=== PATIENT | male | born 1950 ===

== ENCOUNTER 2017-01-14 16:57 | Inpatient (IN) | payer OTHER, BC ==
[2017-01-08 11:31] VITALS: BMI 35.2
[2017-01-14] MEDS ORDERED: Dextrose 50% SYRINGE Inj (50 ml) IVP PRN (18:22)
[2017-01-14] MEDS ORDERED: Glucagon Recombinant 1 mg Inj IM PRN (18:25)
[2017-01-14] MEDS: Insulin Lispro (humaLOG) 100 Units/ml Inj SC SCH (21:26)
[2017-01-14] MEDS: Insulin Detemir 100 Units/ml Inj SC SCH (21:27)
[2017-01-14] MEDS: MYCOPHENOLATE SODIUM PO SCH (21:28)
[2017-01-14] MEDS: Omega-3-Acid Ethyl Esters 1 GM Cap PO SCH (21:28)
[2017-01-14] MEDS: Oxycodone/Acetaminophen 5/325 mg Tab PO PRN (21:30)
[2017-01-15] MEDS: Ciprofloxacin 400mg/200ml D5W 200 ML IVPB SCH ×2 (05:28→16:10)
[2017-01-15] MEDS: Levothyroxine 75 MCG TAB PO SCH ×2 (05:31→10:46)
[2017-01-15] MEDS: Insulin Lispro (humaLOG) 100 Units/ml Inj SC SCH ×3 (06:33→16:43)
--- NOTE | 2017-01-15 07:25 | CP.PCM.HP ---
History of Present Illness - History of Present Illness History of Present Illness: Pt was initially admitted for lower extremity ulcer as inpatient, during inpatient stay he was started on IV antibiotics and podiatry team took him to OR for debridement and fixation. Pt remained stable throughout inpatient stay and is now discharge to rehab to regain strength and complete antibiotics. Pt seen this morning while at the gym in the rehab center. does not have any complaints. states everything is going well Present on Admission - Present on Admission Any Indicators Present on Admission: Yes History of Uncontrolled Diabetes: Yes Review of Systems - Review of Systems All systems: reviewed and no additional remarkable complaints except Review of Systems: Per HPI Past Patient History - Infectious Disease Hx of Infectious Diseases: None - Past Medical History & Family History Past Medical History?: Yes - Past Social History Smoking Status: Former Smoker - CARDIAC Hx Cardiac Disorders: No Hx Angina: No Hx Atrial Fibrillation: No (New Onset of Atrial fib) Hx Cardia Arrhythmia: Yes (ATRIAL FIB) Hx Circulatory Problems: No Hx Congestive Heart Failure: No Hx Heart Attack: Yes Hx Heart Murmur: No Hx Heart Transplant: No Hx Hypercholesterolemia: Yes Hx Hypertension: Yes Hx Hypotension: No Hx Internal Defibrillator: No Hx Mitral Valve Prolapse: No Hx Pacemaker: Yes Hx Peripheral Edema: No Hx Peripheral Vascular Disease: No - PULMONARY Hx Respiratory Disorders: No Hx Asthma: No Hx Bronchitis: No Hx Chronic Obstructive Pulmonary Disease (COPD): No Hx Emphysema: No Hx Lung Cancer: No Hx Pneumonia: Yes Hx Pulmonary Embolism: No Hx Respiratory Aspiration: No Hx Respiratory Tract Infection: No Hx Sleep Apnea: Yes Hx Tuberculosis: No - NEUROLOGICAL Hx Neurological Disorder: Yes Hx Alzheimer's Disease: No HX Cerebrovascular Accident: Yes (March) Hx Dementia: No Hx Dizziness: No (New onset of dizziness and syncope) Hx Meningitis: No Hx Migraine: No Hx Multiple Sclerosis: No Hx Paralysis: No Hx Parkinson's Disease: No Hx Seizures: No Hx Syncope: No Hx Transient Ischemic Attacks (TIA): No Hx Vertigo: No - HEENT Hx HEENT Problems: Yes Hx Blind: No Hx Cataracts: Yes (BILAT.) Hx Deafness: No Hx Difficulty Chewing: No Hx Epistaxis: No Hx Glaucoma: No Hx Macular Degeneration: No - RENAL Hx Chronic Kidney Disease: Yes Hx Dialysis: Yes (2013) Date of Last Dialysis Treatment: 02/08/14 Hx Kidney Stones: No Hx Neurogenic Bladder: No Hx Pyelonephritis: No Hx Renal (Kidney) Cancer: No Hx Renal Failure: Yes - ENDOCRINE/METABOLIC Hx Endocrine Disorders: No Hx Adrenal Cancer: No Hx Diabetes Insipidus: No Hx Diabetes Mellitus Type 1: No Hx Diabetes Mellitus Type 2: Yes Hx Hyperthyroidism: No Hx Hypothyroidism: Yes Hx Systemic Lupus Erythematosus: No - HEMATOLOGICAL/ONCOLOGICAL Hx Blood Disorders: No Hx AIDS: No Hx Anemia: No Hx Blood Transfusions: No Hx Blood Transfusion Reaction: No Hx Bruising: No Hx Cancer: No Hx Chemotherapy: No Hx Cirrhosis: No Hx Gum Bleeding: No Hx Hemophilia: No Hx Hepatitis A: No Hx Hepatitis B: No Hx Hepatitis C: No Hx Human Immunodeficiency Virus (HIV): No Hx Leukemia: No Hx Metastesis: No Hx Shingles: No Hx Sickle Cell Disease: No Hx Unexplained Bleeding: No Hx von Willebrand's Disease: No - INTEGUMENTARY Hx Dermatological Problems: No Hx Basil Cell: No Hx Blanchard: No Hx Cellulitis: No Hx Eczema: No Hx Melanoma: No Hx Psoriasis: No Hx Squamous Cell: No - MUSCULOSKELETAL/RHEUMATOLOGICAL Hx Musculoskeletal Disorders: No Hx Arthritis: Yes (HIP AREA ) Hx Back Pain: No Hx Degenerative Joint Disease: No Hx Falls: No Hx Fractures: Yes (finger hand 60 years ago left) Hx Gout: No Hx Herniated Disk: No Hx Myasthenia Gravis: No Hx Osteoarthritis: No Hx Osteomyelitis: No Hx Osteoporosis: No Hx Rhabdomyolysis: No Hx Rheumatoid Arthritis: No Hx Spinal Stenosis: No Hx Unsteady Gait: Yes - GASTROINTESTINAL Hx Gastrointestinal Disorders: Yes Hx Bowel Surgery: No Hx Clostridium Difficile: No Hx Colitis: No Hx Colostomy: No Hx Constipation: Yes Hx Crohn's Disease: No Hx Diarrhea: No Hx Diverticulitis: No Hx Esophageal Varices: No Hx Fatty Liver Disease: No Hx Gall Bladder Disease: No Hx Gastritis: No Hx Gastroesophageal Reflux: No Hx Hemorrhoids: No Hx Ileostomy: No Hx Irritable Bowel: No Hx Liver Failure: No Hx Nausea: No Hx Pancreatitis: No HX Swallowing Problems: No Hx Ulcer: No Hx Vomiting: No - GENITOURINARY/GYNECOLOGICAL Hx Genitourinary Disorders: Yes (bladder tumor removed, initial positive) Hx Bladder Cancer: Yes (followup negative) Hx Bladder Stone: No Hx Hematuria: Yes Hx Incontinence: No Hx Prostate Problems: No Hx Reproductive Disorders: No Hx Sexually Transmitted Disorders: No Hx Urinary Tract Infection: No Other/Comment: History of renal failure and right kidney transplant. - PSYCHIATRIC Hx Psychophysiologic Disorder: No Hx Anxiety: No Hx Bipolar Disorder: No Hx Depression: No Hx Emotional Abuse: No Hx Hallucinations: No Hx Panic Symptoms: No Hx Paranoia: No Hx Post Traumatic Stress Disorder: No Hx Psychosis: No Hx Physical Abuse: No Hx Schizophrenia: No Hx Sexual Abuse: No Hx Substance Use: No - SURGICAL HISTORY Hx Surgeries: Yes Hx Abdominal Aortic Aneurysm Repair: No Hx Amputation: No Hx Angiogram: No Hx Angioplasty: No Hx Appendectomy: No Hx Arteriovenous Shunt: No Hx Arthroscopy: No Hx Bile Duct Stent: No Hx Breast Biopsy: No Hx Cataract Extraction: Yes Hx Cardiac Catheterization: No Hx Carotid Endarterectomy: No Hx Section: No Hx Cholecystectomy: No Hx Coronary Artery Bypass Graft: No Hx Coronary Stent: No Hx Dilation and Curettage: No Hx Eye Surgery: Yes Hx Femoral-Popliteal Bypass Graft: No Hx Gastric Bypass Surgery: No Hx Herniorrhaphy: No Hx Hysterectomy: No Hx Joint Replacement: No Hx Kidney Transplant: Yes (R kidney transplant) Hx Liver Transplant: No Hx Mastectomy: No Hx Musculoskeletal Surgery: No Hx Open Heart Surgery: No Hx Open Reduction Internal Fixation: No Hx Orthopedic Surgery: No Hx Parathyroidectomy: No Hx Penile Implant: No Hx Pulmonary Surgery: No Hx Splenectomy: No Hx Thyroidectomy: No Hx Tonsillectomy: No Hx Tubal Ligation: No Hx Valve Replacement: No Hx Vascular Surgery: No Hx Vascular Access Device: No Other/Comment: 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 absent: Rhonchi, Wheezes - Cardiovascular Exam Cardiovascular Exam: REGULAR RHYTHM, +S1, +S2 - GI/Abdominal Exam GI & Abdominal Exam: Normal Bowel Sounds, Soft. absent: Tenderness - Extremities Exam Extremities exam: Negative for: calf tenderness Additional comments: Right lower extremity in surgical shoe, neatly wrapped. no discharge. - Neurological Exam Neurological exam: Alert, CN II-XII Intact, Oriented x3 - Skin Skin Exam: Normal Color Results - Vital Signs Recent Vital Signs: Last Vital Signs Temp 98.8 F 01/14/17 20:15 Pulse 78 01/14/17 21:25 Resp 20 01/14/17 20:15 BP 138/72 01/14/17 21:25 Pulse Ox 96 01/14/17 20:15 - Labs Labs: Laboratory Results - last 24 hr 01/14/17 01/15/17 20:40 05:08 POC Glucose (mg/dL) 300 H 177 H Assessment & Plan - Assessment and Plan (Free Text) Assessment: 66 y/o male with pmhx of Arthritis (HIP AREA ), Cardia Arrhythmia (ATRIAL FIB), Diabetes (insulin), HTN, Hypercholesterolemia, Hypothyroidism, Chronic Kidney Disease admitted for right diabetic foot ulceration s/p surgical debridement . now in TCU for IV antibiotics and physical therapy Plan: Right foot Ulcer complete IV antibiotics per ID Continue with rehab 2. Insulin Dependent Diabetes SSI Accucheck 3. Home medication restarted 4. Diet- Diabetic heart healthy 5. DVT prophylaxis Already on Xarelto SCDs
[2017-01-15] MEDS: Oxycodone/Acetaminophen 5/325 mg Tab PO PRN ×2 (08:21→16:17)
[2017-01-15] MEDS: Omega-3-Acid Ethyl Esters 1 GM Cap PO SCH ×2 (08:23→16:12)
[2017-01-15] MEDS: MYCOPHENOLATE SODIUM PO SCH ×2 (08:25→16:10)
[2017-01-15] MEDS: Insulin Detemir 100 Units/ml Inj SC SCH (21:26)
[2017-01-16] MEDS: Insulin Lispro (humaLOG) 100 Units/ml Inj SC SCH ×5 (01:20→22:11)
[2017-01-16] MEDS: Ciprofloxacin 400mg/200ml D5W 200 ML IVPB SCH ×2 (05:46→16:06)
[2017-01-16] MEDS: Levothyroxine 75 MCG TAB PO SCH (06:00)
[2017-01-16] MEDS: Oxycodone/Acetaminophen 5/325 mg Tab PO PRN ×2 (06:01→15:20)
[2017-01-16] MEDS: Omega-3-Acid Ethyl Esters 1 GM Cap PO SCH ×2 (08:32→17:31)
[2017-01-16] MEDS: MYCOPHENOLATE SODIUM PO SCH ×2 (08:32→17:31)
[2017-01-16 10:39] LABS: BASO % 0.5 % (0.0-2.0); EOS # 0.4 K/uL (0.0-0.7); EOS % 5.6 % (0.0-4.0); HEMATOCRIT 35.2 % (35.0-51.0); LYMPH # 0.7 K/uL (1.0-4.3); LYMPH % 9.3 % (20.0-40.0); MEAN CELL VOLUME 84.4 fl (80.0-94.0); MEAN CORPUSCULAR HEMOGLOBIN 26.7 pg (27.0-31.0); MEAN CORPUSCULAR HGB CONC 31.6 g/dL (33.0-37.0); MEAN PLATELET VOLUME 8.2 fl (7.2-11.7); MONO # 0.8 K/uL (0.0-0.8); NEUT # 5.6 K/uL (1.8-7.0); NEUT % 74.6 % (50.0-75.0); RED CELL DISTRIBUTION WIDTH 16.5 % (11.5-14.5); WHITE BLOOD COUNT 7.6 K/uL (4.8-10.8)
[2017-01-16 10:43] LABS: ALB/GLOB RATIO 1.4 (1.0-2.1); BILIRUBIN,TOTAL 1.4 mg/dl (0.2-1.3); CALCIUM 9.3 mg/dL (8.4-10.2); POTASSIUM 3.7 MMOL/L (3.6-5.0); TOTAL PROTEIN 6.8 G/DL (6.3-8.2)
[2017-01-16 11:12] LABS: THYROID STIMULATING HORMONE 3.06 mIU/ML (0.46-4.68)
--- NOTE | 2017-01-16 11:17 | CP.PCM.PN ---
Subjective - Date & Time of Evaluation Date of Evaluation: 01/16/17 Time of Evaluation: 09:30 - Subjective Subjective: Pt seen and examined while at the gym in rehab, states he feels fluid overloaded because he is not getting his normal water pill dose. other that rehab is going well and pain in controlled Objective - Vital Signs/Intake and Output Vital Signs (last 24 hours): Temp Pulse Resp BP Pulse Ox 97.0 F L 89 20 120/58 L 98 01/16/17 08:21 01/16/17 10:12 01/16/17 08:21 01/16/17 10:12 01/16/17 10:12 - Medications Medications: Current Medications Acetaminophen (Tylenol 325mg Tab) 650 mg PO Q4 PRN PRN Reason: Pain, Mild (1-3) Acetaminophen (Tylenol 325mg Tab) 650 mg PO Q6 PRN PRN Reason: Fever >100.4 F Allopurinol (Zyloprim) 100 mg PO DAILY [facility] Last Admin: 01/16/17 08:33 Dose: 100 mg Amlodipine Besylate (Norvasc) 5 mg PO DAILY [facility] Last Admin: 01/16/17 08:30 Dose: 5 mg Dextrose (Dextrose 50% Inj) 0 ml IVP STAT PRN; Protocol PRN Reason: Hypoglycemia Dextrose (Glutose 15) 15 gm PO ONCE PRN; Protocol PRN Reason: Hypoglycemia Docusate Sodium (Colace) 100 mg PO BID [facility] Famotidine (Pepcid) 20 mg PO DAILY [facility] Last Admin: 01/16/17 08:30 Dose: 20 mg Furosemide (Lasix) 20 mg PO QPM SHRUTI Furosemide (Lasix) 40 mg PO QAM [facility] Glucagon (Glucagen Diagnostic Kit) 0 mg IM STAT PRN; Protocol PRN Reason: Hypoglycemia Home Med (Mycophenolate Sodium [Myfortic]) 4 tab PO BID [facility] Last Admin: 01/16/17 08:32 Dose: 4 tab Hydralazine HCl (Apresoline) 50 mg PO Q8 [facility] Last Admin: 01/16/17 08:28 Dose: 50 mg Ciprofloxacin (Cipro 400mg/200ml Dsw) 200 mls @ 200 mls/hr IVPB Q12@0500,1700 [facility] Last Admin: 01/16/17 05:46 Dose: 200 mls/hr Daptomycin 580 mg/ Sodium (Chloride) 100 mls @ 100 mls/hr IVPB DAILY@1700 [facility] Stop: 01/19/17 21:01 Last Admin: 01/15/17 20:10 Dose: 100 mls/hr Insulin Detemir (Levemir) 50 units SC [facility] Last Admin: 01/15/17 21:26 Dose: 50 units Insulin Human Lispro (Humalog) 0 units SC [facility] PRN Reason: Protocol Last Admin: 01/16/17 07:14 Dose: Not Given Levothyroxine Sodium (Synthroid) 75 mcg PO DAILY@0630 [facility] Last Admin: 01/16/17 06:00 Dose: 75 mcg Losartan Potassium (Cozaar) 25 mg PO DAILY [facility] Last Admin: 01/16/17 08:31 Dose: 25 mg Sioth-3-Llcj Ethyl Esters (Lovaza) 1 gm PO BID [facility] Last Admin: 01/16/17 08:32 Dose: 1 gm Oxycodone/Acetaminophen (Percocet 5/325 Mg Tab) 1 tab PO Q4 PRN PRN Reason: Pain, moderate (4-7) Stop: 01/17/17 18:46 Last Admin: 01/15/17 16:17 Dose: 1 tab Oxycodone/Acetaminophen (Percocet 5/325 Mg Tab) 2 tab PO Q4 PRN PRN Reason: Pain, severe (8-10) Stop: 01/17/17 18:47 Last Admin: 01/16/17 06:01 Dose: 2 tab Rivaroxaban (Xarelto) 20 mg PO QPM [facility] PRN Reason: Protocol Last Admin: 01/15/17 18:54 Dose: 20 mg Senna/Docusate Sodium (Senokot S 50 Mg-8.6 Mg) 2 tab PO [facility] Tamsulosin HCl (Flomax) 0.4 mg PO QPM [facility] Last Admin: 01/15/17 18:54 Dose: 0.4 mg - Labs Labs: 01/16/17 10:20 01/16/17 10:20 - Constitutional Appears: Non-toxic, No Acute Distress - Head Exam Head Exam: NORMOCEPHALIC - Eye Exam Eye Exam: EOMI, Normal appearance, PERRL Pupil Exam: NORMAL ACCOMODATION - ENT Exam ENT Exam: Mucous Membranes Moist - Respiratory Exam Respiratory Exam: Clear to Ausculation Bilateral, NORMAL BREATHING PATTERN. absent: Decreased Breath Sounds, Rhonchi, Wheezes - Cardiovascular Exam Cardiovascular Exam: REGULAR RHYTHM, +S1, +S2. absent: Gallop, Rubs - GI/Abdominal Exam GI & Abdominal Exam: Soft, Normal Bowel Sounds. absent: Tenderness - Extremities Exam Extremities Exam: absent: Calf Tenderness Additional comments: mild pedal edema surgical site neatly dressed, no signs of infection - Neurological Exam Neurological Exam: Alert, Awake, CN II-XII Intact, Oriented x3 Assessment and Plan - Assessment and Plan (Free Text) Assessment: 66 y/o male with pmhx of Arthritis (HIP AREA ), Cardia Arrhythmia (ATRIAL FIB), Diabetes (insulin), HTN, Hypercholesterolemia, Hypothyroidism, Chronic Kidney Disease admitted for right diabetic foot ulceration s/p surgical debridement . now in TCU for IV antibiotics and physical therapy Plan: Right foot Ulcer complete IV antibiotics per ID Continue with rehab 2. Pt report being fluid overloaded lasix: 40mg in the AM Laxis 20mg in PM Fluid restriction to 1000 cc daily Will monitor kidney function 3. Insulin Dependent Diabetes SSI Accucheck 4. Home medication restarted 5. Diet- Diabetic heart healthy 6. DVT prophylaxis Already on Xarelto SCDs
--- NOTE | 2017-01-16 13:36 | CP.PCM.CON ---
History of Present Illness - History of Present Illness History of Present Illness: Pt was initially admitted for lower extremity ulcer as inpatient, during inpatient stay he was started on IV antibiotics and podiatry team took him to OR for debridement second digit amp right foot . Hx DM HTN PVD CAD CABG CKD Review of Systems - Constitutional Constitutional: As Per HPI - EENT Eyes: absent: As Per HPI, Blind Spots, Blurred Vision, Change in Vision, Decreased Night Vision, Diplopia, Discharge, Dry Eye, Exophthalmos, Floaters, Irritation, Itchy Eyes, Loss of Peripheral Vision, Pain, Photophobia, Requires Corrective Lenses, Sees Flashes, Spots in Vision, Tunnel Vision, Other Visual Disturbances, Loss of Vision, Other Ears: absent: As Per HPI, Decreased Hearing, Ear Discharge, Ear Pain, Tinnitus, Abnormal Hearing, Disequilibrium, Dizziness, Other Nose/Mouth/Throat: absent: As Per HPI, Epistaxis, Nasal Congestion, Nasal Discharge, Nasal Obstruction, Nasal Trauma, Nose Pain, Post Nasal Drip, Sinus Pain, Sinus Pressure, Bleeding Gums, Change in Voice, Dental Pain, Dry Mouth, Dysphagia, Halitosis, Hoarsness, Lip Swelling, Mouth Lesions, Mouth Pain, Odynophagia, Sore Throat, Throat Swelling, Tongue Swelling, Facial Pain, Neck Pain, Neck Mass, Other - Cardiovascular Cardiovascular: absent: As Per HPI, Acrocyanosis, Chest Pain, Chest Pain at Rest , Chest Pain with Activity, Claudication, Diaphoresis, Dyspnea, Dyspnea on Exertion, Edema, Irregular Heart Rhythm, Pain Radiating to Arm/Neck/Jaw, Leg Edema, Leg Ulcers, Lightheadedness, Orthopnea, Palpitations, Paroxysmal Nocturnal Dyspnea, Pedal Edema, Radiating Pain, Rapid Heart Rate, Slow Heart Rate, Syncope, Other - Respiratory Respiratory: absent: As Per HPI, Cough, Dyspnea, Hemoptysis, Dyspnea on Exertion , Wheezing, Snoring, Stridor, Pain on Inspiration, Chest Congestion, Excessive Mucous Production, Change in Mucous Color, Pain with Coughing, Other - Gastrointestinal Gastrointestinal: absent: As Per HPI, Abdominal Pain, Belching, Bloating, Change in Bowel Habits, Change in Stool Character, Coffee Ground Emesis, Constipation, Cramping, Diarrhea, Dyspepsia, Dysphagia, Early Satiety, Excessive Flatus, Fecal Incontinence, Heartburn, Hematemesis, Hematochezia, Loose Stools, Melena, Nausea, Odynophagia, Temesmus, Vomiting, Other - Genitourinary Genitourinary: absent: As Per HPI, Change in Urinary Stream, Difficulty Urinating, Dysuria, Flank Pain, Hematuria, Pyuria, Nocturia, Urinary Incontinence, Urinary Frequency, Urinary Hesitance, Urinary Urgency, Voiding Freq/Small Amts, Freq UTI, Hx Renal/Bladder Calculi, Hx /Renal Surgery, Bladder Distension, Other - Musculoskeletal Musculoskeletal: As Per HPI - Integumentary Integumentary: As Per HPI - Neurological Neurological: absent: As Per HPI, Abnormal Gait, Abnormal Hearing, Abnormal Movements, Abnormal Speech, Behavioral Changes, Burning Sensations, Confusion, Convulsions, Disequilibrium, Dizziness, Numbness, Focal Weakness, Frequent Falls , Headaches, Lack of Coordination, Loss of Vision, Memory Loss, Paresthesias, Radicular Pain, Restless Legs, Sensory Deficit, Syncope, Tingling, Tremor, Vertigo, Weakness, Other Visual Disturbances, Other - Psychiatric Psychiatric: absent: As Per HPI, Abnormal Sleep Pattern, Anhedonia, Anxiety, Auditory Hallucinations, Behavioral Changes, Change in Appetite, Change in Libido, Confusion, Depression, Difficulty Concentrating, Hallucinations, Homicidal Ideation, Hopelessness, Irritability, Memory Loss, Mood Swings, Panic Attacks, Paranoia, Suicidal Ideation, Visual Hallucinations, Tactile Hallucinations, Other - Endocrine Endocrine: absent: As Per HPI, Change in Body Appearance, Change in Libido, Cold Intolorance, Deepening of Voice, Excessive Sweating, Fatigue, Flushing, Heat Intolorance, Increase in Ring/Shoe/Hat Size, Palpitations, Polydipsia, Polyphagia, Polyuria, Other - Hematologic/Lymphatic Hematologic: absent: As Per HPI, Easy Bleeding, Easy Bruising, Lymphadenopathy, Other Past Patient History - Infectious Disease Hx of Infectious Diseases: None - Past Medical History & Family History Past Medical History?: Yes - Past Social History Smoking Status: Former Smoker - CARDIAC Hx Cardiac Disorders: No Hx Angina: No Hx Atrial Fibrillation: No (New Onset of Atrial fib) Hx Cardia Arrhythmia: Yes (ATRIAL FIB) Hx Circulatory Problems: No Hx Congestive Heart Failure: No Hx Heart Attack: Yes Hx Heart Murmur: No Hx Heart Transplant: No Hx Hypercholesterolemia: Yes Hx Hypertension: Yes Hx Hypotension: No Hx Internal Defibrillator: No Hx Mitral Valve Prolapse: No Hx Pacemaker: Yes Hx Peripheral Edema: No Hx Peripheral Vascular Disease: No - PULMONARY Hx Respiratory Disorders: No Hx Asthma: No Hx Bronchitis: No Hx Chronic Obstructive Pulmonary Disease (COPD): No Hx Emphysema: No Hx Lung Cancer: No Hx Pneumonia: Yes Hx Pulmonary Embolism: No Hx Respiratory Aspiration: No Hx Respiratory Tract Infection: No Hx Sleep Apnea: Yes Hx Tuberculosis: No - NEUROLOGICAL Hx Neurological Disorder: Yes Hx Alzheimer's Disease: No HX Cerebrovascular Accident: Yes (March) Hx Dementia: No Hx Dizziness: No (New onset of dizziness and syncope) Hx Meningitis: No Hx Migraine: No Hx Multiple Sclerosis: No Hx Paralysis: No Hx Parkinson's Disease: No Hx Seizures: No Hx Syncope: No Hx Transient Ischemic Attacks (TIA): No Hx Vertigo: No - HEENT Hx HEENT Problems: Yes Hx Blind: No Hx Cataracts: Yes (BILAT.) Hx Deafness: No Hx Difficulty Chewing: No Hx Epistaxis: No Hx Glaucoma: No Hx Macular Degeneration: No - RENAL Hx Chronic Kidney Disease: Yes Hx Dialysis: Yes (2013) Date of Last Dialysis Treatment: 02/08/14 Hx Kidney Stones: No Hx Neurogenic Bladder: No Hx Pyelonephritis: No Hx Renal (Kidney) Cancer: No Hx Renal Failure: Yes - ENDOCRINE/METABOLIC Hx Endocrine Disorders: No Hx Adrenal Cancer: No Hx Diabetes Insipidus: No Hx Diabetes Mellitus Type 1: No Hx Diabetes Mellitus Type 2: Yes Hx Hyperthyroidism: No Hx Hypothyroidism: Yes Hx Systemic Lupus Erythematosus: No - HEMATOLOGICAL/ONCOLOGICAL Hx Blood Disorders: No Hx AIDS: No Hx Anemia: No Hx Blood Transfusions: No Hx Blood Transfusion Reaction: No Hx Bruising: No Hx Cancer: No Hx Chemotherapy: No Hx Cirrhosis: No Hx Gum Bleeding: No Hx Hemophilia: No Hx Hepatitis A: No Hx Hepatitis B: No Hx Hepatitis C: No Hx Human Immunodeficiency Virus (HIV): No Hx Leukemia: No Hx Metastesis: No Hx Shingles: No Hx Sickle Cell Disease: No Hx Unexplained Bleeding: No Hx von Willebrand's Disease: No - INTEGUMENTARY Hx Dermatological Problems: No Hx Basil Cell: No Hx Blanchard: No Hx Cellulitis: No Hx Eczema: No Hx Melanoma: No Hx Psoriasis: No Hx Squamous Cell: No - MUSCULOSKELETAL/RHEUMATOLOGICAL Hx Musculoskeletal Disorders: No Hx Arthritis: Yes (HIP AREA ) Hx Back Pain: No Hx Degenerative Joint Disease: No Hx Falls: No Hx Fractures: Yes (finger hand 60 years ago left) Hx Gout: No Hx Herniated Disk: No Hx Myasthenia Gravis: No Hx Osteoarthritis: No Hx Osteomyelitis: No Hx Osteoporosis: No Hx Rhabdomyolysis: No Hx Rheumatoid Arthritis: No Hx Spinal Stenosis: No Hx Unsteady Gait: Yes - GASTROINTESTINAL Hx Gastrointestinal Disorders: Yes Hx Bowel Surgery: No Hx Clostridium Difficile: No Hx Colitis: No Hx Colostomy: No Hx Constipation: Yes Hx Crohn's Disease: No Hx Diarrhea: No Hx Diverticulitis: No Hx Esophageal Varices: No Hx Fatty Liver Disease: No Hx Gall Bladder Disease: No Hx Gastritis: No Hx Gastroesophageal Reflux: No Hx Hemorrhoids: No Hx Ileostomy: No Hx Irritable Bowel: No Hx Liver Failure: No Hx Nausea: No Hx Pancreatitis: No HX Swallowing Problems: No Hx Ulcer: No Hx Vomiting: No - GENITOURINARY/GYNECOLOGICAL Hx Genitourinary Disorders: Yes (bladder tumor removed, initial positive) Hx Bladder Cancer: Yes (followup negative) Hx Bladder Stone: No Hx Hematuria: Yes Hx Incontinence: No Hx Prostate Problems: No Hx Reproductive Disorders: No Hx Sexually Transmitted Disorders: No Hx Urinary Tract Infection: No Other/Comment: History of renal failure and right kidney transplant. - PSYCHIATRIC Hx Psychophysiologic Disorder: No Hx Anxiety: No Hx Bipolar Disorder: No Hx Depression: No Hx Emotional Abuse: No Hx Hallucinations: No Hx Panic Symptoms: No Hx Paranoia: No Hx Post Traumatic Stress Disorder: No Hx Psychosis: No Hx Physical Abuse: No Hx Schizophrenia: No Hx Sexual Abuse: No Hx Substance Use: No - SURGICAL HISTORY Hx Surgeries: Yes Hx Abdominal Aortic Aneurysm Repair: No Hx Amputation: No Hx Angiogram: No Hx Angioplasty: No Hx Appendectomy: No Hx Arteriovenous Shunt: No Hx Arthroscopy: No Hx Bile Duct Stent: No Hx Breast Biopsy: No Hx Cataract Extraction: Yes Hx Cardiac Catheterization: No Hx Carotid Endarterectomy: No Hx Section: No Hx Cholecystectomy: No Hx Coronary Artery Bypass Graft: No Hx Coronary Stent: No Hx Dilation and Curettage: No Hx Eye Surgery: Yes Hx Femoral-Popliteal Bypass Graft: No Hx Gastric Bypass Surgery: No Hx Herniorrhaphy: No Hx Hysterectomy: No Hx Joint Replacement: No Hx Kidney Transplant: Yes (R kidney transplant) Hx Liver Transplant: No Hx Mastectomy: No Hx Musculoskeletal Surgery: No Hx Open Heart Surgery: No Hx Open Reduction Internal Fixation: No Hx Orthopedic Surgery: No Hx Parathyroidectomy: No Hx Penile Implant: No Hx Pulmonary Surgery: No Hx Splenectomy: No Hx Thyroidectomy: No Hx Tonsillectomy: No Hx Tubal Ligation: No Hx Valve Replacement: No Hx Vascular Surgery: No Hx Vascular Access Device: No Other/Comment: left foot surgery amputation 5th digit - ANESTHESIA Hx Anesthesia: Yes Hx Anesthesia Reactions: No Hx Malignant Hyperthermia: No Meds Allergies/Adverse Reactions: Allergies Allergy/AdvReac Type Severity Reaction Status Date / Time Penicillins Allergy Intermediate RASH Verified 01/14/17 17:41 - Medications Medications: Current Medications Acetaminophen (Tylenol 325mg Tab) 650 mg PO Q4 PRN PRN Reason: Pain, Mild (1-3) Acetaminophen (Tylenol 325mg Tab) 650 mg PO Q6 PRN PRN Reason: Fever >100.4 F Allopurinol (Zyloprim) 100 mg PO DAILY [facility] Last Admin: 01/16/17 08:33 Dose: 100 mg Amlodipine Besylate (Norvasc) 5 mg PO DAILY [facility] Last Admin: 01/16/17 08:30 Dose: 5 mg Dextrose (Dextrose 50% Inj) 0 ml IVP STAT PRN; Protocol PRN Reason: Hypoglycemia Dextrose (Glutose 15) 15 gm PO ONCE PRN; Protocol PRN Reason: Hypoglycemia Docusate Sodium (Colace) 100 mg PO BID [facility] Famotidine (Pepcid) 20 mg PO DAILY [facility] Last Admin: 01/16/17 08:30 Dose: 20 mg Furosemide (Lasix) 20 mg PO QPM [facility] Furosemide (Lasix) 40 mg PO QAM [facility] Glucagon (Glucagen Diagnostic Kit) 0 mg IM STAT PRN; Protocol PRN Reason: Hypoglycemia Home Med (Mycophenolate Sodium [Myfortic]) 4 tab PO BID [facility] Last Admin: 01/16/17 08:32 Dose: 4 tab Hydralazine HCl (Apresoline) 50 mg PO Q8 [facility] Last Admin: 01/16/17 08:28 Dose: 50 mg Ciprofloxacin (Cipro 400mg/200ml Dsw) 200 mls @ 200 mls/hr IVPB Q12@0500,1700 [facility] Last Admin: 01/16/17 05:46 Dose: 200 mls/hr Daptomycin 580 mg/ Sodium (Chloride) 100 mls @ 100 mls/hr IVPB DAILY@1700 [facility] Stop: 01/19/17 21:01 Last Admin: 01/15/17 20:10 Dose: 100 mls/hr Insulin Detemir (Levemir) 50 units SC [facility] Last Admin: 01/15/17 21:26 Dose: 50 units Insulin Human Lispro (Humalog) 0 units SC [facility] PRN Reason: Protocol Last Admin: 01/16/17 07:14 Dose: Not Given Levothyroxine Sodium (Synthroid) 75 mcg PO DAILY@0630 [facility] Last Admin: 01/16/17 06:00 Dose: 75 mcg Losartan Potassium (Cozaar) 25 mg PO DAILY [facility] Last Admin: 01/16/17 08:31 Dose: 25 mg [id number] Ethyl Esters (Lovaza) 1 gm PO BID [facility] Last Admin: 01/16/17 08:32 Dose: 1 gm Oxycodone/Acetaminophen (Percocet 5/325 Mg Tab) 1 tab PO Q4 PRN PRN Reason: Pain, moderate (4-7) Stop: 01/17/17 18:46 Last Admin: 01/15/17 16:17 Dose: 1 tab Oxycodone/Acetaminophen (Percocet 5/325 Mg Tab) 2 tab PO Q4 PRN PRN Reason: Pain, severe (8-10) Stop: 01/17/17 18:47 Last Admin: 01/16/17 06:01 Dose: 2 tab Rivaroxaban (Xarelto) 20 mg PO QPM [facility] PRN Reason: Protocol Last Admin: 01/15/17 18:54 Dose: 20 mg Senna/Docusate Sodium (Senokot S 50 Mg-8.6 Mg) 2 tab PO [facility] Tamsulosin HCl (Flomax) 0.4 mg PO QPM [facility] Last Admin: 01/15/17 18:54 Dose: 0.4 mg Physical Exam - Constitutional Appears: Non-toxic, Chronically Ill - Head Exam Head Exam: NORMOCEPHALIC - Eye Exam Eye Exam: absent: PERRL, Scleral icterus - ENT Exam ENT Exam: Mucous Membranes Dry - Neck Exam Neck exam: Negative for: Lymphadenopathy - Respiratory Exam Respiratory Exam: Decreased Breath Sounds - Cardiovascular Exam Cardiovascular Exam: REGULAR RHYTHM, +S1, +S2 - GI/Abdominal Exam GI & Abdominal Exam: Diminished Bowel Sounds, Soft. absent: Tenderness - Rectal Exam Rectal Exam: Deferred - Exam Exam: NORMAL INSPECTION - Extremities Exam Extremities exam: Positive for: pedal edema, pedal pulses present. Negative for : calf tenderness - Back Exam Back exam: absent: CVA tenderness (L), CVA tenderness (R), paraspinal tenderness - Neurological Exam Neurological exam: Alert, CN II-XII Intact, Oriented x3, Reflexes Normal Results - Vital Signs Recent Vital Signs: Last Vital Signs Temp 97.0 F L 01/16/17 08:21 Pulse 89 01/16/17 10:12 Resp 20 01/16/17 08:21 BP 120/58 L 01/16/17 10:12 Pulse Ox 98 01/16/17 10:12 - Labs Result Diagrams: 01/16/17 10:20 01/16/17 10:20 Labs: Laboratory Results - last 24 hr 01/15/17 01/15/17 01/16/17 16:34 21:19 04:55 WBC RBC Hgb Hct MCV MCH MCHC RDW Plt Count MPV Neut % (Auto) Lymph % (Auto) [place] % (Auto) Eos % (Auto) Baso % (Auto) Neut # Lymph # [place] # Eos # Baso # Sodium Potassium Chloride Carbon Dioxide Anion Gap BUN Creatinine Est GFR ( Amer) Est GFR (Non-Af Amer) POC Glucose (mg/dL) 160 H 234 H 130 H Random Glucose Calcium Total Bilirubin AST ALT Alkaline Phosphatase Total Protein Albumin Globulin Albumin/Globulin Ratio Triglycerides Cholesterol LDL Cholesterol Direct HDL Cholesterol TSH 3rd Generation 01/16/17 01/16/17 10:20 10:54 WBC 7.6 RBC 4.17 L Hgb 11.1 L Hct 35.2 MCV 84.4 MCH 26.7 L MCHC 31.6 L RDW 16.5 H Plt Count 176 MPV 8.2 Neut % (Auto) 74.6 Lymph % (Auto) 9.3 L [place] % (Auto) 10.0 Eos % (Auto) 5.6 H Baso % (Auto) 0.5 Neut # 5.6 Lymph # 0.7 L [place] # 0.8 Eos # 0.4 Baso # 0.0 Sodium 141 Potassium 3.7 Chloride 100 Carbon Dioxide 26 Anion Gap 19 BUN 35 H Creatinine 2.0 H Est GFR ( Amer) 40 Est GFR (Non-Af Amer) 33 POC Glucose (mg/dL) 98 Random Glucose 95 Calcium 9.3 Total Bilirubin 1.4 H AST 40 ALT 45 Alkaline Phosphatase 139 H D Total Protein 6.8 Albumin 3.9 Globulin 2.8 Albumin/Globulin Ratio 1.4 Triglycerides 115 Cholesterol 112 LDL Cholesterol Direct 52 HDL Cholesterol 24 L TSH 3rd Generation 3.06 Assessment & Plan (1) Atrial fibrillation Status: Acute (2) Bifascicular block Status: Acute (3) CKD (chronic kidney disease) stage 3, GFR 30-59 ml/min Status: Acute (4) Diabetes Status: Acute (5) 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
--- NOTE | 2017-01-16 18:02 | CP.PCM.CON ---
History of Present Illness - History of Present Illness History of Present Illness: Dr Roberts PMR consultation on Nirmal Simpson, born 1950, who has been admitted to [facility] for ABX treatment following a right foot debridement for non-healing ulcer NWB right LE able to ambulate 50' with RW + constipation Review of Systems - Constitutional Constitutional: absent: Anorexia, Chills - EENT Eyes: absent: Blurred Vision Ears: absent: Ear Discharge - Cardiovascular Cardiovascular: absent: Chest Pain - Respiratory Respiratory: absent: Dyspnea - Gastrointestinal Gastrointestinal: Bloating, Constipation - Musculoskeletal Musculoskeletal: absent: Back Pain Past Patient History - Infectious Disease Hx of Infectious Diseases: None - Past Medical History & Family History Past Medical History?: Yes - Past Social History Smoking Status: Former Smoker Alcohol: None Drugs: Denies Home Situation {Lives}: With Family - CARDIAC Hx Cardiac Disorders: No Hx Angina: No Hx Atrial Fibrillation: No (New Onset of Atrial fib) Hx Cardia Arrhythmia: Yes (ATRIAL FIB) Hx Circulatory Problems: No Hx Congestive Heart Failure: No Hx Heart Attack: Yes Hx Heart Murmur: No Hx Heart Transplant: No Hx Hypercholesterolemia: Yes Hx Hypertension: Yes Hx Hypotension: No Hx Internal Defibrillator: No Hx Mitral Valve Prolapse: No Hx Pacemaker: Yes Hx Peripheral Edema: No Hx Peripheral Vascular Disease: No - PULMONARY Hx Respiratory Disorders: No Hx Asthma: No Hx Bronchitis: No Hx Chronic Obstructive Pulmonary Disease (COPD): No Hx Emphysema: No Hx Lung Cancer: No Hx Pneumonia: Yes Hx Pulmonary Embolism: No Hx Respiratory Aspiration: No Hx Respiratory Tract Infection: No Hx Sleep Apnea: Yes Hx Tuberculosis: No - NEUROLOGICAL Hx Neurological Disorder: Yes Hx Alzheimer's Disease: No HX Cerebrovascular Accident: Yes (March) Hx Dementia: No Hx Dizziness: No (New onset of dizziness and syncope) Hx Meningitis: No Hx Migraine: No Hx Multiple Sclerosis: No Hx Paralysis: No Hx Parkinson's Disease: No Hx Seizures: No Hx Syncope: No Hx Transient Ischemic Attacks (TIA): No Hx Vertigo: No - HEENT Hx HEENT Problems: Yes Hx Blind: No Hx Cataracts: Yes (BILAT.) Hx Deafness: No Hx Difficulty Chewing: No Hx Epistaxis: No Hx Glaucoma: No Hx Macular Degeneration: No - RENAL Hx Chronic Kidney Disease: Yes Hx Dialysis: Yes (2013) Date of Last Dialysis Treatment: 02/08/14 Hx Kidney Stones: No Hx Neurogenic Bladder: No Hx Pyelonephritis: No Hx Renal (Kidney) Cancer: No Hx Renal Failure: Yes - ENDOCRINE/METABOLIC Hx Endocrine Disorders: No Hx Adrenal Cancer: No Hx Diabetes Insipidus: No Hx Diabetes Mellitus Type 1: No Hx Diabetes Mellitus Type 2: Yes Hx Hyperthyroidism: No Hx Hypothyroidism: Yes Hx Systemic Lupus Erythematosus: No - HEMATOLOGICAL/ONCOLOGICAL Hx Blood Disorders: No Hx AIDS: No Hx Anemia: No Hx Blood Transfusions: No Hx Blood Transfusion Reaction: No Hx Bruising: No Hx Cancer: No Hx Chemotherapy: No Hx Cirrhosis: No Hx Gum Bleeding: No Hx Hemophilia: No Hx Hepatitis A: No Hx Hepatitis B: No Hx Hepatitis C: No Hx Human Immunodeficiency Virus (HIV): No Hx Leukemia: No Hx Metastesis: No Hx Shingles: No Hx Sickle Cell Disease: No Hx Unexplained Bleeding: No Hx von Willebrand's Disease: No - INTEGUMENTARY Hx Dermatological Problems: No Hx Basil Cell: No Hx Blanchard: No Hx Cellulitis: No Hx Eczema: No Hx Melanoma: No Hx Psoriasis: No Hx Squamous Cell: No - MUSCULOSKELETAL/RHEUMATOLOGICAL Hx Musculoskeletal Disorders: No Hx Arthritis: Yes (HIP AREA ) Hx Back Pain: No Hx Degenerative Joint Disease: No Hx Falls: No Hx Fractures: Yes (finger hand 60 years ago left) Hx Gout: No Hx Herniated Disk: No Hx Myasthenia Gravis: No Hx Osteoarthritis: No Hx Osteomyelitis: No Hx Osteoporosis: No Hx Rhabdomyolysis: No Hx Rheumatoid Arthritis: No Hx Spinal Stenosis: No Hx Unsteady Gait: Yes - GASTROINTESTINAL Hx Gastrointestinal Disorders: Yes Hx Bowel Surgery: No Hx Clostridium Difficile: No Hx Colitis: No Hx Colostomy: No Hx Constipation: Yes Hx Crohn's Disease: No Hx Diarrhea: No Hx Diverticulitis: No Hx Esophageal Varices: No Hx Fatty Liver Disease: No Hx Gall Bladder Disease: No Hx Gastritis: No Hx Gastroesophageal Reflux: No Hx Hemorrhoids: No Hx Ileostomy: No Hx Irritable Bowel: No Hx Liver Failure: No Hx Nausea: No Hx Pancreatitis: No HX Swallowing Problems: No Hx Ulcer: No Hx Vomiting: No - GENITOURINARY/GYNECOLOGICAL Hx Genitourinary Disorders: Yes (bladder tumor removed, initial positive) Hx Bladder Cancer: Yes (followup negative) Hx Bladder Stone: No Hx Hematuria: Yes Hx Incontinence: No Hx Prostate Problems: No Hx Reproductive Disorders: No Hx Sexually Transmitted Disorders: No Hx Urinary Tract Infection: No Other/Comment: History of renal failure and right kidney transplant. - PSYCHIATRIC Hx Psychophysiologic Disorder: No Hx Anxiety: No Hx Bipolar Disorder: No Hx Depression: No Hx Emotional Abuse: No Hx Hallucinations: No Hx Panic Symptoms: No Hx Paranoia: No Hx Post Traumatic Stress Disorder: No Hx Psychosis: No Hx Physical Abuse: No Hx Schizophrenia: No Hx Sexual Abuse: No Hx Substance Use: No - SURGICAL HISTORY Hx Surgeries: Yes Hx Abdominal Aortic Aneurysm Repair: No Hx Amputation: No Hx Angiogram: No Hx Angioplasty: No Hx Appendectomy: No Hx Arteriovenous Shunt: No Hx Arthroscopy: No Hx Bile Duct Stent: No Hx Breast Biopsy: No Hx Cataract Extraction: Yes Hx Cardiac Catheterization: No Hx Carotid Endarterectomy: No Hx Section: No Hx Cholecystectomy: No Hx Coronary Artery Bypass Graft: No Hx Coronary Stent: No Hx Dilation and Curettage: No Hx Eye Surgery: Yes Hx Femoral-Popliteal Bypass Graft: No Hx Gastric Bypass Surgery: No Hx Herniorrhaphy: No Hx Hysterectomy: No Hx Joint Replacement: No Hx Kidney Transplant: Yes (R kidney transplant) Hx Liver Transplant: No Hx Mastectomy: No Hx Musculoskeletal Surgery: No Hx Open Heart Surgery: No Hx Open Reduction Internal Fixation: No Hx Orthopedic Surgery: No Hx Parathyroidectomy: No Hx Penile Implant: No Hx Pulmonary Surgery: No Hx Splenectomy: No Hx Thyroidectomy: No Hx Tonsillectomy: No Hx Tubal Ligation: No Hx Valve Replacement: No Hx Vascular Surgery: No Hx Vascular Access Device: No Other/Comment: left foot surgery amputation 5th digit - ANESTHESIA Hx Anesthesia: Yes Hx Anesthesia Reactions: No Hx Malignant Hyperthermia: No Meds Allergies/Adverse Reactions: Allergies Allergy/AdvReac Type Severity Reaction Status Date / Time Penicillins Allergy Intermediate RASH Verified 01/14/17 17:41 - Medications Medications: Current Medications Acetaminophen (Tylenol 325mg Tab) 650 mg PO Q4 PRN PRN Reason: Pain, Mild (1-3) Acetaminophen (Tylenol 325mg Tab) 650 mg PO Q6 PRN PRN Reason: Fever >100.4 F Allopurinol (Zyloprim) 100 mg PO DAILY [facility] Last Admin: 01/16/17 08:33 Dose: 100 mg Amlodipine Besylate (Norvasc) 5 mg PO DAILY [facility] Last Admin: 01/16/17 08:30 Dose: 5 mg Dextrose (Dextrose 50% Inj) 0 ml IVP STAT PRN; Protocol PRN Reason: Hypoglycemia Dextrose (Glutose 15) 15 gm PO ONCE PRN; Protocol PRN Reason: Hypoglycemia Docusate Sodium (Colace) 100 mg PO BID [facility] Last Admin: 01/16/17 17:40 Dose: 100 mg Famotidine (Pepcid) 20 mg PO DAILY [facility] Last Admin: 01/16/17 08:30 Dose: 20 mg Furosemide (Lasix) 20 mg PO QPM [facility] Last Admin: 01/16/17 17:31 Dose: 20 mg Furosemide (Lasix) 40 mg PO QAM [facility] Glucagon (Glucagen Diagnostic Kit) 0 mg IM STAT PRN; Protocol PRN Reason: Hypoglycemia Home Med (Mycophenolate Sodium [Myfortic]) 4 tab PO BID [facility] Last Admin: 01/16/17 17:31 Dose: 4 tab Hydralazine HCl (Apresoline) 50 mg PO Q8 [facility] Last Admin: 01/16/17 17:28 Dose: 50 mg Ciprofloxacin (Cipro 400mg/200ml Dsw) 200 mls @ 200 mls/hr IVPB Q12@0500,1700 [facility] Last Admin: 01/16/17 16:06 Dose: 200 mls/hr Daptomycin 580 mg/ Sodium (Chloride) 100 mls @ 100 mls/hr IVPB DAILY@1700 [facility] Stop: 01/19/17 21:01 Last Admin: 01/16/17 17:41 Dose: 100 mls/hr Insulin Detemir (Levemir) 50 units SC HS [facility] Last Admin: 01/15/17 21:26 Dose: 50 units Insulin Human Lispro (Humalog) 0 units SC ACHS [facility] PRN Reason: Protocol Last Admin: 01/16/17 17:00 Dose: 2 units Levothyroxine Sodium (Synthroid) 75 mcg PO DAILY@0630 [facility] Last Admin: 01/16/17 06:00 Dose: 75 mcg Losartan Potassium (Cozaar) 25 mg PO DAILY [facility] Last Admin: 01/16/17 08:31 Dose: 25 mg Kidhh-5-Skze Ethyl Esters (Lovaza) 1 gm PO BID [facility] Last Admin: 01/16/17 17:31 Dose: 1 gm Oxycodone/Acetaminophen (Percocet 5/325 Mg Tab) 1 tab PO Q4 PRN PRN Reason: Pain, moderate (4-7) Stop: 01/17/17 18:46 Last Admin: 01/15/17 16:17 Dose: 1 tab Oxycodone/Acetaminophen (Percocet 5/325 Mg Tab) 2 tab PO Q4 PRN PRN Reason: Pain, severe (8-10) Stop: 01/17/17 18:47 Last Admin: 01/16/17 15:20 Dose: 2 tab Rivaroxaban (Xarelto) 20 mg PO QPM [facility] PRN Reason: Protocol Last Admin: 01/16/17 17:41 Dose: 20 mg Senna/Docusate Sodium (Senokot S 50 Mg-8.6 Mg) 2 tab PO HS [facility] Tamsulosin HCl (Flomax) 0.4 mg PO QPM [facility] Last Admin: 01/16/17 17:36 Dose: 0.4 mg Physical Exam - Constitutional Appears: Non-toxic, No Acute Distress - Head Exam Head Exam: ATRAUMATIC, NORMAL INSPECTION, NORMOCEPHALIC - Eye Exam Eye Exam: EOMI - ENT Exam ENT Exam: Mucous Membranes Moist - Respiratory Exam Respiratory Exam: NORMAL BREATHING PATTERN. absent: Chest Wall Tenderness - Cardiovascular Exam Cardiovascular Exam: REGULAR RHYTHM - GI/Abdominal Exam GI & Abdominal Exam: Distended. absent: Firm, Guarding - Extremities Exam Extremities exam: Negative for: calf tenderness, normal inspection (has right foot in short leg removable cast/dressing) Results - Vital Signs Recent Vital Signs: Last Vital Signs Temp 98 F 01/16/17 16:24 Pulse 97 H 01/16/17 17:28 Resp 20 01/16/17 16:24 BP 159/83 H 01/16/17 17:31 Pulse Ox 96 01/16/17 16:24 - Labs Result Diagrams: 01/16/17 10:20 01/16/17 10:20 Labs: Laboratory Results - last 24 hr 01/15/17 01/16/17 01/16/17 21:19 04:55 10:20 WBC 7.6 RBC 4.17 L Hgb 11.1 L Hct 35.2 MCV 84.4 MCH 26.7 L MCHC 31.6 L RDW 16.5 H Plt Count 176 MPV 8.2 Neut % (Auto) 74.6 Lymph % (Auto) 9.3 L Garrett % (Auto) 10.0 Eos % (Auto) 5.6 H Baso % (Auto) 0.5 Neut # 5.6 Lymph # 0.7 L Garrett # 0.8 Eos # 0.4 Baso # 0.0 Sodium 141 Potassium 3.7 Chloride 100 Carbon Dioxide 26 Anion Gap 19 BUN 35 H Creatinine 2.0 H Est GFR ( Amer) 40 Est GFR (Non-Af Amer) 33 POC Glucose (mg/dL) 234 H 130 H Random Glucose 95 Hemoglobin A1c 8.5 H Calcium 9.3 Total Bilirubin 1.4 H AST 40 ALT 45 Alkaline Phosphatase 139 H D Total Protein 6.8 Albumin 3.9 Globulin 2.8 Albumin/Globulin Ratio 1.4 Triglycerides 115 Cholesterol 112 LDL Cholesterol Direct 52 HDL Cholesterol 24 L TSH 3rd Generation 3.06 01/16/17 01/16/17 10:54 17:06 WBC RBC Hgb Hct MCV MCH MCHC RDW Plt Count MPV Neut % (Auto) Lymph % (Auto) Garrett % (Auto) Eos % (Auto) Baso % (Auto) Neut # Lymph # Garrett # Eos # Baso # Sodium Potassium Chloride Carbon Dioxide Anion Gap BUN Creatinine Est GFR ( Amer) Est GFR (Non-Af Amer) POC Glucose (mg/dL) 98 171 H Random Glucose Hemoglobin A1c Calcium Total Bilirubin AST ALT Alkaline Phosphatase Total Protein Albumin Globulin Albumin/Globulin Ratio Triglycerides Cholesterol LDL Cholesterol Direct HDL Cholesterol TSH 3rd Generation Assessment & Plan - Assessment and Plan (Free Text) Plan: right foot non-healing ulcer s/p debridement pain is controlled he can ambulate 50' on multiple IV ABX continue current care
[2017-01-16] MEDS: Insulin Detemir 100 Units/ml Inj SC SCH (22:12)
[2017-01-16] MEDS: Docusate-Senna 50 mg-8.6 mg Tab PO SCH (22:15)
[2017-01-17] MEDS: Oxycodone/Acetaminophen 5/325 mg Tab PO PRN ×3 (05:07→17:18)
[2017-01-17] MEDS: Ciprofloxacin 400mg/200ml D5W 200 ML IVPB SCH (05:08)
[2017-01-17] MEDS: Levothyroxine 75 MCG TAB PO SCH (06:36)
[2017-01-17] MEDS: Insulin Lispro (humaLOG) 100 Units/ml Inj SC SCH ×4 (06:53→22:06)
--- NOTE | 2017-01-17 07:31 | CP.PCM.CON ---
History of Present Illness - History of Present Illness History of Present Illness: Patient seen bedside to check prognosis 6 day s/p right foot 1st MTPJ arthroplasty, sesamoidectomy, ulcer debridement and extensor tendon lengthening (DOS: 01/11/17.) He is seen resting comfortably in bed in [facility] upon arrival. . States mild pain to surgical site and only requires medication prior to physical therapy. Patient grades the pain at a peak of 4/10 depending on therapy demand for the day. Denies any complications overnight. Denies F/C/N/V/ SOB. Review of Systems - Review of Systems All systems: reviewed and no additional remarkable complaints except Past Patient History - Infectious Disease Hx of Infectious Diseases: None - Past Medical History & Family History Past Medical History?: Yes - Past Social History Smoking Status: Former Smoker Alcohol: None Drugs: Denies Home Situation {Lives}: With Family - CARDIAC Hx Cardiac Disorders: No Hx Angina: No Hx Atrial Fibrillation: No (New Onset of Atrial fib) Hx Cardia Arrhythmia: Yes (ATRIAL FIB) Hx Circulatory Problems: No Hx Congestive Heart Failure: No Hx Heart Attack: Yes Hx Heart Murmur: No Hx Heart Transplant: No Hx Hypercholesterolemia: Yes Hx Hypertension: Yes Hx Hypotension: No Hx Internal Defibrillator: No Hx Mitral Valve Prolapse: No Hx Pacemaker: Yes Hx Peripheral Edema: No Hx Peripheral Vascular Disease: No - PULMONARY Hx Respiratory Disorders: No Hx Asthma: No Hx Bronchitis: No Hx Chronic Obstructive Pulmonary Disease (COPD): No Hx Emphysema: No Hx Lung Cancer: No Hx Pneumonia: Yes Hx Pulmonary Embolism: No Hx Respiratory Aspiration: No Hx Respiratory Tract Infection: No Hx Sleep Apnea: Yes Hx Tuberculosis: No - NEUROLOGICAL Hx Neurological Disorder: Yes Hx Alzheimer's Disease: No HX Cerebrovascular Accident: Yes (March) Hx Dementia: No Hx Dizziness: No (New onset of dizziness and syncope) Hx Meningitis: No Hx Migraine: No Hx Multiple Sclerosis: No Hx Paralysis: No Hx Parkinson's Disease: No Hx Seizures: No Hx Syncope: No Hx Transient Ischemic Attacks (TIA): No Hx Vertigo: No - HEENT Hx HEENT Problems: Yes Hx Blind: No Hx Cataracts: Yes (BILAT.) Hx Deafness: No Hx Difficulty Chewing: No Hx Epistaxis: No Hx Glaucoma: No Hx Macular Degeneration: No - RENAL Hx Chronic Kidney Disease: Yes Hx Dialysis: Yes (2013) Date of Last Dialysis Treatment: 02/08/14 Hx Kidney Stones: No Hx Neurogenic Bladder: No Hx Pyelonephritis: No Hx Renal (Kidney) Cancer: No Hx Renal Failure: Yes - ENDOCRINE/METABOLIC Hx Endocrine Disorders: No Hx Adrenal Cancer: No Hx Diabetes Insipidus: No Hx Diabetes Mellitus Type 1: No Hx Diabetes Mellitus Type 2: Yes Hx Hyperthyroidism: No Hx Hypothyroidism: Yes Hx Systemic Lupus Erythematosus: No - HEMATOLOGICAL/ONCOLOGICAL Hx Blood Disorders: No Hx AIDS: No Hx Anemia: No Hx Blood Transfusions: No Hx Blood Transfusion Reaction: No Hx Bruising: No Hx Cancer: No Hx Chemotherapy: No Hx Cirrhosis: No Hx Gum Bleeding: No Hx Hemophilia: No Hx Hepatitis A: No Hx Hepatitis B: No Hx Hepatitis C: No Hx Human Immunodeficiency Virus (HIV): No Hx Leukemia: No Hx Metastesis: No Hx Shingles: No Hx Sickle Cell Disease: No Hx Unexplained Bleeding: No Hx von Willebrand's Disease: No - INTEGUMENTARY Hx Dermatological Problems: No Hx Basil Cell: No Hx Blanchard: No Hx Cellulitis: No Hx Eczema: No Hx Melanoma: No Hx Psoriasis: No Hx Squamous Cell: No - MUSCULOSKELETAL/RHEUMATOLOGICAL Hx Musculoskeletal Disorders: No Hx Arthritis: Yes (HIP AREA ) Hx Back Pain: No Hx Degenerative Joint Disease: No Hx Falls: No Hx Fractures: Yes (finger hand 60 years ago left) Hx Gout: No Hx Herniated Disk: No Hx Myasthenia Gravis: No Hx Osteoarthritis: No Hx Osteomyelitis: No Hx Osteoporosis: No Hx Rhabdomyolysis: No Hx Rheumatoid Arthritis: No Hx Spinal Stenosis: No Hx Unsteady Gait: Yes - GASTROINTESTINAL Hx Gastrointestinal Disorders: Yes Hx Bowel Surgery: No Hx Clostridium Difficile: No Hx Colitis: No Hx Colostomy: No Hx Constipation: Yes Hx Crohn's Disease: No Hx Diarrhea: No Hx Diverticulitis: No Hx Esophageal Varices: No Hx Fatty Liver Disease: No Hx Gall Bladder Disease: No Hx Gastritis: No Hx Gastroesophageal Reflux: No Hx Hemorrhoids: No Hx Ileostomy: No Hx Irritable Bowel: No Hx Liver Failure: No Hx Nausea: No Hx Pancreatitis: No HX Swallowing Problems: No Hx Ulcer: No Hx Vomiting: No - GENITOURINARY/GYNECOLOGICAL Hx Genitourinary Disorders: Yes (bladder tumor removed, initial positive) Hx Bladder Cancer: Yes (followup negative) Hx Bladder Stone: No Hx Hematuria: Yes Hx Incontinence: No Hx Prostate Problems: No Hx Reproductive Disorders: No Hx Sexually Transmitted Disorders: No Hx Urinary Tract Infection: No Other/Comment: History of renal failure and right kidney transplant. - PSYCHIATRIC Hx Psychophysiologic Disorder: No Hx Anxiety: No Hx Bipolar Disorder: No Hx Depression: No Hx Emotional Abuse: No Hx Hallucinations: No Hx Panic Symptoms: No Hx Paranoia: No Hx Post Traumatic Stress Disorder: No Hx Psychosis: No Hx Physical Abuse: No Hx Schizophrenia: No Hx Sexual Abuse: No Hx Substance Use: No - SURGICAL HISTORY Hx Surgeries: Yes Hx Abdominal Aortic Aneurysm Repair: No Hx Amputation: No Hx Angiogram: No Hx Angioplasty: No Hx Appendectomy: No Hx Arteriovenous Shunt: No Hx Arthroscopy: No Hx Bile Duct Stent: No Hx Breast Biopsy: No Hx Cataract Extraction: Yes Hx Cardiac Catheterization: No Hx Carotid Endarterectomy: No Hx Section: No Hx Cholecystectomy: No Hx Coronary Artery Bypass Graft: No Hx Coronary Stent: No Hx Dilation and Curettage: No Hx Eye Surgery: Yes Hx Femoral-Popliteal Bypass Graft: No Hx Gastric Bypass Surgery: No Hx Herniorrhaphy: No Hx Hysterectomy: No Hx Joint Replacement: No Hx Kidney Transplant: Yes (R kidney transplant) Hx Liver Transplant: No Hx Mastectomy: No Hx Musculoskeletal Surgery: No Hx Open Heart Surgery: No Hx Open Reduction Internal Fixation: No Hx Orthopedic Surgery: No Hx Parathyroidectomy: No Hx Penile Implant: No Hx Pulmonary Surgery: No Hx Splenectomy: No Hx Thyroidectomy: No Hx Tonsillectomy: No Hx Tubal Ligation: No Hx Valve Replacement: No Hx Vascular Surgery: No Hx Vascular Access Device: No Other/Comment: left foot surgery amputation 5th digit - ANESTHESIA Hx Anesthesia: Yes Hx Anesthesia Reactions: No Hx Malignant Hyperthermia: No Meds Allergies/Adverse Reactions: Allergies Allergy/AdvReac Type Severity Reaction Status Date / Time Penicillins Allergy Intermediate RASH Verified 01/14/17 17:41 - Medications Medications: Current Medications Acetaminophen (Tylenol 325mg Tab) 650 mg PO Q4 PRN PRN Reason: Pain, Mild (1-3) Acetaminophen (Tylenol 325mg Tab) 650 mg PO Q6 PRN PRN Reason: Fever >100.4 F Allopurinol (Zyloprim) 100 mg PO DAILY [facility] Last Admin: 01/16/17 08:33 Dose: 100 mg Amlodipine Besylate (Norvasc) 5 mg PO DAILY [facility] Last Admin: 01/16/17 08:30 Dose: 5 mg Dextrose (Dextrose 50% Inj) 0 ml IVP STAT PRN; Protocol PRN Reason: Hypoglycemia Dextrose (Glutose 15) 15 gm PO ONCE PRN; Protocol PRN Reason: Hypoglycemia Docusate Sodium (Colace) 100 mg PO BID [facility] Last Admin: 01/16/17 17:40 Dose: 100 mg Famotidine (Pepcid) 20 mg PO DAILY [facility] Last Admin: 01/16/17 08:30 Dose: 20 mg Furosemide (Lasix) 20 mg PO QPM [facility] Last Admin: 01/16/17 17:31 Dose: 20 mg Furosemide (Lasix) 40 mg PO QAM [facility] Glucagon (Glucagen Diagnostic Kit) 0 mg IM STAT PRN; Protocol PRN Reason: Hypoglycemia Home Med (Mycophenolate Sodium [Myfortic]) 4 tab PO BID [facility] Last Admin: 01/16/17 17:31 Dose: 4 tab Hydralazine HCl (Apresoline) 50 mg PO Q8 [facility] Last Admin: 01/17/17 00:52 Dose: 50 mg Ciprofloxacin (Cipro 400mg/200ml Dsw) 200 mls @ 200 mls/hr IVPB Q12@0500,1700 [facility] Last Admin: 01/17/17 05:08 Dose: 200 mls/hr Daptomycin 580 mg/ Sodium (Chloride) 100 mls @ 100 mls/hr IVPB DAILY@1700 [facility] Stop: 01/19/17 21:01 Last Admin: 01/16/17 17:41 Dose: 100 mls/hr Insulin Detemir (Levemir) 50 units SC HS [facility] Last Admin: 01/16/17 22:12 Dose: 50 units Insulin Human Lispro (Humalog) 0 units SC ACHS [facility] PRN Reason: Protocol Last Admin: 01/17/17 06:53 Dose: Not Given Levothyroxine Sodium (Synthroid) 75 mcg PO DAILY@0630 [facility] Last Admin: 01/17/17 06:36 Dose: 75 mcg Losartan Potassium (Cozaar) 25 mg PO DAILY [facility] Last Admin: 01/16/17 08:31 Dose: 25 mg [id number] Ethyl Esters (Lovaza) 1 gm PO BID [facility] Last Admin: 01/16/17 17:31 Dose: 1 gm Oxycodone/Acetaminophen (Percocet 5/325 Mg Tab) 1 tab PO Q4 PRN PRN Reason: Pain, moderate (4-7) Stop: 01/17/17 18:46 Last Admin: 01/15/17 16:17 Dose: 1 tab Oxycodone/Acetaminophen (Percocet 5/325 Mg Tab) 2 tab PO Q4 PRN PRN Reason: Pain, severe (8-10) Stop: 01/17/17 18:47 Last Admin: 01/17/17 05:07 Dose: 2 tab Rivaroxaban (Xarelto) 20 mg PO QPM [facility] PRN Reason: Protocol Last Admin: 01/16/17 17:41 Dose: 20 mg Senna/Docusate Sodium (Senokot S 50 Mg-8.6 Mg) 2 tab PO HS [facility] Last Admin: 01/16/17 22:15 Dose: 2 tab Tamsulosin HCl (Flomax) 0.4 mg PO QPM [facility] Last Admin: 01/16/17 17:36 Dose: 0.4 mg Physical Exam - Constitutional Appears: Well, Non-toxic, No Acute Distress - Extremities Exam Additional comments: RLE exam: Vasc: DP 2/4, PT non palpable b/l, TG wnl, CFT < 3 sec to all digits Neuro: grossly diminished Derm: right foot plantar 1st metatarsal head open well circumscribed ulceration measuring 1.5 x 1.5 x 0.4 cm with granular base, probes deep to surgical site, hyperkeratotic border, no purulence, minimal sanguinous drainage, no malodor, no edema. Dorsal surgical site with skin edges well approximated, sutures intact. Surrounding skin with adjacent blanchable erythema tracking laterally, with minor warmth. MSK: Mild pain on palpation of surgical site. ROM at 1st MTPJ limited. - Neurological Exam Neurological exam: Alert, Oriented x3 - Psychiatric Exam Psychiatric exam: Normal Affect, Normal Mood Results - Vital Signs Recent Vital Signs: Last Vital Signs Temp 97.9 F 01/16/17 21:28 Pulse 88 01/16/17 21:28 Resp 20 01/16/17 21:28 BP 111/60 01/17/17 00:52 Pulse Ox 97 01/16/17 21:28 - Labs Result Diagrams: 01/16/17 10:20 01/16/17 10:20 Labs: Laboratory Results - last 24 hr 01/16/17 01/16/17 01/16/17 10:20 10:54 17:06 WBC 7.6 RBC 4.17 L Hgb 11.1 L Hct 35.2 MCV 84.4 MCH 26.7 L MCHC 31.6 L RDW 16.5 H Plt Count 176 MPV 8.2 Neut % (Auto) 74.6 Lymph % (Auto) 9.3 L [place] % (Auto) 10.0 Eos % (Auto) 5.6 H Baso % (Auto) 0.5 Neut # 5.6 Lymph # 0.7 L [place] # 0.8 Eos # 0.4 Baso # 0.0 Sodium 141 Potassium 3.7 Chloride 100 Carbon Dioxide 26 Anion Gap 19 BUN 35 H Creatinine 2.0 H Est GFR ( Amer) 40 Est GFR (Non-Af Amer) 33 POC Glucose (mg/dL) 98 171 H Random Glucose 95 Hemoglobin A1c 8.5 H Calcium 9.3 Total Bilirubin 1.4 H AST 40 ALT 45 Alkaline Phosphatase 139 H D Total Protein 6.8 Albumin 3.9 Globulin 2.8 Albumin/Globulin Ratio 1.4 Triglycerides 115 Cholesterol 112 LDL Cholesterol Direct 52 HDL Cholesterol 24 L TSH 3rd Generation 3.06 01/16/17 21:22 WBC RBC Hgb Hct MCV MCH MCHC RDW Plt Count MPV Neut % (Auto) Lymph % (Auto) [place] % (Auto) Eos % (Auto) Baso % (Auto) Neut # Lymph # [place] # Eos # Baso # Sodium Potassium Chloride Carbon Dioxide Anion Gap BUN Creatinine Est GFR ( Amer) Est GFR (Non-Af Amer) POC Glucose (mg/dL) 160 H Random Glucose Hemoglobin A1c Calcium Total Bilirubin AST ALT Alkaline Phosphatase Total Protein Albumin Globulin Albumin/Globulin Ratio Triglycerides Cholesterol LDL Cholesterol Direct HDL Cholesterol TSH 3rd Generation Assessment & Plan - Assessment and Plan (Free Text) Assessment: 66 y/o male 6 day s/p right foot 1st MTPJ arthroplasty, sesamoidectomy, ulcer debridement and extensor lengthening secondary to DM & OM. Plan: -Pt evaluated & treated at bedside. Chart, labs, and vitals reviewed. Discussed with attending, Dr. Jewell, in detail. All pt's questions addressed and answered. -Wound dressed with betadine soaked DSD, kerlix, INDIO. -advised patient to stay off of foot as much as possible and to keep elevated at chest level. -patient to be WB to heel in surgical shoe. -continue IV abx via PICC per ID. Pt to continue outpatient abx infusion regimen upon discharge. -Stable for discharge from podiatry standpoint once finished with recommended inhouse course of IV abx. \ -Continue physical therapy. Patient is stable form podiatric standpoint for discharge. Podiatry will continue to follow while in hospital. - Date & Time Date: 01/17/17 Time: 08:10
[2017-01-17] MEDS: MYCOPHENOLATE SODIUM PO SCH ×2 (08:20→16:26)
[2017-01-17] MEDS: Omega-3-Acid Ethyl Esters 1 GM Cap PO SCH ×2 (08:21→16:26)
--- NOTE | 2017-01-17 08:43 | CP.PCM.CON ---
History of Present Illness - History of Present Illness History of Present Illness: full consult dictated Past Patient History - Infectious Disease Hx of Infectious Diseases: None - Past Medical History & Family History Past Medical History?: Yes - Past Social History Smoking Status: Former Smoker Alcohol: None Drugs: Denies Home Situation {Lives}: With Family - CARDIAC Hx Cardiac Disorders: No Hx Angina: No Hx Atrial Fibrillation: No (New Onset of Atrial fib) Hx Cardia Arrhythmia: Yes (ATRIAL FIB) Hx Circulatory Problems: No Hx Congestive Heart Failure: No Hx Heart Attack: Yes Hx Heart Murmur: No Hx Heart Transplant: No Hx Hypercholesterolemia: Yes Hx Hypertension: Yes Hx Hypotension: No Hx Internal Defibrillator: No Hx Mitral Valve Prolapse: No Hx Pacemaker: Yes Hx Peripheral Edema: No Hx Peripheral Vascular Disease: No - PULMONARY Hx Respiratory Disorders: No Hx Asthma: No Hx Bronchitis: No Hx Chronic Obstructive Pulmonary Disease (COPD): No Hx Emphysema: No Hx Lung Cancer: No Hx Pneumonia: Yes Hx Pulmonary Embolism: No Hx Respiratory Aspiration: No Hx Respiratory Tract Infection: No Hx Sleep Apnea: Yes Hx Tuberculosis: No - NEUROLOGICAL Hx Neurological Disorder: Yes Hx Alzheimer's Disease: No HX Cerebrovascular Accident: Yes (March) Hx Dementia: No Hx Dizziness: No (New onset of dizziness and syncope) Hx Meningitis: No Hx Migraine: No Hx Multiple Sclerosis: No Hx Paralysis: No Hx Parkinson's Disease: No Hx Seizures: No Hx Syncope: No Hx Transient Ischemic Attacks (TIA): No Hx Vertigo: No - HEENT Hx HEENT Problems: Yes Hx Blind: No Hx Cataracts: Yes (BILAT.) Hx Deafness: No Hx Difficulty Chewing: No Hx Epistaxis: No Hx Glaucoma: No Hx Macular Degeneration: No - RENAL Hx Chronic Kidney Disease: Yes Hx Dialysis: Yes (2013) Date of Last Dialysis Treatment: 02/08/14 Hx Kidney Stones: No Hx Neurogenic Bladder: No Hx Pyelonephritis: No Hx Renal (Kidney) Cancer: No Hx Renal Failure: Yes - ENDOCRINE/METABOLIC Hx Endocrine Disorders: No Hx Adrenal Cancer: No Hx Diabetes Insipidus: No Hx Diabetes Mellitus Type 1: No Hx Diabetes Mellitus Type 2: Yes Hx Hyperthyroidism: No Hx Hypothyroidism: Yes Hx Systemic Lupus Erythematosus: No - HEMATOLOGICAL/ONCOLOGICAL Hx Blood Disorders: No Hx AIDS: No Hx Anemia: No Hx Blood Transfusions: No Hx Blood Transfusion Reaction: No Hx Bruising: No Hx Cancer: No Hx Chemotherapy: No Hx Cirrhosis: No Hx Gum Bleeding: No Hx Hemophilia: No Hx Hepatitis A: No Hx Hepatitis B: No Hx Hepatitis C: No Hx Human Immunodeficiency Virus (HIV): No Hx Leukemia: No Hx Metastesis: No Hx Shingles: No Hx Sickle Cell Disease: No Hx Unexplained Bleeding: No Hx von Willebrand's Disease: No - INTEGUMENTARY Hx Dermatological Problems: No Hx Basil Cell: No Hx Blanchard: No Hx Cellulitis: No Hx Eczema: No Hx Melanoma: No Hx Psoriasis: No Hx Squamous Cell: No - MUSCULOSKELETAL/RHEUMATOLOGICAL Hx Musculoskeletal Disorders: No Hx Arthritis: Yes (HIP AREA ) Hx Back Pain: No Hx Degenerative Joint Disease: No Hx Falls: No Hx Fractures: Yes (finger hand 60 years ago left) Hx Gout: No Hx Herniated Disk: No Hx Myasthenia Gravis: No Hx Osteoarthritis: No Hx Osteomyelitis: No Hx Osteoporosis: No Hx Rhabdomyolysis: No Hx Rheumatoid Arthritis: No Hx Spinal Stenosis: No Hx Unsteady Gait: Yes - GASTROINTESTINAL Hx Gastrointestinal Disorders: Yes Hx Bowel Surgery: No Hx Clostridium Difficile: No Hx Colitis: No Hx Colostomy: No Hx Constipation: Yes Hx Crohn's Disease: No Hx Diarrhea: No Hx Diverticulitis: No Hx Esophageal Varices: No Hx Fatty Liver Disease: No Hx Gall Bladder Disease: No Hx Gastritis: No Hx Gastroesophageal Reflux: No Hx Hemorrhoids: No Hx Ileostomy: No Hx Irritable Bowel: No Hx Liver Failure: No Hx Nausea: No Hx Pancreatitis: No HX Swallowing Problems: No Hx Ulcer: No Hx Vomiting: No - GENITOURINARY/GYNECOLOGICAL Hx Genitourinary Disorders: Yes (bladder tumor removed, initial positive) Hx Bladder Cancer: Yes (followup negative) Hx Bladder Stone: No Hx Hematuria: Yes Hx Incontinence: No Hx Prostate Problems: No Hx Reproductive Disorders: No Hx Sexually Transmitted Disorders: No Hx Urinary Tract Infection: No Other/Comment: History of renal failure and right kidney transplant. - PSYCHIATRIC Hx Psychophysiologic Disorder: No Hx Anxiety: No Hx Bipolar Disorder: No Hx Depression: No Hx Emotional Abuse: No Hx Hallucinations: No Hx Panic Symptoms: No Hx Paranoia: No Hx Post Traumatic Stress Disorder: No Hx Psychosis: No Hx Physical Abuse: No Hx Schizophrenia: No Hx Sexual Abuse: No Hx Substance Use: No - SURGICAL HISTORY Hx Surgeries: Yes Hx Abdominal Aortic Aneurysm Repair: No Hx Amputation: No Hx Angiogram: No Hx Angioplasty: No Hx Appendectomy: No Hx Arteriovenous Shunt: No Hx Arthroscopy: No Hx Bile Duct Stent: No Hx Breast Biopsy: No Hx Cataract Extraction: Yes Hx Cardiac Catheterization: No Hx Carotid Endarterectomy: No Hx Section: No Hx Cholecystectomy: No Hx Coronary Artery Bypass Graft: No Hx Coronary Stent: No Hx Dilation and Curettage: No Hx Eye Surgery: Yes Hx Femoral-Popliteal Bypass Graft: No Hx Gastric Bypass Surgery: No Hx Herniorrhaphy: No Hx Hysterectomy: No Hx Joint Replacement: No Hx Kidney Transplant: Yes (R kidney transplant) Hx Liver Transplant: No Hx Mastectomy: No Hx Musculoskeletal Surgery: No Hx Open Heart Surgery: No Hx Open Reduction Internal Fixation: No Hx Orthopedic Surgery: No Hx Parathyroidectomy: No Hx Penile Implant: No Hx Pulmonary Surgery: No Hx Splenectomy: No Hx Thyroidectomy: No Hx Tonsillectomy: No Hx Tubal Ligation: No Hx Valve Replacement: No Hx Vascular Surgery: No Hx Vascular Access Device: No Other/Comment: left foot surgery amputation 5th digit - ANESTHESIA Hx Anesthesia: Yes Hx Anesthesia Reactions: No Hx Malignant Hyperthermia: No Meds Allergies/Adverse Reactions: Allergies Allergy/AdvReac Type Severity Reaction Status Date / Time Penicillins Allergy Intermediate RASH Verified 01/14/17 17:41 - Medications Medications: Current Medications Acetaminophen (Tylenol 325mg Tab) 650 mg PO Q4 PRN PRN Reason: Pain, Mild (1-3) Acetaminophen (Tylenol 325mg Tab) 650 mg PO Q6 PRN PRN Reason: Fever >100.4 F Allopurinol (Zyloprim) 100 mg PO DAILY [facility] Last Admin: 01/17/17 08:22 Dose: 100 mg Amlodipine Besylate (Norvasc) 5 mg PO DAILY [facility] Last Admin: 01/17/17 08:23 Dose: 5 mg Dextrose (Dextrose 50% Inj) 0 ml IVP STAT PRN; Protocol PRN Reason: Hypoglycemia Dextrose (Glutose 15) 15 gm PO ONCE PRN; Protocol PRN Reason: Hypoglycemia Docusate Sodium (Colace) 100 mg PO BID [facility] Last Admin: 01/17/17 08:21 Dose: 100 mg Famotidine (Pepcid) 20 mg PO DAILY [facility] Last Admin: 01/17/17 08:22 Dose: 20 mg Furosemide (Lasix) 20 mg PO QPM [facility] Last Admin: 01/16/17 17:31 Dose: 20 mg Furosemide (Lasix) 40 mg PO QAM [facility] Last Admin: 01/17/17 08:21 Dose: 40 mg Glucagon (Glucagen Diagnostic Kit) 0 mg IM STAT PRN; Protocol PRN Reason: Hypoglycemia Home Med (Mycophenolate Sodium [Myfortic]) 4 tab PO BID [facility] Last Admin: 01/17/17 08:20 Dose: 4 tab Hydralazine HCl (Apresoline) 50 mg PO Q8 [facility] Last Admin: 01/17/17 08:21 Dose: 50 mg Ciprofloxacin (Cipro 400mg/200ml Dsw) 200 mls @ 200 mls/hr IVPB Q12@0500,1700 [facility] Last Admin: 01/17/17 05:08 Dose: 200 mls/hr Daptomycin 580 mg/ Sodium (Chloride) 100 mls @ 100 mls/hr IVPB DAILY@1700 [facility] Stop: 01/19/17 21:01 Last Admin: 01/16/17 17:41 Dose: 100 mls/hr Insulin Detemir (Levemir) 50 units SC [facility] Last Admin: 01/16/17 22:12 Dose: 50 units Insulin Human Lispro (Humalog) 0 units SC [facility] PRN Reason: Protocol Last Admin: 01/17/17 06:53 Dose: Not Given Levothyroxine Sodium (Synthroid) 75 mcg PO DAILY@0630 [facility] Last Admin: 01/17/17 06:36 Dose: 75 mcg Losartan Potassium (Cozaar) 25 mg PO DAILY [facility] Last Admin: 01/17/17 08:21 Dose: 25 mg [id number] Ethyl Esters (Lovaza) 1 gm PO BID [facility] Last Admin: 01/17/17 08:21 Dose: 1 gm Oxycodone/Acetaminophen (Percocet 5/325 Mg Tab) 1 tab PO Q4 PRN PRN Reason: Pain, moderate (4-7) Stop: 01/17/17 18:46 Last Admin: 01/15/17 16:17 Dose: 1 tab Oxycodone/Acetaminophen (Percocet 5/325 Mg Tab) 2 tab PO Q4 PRN PRN Reason: Pain, severe (8-10) Stop: 01/17/17 18:47 Last Admin: 01/17/17 08:20 Dose: 2 tab Rivaroxaban (Xarelto) 20 mg PO QPM [facility] PRN Reason: Protocol Last Admin: 01/16/17 17:41 Dose: 20 mg Senna/Docusate Sodium (Senokot S 50 Mg-8.6 Mg) 2 tab PO HS [facility] Last Admin: 01/16/17 22:15 Dose: 2 tab Tamsulosin HCl (Flomax) 0.4 mg PO QPM [facility] Last Admin: 01/16/17 17:36 Dose: 0.4 mg Results - Vital Signs Recent Vital Signs: Last Vital Signs Temp 97.9 F 01/17/17 08:27 Pulse 87 01/17/17 08:27 Resp 20 01/17/17 08:27 BP 127/63 01/17/17 08:27 Pulse Ox 96 01/17/17 08:27 - Labs Result Diagrams: 01/16/17 10:20 01/16/17 10:20 Labs: Laboratory Results - last 24 hr 01/16/17 01/16/17 01/16/17 10:20 10:54 17:06 WBC 7.6 RBC 4.17 L Hgb 11.1 L Hct 35.2 MCV 84.4 MCH 26.7 L MCHC 31.6 L RDW 16.5 H Plt Count 176 MPV 8.2 Neut % (Auto) 74.6 Lymph % (Auto) 9.3 L [place] % (Auto) 10.0 Eos % (Auto) 5.6 H Baso % (Auto) 0.5 Neut # 5.6 Lymph # 0.7 L [place] # 0.8 Eos # 0.4 Baso # 0.0 Sodium 141 Potassium 3.7 Chloride 100 Carbon Dioxide 26 Anion Gap 19 BUN 35 H Creatinine 2.0 H Est GFR ( Amer) 40 Est GFR (Non-Af Amer) 33 POC Glucose (mg/dL) 98 171 H Random Glucose 95 Hemoglobin A1c 8.5 H Calcium 9.3 Total Bilirubin 1.4 H AST 40 ALT 45 Alkaline Phosphatase 139 H D Total Protein 6.8 Albumin 3.9 Globulin 2.8 Albumin/Globulin Ratio 1.4 Triglycerides 115 Cholesterol 112 LDL Cholesterol Direct 52 HDL Cholesterol 24 L TSH 3rd Generation 3.06 01/16/17 21:22 WBC RBC Hgb Hct MCV MCH MCHC RDW Plt Count MPV Neut % (Auto) Lymph % (Auto) [place] % (Auto) Eos % (Auto) Baso % (Auto) Neut # Lymph # [place] # Eos # Baso # Sodium Potassium Chloride Carbon Dioxide Anion Gap BUN Creatinine Est GFR ( Amer) Est GFR (Non-Af Amer) POC Glucose (mg/dL) 160 H Random Glucose Hemoglobin A1c Calcium Total Bilirubin AST ALT Alkaline Phosphatase Total Protein Albumin Globulin Albumin/Globulin Ratio Triglycerides Cholesterol LDL Cholesterol Direct HDL Cholesterol TSH 3rd Generation
--- NOTE | 2017-01-17 09:17 | CON ---
DATE: 01/17/2017 This patient, who is 66 years of age, known to me with long history that he was on dialysis before. Then, he got kidney transplant approximately a couple years ago or less and the patient has been in [facility] this time because of right foot ulcer and infection and he underwent for surgery as noted here in the medical record. The patient seen in the rehabilitation, for which he is receiving antib iotics and physical therapy as well. The patient has multitude of medical problems related to hyperl ipidemia, atrial fibrillation. I am not sure if he has a pacemaker too and coronary artery disease, chronic atrial fibrillation. REVIEW OF SYSTEMS: The patient complaining of leg swelling, which has been increasing slowly accordi ng to the patient. PHYSICAL EXAMINATION: GENERAL: The patient is conscious, not in acute distress. VITAL SIGNS: Pulse 87, temperature 97.9, blood pressure 127/63. NECK: Supple. CHEST: No significant rales noted. HEART: No rubs. ABDOMEN: He has transplanted kidney, not tender, although somewhat distended abdomen. I am not sure if he has mild ascites. LOWER EXTREMITIES: He has 1+ edema bilaterally and the right foot covered in dressing post surgery. LABORATORY DATA: Sodium and the rest of the electrolytes unremarkable. BUN 35, creatinine 2.0, tota l bilirubin 1.4, GFR 40. The CBC: WBC 7.6, hemoglobin 11.1. IMPRESSION: The patient is status post kidney transplant, but appeared to have chronic kidney diseas e stage III with glomerular filtration rate around 40, which has been rather stable, although serum c reatinine was as low as 1.8 as I notice here on this admission. RECOMMENDATIONS: The patient is receiving daptomycin, also receiving Cipro 400 mg q. 12 hours. My s uggestion to discontinue Cipro completely if possible and to be switched to another antibiotic. I as ked the nurse to call Dr. Rocha for replacement if possible or else we will give a modified dose of Cipro if Cipro must be given. In the meantime, we will increase Lasix 40 mg b.i.d. and I will look f or his transplant medication. I noted he is on mycophenolate. I am not sure if there is some other medication that is not listed at this point. Oj Fuchs MD cc: [id number] TT: 01/17/2017 09:16:21 Confirmation # [id number] Dictation # [id number]
--- NOTE | 2017-01-17 10:26 | CP.PCM.PN ---
Subjective - Date & Time of Evaluation Date of Evaluation: 01/17/17 Time of Evaluation: 09:00 - Subjective Subjective: Pt seen and examined at bedside, per physical therapist and nurse, pt had one episode of nose bleed yesrterday while showering. And his picc line has a lot of blood on the outside. Pt however feels a lot better, breathing has improved with the increase in Lasix Objective - Vital Signs/Intake and Output Vital Signs (last 24 hours): Temp Pulse Resp BP Pulse Ox 97.9 F 87 20 127/63 96 01/17/17 08:27 01/17/17 08:27 01/17/17 08:27 01/17/17 08:27 01/17/17 08:27 - Medications Medications: Current Medications Acetaminophen (Tylenol 325mg Tab) 650 mg PO Q4 PRN PRN Reason: Pain, Mild (1-3) Acetaminophen (Tylenol 325mg Tab) 650 mg PO Q6 PRN PRN Reason: Fever >100.4 F Allopurinol (Zyloprim) 100 mg PO DAILY [facility] Last Admin: 01/17/17 08:22 Dose: 100 mg Amlodipine Besylate (Norvasc) 5 mg PO DAILY [facility] Last Admin: 01/17/17 08:23 Dose: 5 mg Dextrose (Dextrose 50% Inj) 0 ml IVP STAT PRN; Protocol PRN Reason: Hypoglycemia Dextrose (Glutose 15) 15 gm PO ONCE PRN; Protocol PRN Reason: Hypoglycemia Docusate Sodium (Colace) 100 mg PO BID [facility] Last Admin: 01/17/17 08:21 Dose: 100 mg Famotidine (Pepcid) 20 mg PO DAILY [facility] Last Admin: 01/17/17 08:22 Dose: 20 mg Furosemide (Lasix) 20 mg PO QPM [facility] Last Admin: 01/16/17 17:31 Dose: 20 mg Furosemide (Lasix) 40 mg PO QAM [facility] Last Admin: 01/17/17 08:21 Dose: 40 mg Glucagon (Glucagen Diagnostic Kit) 0 mg IM STAT PRN; Protocol PRN Reason: Hypoglycemia Home Med (Mycophenolate Sodium [Myfortic]) 4 tab PO BID [facility] Last Admin: 01/17/17 08:20 Dose: 4 tab Hydralazine HCl (Apresoline) 50 mg PO Q8 [facility] Last Admin: 01/17/17 08:21 Dose: 50 mg Daptomycin 580 mg/ Sodium (Chloride) 100 mls @ 100 mls/hr IVPB DAILY@1700 [facility] Stop: 01/19/17 21:01 Last Admin: 01/16/17 17:41 Dose: 100 mls/hr Ciprofloxacin (Cipro 400mg/200ml Dsw) 200 mls @ 200 mls/hr IVPB DAILY [facility] Stop: 01/19/17 23:59 Insulin Detemir (Levemir) 50 units SC [facility] Last Admin: 01/16/17 22:12 Dose: 50 units Insulin Human Lispro (Humalog) 0 units SC [facility] PRN Reason: Protocol Last Admin: 01/17/17 06:53 Dose: Not Given Levothyroxine Sodium (Synthroid) 75 mcg PO DAILY@0630 [facility] Last Admin: 01/17/17 06:36 Dose: 75 mcg Losartan Potassium (Cozaar) 25 mg PO DAILY [facility] Last Admin: 01/17/17 08:21 Dose: 25 mg Nlhro-6-Kbuj Ethyl Esters (Lovaza) 1 gm PO BID [facility] Last Admin: 01/17/17 08:21 Dose: 1 gm Oxycodone/Acetaminophen (Percocet 5/325 Mg Tab) 1 tab PO Q4 PRN PRN Reason: Pain, moderate (4-7) Stop: 01/17/17 18:46 Last Admin: 01/15/17 16:17 Dose: 1 tab Oxycodone/Acetaminophen (Percocet 5/325 Mg Tab) 2 tab PO Q4 PRN PRN Reason: Pain, severe (8-10) Stop: 01/17/17 18:47 Last Admin: 01/17/17 08:20 Dose: 2 tab Rivaroxaban (Xarelto) 20 mg PO QPM [facility] PRN Reason: Protocol Last Admin: 01/16/17 17:41 Dose: 20 mg Senna/Docusate Sodium (Senokot S 50 Mg-8.6 Mg) 2 tab PO [facility] Last Admin: 01/16/17 22:15 Dose: 2 tab Tamsulosin HCl (Flomax) 0.4 mg PO QPM [facility] Last Admin: 01/16/17 17:36 Dose: 0.4 mg - Labs Labs: 01/16/17 10:20 01/16/17 10:20 - Constitutional Appears: Non-toxic, No Acute Distress - Head Exam Head Exam: NORMOCEPHALIC - Eye Exam Eye Exam: Normal appearance, PERRL - ENT Exam ENT Exam: Mucous Membranes Moist - Respiratory Exam Respiratory Exam: Clear to Ausculation Bilateral, NORMAL BREATHING PATTERN. absent: Rhonchi, Wheezes - Cardiovascular Exam Cardiovascular Exam: REGULAR RHYTHM, +S1, +S2 - GI/Abdominal Exam GI & Abdominal Exam: Soft, Normal Bowel Sounds. absent: Tenderness - Extremities Exam Extremities Exam: Full ROM. absent: Calf Tenderness, Joint Swelling Additional comments: PICC line inserted into upper right arm: blood noted in dressing - Neurological Exam Neurological Exam: Alert, Awake, CN II-XII Intact, Oriented x3 Assessment and Plan - Assessment and Plan (Free Text) Assessment: 66 y/o male with pmhx of Arthritis (HIP AREA ), Cardia Arrhythmia (ATRIAL FIB), Diabetes (insulin), HTN, Hypercholesterolemia, Hypothyroidism, Chronic Kidney Disease admitted for right diabetic foot ulceration s/p surgical debridement . now in TCU for IV antibiotics and physical therapy Plan: Right foot Ulcer complete IV antibiotics per ID last day of antibiotics 01/19/17 Cipro now on renal dosing Continue with rehab 2. Pt report being fluid overloaded lasix: 40mg BID per Dr. horton 3. Bleeding Most likely due to Xarelto Cardiology consulted Spoke with PICC line nurse regarding bleeding at PICC line site, recommends using pressure dressing and also if no longer needed can make arrangment to have it removed 4. Insulin Dependent Diabetes SSI Accucheck 4. Home medication restarted 5. Diet- Diabetic heart healthy 6. DVT prophylaxis Already on Xarelto SCDs
[2017-01-17] MEDS: Insulin Detemir 100 Units/ml Inj SC SCH (22:04)
[2017-01-17] MEDS: Docusate-Senna 50 mg-8.6 mg Tab PO SCH (22:07)
[2017-01-18] MEDS: Insulin Lispro (humaLOG) 100 Units/ml Inj SC SCH ×4 (06:33→21:18)
[2017-01-18] MEDS: Levothyroxine 75 MCG TAB PO SCH (06:33)
[2017-01-18] MEDS: Omega-3-Acid Ethyl Esters 1 GM Cap PO SCH ×2 (08:32→17:58)
[2017-01-18] MEDS: MYCOPHENOLATE SODIUM PO SCH ×2 (08:32→17:59)
[2017-01-18] MEDS ORDERED: Ciprofloxacin 400mg/200ml D5W 200 ML IVPB SCH (09:00)
[2017-01-18] MEDS: Oxycodone/Acetaminophen 5/325 mg Tab PO PRN (10:35)
--- NOTE | 2017-01-18 11:33 | CP.PCM.PN ---
Subjective - Date & Time of Evaluation Date of Evaluation: 01/18/17 Time of Evaluation: 11:31 - Subjective Subjective: OOB in chair no sob feels better no new event reported has nose bleed yesterday Objective - Vital Signs/Intake and Output Vital Signs (last 24 hours): Temp Pulse Resp BP Pulse Ox 98.8 F 89 20 140/56 L 93 L 01/18/17 08:40 01/18/17 08:40 01/18/17 08:40 01/18/17 08:40 01/18/17 08:40 - Medications Medications: Current Medications Acetaminophen (Tylenol 325mg Tab) 650 mg PO Q4 PRN PRN Reason: Pain, Mild (1-3) Acetaminophen (Tylenol 325mg Tab) 650 mg PO Q6 PRN PRN Reason: Fever >100.4 F Allopurinol (Zyloprim) 100 mg PO DAILY [facility] Last Admin: 01/18/17 08:34 Dose: 100 mg Amlodipine Besylate (Norvasc) 5 mg PO DAILY [facility] Last Admin: 01/18/17 08:33 Dose: 5 mg Dextrose (Dextrose 50% Inj) 0 ml IVP STAT PRN; Protocol PRN Reason: Hypoglycemia Dextrose (Glutose 15) 15 gm PO ONCE PRN; Protocol PRN Reason: Hypoglycemia Docusate Sodium (Colace) 100 mg PO BID [facility] Last Admin: 01/18/17 08:31 Dose: 100 mg Famotidine (Pepcid) 20 mg PO DAILY [facility] Last Admin: 01/18/17 08:34 Dose: 20 mg Furosemide (Lasix) 40 mg IVP BID [facility] Last Admin: 01/18/17 08:32 Dose: 40 mg Glucagon (Glucagen Diagnostic Kit) 0 mg IM STAT PRN; Protocol PRN Reason: Hypoglycemia Home Med (Mycophenolate Sodium [Myfortic]) 4 tab PO BID [facility] Last Admin: 01/18/17 08:32 Dose: 4 tab Hydralazine HCl (Apresoline) 50 mg PO Q8 [facility] Last Admin: 01/18/17 08:30 Dose: 50 mg Daptomycin 580 mg/ Sodium (Chloride) 100 mls @ 100 mls/hr IVPB DAILY@1700 [facility] Stop: 01/19/17 21:01 Last Admin: 01/17/17 17:12 Dose: 100 mls/hr Ciprofloxacin (Cipro 400mg/200ml Dsw) 200 mls @ 200 mls/hr IVPB DAILY [facility] Stop: 01/19/17 23:59 Insulin Detemir (Levemir) 50 units SC [facility] Last Admin: 01/17/17 22:04 Dose: 50 units Insulin Human Lispro (Humalog) 0 units SC [facility] PRN Reason: Protocol Last Admin: 01/18/17 06:33 Dose: 43 units Levothyroxine Sodium (Synthroid) 75 mcg PO DAILY@0630 [facility] Last Admin: 01/18/17 06:33 Dose: 75 mcg Losartan Potassium (Cozaar) 25 mg PO DAILY [facility] Last Admin: 01/18/17 08:31 Dose: 25 mg Hxree-5-Itng Ethyl Esters (Lovaza) 1 gm PO BID [facility] Last Admin: 01/18/17 08:32 Dose: 1 gm Oxycodone/Acetaminophen (Percocet 5/325 Mg Tab) 1 tab PO Q4 PRN PRN Reason: Pain Moderate Stop: 01/21/17 10:17 Oxycodone/Acetaminophen (Percocet 5/325 Mg Tab) 2 tab PO Q4 PRN PRN Reason: Pain, severe (8-10) Stop: 01/21/17 10:18 Last Admin: 01/18/17 10:35 Dose: 2 tab Rivaroxaban (Xarelto) 20 mg PO QPM [facility] PRN Reason: Protocol Last Admin: 01/17/17 17:16 Dose: 20 mg Senna/Docusate Sodium (Senokot S 50 Mg-8.6 Mg) 2 tab PO [facility] Last Admin: 01/17/17 22:07 Dose: 2 tab Tamsulosin HCl (Flomax) 0.4 mg PO QPM [facility] Last Admin: 01/17/17 17:16 Dose: 0.4 mg - Labs Labs: 01/16/17 10:20 01/16/17 10:20 - Constitutional Appears: No Acute Distress - ENT Exam ENT Exam: Mucous Membranes Moist - Respiratory Exam Respiratory Exam: Chest Wall Tenderness, NORMAL BREATHING PATTERN - Cardiovascular Exam Cardiovascular Exam: absent: Rubs - Extremities Exam Extremities Exam: absent: Calf Tenderness - Back Exam Back Exam: absent: CVA tenderness (L) - Neurological Exam Neurological Exam: Alert Assessment and Plan (1) Renal transplant recipient Assessment & Plan: adjust dose of cipro as per ID adjust dose of Xeralto to 15mg also I ask pt. to bring all his meds with him ,perhaps some thing missing?? Status: Acute
--- NOTE | 2017-01-18 12:44 | CP.PCM.PN ---
Subjective - Date & Time of Evaluation Date of Evaluation: 01/18/17 Time of Evaluation: 12:30 - Subjective Subjective: Discussed pt with the resident Pt is on Xarelto due to A Fib and a CHAD2S score >2 This puts him at high risk of a stroke Needs oral anticoagulation to prevent a stroke It should not be discontinued unless pt has a life threatening bleed. Objective - Vital Signs/Intake and Output Vital Signs (last 24 hours): Temp Pulse Resp BP Pulse Ox 98.8 F 89 20 140/56 L 93 L 01/18/17 08:40 01/18/17 08:40 01/18/17 08:40 01/18/17 08:40 01/18/17 08:40 - Medications Medications: Current Medications Acetaminophen (Tylenol 325mg Tab) 650 mg PO Q4 PRN PRN Reason: Pain, Mild (1-3) Acetaminophen (Tylenol 325mg Tab) 650 mg PO Q6 PRN PRN Reason: Fever >100.4 F Allopurinol (Zyloprim) 100 mg PO DAILY [facility] Last Admin: 01/18/17 08:34 Dose: 100 mg Amlodipine Besylate (Norvasc) 5 mg PO DAILY [facility] Last Admin: 01/18/17 08:33 Dose: 5 mg Dextrose (Dextrose 50% Inj) 0 ml IVP STAT PRN; Protocol PRN Reason: Hypoglycemia Dextrose (Glutose 15) 15 gm PO ONCE PRN; Protocol PRN Reason: Hypoglycemia Docusate Sodium (Colace) 100 mg PO BID [facility] Last Admin: 01/18/17 08:31 Dose: 100 mg Famotidine (Pepcid) 20 mg PO DAILY [facility] Last Admin: 01/18/17 08:34 Dose: 20 mg Furosemide (Lasix) 40 mg IVP BID [facility] Last Admin: 01/18/17 08:32 Dose: 40 mg Glucagon (Glucagen Diagnostic Kit) 0 mg IM STAT PRN; Protocol PRN Reason: Hypoglycemia Home Med (Mycophenolate Sodium [Myfortic]) 4 tab PO BID [facility] Last Admin: 01/18/17 08:32 Dose: 4 tab Hydralazine HCl (Apresoline) 50 mg PO Q8 [facility] Last Admin: 01/18/17 08:30 Dose: 50 mg Daptomycin 580 mg/ Sodium (Chloride) 100 mls @ 100 mls/hr IVPB DAILY@1700 [facility] Stop: 01/19/17 21:01 Last Admin: 01/17/17 17:12 Dose: 100 mls/hr Ciprofloxacin (Cipro 400mg/200ml Dsw) 200 mls @ 200 mls/hr IVPB DAILY [facility] Stop: 01/19/17 23:59 Insulin Detemir (Levemir) 50 units SC [facility] Last Admin: 01/17/17 22:04 Dose: 50 units Insulin Human Lispro (Humalog) 0 units SC [facility] PRN Reason: Protocol Last Admin: 01/18/17 06:33 Dose: 43 units Levothyroxine Sodium (Synthroid) 75 mcg PO DAILY@0630 [facility] Last Admin: 01/18/17 06:33 Dose: 75 mcg Losartan Potassium (Cozaar) 25 mg PO DAILY [facility] Last Admin: 01/18/17 08:31 Dose: 25 mg Hpeoq-2-Ytcu Ethyl Esters (Lovaza) 1 gm PO BID [facility] Last Admin: 01/18/17 08:32 Dose: 1 gm Oxycodone/Acetaminophen (Percocet 5/325 Mg Tab) 1 tab PO Q4 PRN PRN Reason: Pain Moderate Stop: 01/21/17 10:17 Oxycodone/Acetaminophen (Percocet 5/325 Mg Tab) 2 tab PO Q4 PRN PRN Reason: Pain, severe (8-10) Stop: 01/21/17 10:18 Last Admin: 01/18/17 10:35 Dose: 2 tab Rivaroxaban (Xarelto) 15 mg PO QPM [facility] PRN Reason: Protocol Senna/Docusate Sodium (Senokot S 50 Mg-8.6 Mg) 2 tab PO [facility] Last Admin: 01/17/17 22:07 Dose: 2 tab Tamsulosin HCl (Flomax) 0.4 mg PO QPM [facility] Last Admin: 01/17/17 17:16 Dose: 0.4 mg - Labs Labs: 01/16/17 10:20 01/16/17 10:20
--- NOTE | 2017-01-18 13:18 | CP.PCM.PN ---
Subjective - Date & Time of Evaluation Date of Evaluation: 01/18/17 Time of Evaluation: 09:50 - Subjective Subjective: Pt seen and examined at rehab gym this morning, doing well, still feel a little swollen in the legs but breathing has improved greatly. Objective - Vital Signs/Intake and Output Vital Signs (last 24 hours): Temp Pulse Resp BP Pulse Ox 98.8 F 89 20 140/56 L 93 L 01/18/17 08:40 01/18/17 08:40 01/18/17 08:40 01/18/17 08:40 01/18/17 08:40 - Medications Medications: Current Medications Acetaminophen (Tylenol 325mg Tab) 650 mg PO Q4 PRN PRN Reason: Pain, Mild (1-3) Acetaminophen (Tylenol 325mg Tab) 650 mg PO Q6 PRN PRN Reason: Fever >100.4 F Allopurinol (Zyloprim) 100 mg PO DAILY [facility] Last Admin: 01/18/17 08:34 Dose: 100 mg Amlodipine Besylate (Norvasc) 5 mg PO DAILY [facility] Last Admin: 01/18/17 08:33 Dose: 5 mg Dextrose (Dextrose 50% Inj) 0 ml IVP STAT PRN; Protocol PRN Reason: Hypoglycemia Dextrose (Glutose 15) 15 gm PO ONCE PRN; Protocol PRN Reason: Hypoglycemia Docusate Sodium (Colace) 100 mg PO BID [facility] Last Admin: 01/18/17 08:31 Dose: 100 mg Famotidine (Pepcid) 20 mg PO DAILY [facility] Last Admin: 01/18/17 08:34 Dose: 20 mg Furosemide (Lasix) 40 mg IVP BID [facility] Last Admin: 01/18/17 08:32 Dose: 40 mg Glucagon (Glucagen Diagnostic Kit) 0 mg IM STAT PRN; Protocol PRN Reason: Hypoglycemia Home Med (Mycophenolate Sodium [Myfortic]) 4 tab PO BID [facility] Last Admin: 01/18/17 08:32 Dose: 4 tab Hydralazine HCl (Apresoline) 50 mg PO Q8 [facility] Last Admin: 01/18/17 08:30 Dose: 50 mg Daptomycin 580 mg/ Sodium (Chloride) 100 mls @ 100 mls/hr IVPB DAILY@1700 [facility] Stop: 01/19/17 21:01 Last Admin: 01/17/17 17:12 Dose: 100 mls/hr Ciprofloxacin (Cipro 400mg/200ml Dsw) 200 mls @ 200 mls/hr IVPB DAILY [facility] Stop: 01/19/17 23:59 Insulin Detemir (Levemir) 50 units SC [facility] Last Admin: 01/17/17 22:04 Dose: 50 units Insulin Human Lispro (Humalog) 0 units SC [facility] PRN Reason: Protocol Last Admin: 01/18/17 06:33 Dose: 43 units Levothyroxine Sodium (Synthroid) 75 mcg PO DAILY@0630 [facility] Last Admin: 01/18/17 06:33 Dose: 75 mcg Losartan Potassium (Cozaar) 25 mg PO DAILY [facility] Last Admin: 01/18/17 08:31 Dose: 25 mg Fynnq-3-Stll Ethyl Esters (Lovaza) 1 gm PO BID [facility] Last Admin: 01/18/17 08:32 Dose: 1 gm Oxycodone/Acetaminophen (Percocet 5/325 Mg Tab) 1 tab PO Q4 PRN PRN Reason: Pain Moderate Stop: 01/21/17 10:17 Oxycodone/Acetaminophen (Percocet 5/325 Mg Tab) 2 tab PO Q4 PRN PRN Reason: Pain, severe (8-10) Stop: 01/21/17 10:18 Last Admin: 01/18/17 10:35 Dose: 2 tab Rivaroxaban (Xarelto) 15 mg PO QPM [facility] PRN Reason: Protocol Senna/Docusate Sodium (Senokot S 50 Mg-8.6 Mg) 2 tab PO [facility] Last Admin: 01/17/17 22:07 Dose: 2 tab Tamsulosin HCl (Flomax) 0.4 mg PO QPM [facility] Last Admin: 01/17/17 17:16 Dose: 0.4 mg - Labs Labs: 01/16/17 10:20 01/16/17 10:20 - Constitutional Appears: Non-toxic, No Acute Distress - Head Exam Head Exam: NORMOCEPHALIC - Eye Exam Eye Exam: Normal appearance, PERRL Pupil Exam: NORMAL ACCOMODATION - ENT Exam ENT Exam: Mucous Membranes Moist - Respiratory Exam Respiratory Exam: Clear to Ausculation Bilateral, NORMAL BREATHING PATTERN. absent: Rales, Rhonchi, Wheezes - Cardiovascular Exam Cardiovascular Exam: REGULAR RHYTHM - GI/Abdominal Exam GI & Abdominal Exam: Soft, Normal Bowel Sounds. absent: Tenderness - Extremities Exam Additional comments: wound neatly wrapped, no discharge, no signs of infection - Neurological Exam Neurological Exam: Alert, Awake, CN II-XII Intact, Normal Gait, Oriented x3 Assessment and Plan - Assessment and Plan (Free Text) Assessment: 66 y/o male with pmhx of Arthritis (HIP AREA ), Cardia Arrhythmia (ATRIAL FIB), Diabetes (insulin), HTN, Hypercholesterolemia, Hypothyroidism, Chronic Kidney Disease admitted for right diabetic foot ulceration s/p surgical debridement . now in TCU for IV antibiotics and physical therapy Plan: Right foot Ulcer complete IV antibiotics per ID last day of antibiotics 01/19/17 Cipro d/c'ed; now on Daptomycin Continue with rehab 2. Pt report being fluid overloaded lasix: 40mg BID per Dr. horton 3. Bleeding Most likely due to Xarelto Cardiology input appreciated. Spoke with PICC line nurse regarding bleeding at PICC line site, recommends using pressure dressing and also if no longer needed can make arrangment to have it removed 4. Insulin Dependent Diabetes SSI Accucheck 4. Home medication restarted 5. Diet- Diabetic heart healthy 6. DVT prophylaxis Already on Xarelto SCDs
--- NOTE | 2017-01-18 14:08 | CP.PCM.PN ---
Subjective - Date & Time of Evaluation Date of Evaluation: 01/18/17 Time of Evaluation: 08:00 - Subjective Subjective: creat worse renal on board has transplant in situ on mycophenalate c/o leg edema may need tertiary care would send urine for BK virus and check levels of mycophenalate prognosis guarded Objective - Vital Signs/Intake and Output Vital Signs (last 24 hours): Temp Pulse Resp BP Pulse Ox 98.8 F 89 20 140/56 L 93 L 01/18/17 08:40 01/18/17 08:40 01/18/17 08:40 01/18/17 08:40 01/18/17 08:40 - Medications Medications: Current Medications Acetaminophen (Tylenol 325mg Tab) 650 mg PO Q4 PRN PRN Reason: Pain, Mild (1-3) Acetaminophen (Tylenol 325mg Tab) 650 mg PO Q6 PRN PRN Reason: Fever >100.4 F Allopurinol (Zyloprim) 100 mg PO DAILY [facility] Last Admin: 01/18/17 08:34 Dose: 100 mg Amlodipine Besylate (Norvasc) 5 mg PO DAILY [facility] Last Admin: 01/18/17 08:33 Dose: 5 mg Dextrose (Dextrose 50% Inj) 0 ml IVP STAT PRN; Protocol PRN Reason: Hypoglycemia Dextrose (Glutose 15) 15 gm PO ONCE PRN; Protocol PRN Reason: Hypoglycemia Docusate Sodium (Colace) 100 mg PO BID [facility] Last Admin: 01/18/17 08:31 Dose: 100 mg Famotidine (Pepcid) 20 mg PO DAILY [facility] Last Admin: 01/18/17 08:34 Dose: 20 mg Furosemide (Lasix) 40 mg IVP BID [facility] Last Admin: 01/18/17 08:32 Dose: 40 mg Glucagon (Glucagen Diagnostic Kit) 0 mg IM STAT PRN; Protocol PRN Reason: Hypoglycemia Home Med (Mycophenolate Sodium [Myfortic]) 4 tab PO BID [facility] Last Admin: 01/18/17 08:32 Dose: 4 tab Hydralazine HCl (Apresoline) 50 mg PO Q8 [facility] Last Admin: 01/18/17 08:30 Dose: 50 mg Daptomycin 580 mg/ Sodium (Chloride) 100 mls @ 100 mls/hr IVPB DAILY@1700 [facility] Stop: 01/19/17 21:01 Last Admin: 01/17/17 17:12 Dose: 100 mls/hr Ciprofloxacin (Cipro 400mg/200ml Dsw) 200 mls @ 200 mls/hr IVPB DAILY [facility] Stop: 01/19/17 23:59 Insulin Detemir (Levemir) 50 units SC [facility] Last Admin: 01/17/17 22:04 Dose: 50 units Insulin Human Lispro (Humalog) 0 units SC [facility] PRN Reason: Protocol Last Admin: 01/18/17 06:33 Dose: 43 units Levothyroxine Sodium (Synthroid) 75 mcg PO DAILY@0630 [facility] Last Admin: 01/18/17 06:33 Dose: 75 mcg Losartan Potassium (Cozaar) 25 mg PO DAILY [facility] Last Admin: 01/18/17 08:31 Dose: 25 mg Xsnuq-2-Hqnv Ethyl Esters (Lovaza) 1 gm PO BID [facility] Last Admin: 01/18/17 08:32 Dose: 1 gm Oxycodone/Acetaminophen (Percocet 5/325 Mg Tab) 1 tab PO Q4 PRN PRN Reason: Pain Moderate Stop: 01/21/17 10:17 Oxycodone/Acetaminophen (Percocet 5/325 Mg Tab) 2 tab PO Q4 PRN PRN Reason: Pain, severe (8-10) Stop: 01/21/17 10:18 Last Admin: 01/18/17 10:35 Dose: 2 tab Rivaroxaban (Xarelto) 15 mg PO QPM [facility] PRN Reason: Protocol Senna/Docusate Sodium (Senokot S 50 Mg-8.6 Mg) 2 tab PO [facility] Last Admin: 01/17/17 22:07 Dose: 2 tab Tamsulosin HCl (Flomax) 0.4 mg PO QPM [facility] Last Admin: 01/17/17 17:16 Dose: 0.4 mg - Labs Labs: 01/16/17 10:20 01/16/17 10:20 - Constitutional Appears: Non-toxic, Chronically Ill - Head Exam Head Exam: NORMOCEPHALIC - Eye Exam Eye Exam: absent: Scleral icterus - ENT Exam ENT Exam: Mucous Membranes Dry - Neck Exam Neck Exam: absent: Lymphadenopathy - Respiratory Exam Respiratory Exam: Decreased Breath Sounds, Clear to Ausculation Bilateral - Cardiovascular Exam Cardiovascular Exam: REGULAR RHYTHM, +S1, +S2 - GI/Abdominal Exam GI & Abdominal Exam: Distended, Soft. absent: Tenderness - Rectal Exam Rectal Exam: Deferred - Exam Exam: NORMAL INSPECTION - Extremities Exam Extremities Exam: Pedal Edema. 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
[2017-01-18] MEDS: Docusate-Senna 50 mg-8.6 mg Tab PO SCH (21:10)
[2017-01-18] MEDS: Insulin Detemir 100 Units/ml Inj SC SCH (21:13)
[2017-01-19] MEDS: Levothyroxine 75 MCG TAB PO SCH (05:59)
[2017-01-19] MEDS: Insulin Lispro (humaLOG) 100 Units/ml Inj SC SCH ×4 (06:33→21:19)
[2017-01-19] MEDS: MYCOPHENOLATE SODIUM PO SCH ×2 (08:25→16:25)
[2017-01-19] MEDS: Omega-3-Acid Ethyl Esters 1 GM Cap PO SCH ×2 (08:26→16:24)
--- NOTE | 2017-01-19 10:40 | CP.PCM.PN ---
Subjective - Date & Time of Evaluation Date of Evaluation: 01/19/17 Time of Evaluation: 08:30 - Subjective Subjective: Patient was seen and evaluated at bedside in TCU this morning. He is now 8 day s /p right foot 1st MTPJ arthroplasty, sesamoidectomy, ulcer debridement and extensor tendon lengthening (DOS: 01/11/17.) Patient was resting comfortably, in NAD. He states that he only experiences minimal pain intermittently at the surgical site. No other pedal complaints reported at this time. Denies F/C/N/V/ SOB. Objective - Vital Signs/Intake and Output Vital Signs (last 24 hours): Temp Pulse Resp BP Pulse Ox 98.6 F 90 20 110/65 93 L 01/19/17 08:41 01/19/17 08:41 01/19/17 08:41 01/19/17 08:41 01/19/17 08:41 - Medications Medications: Current Medications Acetaminophen (Tylenol 325mg Tab) 650 mg PO Q4 PRN PRN Reason: Pain, Mild (1-3) Acetaminophen (Tylenol 325mg Tab) 650 mg PO Q6 PRN PRN Reason: Fever >100.4 F Allopurinol (Zyloprim) 100 mg PO DAILY [facility] Last Admin: 01/19/17 08:28 Dose: 100 mg Amlodipine Besylate (Norvasc) 5 mg PO DAILY [facility] Last Admin: 01/19/17 08:26 Dose: 5 mg Dextrose (Dextrose 50% Inj) 0 ml IVP STAT PRN; Protocol PRN Reason: Hypoglycemia Dextrose (Glutose 15) 15 gm PO ONCE PRN; Protocol PRN Reason: Hypoglycemia Docusate Sodium (Colace) 100 mg PO BID [facility] Last Admin: 01/19/17 08:28 Dose: 100 mg Famotidine (Pepcid) 20 mg PO DAILY [facility] Last Admin: 01/19/17 08:27 Dose: 20 mg Furosemide (Lasix) 40 mg IVP BID [facility] Last Admin: 01/19/17 08:27 Dose: 40 mg Glucagon (Glucagen Diagnostic Kit) 0 mg IM STAT PRN; Protocol PRN Reason: Hypoglycemia Home Med (Mycophenolate Sodium [Myfortic]) 4 tab PO BID [facility] Last Admin: 01/19/17 08:25 Dose: 4 tab Hydralazine HCl (Apresoline) 50 mg PO Q8 [facility] Last Admin: 01/18/17 23:59 Dose: 50 mg Daptomycin 580 mg/ Sodium (Chloride) 100 mls @ 100 mls/hr IVPB DAILY@1700 [facility] Stop: 01/19/17 21:01 Last Admin: 01/18/17 17:56 Dose: 100 mls/hr Insulin Detemir (Levemir) 50 units SC [facility] Last Admin: 01/18/17 21:13 Dose: 50 units Insulin Human Lispro (Humalog) 0 units SC [facility] PRN Reason: Protocol Last Admin: 01/19/17 06:33 Dose: Not Given Levothyroxine Sodium (Synthroid) 75 mcg PO DAILY@0630 [facility] Last Admin: 01/19/17 05:59 Dose: 75 mcg Losartan Potassium (Cozaar) 25 mg PO DAILY [facility] Last Admin: 01/19/17 08:27 Dose: 25 mg Jwmdt-8-Tsel Ethyl Esters (Lovaza) 1 gm PO BID [facility] Last Admin: 01/19/17 08:26 Dose: 1 gm Oxycodone/Acetaminophen (Percocet 5/325 Mg Tab) 1 tab PO Q4 PRN PRN Reason: Pain Moderate Stop: 01/21/17 10:17 Oxycodone/Acetaminophen (Percocet 5/325 Mg Tab) 2 tab PO Q4 PRN PRN Reason: Pain, severe (8-10) Stop: 01/21/17 10:18 Last Admin: 01/18/17 10:35 Dose: 2 tab Prednisone (Prednisone Tab) 5 mg PO DAILY [facility] Last Admin: 01/19/17 08:29 Dose: 5 mg Rivaroxaban (Xarelto) 15 mg PO QPM [facility] PRN Reason: Protocol Last Admin: 01/18/17 18:03 Dose: 15 mg Senna/Docusate Sodium (Senokot S 50 Mg-8.6 Mg) 2 tab PO [facility] Last Admin: 01/18/17 21:10 Dose: 2 tab Tamsulosin HCl (Flomax) 0.4 mg PO QPM [facility] Last Admin: 01/18/17 18:00 Dose: 0.4 mg - Labs Labs: 01/16/17 10:20 01/16/17 10:20 - Constitutional Appears: Non-toxic, No Acute Distress - Neurological Exam Neurological Exam: Alert, Awake, Oriented x3 - Psychiatric Exam Psychiatric exam: Normal Affect, Normal Mood - Additional Findings Additional findings: RLE exam: Vasc: DP 2/4, PT non palpable b/l, TG wnl, CFT < 3 sec to all digits Neuro: grossly diminished Derm: right foot plantar 1st metatarsal head open well circumscribed ulceration measuring 1.5 x 1.5 x 0.4 cm with granular base; mildly hyperkeratotic border, no purulence, minimal sanguinous drainage, no malodor, no edema. Dorsal surgical site with skin edges well approximated, sutures intact. Surrounding skin with adjacent blanchable erythema tracking laterally, with minor warmth. MSK: Mild pain on palpation of surgical site. ROM at 1st MTPJ limited. Assessment and Plan - Assessment and Plan (Free Text) Assessment: 66 y/o male 8 days s/p right foot 1st MTPJ arthroplasty, sesamoidectomy, ulcer debridement and extensor lengthening secondary to DM & OM Plan: Patient seen and evaluated at bedside in TCU Labs and vitals reviewed Right foot was re-dressed with betadine DSD and an INDIO bandage Continue PWB to the heel with a surgical shoe Continue IV abx via PICC line, as per ID recommendations Patient is stable for discharge from podiatric perspective He is to follow-up with Dr. Jewell at his office on an outpatient basis Podiatry to follow while patient remains in house
--- NOTE | 2017-01-19 13:34 | CP.PCM.PN ---
Subjective - Date & Time of Evaluation Date of Evaluation: 01/19/17 Time of Evaluation: 13:32 - Subjective Subjective: seen and examined feels ok no n/v Objective - Vital Signs/Intake and Output Vital Signs (last 24 hours): Temp Pulse Resp BP Pulse Ox 98.6 F 90 20 110/65 93 L 01/19/17 08:41 01/19/17 09:00 01/19/17 08:41 01/19/17 09:00 01/19/17 08:41 - Medications Medications: Current Medications Acetaminophen (Tylenol 325mg Tab) 650 mg PO Q4 PRN PRN Reason: Pain, Mild (1-3) Acetaminophen (Tylenol 325mg Tab) 650 mg PO Q6 PRN PRN Reason: Fever >100.4 F Allopurinol (Zyloprim) 100 mg PO DAILY [facility] Last Admin: 01/19/17 08:28 Dose: 100 mg Amlodipine Besylate (Norvasc) 5 mg PO DAILY [facility] Last Admin: 01/19/17 08:26 Dose: 5 mg Dextrose (Dextrose 50% Inj) 0 ml IVP STAT PRN; Protocol PRN Reason: Hypoglycemia Dextrose (Glutose 15) 15 gm PO ONCE PRN; Protocol PRN Reason: Hypoglycemia Docusate Sodium (Colace) 100 mg PO BID [facility] Last Admin: 01/19/17 08:28 Dose: 100 mg Famotidine (Pepcid) 20 mg PO DAILY [facility] Last Admin: 01/19/17 08:27 Dose: 20 mg Furosemide (Lasix) 40 mg IVP BID [facility] Last Admin: 01/19/17 08:27 Dose: 40 mg Glucagon (Glucagen Diagnostic Kit) 0 mg IM STAT PRN; Protocol PRN Reason: Hypoglycemia Home Med (Mycophenolate Sodium [Myfortic]) 4 tab PO BID [facility] Last Admin: 01/19/17 08:25 Dose: 4 tab Hydralazine HCl (Apresoline) 50 mg PO Q8 [facility] Last Admin: 01/19/17 09:00 Dose: 50 mg Daptomycin 580 mg/ Sodium (Chloride) 100 mls @ 100 mls/hr IVPB DAILY@1700 [facility] Stop: 01/19/17 21:01 Last Admin: 01/18/17 17:56 Dose: 100 mls/hr Insulin Detemir (Levemir) 50 units SC [facility] Last Admin: 01/18/17 21:13 Dose: 50 units Insulin Human Lispro (Humalog) 0 units SC [facility] PRN Reason: Protocol Last Admin: 01/19/17 11:45 Dose: 2 units Levothyroxine Sodium (Synthroid) 75 mcg PO DAILY@0630 [facility] Last Admin: 01/19/17 05:59 Dose: 75 mcg Losartan Potassium (Cozaar) 25 mg PO DAILY [facility] Last Admin: 01/19/17 08:27 Dose: 25 mg Tmsfv-6-Gusv Ethyl Esters (Lovaza) 1 gm PO BID [facility] Last Admin: 01/19/17 08:26 Dose: 1 gm Oxycodone/Acetaminophen (Percocet 5/325 Mg Tab) 1 tab PO Q4 PRN PRN Reason: Pain Moderate Stop: 01/21/17 10:17 Oxycodone/Acetaminophen (Percocet 5/325 Mg Tab) 2 tab PO Q4 PRN PRN Reason: Pain, severe (8-10) Stop: 01/21/17 10:18 Last Admin: 01/18/17 10:35 Dose: 2 tab Prednisone (Prednisone Tab) 5 mg PO DAILY [facility] Last Admin: 01/19/17 08:29 Dose: 5 mg Rivaroxaban (Xarelto) 15 mg PO QPM [facility] PRN Reason: Protocol Last Admin: 01/18/17 18:03 Dose: 15 mg Senna/Docusate Sodium (Senokot S 50 Mg-8.6 Mg) 2 tab PO HS [facility] Last Admin: 01/18/17 21:10 Dose: 2 tab Tamsulosin HCl (Flomax) 0.4 mg PO QPM [facility] Last Admin: 01/18/17 18:00 Dose: 0.4 mg - Labs Labs: 01/16/17 10:20 01/16/17 10:20 - Constitutional Appears: Non-toxic - Head Exam Head Exam: ATRAUMATIC - Eye Exam Eye Exam: Normal appearance - ENT Exam ENT Exam: Mucous Membranes Moist - Neck Exam Neck Exam: Normal Inspection - Respiratory Exam Respiratory Exam: NORMAL BREATHING PATTERN - Cardiovascular Exam Cardiovascular Exam: +S1, +S2 - GI/Abdominal Exam GI & Abdominal Exam: Normal Bowel Sounds - Extremities Exam Additional comments: dressing RLE - Neurological Exam Neurological Exam: Alert, Oriented x3 - Psychiatric Exam Psychiatric exam: Normal Affect - Skin Additional comments: dressing on RLE Assessment and Plan - Assessment and Plan (Free Text) Assessment: ckd III / HTN / Anemia / Diabetic foot infection / h/o kidney transplant ckd - stable on triple immunosuppression - pred , myfortic, and monthly belatacept (next dose for later this month) bp acceptable abx per id - dose for his gfr f/u ID
[2017-01-19 15:28] LABS: RBC URINE 2 /hpf (0-3); URINE BACTERIA RARE (<OCC); URINE BILIRUBIN NEGATIVE (NEGATIVE); URINE BLOOD NEGATIVE (NEGATIVE); URINE COLOR YELLOW (YELLOW); URINE GLUCOSE (UA) NEG (Normal); URINE KETONE NEGATIVE (NEGATIVE); URINE LEUKOCYTE ESTERASE NEG Leu/uL (Negative); URINE PROTEIN NEGATIVE (NEGATIVE); URINE UROBILINOGEN 0.2-1.0 mg/dL (0.2-1.0); WBC URINE 1 /hpf (0-5)
[2017-01-19] MEDS: Oxycodone/Acetaminophen 5/325 mg Tab PO PRN (16:20)
[2017-01-19] MEDS: Insulin Detemir 100 Units/ml Inj SC SCH (21:19)
[2017-01-19] MEDS: Docusate-Senna 50 mg-8.6 mg Tab PO SCH (21:20)
[2017-01-20] MEDS: Oxycodone/Acetaminophen 5/325 mg Tab PO PRN ×2 (01:38→21:19)
[2017-01-20] MEDS: Levothyroxine 75 MCG TAB PO SCH (06:36)
[2017-01-20] MEDS: MYCOPHENOLATE SODIUM PO SCH ×2 (08:26→16:27)
[2017-01-20] MEDS: Insulin Lispro (humaLOG) 100 Units/ml Inj SC SCH ×4 (08:26→21:25)
[2017-01-20] MEDS: Omega-3-Acid Ethyl Esters 1 GM Cap PO SCH ×2 (08:27→16:27)
--- NOTE | 2017-01-20 13:44 | CP.PCM.PN ---
Subjective - Date & Time of Evaluation Date of Evaluation: 01/20/17 Time of Evaluation: 08:00 - Subjective Subjective: ESR AND CRP ELEVATED WOUND CARE IN PROGRESS U/A APPEARS NORMAL CHRONIC GRAFT VS HOST REACTION UNLIKELY CONT WOUND CARE AND IV ANTIBIOTICS Objective - Vital Signs/Intake and Output Vital Signs (last 24 hours): Temp Pulse Resp BP Pulse Ox 97.3 F L 78 20 115/62 95 01/20/17 08:00 01/20/17 08:28 01/20/17 08:00 01/20/17 10:45 01/20/17 08:00 - Medications Medications: Current Medications Acetaminophen (Tylenol 325mg Tab) 650 mg PO Q4 PRN PRN Reason: Pain, Mild (1-3) Acetaminophen (Tylenol 325mg Tab) 650 mg PO Q6 PRN PRN Reason: Fever >100.4 F Allopurinol (Zyloprim) 100 mg PO DAILY [facility] Last Admin: 01/20/17 08:27 Dose: 100 mg Amlodipine Besylate (Norvasc) 5 mg PO DAILY [facility] Last Admin: 01/20/17 08:28 Dose: 5 mg Dextrose (Dextrose 50% Inj) 0 ml IVP STAT PRN; Protocol PRN Reason: Hypoglycemia Dextrose (Glutose 15) 15 gm PO ONCE PRN; Protocol PRN Reason: Hypoglycemia Docusate Sodium (Colace) 100 mg PO BID [facility] Last Admin: 01/20/17 08:27 Dose: 100 mg Famotidine (Pepcid) 20 mg PO DAILY [facility] Last Admin: 01/20/17 08:27 Dose: 20 mg Furosemide (Lasix) 40 mg PO BID [facility] Furosemide (Lasix) 40 mg PO ONCE ONE Stop: 01/20/17 17:01 Glucagon (Glucagen Diagnostic Kit) 0 mg IM STAT PRN; Protocol PRN Reason: Hypoglycemia Home Med (Mycophenolate Sodium [Myfortic]) 4 tab PO BID [facility] Last Admin: 01/20/17 08:26 Dose: 4 tab Hydralazine HCl (Apresoline) 50 mg PO Q8 [facility] Last Admin: 01/20/17 08:25 Dose: 50 mg Insulin Detemir (Levemir) 50 units SC HS [facility] Last Admin: 01/19/17 21:19 Dose: 50 units Insulin Human Lispro (Humalog) 0 units SC [facility] PRN Reason: Protocol Last Admin: 01/20/17 12:16 Dose: 4 units Levothyroxine Sodium (Synthroid) 75 mcg PO DAILY@0630 [facility] Last Admin: 01/20/17 06:36 Dose: 75 mcg Losartan Potassium (Cozaar) 25 mg PO DAILY [facility] Last Admin: 01/20/17 08:27 Dose: 25 mg Xvbgu-0-Liid Ethyl Esters (Lovaza) 1 gm PO BID [facility] Last Admin: 01/20/17 08:27 Dose: 1 gm Oxycodone/Acetaminophen (Percocet 5/325 Mg Tab) 1 tab PO Q4 PRN PRN Reason: Pain Moderate Stop: 01/21/17 10:17 Last Admin: 01/19/17 16:20 Dose: 1 tab Oxycodone/Acetaminophen (Percocet 5/325 Mg Tab) 2 tab PO Q4 PRN PRN Reason: Pain, severe (8-10) Stop: 01/21/17 10:18 Last Admin: 01/20/17 01:38 Dose: 2 tab Prednisone (Prednisone Tab) 5 mg PO DAILY [facility] Last Admin: 01/20/17 08:28 Dose: 5 mg Rivaroxaban (Xarelto) 15 mg PO QPM [facility] PRN Reason: Protocol Last Admin: 01/19/17 17:02 Dose: 15 mg Senna/Docusate Sodium (Senokot S 50 Mg-8.6 Mg) 2 tab PO HS [facility] Last Admin: 01/19/17 21:20 Dose: Not Given Tamsulosin HCl (Flomax) 0.4 mg PO QPM [facility] Last Admin: 01/19/17 17:02 Dose: 0.4 mg - Labs Labs: 01/16/17 10:20 01/16/17 10:20 - Constitutional Appears: Non-toxic, Chronically Ill - Head Exam Head Exam: NORMOCEPHALIC - Eye Exam Eye Exam: absent: Scleral icterus - Neck Exam Neck Exam: absent: Lymphadenopathy - Respiratory Exam Respiratory Exam: Decreased Breath Sounds - Cardiovascular Exam Cardiovascular Exam: REGULAR RHYTHM, +S1, +S2 - GI/Abdominal Exam GI & Abdominal Exam: Distended, Soft - Rectal Exam Rectal Exam: Deferred - Exam Exam: NORMAL INSPECTION - Extremities Exam Extremities Exam: absent: Pedal Edema - Back Exam Back Exam: absent: CVA tenderness (L), CVA tenderness (R) - Neurological Exam Neurological Exam: Alert, Awake, Oriented x3 Assessment and Plan (1) Atrial fibrillation Status: Acute (2) Bifascicular block Status: Acute (3) CKD (chronic kidney disease) stage 3, GFR 30-59 ml/min Status: Acute (4) Diabetes Status: Acute (5) 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
--- NOTE | 2017-01-20 16:33 | CP.PCM.PN ---
Subjective - Date & Time of Evaluation Date of Evaluation: 01/19/17 Time of Evaluation: 10:05 - Subjective Subjective: patient claims that he has less congestion and abd distention.Has no leg edema. Objective - Vital Signs/Intake and Output Vital Signs (last 24 hours): Temp Pulse Resp BP Pulse Ox 97.3 F L 78 20 115/62 95 01/20/17 08:00 01/20/17 08:28 01/20/17 08:00 01/20/17 10:45 01/20/17 08:00 - Medications Medications: Current Medications Acetaminophen (Tylenol 325mg Tab) 650 mg PO Q4 PRN PRN Reason: Pain, Mild (1-3) Acetaminophen (Tylenol 325mg Tab) 650 mg PO Q6 PRN PRN Reason: Fever >100.4 F Allopurinol (Zyloprim) 100 mg PO DAILY [facility] Last Admin: 01/20/17 08:27 Dose: 100 mg Amlodipine Besylate (Norvasc) 5 mg PO DAILY [facility] Last Admin: 01/20/17 08:28 Dose: 5 mg Dextrose (Dextrose 50% Inj) 0 ml IVP STAT PRN; Protocol PRN Reason: Hypoglycemia Dextrose (Glutose 15) 15 gm PO ONCE PRN; Protocol PRN Reason: Hypoglycemia Docusate Sodium (Colace) 100 mg PO BID [facility] Last Admin: 01/20/17 08:27 Dose: 100 mg Famotidine (Pepcid) 20 mg PO DAILY [facility] Last Admin: 01/20/17 08:27 Dose: 20 mg Furosemide (Lasix) 40 mg PO BID [facility] Furosemide (Lasix) 40 mg PO ONCE ONE Stop: 01/20/17 17:01 Glucagon (Glucagen Diagnostic Kit) 0 mg IM STAT PRN; Protocol PRN Reason: Hypoglycemia Home Med (Mycophenolate Sodium [Myfortic]) 4 tab PO BID [facility] Last Admin: 01/20/17 08:26 Dose: 4 tab Hydralazine HCl (Apresoline) 50 mg PO Q8 [facility] Last Admin: 01/20/17 08:25 Dose: 50 mg Daptomycin 580 mg/ Sodium (Chloride) 100 mls @ 100 mls/hr IVPB DAILY@1700 [facility] Stop: 01/25/17 17:01 Insulin Detemir (Levemir) 50 units SC [facility] Last Admin: 01/19/17 21:19 Dose: 50 units Insulin Human Lispro (Humalog) 0 units SC [facility] PRN Reason: Protocol Last Admin: 01/20/17 12:16 Dose: 4 units Levothyroxine Sodium (Synthroid) 75 mcg PO DAILY@0630 [facility] Last Admin: 01/20/17 06:36 Dose: 75 mcg Losartan Potassium (Cozaar) 25 mg PO DAILY [facility] Last Admin: 01/20/17 08:27 Dose: 25 mg Bzeoy-3-Nwvz Ethyl Esters (Lovaza) 1 gm PO BID [facility] Last Admin: 01/20/17 08:27 Dose: 1 gm Oxycodone/Acetaminophen (Percocet 5/325 Mg Tab) 1 tab PO Q4 PRN PRN Reason: Pain Moderate Stop: 01/21/17 10:17 Last Admin: 01/19/17 16:20 Dose: 1 tab Oxycodone/Acetaminophen (Percocet 5/325 Mg Tab) 2 tab PO Q4 PRN PRN Reason: Pain, severe (8-10) Stop: 01/21/17 10:18 Last Admin: 01/20/17 01:38 Dose: 2 tab Prednisone (Prednisone Tab) 5 mg PO DAILY [facility] Last Admin: 01/20/17 08:28 Dose: 5 mg Rivaroxaban (Xarelto) 15 mg PO QPM [facility] PRN Reason: Protocol Last Admin: 01/19/17 17:02 Dose: 15 mg Senna/Docusate Sodium (Senokot S 50 Mg-8.6 Mg) 2 tab PO HS [facility] Last Admin: 01/19/17 21:20 Dose: Not Given Tamsulosin HCl (Flomax) 0.4 mg PO QPM [facility] Last Admin: 01/19/17 17:02 Dose: 0.4 mg - Labs Labs: 01/16/17 10:20 01/16/17 10:20
[2017-01-20] MEDS: Docusate-Senna 50 mg-8.6 mg Tab PO SCH (21:11)
[2017-01-20] MEDS: Insulin Detemir 100 Units/ml Inj SC SCH (21:13)
[2017-01-21 06:41] LABS: HEMATOCRIT 35.6 % (35.0-51.0); MEAN CELL VOLUME 82.6 fl (80.0-94.0); MEAN CORPUSCULAR HEMOGLOBIN 26.8 pg (27.0-31.0); MEAN CORPUSCULAR HGB CONC 32.4 g/dL (33.0-37.0); RED CELL DISTRIBUTION WIDTH 16.1 % (11.5-14.5); WHITE BLOOD COUNT 6.9 K/uL (4.8-10.8)
[2017-01-21] MEDS: Levothyroxine 75 MCG TAB PO SCH (06:53)
[2017-01-21] MEDS: Insulin Lispro (humaLOG) 100 Units/ml Inj SC SCH ×4 (06:55→21:38)
[2017-01-21 07:09] LABS: CALCIUM 9.3 mg/dL (8.4-10.2); POTASSIUM 3.5 MMOL/L (3.6-5.0)
[2017-01-21] MEDS: Omega-3-Acid Ethyl Esters 1 GM Cap PO SCH ×2 (08:17→17:53)
[2017-01-21] MEDS: MYCOPHENOLATE SODIUM PO SCH ×2 (08:18→17:53)
[2017-01-21] MEDS: Oxycodone/Acetaminophen 5/325 mg Tab PO PRN ×2 (08:22→15:19)
--- NOTE | 2017-01-21 10:40 | CP.PCM.PN ---
Subjective - Date & Time of Evaluation Date of Evaluation: 01/20/17 Time of Evaluation: 10:39 - Subjective Subjective: Patient remains well Noted decrease in anasarca and leg edema Breaths better. Objective - Vital Signs/Intake and Output Vital Signs (last 24 hours): Temp Pulse Resp BP Pulse Ox 98.2 F 90 18 120/62 98 01/20/17 20:45 01/21/17 08:18 01/20/17 20:45 01/21/17 08:18 01/20/17 20:45 - Medications Medications: Current Medications Acetaminophen (Tylenol 325mg Tab) 650 mg PO Q4 PRN PRN Reason: Pain, Mild (1-3) Acetaminophen (Tylenol 325mg Tab) 650 mg PO Q6 PRN PRN Reason: Fever >100.4 F Allopurinol (Zyloprim) 100 mg PO DAILY [facility] Last Admin: 01/21/17 08:18 Dose: 100 mg Amlodipine Besylate (Norvasc) 5 mg PO DAILY [facility] Last Admin: 01/21/17 08:17 Dose: 5 mg Dextrose (Dextrose 50% Inj) 0 ml IVP STAT PRN; Protocol PRN Reason: Hypoglycemia Dextrose (Glutose 15) 15 gm PO ONCE PRN; Protocol PRN Reason: Hypoglycemia Docusate Sodium (Colace) 100 mg PO BID [facility] Last Admin: 01/21/17 08:17 Dose: 100 mg Famotidine (Pepcid) 20 mg PO DAILY [facility] Last Admin: 01/21/17 08:18 Dose: 20 mg Furosemide (Lasix) 40 mg PO BID [facility] Last Admin: 01/21/17 08:18 Dose: 40 mg Glucagon (Glucagen Diagnostic Kit) 0 mg IM STAT PRN; Protocol PRN Reason: Hypoglycemia Home Med (Mycophenolate Sodium [Myfortic]) 4 tab PO BID [facility] Last Admin: 01/21/17 08:18 Dose: 4 tab Hydralazine HCl (Apresoline) 50 mg PO Q8 [facility] Last Admin: 01/21/17 08:18 Dose: 50 mg Daptomycin 580 mg/ Sodium (Chloride) 100 mls @ 100 mls/hr IVPB DAILY@1700 [facility] Stop: 01/25/17 17:01 Last Admin: 01/20/17 16:26 Dose: 100 mls/hr Insulin Detemir (Levemir) 50 units SC HS [facility] Last Admin: 01/20/17 21:13 Dose: 50 units Insulin Human Lispro (Humalog) 0 units SC [facility] PRN Reason: Protocol Last Admin: 01/21/17 06:55 Dose: 4 units Levothyroxine Sodium (Synthroid) 75 mcg PO DAILY@0630 [facility] Last Admin: 01/21/17 06:53 Dose: 75 mcg Losartan Potassium (Cozaar) 25 mg PO DAILY [facility] Last Admin: 01/21/17 08:18 Dose: 25 mg Jgawn-0-Zncg Ethyl Esters (Lovaza) 1 gm PO BID [facility] Last Admin: 01/21/17 08:17 Dose: 1 gm Prednisone (Prednisone Tab) 5 mg PO DAILY [facility] Last Admin: 01/21/17 08:18 Dose: 5 mg Rivaroxaban (Xarelto) 15 mg PO QPM [facility] PRN Reason: Protocol Last Admin: 01/20/17 17:05 Dose: 15 mg Senna/Docusate Sodium (Senokot S 50 Mg-8.6 Mg) 2 tab PO HS [facility] Last Admin: 01/20/17 21:11 Dose: 2 tab Tamsulosin HCl (Flomax) 0.4 mg PO QPM [facility] Last Admin: 01/20/17 17:05 Dose: 0.4 mg - Labs Labs: 01/21/17 06:33 01/21/17 06:33
--- NOTE | 2017-01-21 10:42 | CP.PCM.PN ---
Subjective - Date & Time of Evaluation Date of Evaluation: 01/21/17 Time of Evaluation: 10:40 - Subjective Subjective: Patient remains well. Has no orthopnea. Noted improvement of BUN and creatinine . BUN 31 cr 1.8 GFR 38 Doing well with PT. Objective - Vital Signs/Intake and Output Vital Signs (last 24 hours): Temp Pulse Resp BP Pulse Ox 98.2 F 90 18 120/62 98 01/20/17 20:45 01/21/17 08:18 01/20/17 20:45 01/21/17 08:18 01/20/17 20:45 - Medications Medications: Current Medications Acetaminophen (Tylenol 325mg Tab) 650 mg PO Q4 PRN PRN Reason: Pain, Mild (1-3) Acetaminophen (Tylenol 325mg Tab) 650 mg PO Q6 PRN PRN Reason: Fever >100.4 F Allopurinol (Zyloprim) 100 mg PO DAILY [facility] Last Admin: 01/21/17 08:18 Dose: 100 mg Amlodipine Besylate (Norvasc) 5 mg PO DAILY [facility] Last Admin: 01/21/17 08:17 Dose: 5 mg Dextrose (Dextrose 50% Inj) 0 ml IVP STAT PRN; Protocol PRN Reason: Hypoglycemia Dextrose (Glutose 15) 15 gm PO ONCE PRN; Protocol PRN Reason: Hypoglycemia Docusate Sodium (Colace) 100 mg PO BID [facility] Last Admin: 01/21/17 08:17 Dose: 100 mg Famotidine (Pepcid) 20 mg PO DAILY [facility] Last Admin: 01/21/17 08:18 Dose: 20 mg Furosemide (Lasix) 40 mg PO BID [facility] Last Admin: 01/21/17 08:18 Dose: 40 mg Glucagon (Glucagen Diagnostic Kit) 0 mg IM STAT PRN; Protocol PRN Reason: Hypoglycemia Home Med (Mycophenolate Sodium [Myfortic]) 4 tab PO BID [facility] Last Admin: 01/21/17 08:18 Dose: 4 tab Hydralazine HCl (Apresoline) 50 mg PO Q8 [facility] Last Admin: 01/21/17 08:18 Dose: 50 mg Daptomycin 580 mg/ Sodium (Chloride) 100 mls @ 100 mls/hr IVPB DAILY@1700 [facility] Stop: 01/25/17 17:01 Last Admin: 01/20/17 16:26 Dose: 100 mls/hr Insulin Detemir (Levemir) 50 units SC [facility] Last Admin: 01/20/17 21:13 Dose: 50 units Insulin Human Lispro (Humalog) 0 units SC [facility] PRN Reason: Protocol Last Admin: 01/21/17 06:55 Dose: 4 units Levothyroxine Sodium (Synthroid) 75 mcg PO DAILY@0630 [facility] Last Admin: 01/21/17 06:53 Dose: 75 mcg Losartan Potassium (Cozaar) 25 mg PO DAILY [facility] Last Admin: 01/21/17 08:18 Dose: 25 mg Fdbxp-2-Mzok Ethyl Esters (Lovaza) 1 gm PO BID [facility] Last Admin: 01/21/17 08:17 Dose: 1 gm Prednisone (Prednisone Tab) 5 mg PO DAILY [facility] Last Admin: 01/21/17 08:18 Dose: 5 mg Rivaroxaban (Xarelto) 15 mg PO QPM [facility] PRN Reason: Protocol Last Admin: 01/20/17 17:05 Dose: 15 mg Senna/Docusate Sodium (Senokot S 50 Mg-8.6 Mg) 2 tab PO [facility] Last Admin: 01/20/17 21:11 Dose: 2 tab Tamsulosin HCl (Flomax) 0.4 mg PO QPM [facility] Last Admin: 01/20/17 17:05 Dose: 0.4 mg - Labs Labs: 01/21/17 06:33 01/21/17 06:33 - Head Exam Head Exam: NORMAL INSPECTION - Eye Exam Eye Exam: Normal appearance - ENT Exam ENT Exam: Mucous Membranes Moist - Respiratory Exam Respiratory Exam: Clear to Ausculation Bilateral - Cardiovascular Exam Cardiovascular Exam: Irregular Rhythm - GI/Abdominal Exam GI & Abdominal Exam: Normal Bowel Sounds - Neurological Exam Neurological Exam: Awake, CN II-XII Intact
--- NOTE | 2017-01-21 11:13 | CP.PCM.PN ---
Subjective - Date & Time of Evaluation Date of Evaluation: 01/21/17 Time of Evaluation: 11:11 - Subjective Subjective: No new events reported overnight. Clinically patient is stable Less shortness of breath Physical examination Lung clear Heart no rubs Abdomen soft Extremity trace edema Impression and plan Serum creatinine down 1.8 And improving . Patient taking his immunosuppressive treatment for the kidney transplant. On antibiotics as per ID. Continue monitoring. Objective - Vital Signs/Intake and Output Vital Signs (last 24 hours): Temp Pulse Resp BP Pulse Ox 98.2 F 90 18 120/62 98 01/20/17 20:45 01/21/17 08:18 01/20/17 20:45 01/21/17 08:18 01/20/17 20:45 - Medications Medications: Current Medications Acetaminophen (Tylenol 325mg Tab) 650 mg PO Q4 PRN PRN Reason: Pain, Mild (1-3) Acetaminophen (Tylenol 325mg Tab) 650 mg PO Q6 PRN PRN Reason: Fever >100.4 F Allopurinol (Zyloprim) 100 mg PO DAILY [facility] Last Admin: 01/21/17 08:18 Dose: 100 mg Amlodipine Besylate (Norvasc) 5 mg PO DAILY [facility] Last Admin: 01/21/17 08:17 Dose: 5 mg Dextrose (Dextrose 50% Inj) 0 ml IVP STAT PRN; Protocol PRN Reason: Hypoglycemia Dextrose (Glutose 15) 15 gm PO ONCE PRN; Protocol PRN Reason: Hypoglycemia Docusate Sodium (Colace) 100 mg PO BID [facility] Last Admin: 01/21/17 08:17 Dose: 100 mg Famotidine (Pepcid) 20 mg PO DAILY [facility] Last Admin: 01/21/17 08:18 Dose: 20 mg Furosemide (Lasix) 40 mg PO BID [facility] Last Admin: 01/21/17 08:18 Dose: 40 mg Glucagon (Glucagen Diagnostic Kit) 0 mg IM STAT PRN; Protocol PRN Reason: Hypoglycemia Home Med (Mycophenolate Sodium [Myfortic]) 4 tab PO BID [facility] Last Admin: 01/21/17 08:18 Dose: 4 tab Hydralazine HCl (Apresoline) 50 mg PO Q8 [facility] Last Admin: 01/21/17 08:18 Dose: 50 mg Daptomycin 580 mg/ Sodium (Chloride) 100 mls @ 100 mls/hr IVPB DAILY@1700 [facility] Stop: 01/25/17 17:01 Last Admin: 01/20/17 16:26 Dose: 100 mls/hr Insulin Detemir (Levemir) 50 units SC HS [facility] Last Admin: 01/20/17 21:13 Dose: 50 units Insulin Human Lispro (Humalog) [address] [facility] PRN Reason: Protocol Last Admin: 01/21/17 06:55 Dose: 4 units Levothyroxine Sodium (Synthroid) 75 mcg PO DAILY@0630 [facility] Last Admin: 01/21/17 06:53 Dose: 75 mcg Losartan Potassium (Cozaar) 25 mg PO DAILY [facility] Last Admin: 01/21/17 08:18 Dose: 25 mg Fijye-4-Thvy Ethyl Esters (Lovaza) 1 gm PO BID [facility] Last Admin: 01/21/17 08:17 Dose: 1 gm Prednisone (Prednisone Tab) 5 mg PO DAILY [facility] Last Admin: 01/21/17 08:18 Dose: 5 mg Rivaroxaban (Xarelto) 15 mg PO QPM [facility] PRN Reason: Protocol Last Admin: 01/20/17 17:05 Dose: 15 mg Senna/Docusate Sodium (Senokot S 50 Mg-8.6 Mg) 2 tab PO [facility] Last Admin: 01/20/17 21:11 Dose: 2 tab Tamsulosin HCl (Flomax) 0.4 mg PO QPM [facility] Last Admin: 01/20/17 17:05 Dose: 0.4 mg - Labs Labs: 01/21/17 06:33 01/21/17 06:33 Assessment and Plan (1) Renal transplant recipient Status: Acute
[2017-01-21] MEDS ORDERED: Oxycodone/Acetaminophen 5/325 mg Tab PO PRN (15:13)
[2017-01-21] MEDS: Insulin Detemir 100 Units/ml Inj SC SCH (21:36)
[2017-01-21] MEDS: Docusate-Senna 50 mg-8.6 mg Tab PO SCH (21:39)
[2017-01-22] MEDS: Oxycodone/Acetaminophen 5/325 mg Tab PO PRN ×2 (00:33→19:35)
[2017-01-22] MEDS: Levothyroxine 75 MCG TAB PO SCH (06:50)
[2017-01-22] MEDS: Insulin Lispro (humaLOG) 100 Units/ml Inj SC SCH ×4 (06:50→21:42)
--- NOTE | 2017-01-22 07:44 | CP.PCM.PN ---
Subjective - Date & Time of Evaluation Date of Evaluation: 01/22/17 Time of Evaluation: 07:40 - Subjective Subjective: Patient was seen and evaluated at bedside in TCU this morning. He is now 11 day s/p right foot 1st MTPJ arthroplasty, sesamoidectomy, ulcer debridement and extensor tendon lengthening (DOS: 01/11/17.) Patient was resting comfortably, in NAD. He states that he only experiences minimal pain intermittently at the only during physical therapy. No other pedal complaints reported at this time. Denies F/C/N/V/SOB. Objective - Vital Signs/Intake and Output Vital Signs (last 24 hours): Temp Pulse Resp BP Pulse Ox 97.7 F 88 20 118/50 L 96 01/21/17 20:53 01/22/17 00:33 01/21/17 20:53 01/22/17 00:33 01/21/17 20:53 - Medications Medications: Current Medications Acetaminophen (Tylenol 325mg Tab) 650 mg PO Q4 PRN PRN Reason: Pain, Mild (1-3) Acetaminophen (Tylenol 325mg Tab) 650 mg PO Q6 PRN PRN Reason: Fever >100.4 F Allopurinol (Zyloprim) 100 mg PO DAILY [facility] Last Admin: 01/21/17 08:18 Dose: 100 mg Amlodipine Besylate (Norvasc) 5 mg PO DAILY [facility] Last Admin: 01/21/17 08:17 Dose: 5 mg Dextrose (Dextrose 50% Inj) 0 ml IVP STAT PRN; Protocol PRN Reason: Hypoglycemia Dextrose (Glutose 15) 15 gm PO ONCE PRN; Protocol PRN Reason: Hypoglycemia Docusate Sodium (Colace) 100 mg PO BID [facility] Last Admin: 01/21/17 17:52 Dose: 100 mg Famotidine (Pepcid) 20 mg PO DAILY [facility] Last Admin: 01/21/17 08:18 Dose: 20 mg Furosemide (Lasix) 40 mg PO BID [facility] Last Admin: 01/21/17 17:53 Dose: 40 mg Glucagon (Glucagen Diagnostic Kit) 0 mg IM STAT PRN; Protocol PRN Reason: Hypoglycemia Home Med (Mycophenolate Sodium [Myfortic]) 4 tab PO BID [facility] Last Admin: 01/21/17 17:53 Dose: 4 tab Hydralazine HCl (Apresoline) 50 mg PO Q8 [facility] Last Admin: 01/22/17 00:33 Dose: 50 mg Daptomycin 580 mg/ Sodium (Chloride) 100 mls @ 100 mls/hr IVPB DAILY@1700 [facility] Stop: 01/25/17 17:01 Last Admin: 01/21/17 17:10 Dose: 100 mls/hr Insulin Detemir (Levemir) 50 units SC [facility] Last Admin: 01/21/17 21:36 Dose: 50 units Insulin Human Lispro (Humalog) 0 units SC [facility] PRN Reason: Protocol Last Admin: 01/22/17 06:50 Dose: 2 units Levothyroxine Sodium (Synthroid) 75 mcg PO DAILY@0630 [facility] Last Admin: 01/22/17 06:50 Dose: 75 mcg Losartan Potassium (Cozaar) 25 mg PO DAILY [facility] Last Admin: 01/21/17 08:18 Dose: 25 mg Gyxwe-4-Llcr Ethyl Esters (Lovaza) 1 gm PO BID [facility] Last Admin: 01/21/17 17:53 Dose: 1 gm Oxycodone/Acetaminophen (Percocet 5/325 Mg Tab) 1 tab PO Q4 PRN PRN Reason: Pain, moderate (4-7) Stop: 01/24/17 15:14 Oxycodone/Acetaminophen (Percocet 5/325 Mg Tab) 2 tab PO Q4 PRN PRN Reason: Pain, severe (8-10) Stop: 01/24/17 15:16 Last Admin: 01/22/17 00:33 Dose: 2 tab Prednisone (Prednisone Tab) 5 mg PO DAILY [facility] Last Admin: 01/21/17 08:18 Dose: 5 mg Rivaroxaban (Xarelto) 15 mg PO QPM [facility] PRN Reason: Protocol Last Admin: 01/21/17 17:54 Dose: 15 mg Senna/Docusate Sodium (Senokot S 50 Mg-8.6 Mg) 2 tab PO [facility] Last Admin: 01/21/17 21:39 Dose: 2 tab Tamsulosin HCl (Flomax) 0.4 mg PO QPM [facility] Last Admin: 01/21/17 17:52 Dose: 0.4 mg - Labs Labs: 01/21/17 06:33 01/21/17 06:33 - Constitutional Appears: Well, Non-toxic, No Acute Distress - Extremities Exam Additional comments: RLE exam: Vasc: DP 2/4, PT non palpable b/l, TG wnl, CFT < 3 sec to all digits Neuro: grossly diminished Derm: right foot plantar 1st metatarsal head open well circumscribed ulceration measuring 1.2 x 1.2 x 0.2 cm with granular base; mildly hyperkeratotic border, no purulence, minimal sanguinous drainage, no malodor, no edema. Dorsal surgical site with skin edges well approximated, minor pinhead size dehiscence along proximal 1/3, and all sutures intact. Surrounding skin with adjacent blanchable erythema tracking laterally terminating at 3rd ray. Minor warmth. 2.5cm long, turgid, bulla noted along dorsal hallux distal to inter-phalangeal joint. MSK: Mild pain on palpation of surgical site. ROM at 1st MTPJ limited. - Neurological Exam Neurological Exam: Alert, Awake, Oriented x3 - Psychiatric Exam Psychiatric exam: Normal Affect, Normal Mood Assessment and Plan - Assessment and Plan (Free Text) Assessment: 66 y/o male 11 days s/p right foot 1st MTPJ arthroplasty, sesamoidectomy, ulcer debridement and extensor lengthening secondary to DM & OM Plan: Patient seen and evaluated at bedside in TCU. Labs and vitals reviewed. Discussed in detail with Dr. Jewell. Performed aseptic decompression of bula using a #15 blade, expunged total fully serous content, leaving flaccid roof. Right foot was re-dressed with betadine DSD and an INDIO bandage Continue PWB to the heel with a surgical shoe Continue IV abx via PICC line, as per ID recommendations Patient is stable for discharge from podiatric perspective He is to follow-up with Dr. Jewell at his office on an outpatient basis Podiatry to follow while patient remains in house
[2017-01-22] MEDS: Omega-3-Acid Ethyl Esters 1 GM Cap PO SCH ×2 (09:16→17:37)
[2017-01-22] MEDS: MYCOPHENOLATE SODIUM PO SCH ×2 (09:18→17:35)
[2017-01-22 18:05] VITALS: RESP 20
[2017-01-22] MEDS: Docusate-Senna 50 mg-8.6 mg Tab PO SCH (21:34)
[2017-01-22] MEDS: Insulin Detemir 100 Units/ml Inj SC SCH (21:35)
[2017-01-23] MEDS: Oxycodone/Acetaminophen 5/325 mg Tab PO PRN (00:06)
[2017-01-23] MEDS: Levothyroxine 75 MCG TAB PO SCH (06:56)
[2017-01-23] MEDS: Insulin Lispro (humaLOG) 100 Units/ml Inj SC SCH ×4 (06:58→21:21)
[2017-01-23] MEDS: MYCOPHENOLATE SODIUM PO SCH ×2 (08:17→17:14)
[2017-01-23] MEDS: Omega-3-Acid Ethyl Esters 1 GM Cap PO SCH ×2 (08:18→17:13)
--- NOTE | 2017-01-23 11:06 | CP.PCM.PN ---
Subjective - Date & Time of Evaluation Date of Evaluation: 01/23/17 Time of Evaluation: 11:04 - Subjective Subjective: No new event reported patient appeared to be comfortable Receiving his medication and receiving physiotherapy Vital sign noted to be stable Chest clear Heart no rubs Extremity decrease edema Serum potassium coming down 3.5 we will give stat potassium chloride now And continue monitoring perhaps he may need another dose of potassium. Objective - Vital Signs/Intake and Output Vital Signs (last 24 hours): Temp Pulse Resp BP Pulse Ox 97.7 F 80 20 148/72 95 01/23/17 07:50 01/23/17 08:21 01/23/17 07:50 01/23/17 08:21 01/23/17 07:50 - Medications Medications: Current Medications Acetaminophen (Tylenol 325mg Tab) 650 mg PO Q4 PRN PRN Reason: Pain, Mild (1-3) Acetaminophen (Tylenol 325mg Tab) 650 mg PO Q6 PRN PRN Reason: Fever >100.4 F Allopurinol (Zyloprim) 100 mg PO DAILY [facility] Last Admin: 01/23/17 08:22 Dose: 100 mg Amlodipine Besylate (Norvasc) 5 mg PO DAILY [facility] Last Admin: 01/23/17 08:20 Dose: 5 mg Dextrose (Dextrose 50% Inj) 0 ml IVP STAT PRN; Protocol PRN Reason: Hypoglycemia Dextrose (Glutose 15) 15 gm PO ONCE PRN; Protocol PRN Reason: Hypoglycemia Docusate Sodium (Colace) 100 mg PO BID [facility] Last Admin: 01/23/17 08:19 Dose: 100 mg Famotidine (Pepcid) 20 mg PO DAILY [facility] Last Admin: 01/23/17 08:22 Dose: 20 mg Furosemide (Lasix) 40 mg PO BID [facility] Last Admin: 01/23/17 08:18 Dose: 40 mg Glucagon (Glucagen Diagnostic Kit) 0 mg IM STAT PRN; Protocol PRN Reason: Hypoglycemia Home Med (Mycophenolate Sodium [Myfortic]) 4 tab PO BID [facility] Last Admin: 01/23/17 08:17 Dose: 4 tab Hydralazine HCl (Apresoline) 50 mg PO Q8 [facility] Last Admin: 01/23/17 08:18 Dose: 50 mg Daptomycin 580 mg/ Sodium (Chloride) 100 mls @ 100 mls/hr IVPB DAILY@1700 [facility] Stop: 01/25/17 17:01 Last Admin: 01/22/17 19:37 Dose: 100 mls/hr Insulin Detemir (Levemir) 50 units SC [facility] Last Admin: 01/22/17 21:35 Dose: 50 units Insulin Human Lispro (Humalog) 0 units SC [facility] PRN Reason: Protocol Last Admin: 01/23/17 06:58 Dose: 2 units Levothyroxine Sodium (Synthroid) 75 mcg PO DAILY@0630 [facility] Last Admin: 01/23/17 06:56 Dose: 75 mcg Losartan Potassium (Cozaar) 25 mg PO DAILY [facility] Last Admin: 01/23/17 08:21 Dose: 25 mg Anjhl-0-Ekpd Ethyl Esters (Lovaza) 1 gm PO BID [facility] Last Admin: 01/23/17 08:18 Dose: 1 gm Oxycodone/Acetaminophen (Percocet 5/325 Mg Tab) 1 tab PO Q4 PRN PRN Reason: Pain, moderate (4-7) Stop: 01/24/17 15:14 Oxycodone/Acetaminophen (Percocet 5/325 Mg Tab) 2 tab PO Q4 PRN PRN Reason: Pain, severe (8-10) Stop: 01/24/17 15:16 Last Admin: 01/23/17 00:06 Dose: 2 tab Prednisone (Prednisone Tab) 5 mg PO DAILY [facility] Last Admin: 01/23/17 08:19 Dose: 5 mg Rivaroxaban (Xarelto) 15 mg PO QPM [facility] PRN Reason: Protocol Last Admin: 01/22/17 17:35 Dose: 15 mg Senna/Docusate Sodium (Senokot S 50 Mg-8.6 Mg) 2 tab PO [facility] Last Admin: 01/22/17 21:34 Dose: 2 tab Tamsulosin HCl (Flomax) 0.4 mg PO QPM [facility] Last Admin: 01/22/17 17:35 Dose: 0.4 mg - Labs Labs: 01/21/17 06:33 01/21/17 06:33 Assessment and Plan (1) Renal transplant recipient Status: Acute
[2017-01-23] MEDS: Potassium Chloride 10 mEq ER Tab PO SCH (14:08)
--- NOTE | 2017-01-23 16:35 | CP.PCM.PN ---
Subjective - Date & Time of Evaluation Date of Evaluation: 01/23/17 Time of Evaluation: 11:15 - Subjective Subjective: Pt seen and examined at bedside, doing well. does not have any complaints Objective - Vital Signs/Intake and Output Vital Signs (last 24 hours): Temp Pulse Resp BP Pulse Ox 98.1 F 90 20 147/67 98 01/23/17 16:23 01/23/17 16:23 01/23/17 16:23 01/23/17 16:23 01/23/17 16:23 - Medications Medications: Current Medications Acetaminophen (Tylenol 325mg Tab) 650 mg PO Q4 PRN PRN Reason: Pain, Mild (1-3) Acetaminophen (Tylenol 325mg Tab) 650 mg PO Q6 PRN PRN Reason: Fever >100.4 F Allopurinol (Zyloprim) 100 mg PO DAILY [facility] Last Admin: 01/23/17 08:22 Dose: 100 mg Amlodipine Besylate (Norvasc) 5 mg PO DAILY [facility] Last Admin: 01/23/17 08:20 Dose: 5 mg Dextrose (Dextrose 50% Inj) 0 ml IVP STAT PRN; Protocol PRN Reason: Hypoglycemia Dextrose (Glutose 15) 15 gm PO ONCE PRN; Protocol PRN Reason: Hypoglycemia Docusate Sodium (Colace) 100 mg PO BID [facility] Last Admin: 01/23/17 08:19 Dose: 100 mg Famotidine (Pepcid) 20 mg PO DAILY [facility] Last Admin: 01/23/17 08:22 Dose: 20 mg Furosemide (Lasix) 40 mg PO BID [facility] Last Admin: 01/23/17 08:18 Dose: 40 mg Glucagon (Glucagen Diagnostic Kit) 0 mg IM STAT PRN; Protocol PRN Reason: Hypoglycemia Home Med (Mycophenolate Sodium [Myfortic]) 4 tab PO BID [facility] Last Admin: 01/23/17 08:17 Dose: 4 tab Hydralazine HCl (Apresoline) 50 mg PO Q8 [facility] Last Admin: 01/23/17 08:18 Dose: 50 mg Daptomycin 580 mg/ Sodium (Chloride) 100 mls @ 100 mls/hr IVPB DAILY@1700 [facility] Stop: 01/25/17 17:01 Last Admin: 01/22/17 19:37 Dose: 100 mls/hr Insulin Detemir (Levemir) 50 units SC HS [facility] Last Admin: 01/22/17 21:35 Dose: 50 units Insulin Human Lispro (Humalog) 0 units SC [facility] PRN Reason: Protocol Last Admin: 01/23/17 11:59 Dose: 2 units Levothyroxine Sodium (Synthroid) 75 mcg PO DAILY@0630 [facility] Last Admin: 01/23/17 06:56 Dose: 75 mcg Losartan Potassium (Cozaar) 25 mg PO DAILY [facility] Last Admin: 01/23/17 08:21 Dose: 25 mg Hzbfe-5-Imya Ethyl Esters (Lovaza) 1 gm PO BID [facility] Last Admin: 01/23/17 08:18 Dose: 1 gm Oxycodone/Acetaminophen (Percocet 5/325 Mg Tab) 1 tab PO Q4 PRN PRN Reason: Pain, moderate (4-7) Stop: 01/24/17 15:14 Oxycodone/Acetaminophen (Percocet 5/325 Mg Tab) 2 tab PO Q4 PRN PRN Reason: Pain, severe (8-10) Stop: 01/24/17 15:16 Last Admin: 01/23/17 00:06 Dose: 2 tab Potassium Chloride (Klor-Con 10) 10 meq PO DAILY [facility] Prednisone (Prednisone Tab) 5 mg PO DAILY [facility] Last Admin: 01/23/17 08:19 Dose: 5 mg Rivaroxaban (Xarelto) 15 mg PO QPM [facility] PRN Reason: Protocol Last Admin: 01/22/17 17:35 Dose: 15 mg Senna/Docusate Sodium (Senokot S 50 Mg-8.6 Mg) 2 tab PO [facility] Last Admin: 01/22/17 21:34 Dose: 2 tab Tamsulosin HCl (Flomax) 0.4 mg PO QPM [facility] Last Admin: 01/22/17 17:35 Dose: 0.4 mg - Labs Labs: 01/21/17 06:33 01/21/17 06:33 - Constitutional Appears: Non-toxic, No Acute Distress - Head Exam Head Exam: NORMOCEPHALIC - Eye Exam Eye Exam: Normal appearance, PERRL Pupil Exam: NORMAL ACCOMODATION - ENT Exam ENT Exam: Mucous Membranes Moist - Respiratory Exam Respiratory Exam: Clear to Ausculation Bilateral, NORMAL BREATHING PATTERN. absent: Rhonchi, Wheezes - Cardiovascular Exam Cardiovascular Exam: REGULAR RHYTHM, +S1, +S2 - GI/Abdominal Exam GI & Abdominal Exam: Soft, Normal Bowel Sounds. absent: Tenderness - Extremities Exam Extremities Exam: absent: Calf Tenderness - Neurological Exam Neurological Exam: Alert, Awake, CN II-XII Intact, Oriented x3 Assessment and Plan - Assessment and Plan (Free Text) Assessment: 66 y/o male with pmhx of Arthritis (HIP AREA ), Cardia Arrhythmia (ATRIAL FIB), Diabetes (insulin), HTN, Hypercholesterolemia, Hypothyroidism, Chronic Kidney Disease admitted for right diabetic foot ulceration s/p surgical debridement . now in TCU for IV antibiotics and physical therapy Plan: Right foot Ulcer complete IV antibiotics per ID last day of antibiotics 01/25/17 Cipro d/c'ed; now on Daptomycin Continue with rehab 2. Pt report being fluid overloaded lasix: 40mg BID per Dr. horton 3. Bleeding Most likely due to Xarelto Cardiology input appreciated. Spoke with PICC line nurse regarding bleeding at PICC line site, recommends using pressure dressing and also if no longer needed can make arrangement to have it removed 4. Insulin Dependent Diabetes SSI Accucheck 4. Home medication restarted 5. Diet- Diabetic heart healthy 6. DVT prophylaxis Already on Xarelto SCDs
[2017-01-23] MEDS: Docusate-Senna 50 mg-8.6 mg Tab PO SCH (21:17)
[2017-01-23] MEDS: Insulin Detemir 100 Units/ml Inj SC SCH (21:18)
[2017-01-24] MEDS: Levothyroxine 75 MCG TAB PO SCH (07:05)
[2017-01-24] MEDS: Insulin Lispro (humaLOG) 100 Units/ml Inj SC SCH ×4 (07:06→22:02)
[2017-01-24] MEDS: Omega-3-Acid Ethyl Esters 1 GM Cap PO SCH ×2 (08:07→16:47)
[2017-01-24] MEDS: MYCOPHENOLATE SODIUM PO SCH ×2 (08:09→16:42)
[2017-01-24] MEDS: Potassium Chloride 10 mEq ER Tab PO SCH (08:09)
--- NOTE | 2017-01-24 08:27 | CP.PCM.PN ---
Subjective - Date & Time of Evaluation Date of Evaluation: 01/24/17 Time of Evaluation: 08:00 - Subjective Subjective: 66 year old male patient 13 day s/p right foot 1st MTPJ arthroplasty, sesamoidectomy, ulcer debridement and extensor tendon lengthening (DOS: 01/11/17. ) was seen at bedside this morning. Patient was resting comfortably, in bed and denies of any acute overnight distress. Dressings to right foot were found clean dry and intact. He was walking out of bathroom at the time of visit and was ambulating without difficulty. Patient only complains of minimal pain today. No other pedal complaints reported at this time. Denies F/C/N/V/SOB. Objective - Vital Signs/Intake and Output Vital Signs (last 24 hours): Temp Pulse Resp BP Pulse Ox 98.4 F 81 20 127/65 93 L 01/23/17 20:20 01/24/17 08:09 01/23/17 20:20 01/24/17 08:09 01/23/17 20:20 - Medications Medications: Current Medications Acetaminophen (Tylenol 325mg Tab) 650 mg PO Q4 PRN PRN Reason: Pain, Mild (1-3) Last Admin: 01/23/17 18:12 Dose: 650 mg Acetaminophen (Tylenol 325mg Tab) 650 mg PO Q6 PRN PRN Reason: Fever >100.4 F Allopurinol (Zyloprim) 100 mg PO DAILY [facility] Last Admin: 01/24/17 08:09 Dose: 100 mg Amlodipine Besylate (Norvasc) 5 mg PO DAILY [facility] Last Admin: 01/24/17 08:09 Dose: 5 mg Dextrose (Dextrose 50% Inj) 0 ml IVP STAT PRN; Protocol PRN Reason: Hypoglycemia Dextrose (Glutose 15) 15 gm PO ONCE PRN; Protocol PRN Reason: Hypoglycemia Docusate Sodium (Colace) 100 mg PO BID [facility] Last Admin: 01/24/17 08:07 Dose: 100 mg Famotidine (Pepcid) 20 mg PO DAILY [facility] Last Admin: 01/24/17 08:09 Dose: 20 mg Furosemide (Lasix) 40 mg PO BID [facility] Last Admin: 01/24/17 08:08 Dose: 40 mg Glucagon (Glucagen Diagnostic Kit) 0 mg IM STAT PRN; Protocol PRN Reason: Hypoglycemia Home Med (Mycophenolate Sodium [Myfortic]) 4 tab PO BID [facility] Last Admin: 01/24/17 08:09 Dose: 4 tab Hydralazine HCl (Apresoline) 50 mg PO Q8 [facility] Last Admin: 01/24/17 08:08 Dose: 50 mg Daptomycin 580 mg/ Sodium (Chloride) 100 mls @ 100 mls/hr IVPB DAILY@1700 [facility] Stop: 01/25/17 17:01 Last Admin: 01/23/17 17:14 Dose: 100 mls/hr Insulin Detemir (Levemir) 50 units SC [facility] Last Admin: 01/23/17 21:18 Dose: 50 units Insulin Human Lispro (Humalog) 0 units SC [facility] PRN Reason: Protocol Last Admin: 01/24/17 07:06 Dose: 1 units Levothyroxine Sodium (Synthroid) 75 mcg PO DAILY@0630 [facility] Last Admin: 01/24/17 07:05 Dose: 75 mcg Losartan Potassium (Cozaar) 25 mg PO DAILY [facility] Last Admin: 01/24/17 08:07 Dose: 25 mg Cbqrg-9-Moza Ethyl Esters (Lovaza) 1 gm PO BID [facility] Last Admin: 01/24/17 08:07 Dose: 1 gm Oxycodone/Acetaminophen (Percocet 5/325 Mg Tab) 1 tab PO Q4 PRN PRN Reason: Pain, moderate (4-7) Stop: 01/24/17 15:14 Oxycodone/Acetaminophen (Percocet 5/325 Mg Tab) 2 tab PO Q4 PRN PRN Reason: Pain, severe (8-10) Stop: 01/24/17 15:16 Last Admin: 01/23/17 00:06 Dose: 2 tab Potassium Chloride (Klor-Con 10) 10 meq PO DAILY [facility] Last Admin: 01/24/17 08:09 Dose: 10 meq Prednisone (Prednisone Tab) 5 mg PO DAILY [facility] Last Admin: 01/24/17 08:09 Dose: 5 mg Rivaroxaban (Xarelto) 15 mg PO QPM [facility] PRN Reason: Protocol Last Admin: 01/23/17 17:14 Dose: 15 mg Senna/Docusate Sodium (Senokot S 50 Mg-8.6 Mg) 2 tab PO HS [facility] Last Admin: 01/23/17 21:17 Dose: 2 tab Tamsulosin HCl (Flomax) 0.4 mg PO QPM [facility] Last Admin: 01/23/17 17:12 Dose: 0.4 mg - Labs Labs: 01/21/17 06:33 01/21/17 06:33 - Constitutional Appears: Well, Non-toxic, No Acute Distress - Extremities Exam Additional comments: RLE exam: Vasc: DP 2/4, PT non palpable b/l, TG wnl, CFT < 3 sec to all digits Neuro: grossly diminished Derm: right foot plantar 1st metatarsal head open well circumscribed ulceration measuring 1.2 x 1.2 x 0.2 cm with granular base; mildly hyperkeratotic border, no purulence, minimal sanguinous drainage, no malodor, no edema. Dorsal surgical site with skin edges well approximated, minor pinhead size dehiscence along proximal 1/3, and all sutures intact. Surrounding skin with adjacent blanchable erythema tracking laterally terminating at 3rd ray. Minor warmth. 2.5cm long, turgid, bulla noted along dorsal hallux distal to inter-phalangeal joint. MSK: Mild pain on palpation of surgical site. ROM at 1st MTPJ limited. - Neurological Exam Neurological Exam: Alert, Awake, Oriented x3 - Psychiatric Exam Psychiatric exam: Normal Affect, Normal Mood - Skin Skin Exam: Normal Color, Warm Assessment and Plan - Assessment and Plan (Free Text) Assessment: 66 y/o male 13 days s/p right foot 1st MTPJ arthroplasty, sesamoidectomy, ulcer debridement and extensor lengthening secondary to DM & OM Plan: Patient seen and evaluated at bedside in TCU. Labs and vitals reviewed. Discussed in detail with Dr. Jewell. Right foot was re-dressed with betadine DSD and an INDIO bandage Continue PWB to the heel with a surgical shoe Continue IV abx via PICC line, as per ID recommendations Patient is stable for discharge from podiatric perspective He is to follow-up with Dr. Jewell at his office on an outpatient basis Podiatry to follow while patient remains in house
--- NOTE | 2017-01-24 11:09 | CP.PCM.PN ---
Subjective - Date & Time of Evaluation Date of Evaluation: 01/24/17 Time of Evaluation: 11:08 - Subjective Subjective: No new event reported Clinically appears to be stable Receiving physiotherapy We need to update blood work BMP stat ordered Follow-up on electrolytes and kidney function Objective - Vital Signs/Intake and Output Vital Signs (last 24 hours): Temp Pulse Resp BP Pulse Ox 97.9 F 81 20 127/65 97 01/24/17 08:41 01/24/17 08:41 01/24/17 08:41 01/24/17 08:41 01/24/17 08:41 - Medications Medications: Current Medications Acetaminophen (Tylenol 325mg Tab) 650 mg PO Q4 PRN PRN Reason: Pain, Mild (1-3) Last Admin: 01/23/17 18:12 Dose: 650 mg Acetaminophen (Tylenol 325mg Tab) 650 mg PO Q6 PRN PRN Reason: Fever >100.4 F Allopurinol (Zyloprim) 100 mg PO DAILY [facility] Last Admin: 01/24/17 08:09 Dose: 100 mg Amlodipine Besylate (Norvasc) 5 mg PO DAILY [facility] Last Admin: 01/24/17 08:09 Dose: 5 mg Dextrose (Dextrose 50% Inj) 0 ml IVP STAT PRN; Protocol PRN Reason: Hypoglycemia Dextrose (Glutose 15) 15 gm PO ONCE PRN; Protocol PRN Reason: Hypoglycemia Docusate Sodium (Colace) 100 mg PO BID [facility] Last Admin: 01/24/17 08:07 Dose: 100 mg Famotidine (Pepcid) 20 mg PO DAILY [facility] Last Admin: 01/24/17 08:09 Dose: 20 mg Furosemide (Lasix) 40 mg PO BID [facility] Last Admin: 01/24/17 08:08 Dose: 40 mg Glucagon (Glucagen Diagnostic Kit) 0 mg IM STAT PRN; Protocol PRN Reason: Hypoglycemia Home Med (Mycophenolate Sodium [Myfortic]) 4 tab PO BID [facility] Last Admin: 01/24/17 08:09 Dose: 4 tab Hydralazine HCl (Apresoline) 50 mg PO Q8 [facility] Last Admin: 01/24/17 08:08 Dose: 50 mg Daptomycin 580 mg/ Sodium (Chloride) 100 mls @ 100 mls/hr IVPB DAILY@1700 [facility] Stop: 01/25/17 17:01 Last Admin: 01/23/17 17:14 Dose: 100 mls/hr Insulin Detemir (Levemir) 50 units SC HS [facility] Last Admin: 01/23/17 21:18 Dose: 50 units Insulin Human Lispro (Humalog) 0 units SC [facility] PRN Reason: Protocol Last Admin: 01/24/17 07:06 Dose: 1 units Levothyroxine Sodium (Synthroid) 75 mcg PO DAILY@0630 [facility] Last Admin: 01/24/17 07:05 Dose: 75 mcg Losartan Potassium (Cozaar) 25 mg PO DAILY [facility] Last Admin: 01/24/17 08:07 Dose: 25 mg [id number] Ethyl Esters (Lovaza) 1 gm PO BID [facility] Last Admin: 01/24/17 08:07 Dose: 1 gm Oxycodone/Acetaminophen (Percocet 5/325 Mg Tab) 1 tab PO Q4 PRN PRN Reason: Pain, moderate (4-7) Stop: 01/24/17 15:14 Oxycodone/Acetaminophen (Percocet 5/325 Mg Tab) 2 tab PO Q4 PRN PRN Reason: Pain, severe (8-10) Stop: 01/24/17 15:16 Last Admin: 01/23/17 00:06 Dose: 2 tab Potassium Chloride (Klor-Con 10) 10 meq PO DAILY [facility] Last Admin: 01/24/17 08:09 Dose: 10 meq Prednisone (Prednisone Tab) 5 mg PO DAILY [facility] Last Admin: 01/24/17 08:09 Dose: 5 mg Rivaroxaban (Xarelto) 15 mg PO QPM [facility] PRN Reason: Protocol Last Admin: 01/23/17 17:14 Dose: 15 mg Senna/Docusate Sodium (Senokot S 50 Mg-8.6 Mg) 2 tab PO HS [facility] Last Admin: 01/23/17 21:17 Dose: 2 tab Tamsulosin HCl (Flomax) 0.4 mg PO QPM [facility] Last Admin: 01/23/17 17:12 Dose: 0.4 mg - Labs Labs: 01/21/17 06:33 01/21/17 06:33 Assessment and Plan (1) Renal transplant recipient Status: Acute
[2017-01-24 12:21] LABS: POTASSIUM 4.2 MMOL/L (3.6-5.0)
[2017-01-24 12:24] LABS: CALCIUM 9.7 mg/dL (8.4-10.2)
[2017-01-24] MEDS ORDERED: Oxycodone/Acetaminophen 5/325 mg Tab PO PRN (18:31)
[2017-01-24] MEDS ORDERED: Alum-Mag Hydrox-Simethicone Susp (30 mL) PO ONE (21:45)
[2017-01-24] MEDS: Insulin Detemir 100 Units/ml Inj SC SCH (22:02)
[2017-01-24] MEDS: Docusate-Senna 50 mg-8.6 mg Tab PO SCH (22:02)
[2017-01-25] MEDS: Insulin Lispro (humaLOG) 100 Units/ml Inj SC SCH ×2 (07:07→12:07)
[2017-01-25] MEDS: Levothyroxine 75 MCG TAB PO SCH (07:07)
[2017-01-25] MEDS: MYCOPHENOLATE SODIUM PO SCH (09:14)
[2017-01-25] MEDS: Potassium Chloride 10 mEq ER Tab PO SCH (09:15)
[2017-01-25] MEDS: Omega-3-Acid Ethyl Esters 1 GM Cap PO SCH (09:15)
[2017-01-25 09:47] LABS: MEAN CELL VOLUME 82.1 fl (80.0-94.0); MEAN CORPUSCULAR HEMOGLOBIN 26.6 pg (27.0-31.0); MEAN CORPUSCULAR HGB CONC 32.4 g/dL (33.0-37.0); RED CELL DISTRIBUTION WIDTH 16.3 % (11.5-14.5); WHITE BLOOD COUNT 6.6 K/uL (4.8-10.8)
[2017-01-25 09:49] LABS: ALB/GLOB RATIO 1.3 (1.0-2.1); BILIRUBIN,TOTAL 0.9 mg/dl (0.2-1.3); CALCIUM 9.6 mg/dL (8.4-10.2); POTASSIUM 3.8 MMOL/L (3.6-5.0)
--- NOTE | 2017-01-25 10:44 | CP.PCM.DIS ---
Provider - Provider Date of Admission: 01/14/17 17:44 Attending physician: Osmel Frey MD Primary care physician: Osmel Frey MD Consults: podiatry, infectious dx and nephrology Time Spent in preparation of Discharge (in minutes): 30 Diagnosis - Discharge Diagnosis (1) Foot ulcer Status: Acute Hospital Course - Lab Results Lab Results: Micro Results 01/19/17 14:00 Urine,Clean Catch Urine Culture - Final Gram Negative Fred Most Recent Lab Values WBC 6.6 K/uL (4.8-10.8) 01/25/17 09:30 RBC 4.50 Mil/uL (4.40-5.90) 01/25/17 09:30 Hgb 12.0 g/dL (12.0-18.0) 01/25/17 09:30 Hct 37.0 % (35.0-51.0) 01/25/17 09:30 MCV 82.1 fl (80.0-94.0) 01/25/17 09:30 MCH 26.6 pg (27.0-31.0) L 01/25/17 09:30 MCHC 32.4 g/dL (33.0-37.0) L 01/25/17 09:30 RDW 16.3 % (11.5-14.5) H 01/25/17 09:30 Plt Count 272 K/uL (130-400) 01/25/17 09:30 MPV 8.2 fl (7.2-11.7) 01/16/17 10:20 Neut % (Auto) 74.6 % (50.0-75.0) 01/16/17 10:20 Lymph % (Auto) 9.3 % (20.0-40.0) L 01/16/17 10:20 [place] % (Auto) 10.0 % (0.0-10.0) 01/16/17 10:20 Eos % (Auto) 5.6 % (0.0-4.0) H 01/16/17 10:20 Baso % (Auto) 0.5 % (0.0-2.0) 01/16/17 10:20 Neut # 5.6 K/uL (1.8-7.0) 01/16/17 10:20 Lymph # 0.7 K/uL (1.0-4.3) L 01/16/17 10:20 [place] # 0.8 K/uL (0.0-0.8) 01/16/17 10:20 Eos # 0.4 K/uL (0.0-0.7) 01/16/17 10:20 Baso # 0.0 K/uL (0.0-0.2) 01/16/17 10:20 ESR 87 mm/hr (0-20) H 01/18/17 16:00 Sodium 137 mmol/l (132-148) 01/25/17 09:30 Potassium 3.8 MMOL/L (3.6-5.0) 01/25/17 09:30 Chloride 98 mmol/L (98-107) 01/25/17 09:30 Carbon Dioxide 29 mmol/L (22-30) 01/25/17 09:30 Anion Gap 14 (10-20) 01/25/17 09:30 BUN 30 mg/dl (9-20) H 01/25/17 09:30 Creatinine 1.5 mg/dL (0.8-1.5) 01/25/17 09:30 Est GFR ( Amer) 56 01/25/17 09:30 Est GFR (Non-Af Amer) 47 01/25/17 09:30 POC Glucose (mg/dL) 195 mg/dL (65-110) H 01/25/17 05:33 Random Glucose 181 mg/dL (75-110) H 01/25/17 09:30 Hemoglobin A1c 8.5 % (4.2-6.5) H 01/16/17 10:20 Calcium 9.6 mg/dL (8.4-10.2) 01/25/17 09:30 Total Bilirubin 0.9 mg/dl (0.2-1.3) 01/25/17 09:30 AST 30 U/L (17-59) 01/25/17 09:30 ALT 41 U/L (21-72) 01/25/17 09:30 Alkaline Phosphatase 113 U/L (38-126) 01/25/17 09:30 C-React Prot High Sens > 15.00 mg/L (1.00-3.00) H 01/18/17 16:00 Total Protein 7.0 G/DL (6.3-8.2) 01/25/17 09:30 Albumin 3.9 g/dL (3.5-5.0) 01/25/17 09:30 Globulin 3.1 gm/dL (2.2-3.9) 01/25/17 09:30 Albumin/Globulin Ratio 1.3 (1.0-2.1) 01/25/17 09:30 Triglycerides 115 mg/DL (0-149) 01/16/17 10:20 Cholesterol 112 mg/dL (0-199) 01/16/17 10:20 LDL Cholesterol Direct 52 mg/dL (0-129) 01/16/17 10:20 HDL Cholesterol 24 MG/DL (30-70) L 01/16/17 10:20 TSH 3rd Generation 3.06 mIU/ML (0.46-4.68) 01/16/17 10:20 Urine Color Yellow (YELLOW) 01/19/17 14:00 Urine Clarity Clear (Clear) 01/19/17 14:00 Urine pH 6.0 (5.0-8.0) 01/19/17 14:00 Ur Specific [place] 1.014 (1.003-1.030) 01/19/17 14:00 Urine Protein Negative mg/dL (NEGATIVE) 01/19/17 14:00 Urine Glucose (UA) Neg mg/dL (Normal) 01/19/17 14:00 Urine Ketones Negative mg/dL (NEGATIVE) 01/19/17 14:00 Urine Blood Negative (NEGATIVE) 01/19/17 14:00 Urine Nitrate Negative (NEGATIVE) 01/19/17 14:00 Urine Bilirubin Negative (NEGATIVE) 01/19/17 14:00 Urine Urobilinogen 0.2-1.0 mg/dL (0.2-1.0) 01/19/17 14:00 Ur Leukocyte Esterase Neg Benji/uL (Negative) 01/19/17 14:00 Urine RBC (Auto) 2 /hpf (0-3) 01/19/17 14:00 Urine Microscopic WBC 1 /hpf (0-5) 01/19/17 14:00 Ur Squamous Epith Cells < 1 /hpf (0-5) 01/19/17 14:00 Urine Bacteria Rare (<OCC) 01/19/17 14:00 - Hospital Course Hospital Course: Pt was admitted to TCU to completed a course of antibiotics and also rehab s/p foot surgery. he remained stable throughout TCU stay and is now being discharged with routine follow up with is PCP Discharge Exam - Head Exam Head Exam: NORMOCEPHALIC - Eye Exam Eye Exam: Normal appearance, PERRL - ENT Exam ENT Exam: Mucous Membranes Moist - Respiratory Exam Respiratory Exam: NORMAL BREATHING PATTERN - Cardiovascular Exam Cardiovascular Exam: REGULAR RHYTHM, +S1, +S2 - GI/Abdominal Exam GI & Abdominal Exam: Normal Bowel Sounds, Soft - Extremities Exam Additional comments: right foot neatly dressed, no foul smelling discharge - Neurological Exam Neurological exam: Alert, CN II-XII Intact, Oriented x3 Discharge Plan - Follow Up Plan Condition: GOOD Disposition: HOME/ ROUTINE Instructions: Diabetic Foot Ulcers (GEN) Additional Instructions: Please follow up with your PCP Dr. Frey on Saturday01/30/17 See podiatry as originally discussed with podiatry Referrals: Osmel Frey MD [Primary Care Provider] -
[2017-01-25 16:09] VITALS: BP 118/41; PULSE 80; TEMP 98.8; O2SAT 96
== END 2017-01-25 13:30 | disposition home health service (06) | DRG 638 ==
LOC: H.TCU 17:44
PROVIDERS: ADMIT Family Medicine; ATTEND Family Medicine
PROC: F07Z9FZ Gait Training/Functional Ambulation Treatment using Assistive, Adaptive, Supportive or Protective Equipment (ICD-10-PCS; principal; 2017-01-14)
PROC: F08Z4FZ Home Management Treatment using Assistive, Adaptive, Supportive or Protective Equipment (ICD-10-PCS; 2017-01-14)
PROC: F07L6FZ Therapeutic Exercise Treatment of Musculoskeletal System - Lower Back / Lower Extremity using Assistive, Adaptive, Supportive or Protective Equipment (ICD-10-PCS; 2017-01-15)
DX: E11.621 Type 2 diabetes mellitus with foot ulcer (principal); I45.2 Bifascicular block; M86.8X7 Other osteomyelitis, ankle and foot; E11.22 Type 2 diabetes mellitus with diabetic chronic kidney disease; E11.51 Type 2 diabetes mellitus with diabetic peripheral angiopathy without gangrene; Z94.0 Kidney transplant status; L97.519 Non-pressure chronic ulcer of other part of right foot with unspecified severity; I12.9 Hypertensive chronic kidney disease with stage 1 through stage 4 chronic kidney disease, or unspecified chronic kidney disease; N18.3 Chronic kidney disease, stage 3 (moderate); E03.9 Hypothyroidism, unspecified; E78.5 Hyperlipidemia, unspecified; I25.10 Atherosclerotic heart disease of native coronary artery without angina pectoris; D64.9 Anemia, unspecified; I48.91 Unspecified atrial fibrillation; E11.69 Type 2 diabetes mellitus with other specified complication; R04.0 Epistaxis; Z79.01 Long term (current) use of anticoagulants; Z85.51 Personal history of malignant neoplasm of bladder; Z79.4 Long term (current) use of insulin; Z86.73 Personal history of transient ischemic attack (TIA), and cerebral infarction without residual deficits; Z87.891 Personal history of nicotine dependence; Z95.0 Presence of cardiac pacemaker; Z95.1 Presence of aortocoronary bypass graft; Z88.0 Allergy status to penicillin

== ENCOUNTER 2017-02-06 21:18 | Inpatient (IN) | payer MEDICARE, BC ==
[2017-02-06 21:19] VITALS: BMI 35.2
--- NOTE | 2017-02-06 21:55 | ED PDOC ---
Lower Extremity Pain/Injury Time Seen by Provider: 02/06/17 21:37 Chief Complaint (Nursing): Lower Extremity Problem/Injury Chief Complaint (Provider): right foot pain History Per: Patient, Family History/Exam Limitations: no limitations Onset/Duration Of Symptoms: Days (2) Current Symptoms Are (Timing): Still Present Severity: Moderate Additional History Per: Patient, Family Additional Complaint(s): 66 y/o male history of diabetes, chronic kidney disease presents with right foot pain x 2 days. Patient had surgery 01/11 for osteomyelitis/chronic foot ulcer. He notes since yesterday pain to the foot with redness, and low grade temp of 99 today. Patient was advised by Dr. Jewell to come to ED. He notes pain to travel up to right knee. Denies fever, nausea/vomiting, numbness/ weakness right lower extremity. Past Medical History Reviewed: Historical Data, Nursing Documentation, Vital Signs Vital Signs: Last Vital Signs Temp 98.8 F 02/06/17 21:21 Pulse 104 H 02/06/17 21:21 Resp 18 02/06/17 21:21 BP 110/67 02/06/17 21:21 Pulse Ox 99 02/06/17 21:21 - Medical History PMH: Arthritis (HIP AREA ), Cardia Arrhythmia (ATRIAL FIB), Diabetes (insulin), Fractures (finger hand 60 years ago left), HTN, Hypercholesterolemia, Hypothyroidism, Pneumonia, Chronic Kidney Disease, Sleep Apnea Denies: Alzheimer's Disease, Anemia, Anxiety, Asthma, Atrial Fibrillation ( New Onset of Atrial fib), Bipolar Disorder, Bronchitis, CAD, CHF, COPD, Crohn's Disease, Dementia, Depression, Diverticulitis, Emphysema, Gastritis, Gall Bladder Disease, HIV, Hyperthyroidism, Kidney Stones, Migraine, Mitral Valve Prolapse, Multiple Sclerosis, Osteoporosis, Pancreatitis, Paranoia, Parkinson's Disease, Peripheral Edema, Post Traumatic Stress Disorder, Pulmonary Embolism, Rheumatoid Arthritis, Schizophrenia, Seizures, Sickle Cell Disease, Sexually Transmitted Disease, TIA - Surgical History Surgical History: Pacemaker Denies: Appendectomy, CABG, Carotid Endarterectomy, Cholecystectomy, Coronary Stent, Tonsillectomy - Family History Family History: States: Unknown Family Hx - Immunization History Hx Tetanus Toxoid Vaccination: No Hx Influenza Vaccination: No Hx Pneumococcal Vaccination: No - Home Medications Home Medications: Ambulatory Orders Medication Instructions Recorded Aspirin [Ecotrin] 81 mg PO DAILY 03/25/16 Belatacept [Nulojix] 1 dose IV Q30D 03/25/16 Cholecalciferol (Vitamin D3) 1,000 unit PO DAILY 03/25/16 [Vitamin D3] Furosemide [Lasix] 20 mg PO BID 03/25/16 Levothyroxine [Synthroid] 75 mcg PO DAILY 03/25/16 Multivitamin [Multivitamins] 1 tab PO DAILY 03/25/16 Mycophenolate Sodium [Myfortic] 4 tab PO BID 03/25/16 [place]-3 Acid Ethyl Esters [Lovaza] 1 gm PO BID 03/25/16 Omeprazole [Prilosec] 20 mg PO DAILY 03/25/16 hydrALAZINE [Apresoline] 25 mg PO TID 03/25/16 predniSONE [predniSONE Tab] 5 mg PO DAILY 03/25/16 Insulin Glargine, Recombina 50 unit SC HS 11/29/16 [Lantus] Insulin Lispro [Humalog Kwikpen 20 unit SC TID 11/29/16 U-100] Losartan [Cozaar] 25 mg PO DAILY 11/29/16 Rivaroxaban [Xarelto] 20 mg PO QPM 11/29/16 Tamsulosin [Flomax] 0.4 mg PO QPM 11/29/16 Allopurinol [Zyloprim] 100 mg PO DAILY 12/23/16 - Allergies Allergies/Adverse Reactions: Allergies Allergy/AdvReac Type Severity Reaction Status Date / Time Penicillins Allergy Intermediate RASH Verified 01/14/17 17:41 Review of Systems ROS Statement: Except As Marked, All Systems Reviewed And Found Negative Musculoskeletal: Positive for: Foot Pain Physical Exam - Reviewed Nursing Documentation Reviewed: Yes Vital Signs Reviewed: Yes - Physical Exam Appears: Positive for: Well, Non-toxic, No Acute Distress Head Exam: Positive for: ATRAUMATIC, NORMAL INSPECTION, NORMOCEPHALIC Cardiovascular/Chest: Positive for: Regular Rate, Rhythm Respiratory: Positive for: Normal Breath Sounds Extremity: Positive for: Normal ROM, Tenderness (dorsal right foot), Pedal Edema (mild, right), Calf Tenderness (right), Other (ulcer wound noted dorsal right foot distal 1st mtp extending to distal digit. No discharge, no odor. + granuloma tissue. Mild surrounding erythema. ulceration noted lateral aspect right 5th digit; no drainage, surrounding erythema). Negative for: Deformity Neurologic/Psych: Positive for: Alert, Oriented. Negative for: Motor/Sensory Deficits - Laboratory Results Result Diagrams: 02/06/17 23:49 02/06/17 23:49 - ECG ECG: Positive for: Viewed By Me (reviewed by ED attending) ECG Rhythm: Positive for: Atrial Fibrillation O2 Sat by Pulse Oximetry: 99 - Radiology X-Ray: Viewed By Me X-Ray Interpretation: No Acute Disease - Progress ED Course And Treament: labs, foot xray, duplex RLE EXAM: US Duplex Right Lower Extremity Veins. CLINICAL HISTORY: 66 years old, male; Pain; Leg, lower; Right; Additional info: Pain/swelling right le TECHNIQUE: Real-time ultrasound scan of the veins of the right lower extremity with color Doppler flow, spectral waveform analysis and compression. COMPARISON: No relevant prior studies available. FINDINGS: Deep veins: Normal color and spectral Doppler flow. Normal compressibility. No deep vein thrombosis from common femoral to popliteal vein. Superficial veins: No thrombosis. Soft tissues: No popliteal cyst. IMPRESSION: 1. No evidence of DVT within RIGHT lower extremity. 2. Incidental/non-acute findings are described above. Patient evaluated by podiatry resident on-call; recommends admission for IV abx. IV clindamycin ordered Case discussed with Dr. Frey for admission. Disposition - Clinical Impression Clinical Impression: Diabetic foot ulcer - Disposition Disposition Time: 01:20 Condition: FAIR
[2017-02-06 23:53] LABS: BASO # 0.1 K/uL (0.0-0.2); BASO % 0.9 % (0.0-2.0); EOS # 0.2 K/uL (0.0-0.7); EOS % 2.1 % (0.0-4.0); HEMATOCRIT 39.4 % (35.0-51.0); LYMPH % 10.6 % (20.0-40.0); MEAN CELL VOLUME 82.9 fl (80.0-94.0); MEAN CORPUSCULAR HEMOGLOBIN 26.2 pg (27.0-31.0); MEAN CORPUSCULAR HGB CONC 31.6 g/dL (33.0-37.0); MEAN PLATELET VOLUME 8.8 fl (7.2-11.7); MONO % 10.2 % (0.0-10.0); NEUT # 7.3 K/uL (1.8-7.0); NEUT % 76.2 % (50.0-75.0); RED CELL DISTRIBUTION WIDTH 16.9 % (11.5-14.5); WHITE BLOOD COUNT 9.5 K/uL (4.8-10.8)
--- NOTE | 2017-02-06 23:53 | CP.PCM.CON ---
History of Present Illness - History of Present Illness History of Present Illness: 66 y/o male seen at bedside in the ED after request for podiatry consultation. patient has a pmhx of Arthritis (HIP AREA ), Cardia Arrhythmia (ATRIAL FIB), Diabetes (insulin), Fractures (finger hand 60 years ago left), HTN, Hypercholesterolemia, Hypothyroidism, Pneumonia, Chronic Kidney Disease, Sleep Apnea. Patient seen for chief complaint of pain and swelling of right foot after having surgery on 01/11/[address] Jewell. Patient states that over the past 48 hours he was having fevers, chills, and a lot of pain in his foot so Dr. Jewell told him to come to the ED. Patient states that he last saw Dr. Jewell on saturday and has been applying dressings to his right foot. Patient denies any current n/f/v/c/d/sob/cp. Review of Systems - Constitutional Constitutional: As Per HPI Past Patient History - Infectious Disease Hx of Infectious Diseases: None - Past Medical History & Family History Past Medical History?: Yes - Past Social History Smoking Status: Former Smoker - CARDIAC Hx Atrial Fibrillation: No (New Onset of Atrial fib) Hx Cardia Arrhythmia: Yes (ATRIAL FIB) Hx Congestive Heart Failure: No Hx Hypercholesterolemia: Yes Hx Hypertension: Yes Hx Mitral Valve Prolapse: No Hx Pacemaker: Yes Hx Peripheral Edema: No - PULMONARY Hx Asthma: No Hx Bronchitis: No Hx Chronic Obstructive Pulmonary Disease (COPD): No Hx Emphysema: No Hx Pneumonia: Yes Hx Pulmonary Embolism: No Hx Sleep Apnea: Yes - NEUROLOGICAL Hx Alzheimer's Disease: No Hx Dementia: No Hx Migraine: No Hx Multiple Sclerosis: No Hx Parkinson's Disease: No Hx Seizures: No Hx Transient Ischemic Attacks (TIA): No - HEENT Hx HEENT Problems: Yes Hx Blind: No Hx Cataracts: Yes (BILAT.) Hx Deafness: No Hx Difficulty Chewing: No Hx Epistaxis: No Hx Glaucoma: No Hx Macular Degeneration: No - RENAL Hx Chronic Kidney Disease: Yes Hx Kidney Stones: No - ENDOCRINE/METABOLIC Hx Hyperthyroidism: No Hx Hypothyroidism: Yes - HEMATOLOGICAL/ONCOLOGICAL Hx Anemia: No Hx Human Immunodeficiency Virus (HIV): No Hx Sickle Cell Disease: No - INTEGUMENTARY Hx Dermatological Problems: No Hx Basil Cell: No Hx Blanchard: No Hx Cellulitis: No Hx Eczema: No Hx Melanoma: No Hx Psoriasis: No Hx Squamous Cell: No - MUSCULOSKELETAL/RHEUMATOLOGICAL Hx Arthritis: Yes (HIP AREA ) Hx Fractures: Yes (finger hand 60 years ago left) Hx Osteoporosis: No Hx Rheumatoid Arthritis: No - GASTROINTESTINAL Hx Crohn's Disease: No Hx Diverticulitis: No Hx Gall Bladder Disease: No Hx Gastritis: No Hx Pancreatitis: No - GENITOURINARY/GYNECOLOGICAL Hx Sexually Transmitted Disorders: No - PSYCHIATRIC Hx Anxiety: No Hx Bipolar Disorder: No Hx Depression: No Hx Paranoia: No Hx Post Traumatic Stress Disorder: No Hx Schizophrenia: No - SURGICAL HISTORY Hx Appendectomy: No Hx Carotid Endarterectomy: No Hx Cholecystectomy: No Hx Coronary Artery Bypass Graft: No Hx Coronary Stent: No Hx Tonsillectomy: No - ANESTHESIA Hx Anesthesia: Yes Hx Anesthesia Reactions: No Hx Malignant Hyperthermia: No Meds Allergies/Adverse Reactions: Allergies Allergy/AdvReac Type Severity Reaction Status Date / Time Penicillins Allergy Intermediate RASH Verified 01/14/17 17:41 - Medications Medications: Current Medications Clindamycin Phosphate 600 mg/ (Sodium Chloride) 54 mls @ 600 mls/hr IVPB STAT STA Stop: 02/06/17 23:46 Morphine Sulfate (Morphine) 2 mg IV ONCE ONE Stop: 02/06/17 23:43 Physical Exam - Constitutional Appears: Well, Non-toxic, No Acute Distress - Extremities Exam Additional comments: right foot focused: vasc: palpable DP pulse, nonpalpable PT pulse, CFT < 3 sec to all digits, TG wnl neuro: grossly diminished derm: localized edema and erythema to wound on dorsal aspect of first ray, wound extends from proximal 1st metatarsal to hallux- dry, necrotic and fibrotic base proximally with granular base distally, no fluctuance, no active drainage, no purulence, no probe to bone, no ascending cellulitis lateral aspect of 5th toe wound with necrotic base and hypergranular tissue periwound, no drainage, no fluctuance, no malodor, no purulence ortho: pain on palpation to lateral aspect of right foot Results - Vital Signs Recent Vital Signs: Last Vital Signs Temp 98.8 F 02/06/17 21:21 Pulse 104 H 02/06/17 21:21 Resp 18 02/06/17 21:21 BP 110/67 02/06/17 21:21 Pulse Ox 99 02/06/17 21:57 Assessment & Plan - Assessment and Plan (Free Text) Assessment: 66 y/o male with pmhx of arthritis (HIP AREA ), Cardia Arrhythmia (ATRIAL FIB), Diabetes (insulin), Fractures (finger hand 60 years ago left), HTN, Hypercholesterolemia, Hypothyroidism, Pneumonia, Chronic Kidney Disease, Sleep Apnea, seen at bedside for delayed healing wound s/p surgery of right foot Plan: patient evaluated and seen at bedside in ED discussed in detail with attending Dr. Jewell labs and vitals reviewed; afebrile wound cx obtained start on clindamycin IV f/u ID consult f/u Vascular consult duplex US shows no evidence of DVT x ray shows severe calcifications of vessels of right foot, no evidence of OM applied DSD to right foot patient to be admitted under Dr. Frey (PMD) podiatry will continue to monitor while patient remains in house
[2017-02-07 00:01] LABS: ALB/GLOB RATIO 1.4 (1.0-2.1); BILIRUBIN,TOTAL 0.7 mg/dl (0.2-1.3); CALCIUM 9.5 mg/dL (8.4-10.2); POTASSIUM 3.8 MMOL/L (3.6-5.0)
--- NOTE | 2017-02-07 07:07 | CARD ---
APPROVED REPORT EKG Measurement Heart [id number] <Conclusion> Atrial fibrillation Left axis deviation Right bundle branch block Inferior infarct, age undetermined Anterior infarct, age undetermined Abnormal ECG
[2017-02-07] MEDS ORDERED: Dextrose 50% SYRINGE Inj (50 ml) IV PRN (09:52)
[2017-02-07] MEDS ORDERED: Glucagon Recombinant 1 mg Inj IM PRN (09:52)
--- NOTE | 2017-02-07 10:03 | CP.PCM.PN ---
Subjective - Date & Time of Evaluation Date of Evaluation: 02/07/17 Time of Evaluation: 08:00 - Subjective Subjective: 66 y/o male patient with PMHx of A fib, DM II, HTN, Hypercholesterolemia, Hypothyroidism, Pneumonia, CKD was seen at bedside this morning concerning necrotic wound to Right foot. 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 (DOS 01/11/17) Patient states that he does not feel any pain to medial aspect of right foot but has pain to lateral aspect of right foot where no surgery was done. Patient admits experiencing fever and chills for a few days before the admission. Patient admits he has been weight bearing to right foot. Patient denies any current n/f/ v/c/d/sob/cp. Objective - Vital Signs/Intake and Output Vital Signs (last 24 hours): Temp Pulse Resp BP Pulse Ox 98.2 F 84 20 106/65 98 02/07/17 07:57 02/07/17 07:57 02/07/17 07:57 02/07/17 07:57 02/07/17 07:57 - Medications Medications: Current Medications Allopurinol (Zyloprim) 100 mg PO DAILY [facility]I Aspirin (Ecotrin) 81 mg PO DAILY [facility] Dextrose (Glutose 15) 0 gm PO ONCE PRN; Protocol PRN Reason: Hypoglycemia Protocol Dextrose (Dextrose 50% Inj) 0 ml IV STAT PRN; Protocol PRN Reason: Hyglycemia Protocol Furosemide (Lasix) 20 mg PO Q12 [facility] Glucagon (Glucagen Diagnostic Kit) 0 mg IM STAT PRN; Protocol PRN Reason: Hypoglycemia Protocol Home Med (Cholecalciferol (Vitamin D3) [Vitamin D3]) 1,000 unit PO DAILY [facility] Home Med (Insulin Glargine, Recombina [Lantus]) 50 unit SC HS [facility] Home Med (Insulin Lispro [Humalog Kwikpen U-100]) 20 unit SC TID [facility] Hydralazine HCl (Apresoline) 25 mg PO TID [facility]I Insulin Human Regular (Humulin R) 0 units SC ACHS [facility]I PRN Reason: Protocol Lactobacillus Acidophilus (Bacid Acidophilus) 1 cap PO BID [facility]I Levothyroxine Sodium (Synthroid) 75 mcg PO DAILY [facility]I Losartan Potassium (Cozaar) 25 mg PO DAILY [facility] Prednisone (Prednisone Tab) 5 mg PO DAILY [facility] Rivaroxaban (Xarelto) 20 mg PO HS [facility]I PRN Reason: Protocol Tamsulosin HCl (Flomax) 0.4 mg PO DAILY [facility]I - Constitutional Appears: Well, Non-toxic, No Acute Distress - Extremities Exam Additional comments: Right lower extremity exam: DERM: -Open wound noted to the previous surgical site measuring 4cm in length x 1.5cm x 0.3cm with granular base. No purulent discharge noted. No probe to bone. Necrotic change with dark discoloration noted to skin around the wound dehiscence measuring 6cm x 4cm extending from at the level of MTPJ to level of Hallux PIPJ. -Another patch area of necrotic change noted to lateral aspect of Right 5th metatarsal head measuring 2.5cm x 1.5cm. No open wound noted from this area. No drainage, no probe to bone. Erythema is noted around the necrosis with 0.5cm margin. -Open ulceration (chronic) is noted to plantar aspect of right 1st metatarsal measuring 1cm x 1cm x 0.3cm with granular base. Circumferential Hyperkeratic tissue noted around the ulcer with 0.4cm margin. No purulent drainage. No erythema around the ulcer. No Mal-odor noted. VASC: Palpable DP pulse at 2/4, nonpalpable PT pulse, CFT < 3 sec to all digits , TG wnl NEURO: grossly diminished ORTHO: pain on palpation to lateral aspect of right foot - Neurological Exam Neurological Exam: Alert, Awake, Oriented x3 - Psychiatric Exam Psychiatric exam: Normal Affect, Normal Mood - Skin Skin Exam: Normal Color, Warm Assessment and Plan - Assessment and Plan (Free Text) Assessment: 66 y/o male patient presents with necrotic change and wound dehiscence to Right foot Plan: patient evaluated and seen at bedside in ED discussed in detail with attending Dr. Jewell labs and vitals reviewed; afebrile Xray reveals calcifications of vessels of right foot, no evidence of OM Wound cx obtained Arterial Duplex ordered ID consulted: Started on Vanco 1g q24, Aztreonam 1g q[address] Rocha Vascular consulted: Dr. Dumas updated Dressing applied per podiatry patient to be admitted under Dr. Frey (PMD) podiatry will continue to monitor while patient remains in house
--- NOTE | 2017-02-07 10:18 | US ---
PROCEDURE: Right lower extremity venous duplex Doppler. HISTORY: pain/swelling right LE COMPARISON: None available. TECHNIQUE: Common femoral, superficial femoral, popliteal and posterior tibial veins were evaluated. Flow was assessed with color Doppler, compressibility, assessment of phasic flow and augmentation response. FINDINGS: COMMON FEMORAL VEIN: Normal color flow, direction of flow, spectral waveform and compressibility. SUPERFICIAL FEMORAL VEIN: Normal color flow, direction of flow, spectral waveform and compressibility. POPLITEAL VEIN: Normal color flow, direction of flow, spectral waveform and compressibility. POSTERIOR TIBIAL VEIN: Normal color flow, direction of flow, spectral waveform and compressibility. OTHER FINDINGS: None. IMPRESSION: No evidence of deep venous thrombosis in the right lower extremity. A preliminary report was provided by [employer] services.
--- NOTE | 2017-02-07 11:19 | RAD ---
PROCEDURE: Right Foot Radiographs. HISTORY: pain s/p surgery COMPARISON: Comparison is made to the previous study dated 01/11/2017 FINDINGS: BONES: No radiographic evidence of acute pathology in the osseous structure. Patient status post amputation of the distal 1st metatarsal bone and the base of the proximal phalanx of the big toe. JOINTS: Mild subluxation at the tarsal phalangeal joints PE SOFT TISSUES: Diffuse vascular calcification. OTHER FINDINGS: None. IMPRESSION: No evidence of acute pathology.
--- NOTE | 2017-02-07 11:36 | RAD ---
HISTORY: Admit COMPARISON: 01/10/2017 FINDINGS: Incompletely imaged is the left axillary endovascular stent. LUNGS: The lungs are well inflated and clear. PLEURA: No significant pleural effusion identified, no pneumothorax apparent. CARDIOVASCULAR: There is mild cardiomegaly. There is stable position of a right-sided unipolar permanent pacing device. OSSEOUS STRUCTURES: No significant abnormalities. VISUALIZED UPPER ABDOMEN: Normal. OTHER FINDINGS: None. IMPRESSION: No active pulmonary disease.
[2017-02-07] MEDS ORDERED: Insulin Lispro (humaLOG) 100 Units/ml Inj SC SCH (13:00)
--- NOTE | 2017-02-07 13:13 | CP.PCM.HP ---
History of Present Illness - History of Present Illness History of Present Illness: Pt is a 66 y/o male with pmhx of Arthritis (HIP AREA ), Cardia Arrhythmia ( ATRIAL FIB), Diabetes (insulin), Fractures (finger hand 60 years ago left), HTN , Hypercholesterolemia, Hypothyroidism, Pneumonia, Chronic Kidney Disease ( renal transplant in the past), Sleep Apnea and was recently discharged from the hospital after about 2weeks of antibiotic for a foot ulcer. Patient seen for chief complaint of pain and swelling of right foot after having surgery on by Dr. Jewell. Patient states that over the past 48 hours he was having fevers, chills, and a lot of pain in his foot so Dr. Jewell told him to come to the ED. Patient states that he last saw Dr. Jewell on saturday and has been applying dressings to his right foot. Pt was seen and examined at bedside this denies any current n/f/v/c/d/sob/cp; states pain is controlled. Present on Admission - Present on Admission Any Indicators Present on Admission: Yes History of Uncontrolled Diabetes: Yes Review of Systems - Review of Systems All systems: reviewed and no additional remarkable complaints except Review of Systems: Per HPI Past Patient History - Infectious Disease Hx of Infectious Diseases: None - Past Medical History & Family History Past Medical History?: Yes - Past Social History Smoking Status: Former Smoker - CARDIAC Hx Cardiac Disorders: Yes Hx Atrial Fibrillation: Yes Hx Congestive Heart Failure: Yes Hx Heart Attack: Yes Hx Hypercholesterolemia: Yes Hx Hypertension: Yes Hx Pacemaker: Yes - PULMONARY Hx Respiratory Disorders: Yes Hx Pneumonia: Yes Hx Sleep Apnea: Yes - NEUROLOGICAL Hx Neurological Disorder: Yes HX Cerebrovascular Accident: Yes (03/25/16) - HEENT Hx HEENT Problems: No Hx Cataracts: Yes - RENAL Hx Chronic Kidney Disease: Yes Hx Dialysis: Yes Type of Dialysis Access: left AV shunt Date of Last Dialysis Treatment: 02/08/14 Other/Comment: Right kidney transplant January 2014 - ENDOCRINE/METABOLIC Hx Endocrine Disorders: Yes Hx Diabetes Mellitus Type 2: Yes Hx Hypothyroidism: Yes - HEMATOLOGICAL/ONCOLOGICAL Hx Blood Disorders: No - INTEGUMENTARY Hx Dermatological Problems: No - MUSCULOSKELETAL/RHEUMATOLOGICAL Hx Arthritis: Yes Hx Falls: No Hx Fractures: Yes (left hand finger 60yrs ago) - GASTROINTESTINAL Hx Crohn's Disease: No Hx Diverticulitis: No Hx Gall Bladder Disease: No Hx Gastritis: No Hx Pancreatitis: No - GENITOURINARY/GYNECOLOGICAL Hx Genitourinary Disorders: No Hx Bladder Cancer: Yes Hx Hematuria: Yes - PSYCHIATRIC Hx Psychophysiologic Disorder: No Hx Substance Use: No - SURGICAL HISTORY Hx Appendectomy: No Hx Cataract Extraction: Yes Hx Kidney Transplant: Yes Other/Comment: 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 Right foot sx 01/11/17 - ANESTHESIA Hx Anesthesia: Yes Hx Anesthesia Reactions: No Hx Malignant Hyperthermia: No Meds Allergies/Adverse Reactions: Allergies Allergy/AdvReac Type Severity Reaction Status Date / Time Penicillins Allergy Intermediate RASH Verified 01/14/17 17:41 Physical Exam - Constitutional Appears: Non-toxic, No Acute Distress - Head Exam Head Exam: NORMOCEPHALIC - Eye Exam Eye Exam: Normal appearance - ENT Exam ENT Exam: Mucous Membranes Moist - Respiratory Exam Respiratory Exam: Clear to Auscultation Bilateral, NORMAL BREATHING PATTERN. absent: Rhonchi - Cardiovascular Exam Cardiovascular Exam: REGULAR RHYTHM, +S1, +S2 - GI/Abdominal Exam GI & Abdominal Exam: Normal Bowel Sounds, Soft. absent: Tenderness - Extremities Exam Extremities exam: Negative for: calf tenderness Additional comments: right lower extremity neatly dressed, no foul smelling discharge noted - Neurological Exam Neurological exam: Alert, Oriented x3 Results - Vital Signs Recent Vital Signs: Last Vital Signs Temp 98.2 F 02/07/17 07:57 Pulse 84 02/07/17 07:57 Resp 20 02/07/17 07:57 BP 106/65 02/07/17 07:57 Pulse Ox 98 02/07/17 07:57 - Labs Result Diagrams: 02/06/17 23:49 02/06/17 23:49 Labs: Laboratory Results - last 24 hr 02/07/17 02/07/17 02/07/17 06:35 07:11 11:15 ESR 32 H POC Glucose (mg/dL) 52 L 89 02/07/17 11:36 ESR POC Glucose (mg/dL) 208 H Assessment & Plan - Assessment and Plan (Free Text) Assessment: 66 y/o male with pmhx of Arthritis (HIP AREA ), Cardia Arrhythmia (ATRIAL FIB), Diabetes (insulin), HTN, Hypercholesterolemia, Hypothyroidism, Chronic Kidney Disease admitted for right diabetic foot ulceration Plan: Right foot Ulcer Podiatry following pt, management per podiatry patient continued on clindamycin ID consulted for antibiotic recommendation 2. Insulin Dependent Diabetes SSI Accucheck 3. Home medication restarted Pt informed about need to bring medications not on formulary in from home 4. Diet- Diabetic heart healthy 5. DVT prophylaxis Xarelto on hold for just in case pt goes into OR will start lovenox till decision for OR is made SCDs
[2017-02-07] MEDS: Lactobacillus Acidophilus 500 MU Cap PO SCH ×2 (13:24→16:32)
[2017-02-07] MEDS: Insulin Regular 100 units/ml SC SCH ×3 (13:25→22:36)
--- NOTE | 2017-02-07 15:56 | CP.PCM.CON ---
History of Present Illness - History of Present Illness History of Present Illness: 66 y/o male with ESRD s/p kidney transplant about 4 yrs ago,CAD, chronic A.fib, PPM, IDDM, Hx/o CVA,HTN,IDDM,Hypothyroidism , SAMSON & chronic Rt foot ulcer is admitted for c/o pain in Rt foot. Pt had SX for Rt foot ulcer on 01/11/17 f/b 2 wks of Abx therapy. Pt had denied fever or chills Past Patient History - Infectious Disease Hx of Infectious Diseases: None - Past Medical History & Family History Past Medical History?: Yes - Past Social History Smoking Status: Former Smoker - CARDIAC Hx Cardiac Disorders: Yes Hx Atrial Fibrillation: Yes Hx Congestive Heart Failure: Yes Hx Heart Attack: Yes Hx Hypercholesterolemia: Yes Hx Hypertension: Yes Hx Pacemaker: Yes - PULMONARY Hx Respiratory Disorders: Yes Hx Pneumonia: Yes Hx Sleep Apnea: Yes - NEUROLOGICAL Hx Neurological Disorder: Yes HX Cerebrovascular Accident: Yes (03/25/16) - HEENT Hx HEENT Problems: No Hx Cataracts: Yes - RENAL Hx Chronic Kidney Disease: Yes Hx Dialysis: Yes Type of Dialysis Access: left AV shunt Date of Last Dialysis Treatment: 02/08/14 Other/Comment: Right kidney transplant January 2014 - ENDOCRINE/METABOLIC Hx Endocrine Disorders: Yes Hx Diabetes Mellitus Type 2: Yes Hx Hypothyroidism: Yes - HEMATOLOGICAL/ONCOLOGICAL Hx Blood Disorders: No - INTEGUMENTARY Hx Dermatological Problems: No - MUSCULOSKELETAL/RHEUMATOLOGICAL Hx Arthritis: Yes Hx Falls: No Hx Fractures: Yes (left hand finger 60yrs ago) - GASTROINTESTINAL Hx Crohn's Disease: No Hx Diverticulitis: No Hx Gall Bladder Disease: No Hx Gastritis: No Hx Pancreatitis: No - GENITOURINARY/GYNECOLOGICAL Hx Genitourinary Disorders: No Hx Bladder Cancer: Yes Hx Hematuria: Yes - PSYCHIATRIC Hx Psychophysiologic Disorder: No Hx Substance Use: No - SURGICAL HISTORY Hx Appendectomy: No Hx Cataract Extraction: Yes Hx Kidney Transplant: Yes Other/Comment: 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 Right foot sx 01/11/17 - ANESTHESIA Hx Anesthesia: Yes Hx Anesthesia Reactions: No Hx Malignant Hyperthermia: No Meds Allergies/Adverse Reactions: Allergies Allergy/AdvReac Type Severity Reaction Status Date / Time Penicillins Allergy Intermediate RASH Verified 01/14/17 17:41 - Medications Medications: Current Medications Allopurinol (Zyloprim) 100 mg PO DAILY [facility] Last Admin: 02/07/17 13:20 Dose: 100 mg Aspirin (Ecotrin) 81 mg PO DAILY [facility] Cholecalciferol (Vitamin D) 1,000 iu PO DAILY [facility] Last Admin: 02/07/17 13:20 Dose: 1,000 iu Dextrose (Glutose 15) 0 gm PO ONCE PRN; Protocol PRN Reason: Hypoglycemia Protocol Dextrose (Dextrose 50% Inj) 0 ml IV STAT PRN; Protocol PRN Reason: Hyglycemia Protocol Furosemide (Lasix) 20 mg PO Q12 [facility] Last Admin: 02/07/17 13:24 Dose: 20 mg Glucagon (Glucagen Diagnostic Kit) 0 mg IM STAT PRN; Protocol PRN Reason: Hypoglycemia Protocol Home Med (Belatacept [Nulojix]) 1 dose IV Q30D [facility] Home Med (Mycophenolate Sodium [Myfortic]) 720 mg PO Q12 [facility] Hydralazine HCl (Apresoline) 25 mg PO TID [facility] Last Admin: 02/07/17 13:18 Dose: 25 mg Aztreonam 1 gm/ Sodium (Chloride) 100 mls @ 100 mls/hr IVPB Q12 [facility] Vancomycin HCl 1 gm/ Sodium (Chloride) 250 mls @ 166.667 mls/hr IVPB DAILY [facility] Insulin Detemir (Levemir) 25 units SC HS [facility] Insulin Human Lispro (Humalog) 20 units SC TID [facility] Last Admin: 02/07/17 13:18 Dose: 20 units Insulin Human Regular (Humulin R) 0 units SC ACHS [facility] PRN Reason: Protocol Last Admin: 02/07/17 13:25 Dose: 2 units Lactobacillus Acidophilus (Bacid Acidophilus) 1 cap PO BID [facility] Last Admin: 02/07/17 13:24 Dose: 1 cap Levothyroxine Sodium (Synthroid) 75 mcg PO DAILY@0630 [facility] Losartan Potassium (Cozaar) 25 mg PO DAILY [facility] Last Admin: 02/07/17 13:19 Dose: 25 mg Multivitamins/Minerals (Therapeutic-M Tab) 1 tab PO DAILY [facility] Prednisone (Prednisone Tab) 5 mg PO DAILY [facility] Last Admin: 02/07/17 13:19 Dose: 5 mg Rivaroxaban (Xarelto) 15 mg PO HS [facility] PRN Reason: Protocol Tamsulosin HCl (Flomax) 0.4 mg PO DAILY [facility] Physical Exam - Constitutional Appears: No Acute Distress - Head Exam Head Exam: ATRAUMATIC, NORMOCEPHALIC - Eye Exam Additional comments: Conj pink, sclera anicteric - ENT Exam ENT Exam: Mucous Membranes Moist - Neck Exam Additional comments: Neck supple - Respiratory Exam Additional comments: Lungs clear - Cardiovascular Exam Cardiovascular Exam: Irregular Rhythm - GI/Abdominal Exam GI & Abdominal Exam: Firm Additional comments: obese. Nontender - Rectal Exam Rectal Exam: Deferred - Extremities Exam Additional comments: No edema. Rt foot is dressed Results - Vital Signs Recent Vital Signs: Last Vital Signs Temp 98.2 F 02/07/17 07:57 Pulse 84 02/07/17 07:57 Resp 20 02/07/17 07:57 BP 106/65 02/07/17 13:24 Pulse Ox 98 02/07/17 07:57 - Labs Result Diagrams: 02/06/17 23:49 02/06/17 23:49 Labs: Laboratory Results - last 24 hr 02/07/17 02/07/17 02/07/17 06:35 07:11 11:15 ESR 32 H POC Glucose (mg/dL) 52 L 89 02/07/17 11:36 ESR POC Glucose (mg/dL) 208 H Assessment & Plan - Assessment and Plan (Free Text) Assessment: Chronic ERt foot ulcer with infection ESRD, S/P kidney Tx. Creatinine is stable CAD,A.fib ,PPM DM11 Plan: Continue with Prednisone 5 mg & Myfortic 180 mg 4 caps bid Monitor Vanco Pk & trough levels urinalysis
--- NOTE | 2017-02-07 17:01 | US ---
PROCEDURE: Duplex ultrasound of the bilateral lower extremity arteries. HISTORY: Dm foot ulcer COMPARISON: None available. TECHNIQUE: Grayscale and duplex Doppler evaluation of the bilateral common femoral, superficial femoral, popliteal, posterior tibial and dorsalis pedis arteries was performed.. FINDINGS: RIGHT LOWER EXTREMITY: RIGHT COMMON FEMORAL ARTERY: Patent Maximal flow velocity of 82.8 cm/s. RIGHT SUPERFICIAL FEMORAL ARTERY: Patent Maximal flow velocity of 98.4 cm/s. RIGHT POPLITEAL ARTERY:Patent Maximal flow velocity of 85.4 cm/s. RIGHT POSTERIOR TIBIAL ARTERY: Patent Maximal flow velocity of 90.6 cm/s. LEFT LOWER EXTREMITY: LEFT COMMON FEMORAL ARTERY: Patent Maximal flow velocity of 131.9 cm/s. LEFT SUPERFICIAL FEMORAL ARTERY: Patent Maximal flow velocity of 74.3 cm/s. LEFT POPLITEAL ARTERY:Patent Maximal flow velocity of 67.3 cm/s. LEFT POSTERIOR TIBIAL ARTERY: Patent 34 Maximal flow velocity of cm/s. LEFT DORS anterior tibial artery: Patent Maximal flow velocity of 81.3 cm/s. OTHER FINDINGS: None. IMPRESSION: Moderate diffuse atherosclerotic disease associated with diffuse intimal thickening and scattered calcified plaques. Mild increase peak systolic velocity at the left common femoral artery suggestive of mild stenosis approximately 50 percent. Biphasic Doppler waveforms noted at the distal arteries below the knees.
[2017-02-07] MEDS: Oxycodone/Acetaminophen 5/325 mg Tab PO PRN (17:36)
[2017-02-07 19:41] LABS: MAGNESIUM 2.2 MG/DL (1.6-2.3); PHOSPHOROUS 4.5 mg/dl (2.5-4.5)
[2017-02-07] MEDS: MYCOPHENOLATE SODIUM 180 MG PO SCH (21:59)
[2017-02-07] MEDS: Aztreonam 1 GM in Sodium Chloride 0.9% 100 ML IVPB SCH (22:00)
[2017-02-07] MEDS ORDERED: Insulin Detemir 100 Units/ml Inj SC SCH (22:00)
[2017-02-07] MEDS: Insulin Detemir 100 Units/ml Inj SC SCH (22:45)
[2017-02-08] MEDS: Levothyroxine 75 MCG TAB PO SCH (06:57)
[2017-02-08] MEDS: Insulin Regular 100 units/ml SC SCH ×4 (06:58→22:05)
[2017-02-08 07:06] LABS: HEMATOCRIT 37.4 % (35.0-51.0); MEAN CELL VOLUME 83.8 fl (80.0-94.0); MEAN CORPUSCULAR HEMOGLOBIN 26.4 pg (27.0-31.0); MEAN CORPUSCULAR HGB CONC 31.5 g/dL (33.0-37.0); RED CELL DISTRIBUTION WIDTH 16.6 % (11.5-14.5); WHITE BLOOD COUNT 7.6 K/uL (4.8-10.8)
[2017-02-08 07:21] LABS: ALB/GLOB RATIO 1.4 (1.0-2.1); BILIRUBIN,TOTAL 0.9 mg/dl (0.2-1.3); POTASSIUM 4.1 MMOL/L (3.6-5.0); TOTAL PROTEIN 6.5 G/DL (6.3-8.2)
[2017-02-08 08:41] LABS: RBC URINE 3 /hpf (0-3); URINE BILIRUBIN NEGATIVE (NEGATIVE); URINE BLOOD NEGATIVE (NEGATIVE); URINE COLOR YELLOW (YELLOW); URINE GLUCOSE (UA) 50 mg/dL (Normal); URINE KETONE NEGATIVE (NEGATIVE); URINE LEUKOCYTE ESTERASE NEG Leu/uL (Negative); URINE PROTEIN NEGATIVE (NEGATIVE); URINE UROBILINOGEN 0.2-1.0 mg/dL (0.2-1.0); WBC URINE 1 /hpf (0-5)
[2017-02-08] MEDS: Aztreonam 1 GM in Sodium Chloride 0.9% 100 ML IVPB SCH ×2 (09:29→21:49)
[2017-02-08] MEDS: MYCOPHENOLATE SODIUM 180 MG PO SCH ×2 (09:30→22:03)
[2017-02-08] MEDS: Multivitamin With Minerals Tab PO SCH (09:31)
[2017-02-08] MEDS: Lactobacillus Acidophilus 500 MU Cap PO SCH ×2 (09:41→18:01)
--- NOTE | 2017-02-08 13:43 | CP.PCM.CON ---
History of Present Illness - History of Present Illness History of Present Illness: 66 y/o male patient has Patient seen for chief complaint of pain and swelling of right foot after having surgery on 01/11/[address] Jewell. Patient states that over the past 48 hours he was having fevers, chills, and a lot of pain in his foot so Dr. Jewell told him to come to the ED FOUND TO HAVE NECROTIC ULCER RIGHT FOOT ID CONSULTED FOR ANTIBIOTIC MANAGEMENT AWAIT MRI/ MRA Past Patient History - Infectious Disease Hx of Infectious Diseases: None - Past Medical History & Family History Past Medical History?: Yes - Past Social History Smoking Status: Former Smoker - CARDIAC Hx Cardiac Disorders: Yes Hx Atrial Fibrillation: Yes Hx Congestive Heart Failure: Yes Hx Heart Attack: Yes Hx Hypercholesterolemia: Yes Hx Hypertension: Yes Hx Pacemaker: Yes - PULMONARY Hx Respiratory Disorders: Yes Hx Pneumonia: Yes Hx Sleep Apnea: Yes - NEUROLOGICAL Hx Neurological Disorder: Yes HX Cerebrovascular Accident: Yes (03/25/16) - HEENT Hx HEENT Problems: No Hx Cataracts: Yes - RENAL Hx Chronic Kidney Disease: Yes Hx Dialysis: Yes Type of Dialysis Access: left AV shunt Date of Last Dialysis Treatment: 02/08/14 Other/Comment: Right kidney transplant January 2014 - ENDOCRINE/METABOLIC Hx Endocrine Disorders: Yes Hx Diabetes Mellitus Type 2: Yes Hx Hypothyroidism: Yes - HEMATOLOGICAL/ONCOLOGICAL Hx Blood Disorders: No - INTEGUMENTARY Hx Dermatological Problems: No - MUSCULOSKELETAL/RHEUMATOLOGICAL Hx Arthritis: Yes Hx Falls: No Hx Fractures: Yes (left hand finger 60yrs ago) - GASTROINTESTINAL Hx Crohn's Disease: No Hx Diverticulitis: No Hx Gall Bladder Disease: No Hx Gastritis: No Hx Pancreatitis: No - GENITOURINARY/GYNECOLOGICAL Hx Genitourinary Disorders: No Hx Bladder Cancer: Yes Hx Hematuria: Yes - PSYCHIATRIC Hx Psychophysiologic Disorder: No Hx Substance Use: No - SURGICAL HISTORY Hx Appendectomy: No Hx Cataract Extraction: Yes Hx Kidney Transplant: Yes Other/Comment: 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 Right foot sx 01/11/17 - ANESTHESIA Hx Anesthesia: Yes Hx Anesthesia Reactions: No Hx Malignant Hyperthermia: No Meds Allergies/Adverse Reactions: Allergies Allergy/AdvReac Type Severity Reaction Status Date / Time Penicillins Allergy Intermediate RASH Verified 01/14/17 17:41 - Medications Medications: Current Medications Allopurinol (Zyloprim) 100 mg PO DAILY [facility] Last Admin: 02/08/17 09:32 Dose: 100 mg Aspirin (Ecotrin) 81 mg PO DAILY [facility] Last Admin: 02/07/17 16:34 Dose: Not Given Cholecalciferol (Vitamin D) 1,000 iu PO DAILY [facility] Last Admin: 02/08/17 09:32 Dose: 1,000 iu Dextrose (Glutose 15) 0 gm PO ONCE PRN; Protocol PRN Reason: Hypoglycemia Protocol Dextrose (Dextrose 50% Inj) 0 ml IV STAT PRN; Protocol PRN Reason: Hyglycemia Protocol Glucagon (Glucagen Diagnostic Kit) 0 mg IM STAT PRN; Protocol PRN Reason: Hypoglycemia Protocol Home Med (Belatacept [Nulojix]) 1 dose IV Q30D [facility] Home Med (Mycophenolate Sodium [Myfortic]) 720 mg PO Q12 [facility] Last Admin: 02/08/17 09:30 Dose: 720 mg Hydralazine HCl (Apresoline) 25 mg PO TID [facility] Last Admin: 02/08/17 09:32 Dose: 25 mg Aztreonam 1 gm/ Sodium (Chloride) 100 mls @ 100 mls/hr IVPB Q12 [facility] Last Admin: 02/08/17 09:29 Dose: 100 mls/hr Vancomycin HCl 750 mg/ Sodium (Chloride) 250 mls @ 166.667 mls/hr IVPB DAILY [facility] Insulin Detemir (Levemir) 25 units SC HS [facility] Last Admin: 02/07/17 22:45 Dose: 25 units Insulin Human Lispro (Humalog) 20 units SC TID [facility] Last Admin: 02/07/17 13:18 Dose: 20 units Insulin Human Regular (Humulin R) 0 units SC ACHS [facility] PRN Reason: Protocol Last Admin: 02/08/17 06:58 Dose: 1 units Lactobacillus Acidophilus (Bacid Acidophilus) 1 cap PO BID [facility] Last Admin: 02/08/17 09:41 Dose: 1 cap Levothyroxine Sodium (Synthroid) 75 mcg PO DAILY@0630 [facility] Last Admin: 02/08/17 06:57 Dose: 75 mcg Multivitamins/Minerals (Therapeutic-M Tab) 1 tab PO DAILY [facility] Last Admin: 02/08/17 09:31 Dose: 1 tab Oxycodone/Acetaminophen (Percocet 5/325 Mg Tab) 1 tab PO Q6 PRN PRN Reason: Pain, severe (8-10) Stop: 02/10/17 16:46 Last Admin: 02/07/17 17:36 Dose: 1 tab Prednisone (Prednisone Tab) 5 mg PO DAILY [facility] Last Admin: 02/08/17 09:31 Dose: 5 mg Rivaroxaban (Xarelto) 15 mg PO [facility] PRN Reason: Protocol Tamsulosin HCl (Flomax) 0.4 mg PO DAILY [facility] Last Admin: 02/08/17 09:31 Dose: 0.4 mg Physical Exam - Constitutional Appears: Non-toxic, Chronically Ill - Head Exam Head Exam: NORMOCEPHALIC - Eye Exam Eye Exam: PERRL. absent: Scleral icterus - ENT Exam ENT Exam: Mucous Membranes Dry, Normal External Ear Exam, Normal Oropharynx - Neck Exam Neck exam: Negative for: Lymphadenopathy, Thyromegaly - Respiratory Exam Respiratory Exam: Decreased Breath Sounds, Clear to Auscultation Bilateral - Cardiovascular Exam Cardiovascular Exam: REGULAR RHYTHM, +S1, +S2 - GI/Abdominal Exam GI & Abdominal Exam: Diminished Bowel Sounds, Soft. absent: Tenderness - Rectal Exam Rectal Exam: Deferred - Exam Exam: NORMAL INSPECTION - Extremities Exam Extremities exam: Negative for: calf tenderness, pedal pulses present Additional comments: right foot focused: vasc: palpable DP pulse, nonpalpable PT pulse, CFT < 3 sec to all digits, TG wnl neuro: grossly diminished derm: localized edema and erythema to wound on dorsal aspect of first ray, wound extends from proximal 1st metatarsal to hallux- dry, necrotic and fibrotic base proximally with granular base distally, no fluctuance, no active drainage, no purulence, no probe to bone, no ascending cellulitis lateral aspect of 5th toe wound with necrotic base and hypergranular tissue periwound, no drainage, no fluctuance, no malodor, no purulence ortho: pain on palpation to lateral aspect of right foot - Back Exam Back exam: absent: CVA tenderness (L), CVA tenderness (R) - Neurological Exam Neurological exam: Alert, CN II-XII Intact, Oriented x3, Reflexes Normal - Psychiatric Exam Psychiatric exam: Depressed - Skin Skin Exam: Dry Results - Vital Signs Recent Vital Signs: Last Vital Signs Temp 98.4 F 02/08/17 08:13 Pulse 85 02/08/17 09:32 Resp 20 02/08/17 08:13 BP 105/66 02/08/17 09:32 Pulse Ox 96 02/08/17 08:13 - Labs Result Diagrams: 02/08/17 05:30 02/08/17 05:30 Labs: Laboratory Results - last 24 hr 02/07/17 02/07/17 02/07/17 17:16 19:00 22:31 WBC RBC Hgb Hct MCV MCH MCHC RDW Plt Count Sodium Potassium Chloride Carbon Dioxide Anion Gap BUN Creatinine Est GFR ( Amer) Est GFR (Non-Af Amer) POC Glucose (mg/dL) 67 239 H Random Glucose Calcium Phosphorus 4.5 Magnesium 2.2 Total Bilirubin AST ALT Alkaline Phosphatase Total Protein Albumin Globulin Albumin/Globulin Ratio Urine Color Urine Clarity Urine pH Ur Specific [place] Urine Protein Urine Glucose (UA) Urine Ketones Urine Blood Urine Nitrate Urine Bilirubin Urine Urobilinogen Ur Leukocyte Esterase Urine RBC (Auto) Urine Microscopic WBC Ur Squamous Epith Cells 02/08/17 02/08/17 02/08/17 05:30 06:54 08:00 WBC 7.6 RBC 4.46 Hgb 11.8 L Hct 37.4 MCV 83.8 MCH 26.4 L MCHC 31.5 L RDW 16.6 H Plt Count 208 Sodium 142 Potassium 4.1 Chloride 99 Carbon Dioxide 27 Anion Gap 20 BUN 30 H Creatinine 2.1 H Est GFR ( Amer) 38 Est GFR (Non-Af Amer) 32 POC Glucose (mg/dL) 195 H Random Glucose 209 H Calcium 9.0 Phosphorus Magnesium Total Bilirubin 0.9 AST 29 ALT 37 Alkaline Phosphatase 107 Total Protein 6.5 Albumin 3.8 Globulin 2.7 Albumin/Globulin Ratio 1.4 Urine Color Yellow Urine Clarity Clear Urine pH 6.0 Ur Specific [place] 1.010 Urine Protein Negative Urine Glucose (UA) 50 Urine Ketones Negative Urine Blood Negative Urine Nitrate Negative Urine Bilirubin Negative Urine Urobilinogen 0.2-1.0 Ur Leukocyte Esterase Neg Urine RBC (Auto) 3 Urine Microscopic WBC 1 Ur Squamous Epith Cells < 1 02/08/17 11:05 WBC RBC Hgb Hct MCV MCH MCHC RDW Plt Count Sodium Potassium Chloride Carbon Dioxide Anion Gap BUN Creatinine Est GFR ( Amer) Est GFR (Non-Af Amer) POC Glucose (mg/dL) 276 H Random Glucose Calcium Phosphorus Magnesium Total Bilirubin AST ALT Alkaline Phosphatase Total Protein Albumin Globulin Albumin/Globulin Ratio Urine Color Urine Clarity Urine pH Ur Specific [place] Urine Protein Urine Glucose (UA) Urine Ketones Urine Blood Urine Nitrate Urine Bilirubin Urine Urobilinogen Ur Leukocyte Esterase Urine RBC (Auto) Urine Microscopic WBC Ur Squamous Epith Cells Assessment & Plan (1) Diabetic foot ulcer Status: Acute (2) Atrial fibrillation Status: Acute (3) Bifascicular block Status: Acute (4) CKD (chronic kidney disease) stage 3, GFR 30-59 ml/min Status: Acute (5) Diabetes Status: Acute - Assessment and Plan (Free Text) Assessment: CONT IV ANTIBIOTICS AWAIT MRI MAY NEED BKA
--- NOTE | 2017-02-08 13:46 | CP.PCM.PN ---
Subjective - Date & Time of Evaluation Date of Evaluation: 02/08/17 Time of Evaluation: 13:42 - Subjective Subjective: seen and examined podiatry at beside as well denies n/v. Objective - Vital Signs/Intake and Output Vital Signs (last 24 hours): Temp Pulse Resp BP Pulse Ox 98.4 F 85 20 105/66 96 02/08/17 08:13 02/08/17 09:32 02/08/17 08:13 02/08/17 09:32 02/08/17 08:13 - Medications Medications: Current Medications Allopurinol (Zyloprim) 100 mg PO DAILY [facility] Last Admin: 02/08/17 09:32 Dose: 100 mg Aspirin (Ecotrin) 81 mg PO DAILY [facility] Last Admin: 02/07/17 16:34 Dose: Not Given Cholecalciferol (Vitamin D) 1,000 iu PO DAILY [facility] Last Admin: 02/08/17 09:32 Dose: 1,000 iu Dextrose (Glutose 15) 0 gm PO ONCE PRN; Protocol PRN Reason: Hypoglycemia Protocol Dextrose (Dextrose 50% Inj) 0 ml IV STAT PRN; Protocol PRN Reason: Hyglycemia Protocol Glucagon (Glucagen Diagnostic Kit) 0 mg IM STAT PRN; Protocol PRN Reason: Hypoglycemia Protocol Home Med (Belatacept [Nulojix]) 1 dose IV Q30D [facility] Home Med (Mycophenolate Sodium [Myfortic]) 720 mg PO Q12 [facility] Last Admin: 02/08/17 09:30 Dose: 720 mg Hydralazine HCl (Apresoline) 25 mg PO TID [facility] Last Admin: 02/08/17 09:32 Dose: 25 mg Aztreonam 1 gm/ Sodium (Chloride) 100 mls @ 100 mls/hr IVPB Q12 [facility] Last Admin: 02/08/17 09:29 Dose: 100 mls/hr Vancomycin HCl 750 mg/ Sodium (Chloride) 250 mls @ 166.667 mls/hr IVPB DAILY [facility] Insulin Detemir (Levemir) 25 units SC HS [facility] Last Admin: 02/07/17 22:45 Dose: 25 units Insulin Human Lispro (Humalog) 20 units SC TID [facility] Last Admin: 02/07/17 13:18 Dose: 20 units Insulin Human Regular (Humulin R) 0 units SC ACHS [facility] PRN Reason: Protocol Last Admin: 02/08/17 06:58 Dose: 1 units Lactobacillus Acidophilus (Bacid Acidophilus) 1 cap PO BID [facility] Last Admin: 02/08/17 09:41 Dose: 1 cap Levothyroxine Sodium (Synthroid) 75 mcg PO DAILY@0630 [facility] Last Admin: 02/08/17 06:57 Dose: 75 mcg Multivitamins/Minerals (Therapeutic-M Tab) 1 tab PO DAILY [facility] Last Admin: 02/08/17 09:31 Dose: 1 tab Oxycodone/Acetaminophen (Percocet 5/325 Mg Tab) 1 tab PO Q6 PRN PRN Reason: Pain, severe (8-10) Stop: 02/10/17 16:46 Last Admin: 02/07/17 17:36 Dose: 1 tab Prednisone (Prednisone Tab) 5 mg PO DAILY [facility] Last Admin: 02/08/17 09:31 Dose: 5 mg Rivaroxaban (Xarelto) 15 mg PO HS [facility] PRN Reason: Protocol Tamsulosin HCl (Flomax) 0.4 mg PO DAILY [facility] Last Admin: 02/08/17 09:31 Dose: 0.4 mg - Labs Labs: 02/08/17 05:30 02/08/17 05:30 - Constitutional Appears: Non-toxic - Head Exam Head Exam: ATRAUMATIC - Eye Exam Eye Exam: Normal appearance - Neck Exam Neck Exam: Normal Inspection - Respiratory Exam Respiratory Exam: NORMAL BREATHING PATTERN - Cardiovascular Exam Cardiovascular Exam: +S1, +S2 - GI/Abdominal Exam GI & Abdominal Exam: Normal Bowel Sounds - Extremities Exam Additional comments: no edema - Neurological Exam Neurological Exam: Alert, Oriented x3 - Psychiatric Exam Psychiatric exam: Normal Affect - Skin Additional comments: ulcerated lesions R fooot Assessment and Plan - Assessment and Plan (Free Text) Assessment: h/o of kidney transplant/ christiano / diabetic foot infection / pad / anemia -cr slightly worse than baseline - will hold madeline -discussed case w/ his transplant team at [facility] -continue abx, recc f/u vanc level tomorrow. -f/u vascular / podiatry
[2017-02-08] MEDS: Oxycodone/Acetaminophen 5/325 mg Tab PO PRN (14:27)
--- NOTE | 2017-02-08 16:53 | CP.PCM.PN ---
Subjective - Date & Time of Evaluation Date of Evaluation: 02/08/17 Time of Evaluation: 13:30 - Subjective Subjective: 66 y/o male patient with PMHx of A fib, DM II, HTN, Hypercholesterolemia, Hypothyroidism, Pneumonia, CKD was seen at bedside this morning concerning necrotic wound to Right foot with attending Dr. Jewell. 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 (DOS ) Patient c/o pain to lateral aspect of right foot. Patient denies any current n/f/v/c/d/sob/cp. Nephrology doctor Jef was present at the time of evaluation, who recommends MRA over other angio studies with contrast. Objective - Vital Signs/Intake and Output Vital Signs (last 24 hours): Temp Pulse Resp BP Pulse Ox 98.7 F 81 18 127/74 95 02/08/17 16:43 02/08/17 16:43 02/08/17 16:43 02/08/17 16:43 02/08/17 16:43 - Medications Medications: Current Medications Allopurinol (Zyloprim) 100 mg PO DAILY [facility] Last Admin: 02/08/17 09:32 Dose: 100 mg Aspirin (Ecotrin) 81 mg PO DAILY [facility] Last Admin: 02/07/17 16:34 Dose: Not Given Cholecalciferol (Vitamin D) 1,000 iu PO DAILY [facility] Last Admin: 02/08/17 09:32 Dose: 1,000 iu Dextrose (Glutose 15) 0 gm PO ONCE PRN; Protocol PRN Reason: Hypoglycemia Protocol Dextrose (Dextrose 50% Inj) 0 ml IV STAT PRN; Protocol PRN Reason: Hyglycemia Protocol Glucagon (Glucagen Diagnostic Kit) 0 mg IM STAT PRN; Protocol PRN Reason: Hypoglycemia Protocol Home Med (Belatacept [Nulojix]) 1 dose IV Q30D [facility] Home Med (Mycophenolate Sodium [Myfortic]) 720 mg PO Q12 [facility] Last Admin: 02/08/17 09:30 Dose: 720 mg Hydralazine HCl (Apresoline) 25 mg PO TID [facility] Last Admin: 02/08/17 13:00 Dose: 25 mg Aztreonam 1 gm/ Sodium (Chloride) 100 mls @ 100 mls/hr IVPB Q12 [facility] Last Admin: 02/08/17 09:29 Dose: 100 mls/hr Vancomycin HCl 750 mg/ Sodium (Chloride) 250 mls @ 166.667 mls/hr IVPB DAILY [facility] Last Admin: 02/08/17 13:00 Dose: 166.667 mls/hr Insulin Detemir (Levemir) 25 units SC HS [facility] Last Admin: 02/07/17 22:45 Dose: 25 units Insulin Human Lispro (Humalog) 20 units SC TID [facility] Last Admin: 02/07/17 13:18 Dose: 20 units Insulin Human Regular (Humulin R) 0 units SC ACHS [facility] PRN Reason: Protocol Last Admin: 02/08/17 11:30 Dose: 3 units Lactobacillus Acidophilus (Bacid Acidophilus) 1 cap PO BID [facility] Last Admin: 02/08/17 09:41 Dose: 1 cap Levothyroxine Sodium (Synthroid) 75 mcg PO DAILY@0630 [facility] Last Admin: 02/08/17 06:57 Dose: 75 mcg Multivitamins/Minerals (Therapeutic-M Tab) 1 tab PO DAILY [facility] Last Admin: 02/08/17 09:31 Dose: 1 tab Oxycodone/Acetaminophen (Percocet 5/325 Mg Tab) 1 tab PO Q6 PRN PRN Reason: Pain, severe (8-10) Stop: 02/10/17 16:46 Last Admin: 02/08/17 14:27 Dose: 1 tab Prednisone (Prednisone Tab) 5 mg PO DAILY [facility] Last Admin: 02/08/17 09:31 Dose: 5 mg Rivaroxaban (Xarelto) 15 mg PO [facility] PRN Reason: Protocol Tamsulosin HCl (Flomax) 0.4 mg PO DAILY [facility] Last Admin: 02/08/17 09:31 Dose: 0.4 mg - Labs Labs: 02/08/17 05:30 02/08/17 05:30 - Constitutional Appears: Well, Non-toxic, No Acute Distress - Extremities Exam Additional comments: Right lower extremity exam: DERM: -Open wound noted to the previous surgical site measuring 4cm in length x 1.5cm x 0.3cm with granular base. No purulent discharge noted. No probe to bone. Necrotic change with dark discoloration noted to skin around the wound dehiscence measuring 6cm x 4cm extending from at the level of MTPJ to level of Hallux PIPJ. -Another patch area of necrotic change noted to lateral aspect of Right 5th metatarsal head measuring 2.5cm x 1.5cm. No open wound noted from this area. No drainage, no probe to bone. Erythema is noted around the necrosis with 0.5cm margin. -Open ulceration (chronic) is noted to plantar aspect of right 1st metatarsal measuring 1cm x 1cm x 0.3cm with granular base. Circumferential Hyperkeratic tissue noted around the ulcer with 0.4cm margin. No purulent drainage. No erythema around the ulcer. No Mal-odor noted. VASC: Palpable DP pulse at 2/4, nonpalpable PT pulse, CFT < 3 sec to all digits , TG wnl NEURO: grossly diminished ORTHO: pain on palpation to lateral aspect of right foot - Neurological Exam Neurological Exam: Alert, Awake, Oriented x3 - Psychiatric Exam Psychiatric exam: Normal Affect, Normal Mood - Skin Skin Exam: Normal Color, Warm Assessment and Plan - Assessment and Plan (Free Text) Assessment: 66 y/o male patient presents with necrotic change and wound dehiscence to Right foot Plan: patient evaluated and seen at bedside with attending Dr. Jewell labs and vitals reviewed; afebrile Xray reveals calcifications of vessels of right foot, no evidence of OM Wound cx ; Gram (-) Fred Preliminary Arterial Duplex: Moderate diffuse athrosclerotic disease associated with calcified plaques, 50% stenosis of left femoral artery Dr. Dumas recommends Nephro consult, CTA and Angio with contrast are contraindicated due to poor kidney function Spoke with Dr. Fuchs (nephrology) who recommends MRA ID consulted: Started on Vanco 1g q24, Aztreonam 1g q[address] Rocha Dressing applied per podiatry podiatry will continue to monitor while patient remains in house
--- NOTE | 2017-02-08 17:03 | CP.PCM.PN ---
Subjective - Date & Time of Evaluation Date of Evaluation: 02/08/17 Time of Evaluation: 10:50 - Subjective Subjective: Pt seen and examined at bedside this morning, does not have any complaints. nurses notes reviewed Objective - Vital Signs/Intake and Output Vital Signs (last 24 hours): Temp Pulse Resp BP Pulse Ox 98.7 F 81 18 127/74 95 02/08/17 16:43 02/08/17 16:43 02/08/17 16:43 02/08/17 16:43 02/08/17 16:43 - Medications Medications: Current Medications Allopurinol (Zyloprim) 100 mg PO DAILY [facility] Last Admin: 02/08/17 09:32 Dose: 100 mg Aspirin (Ecotrin) 81 mg PO DAILY [facility] Last Admin: 02/07/17 16:34 Dose: Not Given Cholecalciferol (Vitamin D) 1,000 iu PO DAILY [facility] Last Admin: 02/08/17 09:32 Dose: 1,000 iu Dextrose (Glutose 15) 0 gm PO ONCE PRN; Protocol PRN Reason: Hypoglycemia Protocol Dextrose (Dextrose 50% Inj) 0 ml IV STAT PRN; Protocol PRN Reason: Hyglycemia Protocol Glucagon (Glucagen Diagnostic Kit) 0 mg IM STAT PRN; Protocol PRN Reason: Hypoglycemia Protocol Home Med (Belatacept [Nulojix]) 1 dose IV Q30D [facility] Home Med (Mycophenolate Sodium [Myfortic]) 720 mg PO Q12 [facility] Last Admin: 02/08/17 09:30 Dose: 720 mg Hydralazine HCl (Apresoline) 25 mg PO TID [facility] Last Admin: 02/08/17 13:00 Dose: 25 mg Aztreonam 1 gm/ Sodium (Chloride) 100 mls @ 100 mls/hr IVPB Q12 [facility] Last Admin: 02/08/17 09:29 Dose: 100 mls/hr Vancomycin HCl 750 mg/ Sodium (Chloride) 250 mls @ 166.667 mls/hr IVPB DAILY [facility] Last Admin: 02/08/17 13:00 Dose: 166.667 mls/hr Insulin Detemir (Levemir) 25 units SC HS [facility] Last Admin: 02/07/17 22:45 Dose: 25 units Insulin Human Lispro (Humalog) 20 units SC TID [facility] Last Admin: 02/07/17 13:18 Dose: 20 units Insulin Human Regular (Humulin R) 0 units SC ACHS [facility] PRN Reason: Protocol Last Admin: 02/08/17 11:30 Dose: 3 units Lactobacillus Acidophilus (Bacid Acidophilus) 1 cap PO BID [facility] Last Admin: 02/08/17 09:41 Dose: 1 cap Levothyroxine Sodium (Synthroid) 75 mcg PO DAILY@0630 [facility] Last Admin: 02/08/17 06:57 Dose: 75 mcg Multivitamins/Minerals (Therapeutic-M Tab) 1 tab PO DAILY [facility] Last Admin: 02/08/17 09:31 Dose: 1 tab Oxycodone/Acetaminophen (Percocet 5/325 Mg Tab) 1 tab PO Q6 PRN PRN Reason: Pain, severe (8-10) Stop: 02/10/17 16:46 Last Admin: 02/08/17 14:27 Dose: 1 tab Prednisone (Prednisone Tab) 5 mg PO DAILY [facility] Last Admin: 02/08/17 09:31 Dose: 5 mg Rivaroxaban (Xarelto) 15 mg PO HS [facility] PRN Reason: Protocol Tamsulosin HCl (Flomax) 0.4 mg PO DAILY [facility] Last Admin: 02/08/17 09:31 Dose: 0.4 mg - Labs Labs: 02/08/17 05:30 02/08/17 05:30 - Constitutional Appears: No Acute Distress - Eye Exam Eye Exam: Normal appearance - ENT Exam ENT Exam: Mucous Membranes Moist - Respiratory Exam Respiratory Exam: Clear to Ausculation Bilateral, NORMAL BREATHING PATTERN. absent: Rhonchi, Wheezes - Cardiovascular Exam Cardiovascular Exam: REGULAR RHYTHM - GI/Abdominal Exam GI & Abdominal Exam: Soft, Normal Bowel Sounds - Extremities Exam Additional comments: lower extremity neatly dressed - Neurological Exam Neurological Exam: Alert, Awake, Oriented x3 Assessment and Plan - Assessment and Plan (Free Text) Assessment: 66 y/o male with pmhx of Arthritis (HIP AREA ), Cardia Arrhythmia (ATRIAL FIB), Diabetes (insulin), HTN, Hypercholesterolemia, Hypothyroidism, Chronic Kidney Disease admitted for right diabetic foot ulceration Plan: Right foot Ulcer Podiatry following pt, management per podiatry spoke with podiatry, vascular would like a MRA to evaluated before any decision to for back to OR is made continue with antibiotics - ID following Depression Psy consulted to assess for need to start on medication for depression acute changes in mood 2. Insulin Dependent Diabetes SSI Accucheck 3. Home medication restarted Pt informed about need to bring medications not on formulary in from home 4. Diet- Diabetic heart healthy 5. DVT prophylaxis Xarelto on hold for just in case pt goes into OR will start lovenox till decision for OR is made SCDs
[2017-02-08] MEDS: Insulin Detemir 100 Units/ml Inj SC SCH (22:03)
[2017-02-09] MEDS: Levothyroxine 75 MCG TAB PO SCH (05:52)
[2017-02-09 07:33] LABS: MEAN CELL VOLUME 82.6 fl (80.0-94.0); MEAN CORPUSCULAR HEMOGLOBIN 26.1 pg (27.0-31.0); MEAN CORPUSCULAR HGB CONC 31.6 g/dL (33.0-37.0); POTASSIUM 3.7 MMOL/L (3.6-5.0); RED CELL DISTRIBUTION WIDTH 16.8 % (11.5-14.5); WHITE BLOOD COUNT 6.7 K/uL (4.8-10.8)
[2017-02-09] MEDS: Lactobacillus Acidophilus 500 MU Cap PO SCH ×2 (08:45→15:59)
[2017-02-09] MEDS: Aztreonam 1 GM in Sodium Chloride 0.9% 100 ML IVPB SCH (08:46)
[2017-02-09] MEDS: MYCOPHENOLATE SODIUM 180 MG PO SCH ×2 (08:49→21:13)
[2017-02-09] MEDS: Multivitamin With Minerals Tab PO SCH (08:50)
[2017-02-09] MEDS: Insulin Regular 100 units/ml SC SCH ×4 (08:53→21:35)
--- NOTE | 2017-02-09 10:57 | CP.PCM.PN ---
Subjective - Date & Time of Evaluation Date of Evaluation: 02/09/17 Time of Evaluation: 07:20 - Subjective Subjective: 66 y/o male patient with PMHx of A fib, DM II, HTN, Hypercholesterolemia, Hypothyroidism, Pneumonia, CKD was seen at bedside this morning concerning necrotic wound to Right foot. 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 (DOS 01/11/17) He denies of any pain to Right foot this morning. Patient did have paint to lateral aspect of Right foot until yesterday, which is gone now. Patient denies any current n/f/v/ c/d/sob/cp. Nephrology doctor Jef was present at the time of evaluation, who recommends MRA over other angio studies with contrast. Objective - Vital Signs/Intake and Output Vital Signs (last 24 hours): Temp Pulse Resp BP Pulse Ox 98.4 F 88 20 114/70 98 02/09/17 08:34 02/09/17 08:34 02/09/17 08:34 02/09/17 08:34 02/09/17 08:34 - Medications Medications: Current Medications Allopurinol (Zyloprim) 100 mg PO DAILY [facility] Last Admin: 02/09/17 08:49 Dose: 100 mg Aspirin (Ecotrin) 81 mg PO DAILY [facility] Last Admin: 02/07/17 16:34 Dose: Not Given Cholecalciferol (Vitamin D) 1,000 iu PO DAILY [facility] Last Admin: 02/09/17 08:50 Dose: 1,000 iu Dextrose (Glutose 15) 0 gm PO ONCE PRN; Protocol PRN Reason: Hypoglycemia Protocol Dextrose (Dextrose 50% Inj) 0 ml IV STAT PRN; Protocol PRN Reason: Hyglycemia Protocol Glucagon (Glucagen Diagnostic Kit) 0 mg IM STAT PRN; Protocol PRN Reason: Hypoglycemia Protocol Home Med (Belatacept [Nulojix]) 1 dose IV Q30D [facility] Home Med (Mycophenolate Sodium [Myfortic]) 720 mg PO Q12 [facility] Last Admin: 02/09/17 08:49 Dose: 720 mg Hydralazine HCl (Apresoline) 25 mg PO TID [facility] Last Admin: 02/09/17 08:45 Dose: 25 mg Aztreonam 1 gm/ Sodium (Chloride) 100 mls @ 100 mls/hr IVPB Q12 [facility] Last Admin: 02/09/17 08:46 Dose: 100 mls/hr Vancomycin HCl 750 mg/ Sodium (Chloride) 250 mls @ 166.667 mls/hr IVPB DAILY [facility] Last Admin: 02/09/17 08:53 Dose: 166.667 mls/hr Insulin Detemir (Levemir) 25 units SC HS [facility] Last Admin: 02/08/17 22:03 Dose: 25 units Insulin Human Lispro (Humalog) 20 units SC TID [facility] Last Admin: 02/07/17 13:18 Dose: 20 units Insulin Human Regular (Humulin R) 0 units SC ACHS [facility] PRN Reason: Protocol Last Admin: 02/09/17 08:53 Dose: 1 units Lactobacillus Acidophilus (Bacid Acidophilus) 1 cap PO BID [facility] Last Admin: 02/09/17 08:45 Dose: 1 cap Levothyroxine Sodium (Synthroid) 75 mcg PO DAILY@0630 [facility] Last Admin: 02/09/17 05:52 Dose: 75 mcg Multivitamins/Minerals (Therapeutic-M Tab) 1 tab PO DAILY [facility] Last Admin: 02/09/17 08:50 Dose: 1 tab Oxycodone/Acetaminophen (Percocet 5/325 Mg Tab) 1 tab PO Q6 PRN PRN Reason: Pain, severe (8-10) Stop: 02/10/17 16:46 Last Admin: 02/08/17 14:27 Dose: 1 tab Prednisone (Prednisone Tab) 5 mg PO DAILY [facility] Last Admin: 02/09/17 08:50 Dose: 5 mg Rivaroxaban (Xarelto) 15 mg PO [facility] PRN Reason: Protocol Tamsulosin HCl (Flomax) 0.4 mg PO DAILY [facility] Last Admin: 02/09/17 08:48 Dose: 0.4 mg - Labs Labs: 02/09/17 05:30 02/09/17 05:30 - Constitutional Appears: Well, Non-toxic, No Acute Distress - Extremities Exam Additional comments: Right lower extremity exam: DERM: -Open wound noted to the previous surgical site measuring 4cm in length x 1.5cm x 0.3cm with granular base. No purulent discharge noted. No probe to bone. Necrotic change with dark discoloration noted to skin around the wound dehiscence measuring 6cm x 4cm extending from at the level of MTPJ to level of Hallux PIPJ. -Another patch area of necrotic change noted to lateral aspect of Right 5th metatarsal head measuring 2.5cm x 1.5cm. No open wound noted from this area. No drainage, no probe to bone. Erythema is noted around the necrosis with 0.5cm margin. -Open ulceration (chronic) is noted to plantar aspect of right 1st metatarsal measuring 1cm x 1cm x 0.3cm with granular base. Circumferential Hyperkeratic tissue noted around the ulcer with 0.4cm margin. No purulent drainage. No erythema around the ulcer. No Mal-odor noted. VASC: Palpable DP pulse at 2/4, nonpalpable PT pulse, CFT < 3 sec to all digits , TG wnl NEURO: grossly diminished ORTHO: pain on palpation to lateral aspect of right foot - Neurological Exam Neurological Exam: Alert, Awake, Oriented x3 - Psychiatric Exam Psychiatric exam: Normal Affect, Normal Mood - Skin Skin Exam: Normal Color, Warm Assessment and Plan - Assessment and Plan (Free Text) Assessment: 66 y/o male patient presents with necrotic change and wound dehiscence to Right foot Plan: patient evaluated and seen at bedside this AM labs and vitals reviewed; afebrile Xray reveals calcifications of vessels of right foot, no evidence of OM Wound cx ; E. Coli Arterial Duplex: Moderate diffuse athrosclerotic disease associated with calcified plaques, 50% stenosis of left femoral artery Dr. Dumas recommends Nephro consult; CTA and Angio with contrast are contraindicated due to poor kidney function Spoke with Dr. Fuchs (nephrology) who recommends MRA Starting Saturday, Dr. Hinkle is on the case. As per Dr. Dumas, even after MRA, contrast is required for vascular intervention ID consulted: Started on Vanco 1g q24, Aztreonam 1g q[address] Rocha Dressing applied per podiatry podiatry will continue to monitor while patient remains in house
--- NOTE | 2017-02-09 11:48 | CP.PCM.PN ---
Subjective - Date & Time of Evaluation Date of Evaluation: 02/09/17 Time of Evaluation: 11:30 - Subjective Subjective: Feels better today. No pain in Rt foot Objective - Vital Signs/Intake and Output Vital Signs (last 24 hours): Temp Pulse Resp BP Pulse Ox 98.4 F 88 20 114/70 98 02/09/17 08:34 02/09/17 08:34 02/09/17 08:34 02/09/17 08:34 02/09/17 08:34 - Medications Medications: Current Medications Allopurinol (Zyloprim) 100 mg PO DAILY [facility] Last Admin: 02/09/17 08:49 Dose: 100 mg Aspirin (Ecotrin) 81 mg PO DAILY [facility] Last Admin: 02/07/17 16:34 Dose: Not Given Cholecalciferol (Vitamin D) 1,000 iu PO DAILY [facility] Last Admin: 02/09/17 08:50 Dose: 1,000 iu Dextrose (Glutose 15) 0 gm PO ONCE PRN; Protocol PRN Reason: Hypoglycemia Protocol Dextrose (Dextrose 50% Inj) 0 ml IV STAT PRN; Protocol PRN Reason: Hyglycemia Protocol Glucagon (Glucagen Diagnostic Kit) 0 mg IM STAT PRN; Protocol PRN Reason: Hypoglycemia Protocol Home Med (Belatacept [Nulojix]) 1 dose IV Q30D [facility] Home Med (Mycophenolate Sodium [Myfortic]) 720 mg PO Q12 [facility] Last Admin: 02/09/17 08:49 Dose: 720 mg Hydralazine HCl (Apresoline) 25 mg PO TID [facility] Last Admin: 02/09/17 08:45 Dose: 25 mg Aztreonam 1 gm/ Sodium (Chloride) 100 mls @ 100 mls/hr IVPB Q12 [facility] Last Admin: 02/09/17 08:46 Dose: 100 mls/hr Vancomycin HCl 750 mg/ Sodium (Chloride) 250 mls @ 166.667 mls/hr IVPB DAILY [facility] Last Admin: 02/09/17 08:53 Dose: 166.667 mls/hr Insulin Detemir (Levemir) 25 units SC HS [facility] Last Admin: 02/08/17 22:03 Dose: 25 units Insulin Human Lispro (Humalog) 20 units SC TID [facility] Last Admin: 02/07/17 13:18 Dose: 20 units Insulin Human Regular (Humulin R) 0 units SC ACHS [facility] PRN Reason: Protocol Last Admin: 02/09/17 08:53 Dose: 1 units Lactobacillus Acidophilus (Bacid Acidophilus) 1 cap PO BID [facility] Last Admin: 02/09/17 08:45 Dose: 1 cap Levothyroxine Sodium (Synthroid) 75 mcg PO DAILY@0630 [facility] Last Admin: 02/09/17 05:52 Dose: 75 mcg Multivitamins/Minerals (Therapeutic-M Tab) 1 tab PO DAILY [facility] Last Admin: 02/09/17 08:50 Dose: 1 tab Oxycodone/Acetaminophen (Percocet 5/325 Mg Tab) 1 tab PO Q6 PRN PRN Reason: Pain, severe (8-10) Stop: 02/10/17 16:46 Last Admin: 02/08/17 14:27 Dose: 1 tab Prednisone (Prednisone Tab) 5 mg PO DAILY [facility] Last Admin: 02/09/17 08:50 Dose: 5 mg Rivaroxaban (Xarelto) 15 mg PO HS [facility] PRN Reason: Protocol Tamsulosin HCl (Flomax) 0.4 mg PO DAILY [facility] Last Admin: 02/09/17 08:48 Dose: 0.4 mg - Labs Labs: 02/09/17 05:30 02/09/17 05:30 - Respiratory Exam Additional comments: Lungs clear - Cardiovascular Exam Cardiovascular Exam: Irregular Rhythm, REGULAR RHYTHM Additional comments: Irreg irreg - Extremities Exam Additional comments: No edema. Rt foot dressed Assessment and Plan - Assessment and Plan (Free Text) Assessment: Kidney transplant. Renal function remains stable Rt foot wound with E coli resistant to Azactam . Sensitive to Zosyn CAD, A. fib DM Plan: Continue to monitor renal function Suggest ID consult
[2017-02-09] MEDS: Insulin Detemir 100 Units/ml Inj SC SCH (21:36)
[2017-02-10] MEDS: Levothyroxine 75 MCG TAB PO SCH (06:06)
[2017-02-10] MEDS: Insulin Regular 100 units/ml SC SCH ×4 (08:59→21:32)
[2017-02-10] MEDS: MYCOPHENOLATE SODIUM 180 MG PO SCH ×2 (09:02→20:27)
[2017-02-10] MEDS: Lactobacillus Acidophilus 500 MU Cap PO SCH ×2 (09:02→17:20)
[2017-02-10] MEDS: Multivitamin With Minerals Tab PO SCH (09:03)
--- NOTE | 2017-02-10 12:34 | CP.PCM.PN ---
Subjective - Date & Time of Evaluation Date of Evaluation: 02/09/17 Time of Evaluation: 09:30 - Subjective Subjective: Patient remains stable Has less pain on the right foot. Accuchecks are still elevated. Objective - Vital Signs/Intake and Output Vital Signs (last 24 hours): Temp Pulse Resp BP Pulse Ox 98.7 F 84 20 121/67 97 02/10/17 07:58 02/10/17 07:58 02/10/17 07:58 02/10/17 09:02 02/10/17 07:58 - Medications Medications: Current Medications Allopurinol (Zyloprim) 100 mg PO DAILY [facility] Last Admin: 02/10/17 09:03 Dose: 100 mg Aspirin (Ecotrin) 81 mg PO DAILY [facility] Last Admin: 02/07/17 16:34 Dose: Not Given Cholecalciferol (Vitamin D) 1,000 iu PO DAILY [facility] Last Admin: 02/10/17 09:03 Dose: 1,000 iu Dextrose (Glutose 15) 0 gm PO ONCE PRN; Protocol PRN Reason: Hypoglycemia Protocol Dextrose (Dextrose 50% Inj) 0 ml IV STAT PRN; Protocol PRN Reason: Hyglycemia Protocol Glucagon (Glucagen Diagnostic Kit) 0 mg IM STAT PRN; Protocol PRN Reason: Hypoglycemia Protocol Home Med (Belatacept [Nulojix]) 1 dose IV Q30D [facility] Home Med (Mycophenolate Sodium [Myfortic]) 720 mg PO Q12 [facility] Last Admin: 02/10/17 09:02 Dose: 720 mg Hydralazine HCl (Apresoline) 25 mg PO TID [facility] Last Admin: 02/10/17 09:02 Dose: 25 mg Tigecycline 50 mg/ Sodium (Chloride) 100 mls @ 100 mls/hr IVPB Q12 [facility] Last Admin: 02/10/17 09:48 Dose: 100 mls/hr Insulin Detemir (Levemir) 25 units SC HS [facility] Last Admin: 02/09/17 21:36 Dose: 25 units Insulin Human Lispro (Humalog) 20 units SC TID [facility] Last Admin: 02/07/17 13:18 Dose: 20 units Insulin Human Regular (Humulin R) 0 units SC ACHS [facility] PRN Reason: Protocol Last Admin: 02/10/17 08:59 Dose: Not Given Lactobacillus Acidophilus (Bacid Acidophilus) 1 cap PO BID [facility] Last Admin: 02/10/17 09:02 Dose: 1 cap Levothyroxine Sodium (Synthroid) 75 mcg PO DAILY@0630 [facility] Last Admin: 02/10/17 06:06 Dose: 75 mcg Multivitamins/Minerals (Therapeutic-M Tab) 1 tab PO DAILY [facility] Last Admin: 02/10/17 09:03 Dose: 1 tab Oxycodone/Acetaminophen (Percocet 5/325 Mg Tab) 1 tab PO Q6 PRN PRN Reason: Pain, severe (8-10) Stop: 02/10/17 16:46 Last Admin: 02/08/17 14:27 Dose: 1 tab Prednisone (Prednisone Tab) 5 mg PO DAILY [facility] Last Admin: 02/10/17 09:03 Dose: 5 mg Rivaroxaban (Xarelto) 15 mg PO HS [facility] PRN Reason: Protocol Tamsulosin HCl (Flomax) 0.4 mg PO DAILY [facility] Last Admin: 02/10/17 09:02 Dose: 0.4 mg - Labs Labs: 02/09/17 05:30 02/09/17 05:30
--- NOTE | 2017-02-10 12:35 | CP.PCM.PN ---
Subjective - Date & Time of Evaluation Date of Evaluation: 02/10/17 Time of Evaluation: 12:35 - Subjective Subjective: patient remains stable Has no chest pain or SOB Afebrile. Objective - Vital Signs/Intake and Output Vital Signs (last 24 hours): Temp Pulse Resp BP Pulse Ox 98.7 F 84 20 121/67 97 02/10/17 07:58 02/10/17 07:58 02/10/17 07:58 02/10/17 09:02 02/10/17 07:58 - Medications Medications: Current Medications Allopurinol (Zyloprim) 100 mg PO DAILY [facility] Last Admin: 02/10/17 09:03 Dose: 100 mg Aspirin (Ecotrin) 81 mg PO DAILY [facility] Last Admin: 02/07/17 16:34 Dose: Not Given Cholecalciferol (Vitamin D) 1,000 iu PO DAILY [facility] Last Admin: 02/10/17 09:03 Dose: 1,000 iu Dextrose (Glutose 15) 0 gm PO ONCE PRN; Protocol PRN Reason: Hypoglycemia Protocol Dextrose (Dextrose 50% Inj) 0 ml IV STAT PRN; Protocol PRN Reason: Hyglycemia Protocol Glucagon (Glucagen Diagnostic Kit) 0 mg IM STAT PRN; Protocol PRN Reason: Hypoglycemia Protocol Home Med (Belatacept [Nulojix]) 1 dose IV Q30D [facility] Home Med (Mycophenolate Sodium [Myfortic]) 720 mg PO Q12 [facility] Last Admin: 02/10/17 09:02 Dose: 720 mg Hydralazine HCl (Apresoline) 25 mg PO TID [facility] Last Admin: 02/10/17 09:02 Dose: 25 mg Tigecycline 50 mg/ Sodium (Chloride) 100 mls @ 100 mls/hr IVPB Q12 [facility] Last Admin: 02/10/17 09:48 Dose: 100 mls/hr Insulin Detemir (Levemir) 25 units SC HS [facility] Last Admin: 02/09/17 21:36 Dose: 25 units Insulin Human Lispro (Humalog) 20 units SC TID [facility] Last Admin: 02/07/17 13:18 Dose: 20 units Insulin Human Regular (Humulin R) 0 units SC ACHS [facility] PRN Reason: Protocol Last Admin: 02/10/17 08:59 Dose: Not Given Lactobacillus Acidophilus (Bacid Acidophilus) 1 cap PO BID [facility] Last Admin: 02/10/17 09:02 Dose: 1 cap Levothyroxine Sodium (Synthroid) 75 mcg PO DAILY@0630 [facility] Last Admin: 02/10/17 06:06 Dose: 75 mcg Multivitamins/Minerals (Therapeutic-M Tab) 1 tab PO DAILY [facility] Last Admin: 02/10/17 09:03 Dose: 1 tab Oxycodone/Acetaminophen (Percocet 5/325 Mg Tab) 1 tab PO Q6 PRN PRN Reason: Pain, severe (8-10) Stop: 02/10/17 16:46 Last Admin: 02/08/17 14:27 Dose: 1 tab Prednisone (Prednisone Tab) 5 mg PO DAILY [facility] Last Admin: 02/10/17 09:03 Dose: 5 mg Rivaroxaban (Xarelto) 15 mg PO HS [facility] PRN Reason: Protocol Tamsulosin HCl (Flomax) 0.4 mg PO DAILY [facility] Last Admin: 02/10/17 09:02 Dose: 0.4 mg - Labs Labs: 02/09/17 05:30 02/09/17 05:30
--- NOTE | 2017-02-10 13:14 | CP.PCM.PN ---
Subjective - Date & Time of Evaluation Date of Evaluation: 02/10/17 Time of Evaluation: 09:10 - Subjective Subjective: 66 y/o male patient with PMHx of A fib, DM II, HTN, Hypercholesterolemia, Hypothyroidism, Pneumonia, CKD was seen at bedside this morning concerning necrotic wound to Right foot. Patient is resting well in bed with no acute overnight distress. 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 (DOS 01/11/17) He denies of any pain to Right foot this morning. Patient did have paint to lateral aspect of Right foot until 2 days ago, which is gone now. Patient denies any current n/f/v/c/d/sob/cp. Nephrology doctor Jef was present at the time of evaluation, who recommends MRA over other angio studies with contrast. Objective - Vital Signs/Intake and Output Vital Signs (last 24 hours): Temp Pulse Resp BP Pulse Ox 98.7 F 75 20 163/73 H 97 02/10/17 07:58 02/10/17 13:00 02/10/17 07:58 02/10/17 13:10 02/10/17 07:58 - Medications Medications: Current Medications Allopurinol (Zyloprim) 100 mg PO DAILY [facility] Last Admin: 02/10/17 09:03 Dose: 100 mg Aspirin (Ecotrin) 81 mg PO DAILY [facility] Last Admin: 02/07/17 16:34 Dose: Not Given Cholecalciferol (Vitamin D) 1,000 iu PO DAILY [facility] Last Admin: 02/10/17 09:03 Dose: 1,000 iu Dextrose (Glutose 15) 0 gm PO ONCE PRN; Protocol PRN Reason: Hypoglycemia Protocol Dextrose (Dextrose 50% Inj) 0 ml IV STAT PRN; Protocol PRN Reason: Hyglycemia Protocol Furosemide (Lasix) 20 mg PO BID [facility] Last Admin: 02/10/17 13:10 Dose: 20 mg Glucagon (Glucagen Diagnostic Kit) 0 mg IM STAT PRN; Protocol PRN Reason: Hypoglycemia Protocol Home Med (Belatacept [Nulojix]) 1 dose IV Q30D [facility] Home Med (Mycophenolate Sodium [Myfortic]) 720 mg PO Q12 [facility] Last Admin: 02/10/17 09:02 Dose: 720 mg Hydralazine HCl (Apresoline) 25 mg PO TID [facility] Last Admin: 02/10/17 13:00 Dose: 25 mg Tigecycline 50 mg/ Sodium (Chloride) 100 mls @ 100 mls/hr IVPB Q12 [facility] Last Admin: 02/10/17 09:48 Dose: 100 mls/hr Insulin Detemir (Levemir) 25 units SC HS [facility] Last Admin: 02/09/17 21:36 Dose: 25 units Insulin Human Lispro (Humalog) 20 units SC TID [facility] Last Admin: 02/07/17 13:18 Dose: 20 units Insulin Human Regular (Humulin R) 0 units SC ACHS [facility] PRN Reason: Protocol Last Admin: 02/10/17 13:04 Dose: 1 units Lactobacillus Acidophilus (Bacid Acidophilus) 1 cap PO BID [facility] Last Admin: 02/10/17 09:02 Dose: 1 cap Levothyroxine Sodium (Synthroid) 75 mcg PO DAILY@0630 [facility] Last Admin: 02/10/17 06:06 Dose: 75 mcg Multivitamins/Minerals (Therapeutic-M Tab) 1 tab PO DAILY [facility] Last Admin: 02/10/17 09:03 Dose: 1 tab Oxycodone/Acetaminophen (Percocet 5/325 Mg Tab) 1 tab PO Q6 PRN PRN Reason: Pain, severe (8-10) Stop: 02/10/17 16:46 Last Admin: 02/08/17 14:27 Dose: 1 tab Prednisone (Prednisone Tab) 5 mg PO DAILY [facility] Last Admin: 02/10/17 09:03 Dose: 5 mg Rivaroxaban (Xarelto) 15 mg PO [facility] PRN Reason: Protocol Tamsulosin HCl (Flomax) 0.4 mg PO DAILY [facility] Last Admin: 02/10/17 09:02 Dose: 0.4 mg - Labs Labs: 02/09/17 05:30 02/09/17 05:30 - Constitutional Appears: Well, Non-toxic, No Acute Distress - Extremities Exam Additional comments: Right lower extremity exam: DERM: -Open wound noted to the previous surgical site measuring 4cm in length x 1.5cm x 0.3cm with granular base. No purulent discharge noted. No probe to bone. Necrotic change with dark discoloration noted to skin around the wound dehiscence measuring 6cm x 4cm extending from at the level of MTPJ to level of Hallux PIPJ. -Another patch area of necrotic change noted to lateral aspect of Right 5th metatarsal head measuring 2.5cm x 1.5cm. No open wound noted from this area. No drainage, no probe to bone. Erythema is noted around the necrosis with 0.5cm margin. -Open ulceration (chronic) is noted to plantar aspect of right 1st metatarsal measuring 1cm x 1cm x 0.3cm with granular base. Circumferential Hyperkeratic tissue noted around the ulcer with 0.4cm margin. No purulent drainage. No erythema around the ulcer. No Mal-odor noted. VASC: Palpable DP pulse at 2/4, nonpalpable PT pulse, CFT < 3 sec to all digits , TG wnl NEURO: grossly diminished ORTHO: pain on palpation to lateral aspect of right foot - Neurological Exam Neurological Exam: Awake, Oriented x3 - Psychiatric Exam Psychiatric exam: Normal Affect, Normal Mood - Skin Skin Exam: Normal Color, Warm Assessment and Plan - Assessment and Plan (Free Text) Assessment: 66 y/o male patient presents with necrotic change and wound dehiscence to Right foot Plan: patient evaluated and seen at bedside this AM labs and vitals reviewed; afebrile Xray reveals calcifications of vessels of right foot, no evidence of OM Wound cx ; E. Coli Arterial Duplex: Moderate diffuse athrosclerotic disease associated with calcified plaques, 50% stenosis of left femoral artery Dr. Dumas recommends Nephro consult; CTA and Angio with contrast are contraindicated due to poor kidney function Spoke with Dr. Fuchs (nephrology) who recommends MRA Starting Saturday, Dr. Hinkle is on the case in place of Dr. Dumas As per Dr. Dumas, even after MRA, contrast is required for vascular intervention ID consulted: Started on Vanco 1g q24, Aztreonam 1g q[address] Rocha Dressing applied per podiatry podiatry will continue to monitor while patient remains in house
--- NOTE | 2017-02-10 13:47 | CP.PCM.PN ---
Subjective - Date & Time of Evaluation Date of Evaluation: 02/10/17 Time of Evaluation: 07:00 - Subjective Subjective: grew mdro from wound may need terminologist iv rx started tygacil- allergic to PCN Objective - Vital Signs/Intake and Output Vital Signs (last 24 hours): Temp Pulse Resp BP Pulse Ox 98.7 F 75 20 163/73 H 97 02/10/17 07:58 02/10/17 13:00 02/10/17 07:58 02/10/17 13:10 02/10/17 07:58 - Medications Medications: Current Medications Allopurinol (Zyloprim) 100 mg PO DAILY [facility] Last Admin: 02/10/17 09:03 Dose: 100 mg Aspirin (Ecotrin) 81 mg PO DAILY [facility] Last Admin: 02/07/17 16:34 Dose: Not Given Cholecalciferol (Vitamin D) 1,000 iu PO DAILY [facility] Last Admin: 02/10/17 09:03 Dose: 1,000 iu Dextrose (Glutose 15) 0 gm PO ONCE PRN; Protocol PRN Reason: Hypoglycemia Protocol Dextrose (Dextrose 50% Inj) 0 ml IV STAT PRN; Protocol PRN Reason: Hyglycemia Protocol Furosemide (Lasix) 20 mg PO BID [facility] Last Admin: 02/10/17 13:10 Dose: 20 mg Glucagon (Glucagen Diagnostic Kit) 0 mg IM STAT PRN; Protocol PRN Reason: Hypoglycemia Protocol Home Med (Belatacept [Nulojix]) 1 dose IV Q30D [facility] Home Med (Mycophenolate Sodium [Myfortic]) 720 mg PO Q12 [facility] Last Admin: 02/10/17 09:02 Dose: 720 mg Hydralazine HCl (Apresoline) 25 mg PO TID [facility] Last Admin: 02/10/17 13:00 Dose: 25 mg Tigecycline 50 mg/ Sodium (Chloride) 100 mls @ 100 mls/hr IVPB Q12 [facility] Last Admin: 02/10/17 09:48 Dose: 100 mls/hr Insulin Detemir (Levemir) 25 units SC HS [facility] Last Admin: 02/09/17 21:36 Dose: 25 units Insulin Human Lispro (Humalog) 20 units SC TID [facility] Last Admin: 02/07/17 13:18 Dose: 20 units Insulin Human Regular (Humulin R) 0 units SC ACHS [facility] PRN Reason: Protocol Last Admin: 02/10/17 13:04 Dose: 1 units Lactobacillus Acidophilus (Bacid Acidophilus) 1 cap PO BID [facility] Last Admin: 02/10/17 09:02 Dose: 1 cap Levothyroxine Sodium (Synthroid) 75 mcg PO DAILY@0630 [facility] Last Admin: 02/10/17 06:06 Dose: 75 mcg Multivitamins/Minerals (Therapeutic-M Tab) 1 tab PO DAILY [facility] Last Admin: 02/10/17 09:03 Dose: 1 tab Oxycodone/Acetaminophen (Percocet 5/325 Mg Tab) 1 tab PO Q6 PRN PRN Reason: Pain, severe (8-10) Stop: 02/10/17 16:46 Last Admin: 02/08/17 14:27 Dose: 1 tab Prednisone (Prednisone Tab) 5 mg PO DAILY [facility] Last Admin: 02/10/17 09:03 Dose: 5 mg Rivaroxaban (Xarelto) 15 mg PO HS [facility] PRN Reason: Protocol Tamsulosin HCl (Flomax) 0.4 mg PO DAILY [facility] Last Admin: 02/10/17 09:02 Dose: 0.4 mg - Labs Labs: 02/09/17 05:30 02/09/17 05:30 - Constitutional Appears: Non-toxic, Chronically Ill - Head Exam Head Exam: NORMOCEPHALIC - Eye Exam Eye Exam: PERRL. absent: Scleral icterus - ENT Exam ENT Exam: Mucous Membranes Dry - Neck Exam Neck Exam: absent: Lymphadenopathy - Respiratory Exam Respiratory Exam: Decreased Breath Sounds, Clear to Ausculation Bilateral - Cardiovascular Exam Cardiovascular Exam: REGULAR RHYTHM, +S1, +S2 - GI/Abdominal Exam GI & Abdominal Exam: Distended, Soft. absent: Tenderness - Rectal Exam Rectal Exam: Deferred - Exam Exam: NORMAL INSPECTION Assessment and Plan (1) Diabetic foot ulcer Status: Acute (2) Atrial fibrillation Status: Acute (3) Bifascicular block Status: Acute (4) CKD (chronic kidney disease) stage 3, GFR 30-59 ml/min Status: Acute (5) Diabetes Status: Acute
--- NOTE | 2017-02-10 16:10 | CP.PCM.PN ---
Subjective - Date & Time of Evaluation Date of Evaluation: 02/10/17 Time of Evaluation: 04:20 - Subjective Subjective: No c/o foot pain Objective - Vital Signs/Intake and Output Vital Signs (last 24 hours): Temp Pulse Resp BP Pulse Ox 98.7 F 75 20 163/73 H 97 02/10/17 07:58 02/10/17 13:00 02/10/17 07:58 02/10/17 13:10 02/10/17 07:58 - Medications Medications: Current Medications Allopurinol (Zyloprim) 100 mg PO DAILY [facility] Last Admin: 02/10/17 09:03 Dose: 100 mg Aspirin (Ecotrin) 81 mg PO DAILY [facility] Last Admin: 02/07/17 16:34 Dose: Not Given Cholecalciferol (Vitamin D) 1,000 iu PO DAILY [facility] Last Admin: 02/10/17 09:03 Dose: 1,000 iu Dextrose (Glutose 15) 0 gm PO ONCE PRN; Protocol PRN Reason: Hypoglycemia Protocol Dextrose (Dextrose 50% Inj) 0 ml IV STAT PRN; Protocol PRN Reason: Hyglycemia Protocol Famotidine (Pepcid) 20 mg PO DAILY [facility] Last Admin: 02/10/17 13:58 Dose: 20 mg Furosemide (Lasix) 20 mg PO BID [facility] Last Admin: 02/10/17 13:10 Dose: 20 mg Glucagon (Glucagen Diagnostic Kit) 0 mg IM STAT PRN; Protocol PRN Reason: Hypoglycemia Protocol Home Med (Belatacept [Nulojix]) 1 dose IV Q30D [facility] Home Med (Mycophenolate Sodium [Myfortic]) 720 mg PO Q12 [facility] Last Admin: 02/10/17 09:02 Dose: 720 mg Hydralazine HCl (Apresoline) 25 mg PO TID [facility] Last Admin: 02/10/17 13:00 Dose: 25 mg Tigecycline 50 mg/ Sodium (Chloride) 100 mls @ 100 mls/hr IVPB Q12 [facility] Last Admin: 02/10/17 09:48 Dose: 100 mls/hr Insulin Detemir (Levemir) 25 units SC HS [facility] Last Admin: 02/09/17 21:36 Dose: 25 units Insulin Human Lispro (Humalog) 20 units SC TID [facility] Last Admin: 02/07/17 13:18 Dose: 20 units Insulin Human Regular (Humulin R) 0 units SC ACHS [facility] PRN Reason: Protocol Last Admin: 02/10/17 13:04 Dose: 1 units Lactobacillus Acidophilus (Bacid Acidophilus) 1 cap PO BID [facility] Last Admin: 02/10/17 09:02 Dose: 1 cap Levothyroxine Sodium (Synthroid) 75 mcg PO DAILY@0630 [facility] Last Admin: 02/10/17 06:06 Dose: 75 mcg Multivitamins/Minerals (Therapeutic-M Tab) 1 tab PO DAILY [facility] Last Admin: 02/10/17 09:03 Dose: 1 tab Oxycodone/Acetaminophen (Percocet 5/325 Mg Tab) 1 tab PO Q6 PRN PRN Reason: Pain, severe (8-10) Stop: 02/10/17 16:46 Last Admin: 02/08/17 14:27 Dose: 1 tab Prednisone (Prednisone Tab) 5 mg PO DAILY [facility] Last Admin: 02/10/17 09:03 Dose: 5 mg Rivaroxaban (Xarelto) 15 mg PO HS [facility] PRN Reason: Protocol Tamsulosin HCl (Flomax) 0.4 mg PO DAILY [facility] Last Admin: 02/10/17 09:02 Dose: 0.4 mg - Labs Labs: 02/09/17 05:30 02/09/17 05:30 - Respiratory Exam Additional comments: Lungs clear - Cardiovascular Exam Cardiovascular Exam: REGULAR RHYTHM - Extremities Exam Additional comments: Rt foot dressed No edema Assessment and Plan - Assessment and Plan (Free Text) Assessment: S/P kidney Tx. Renal function is stable Infected Rt foot ulcer HTN,CAD,PPM Plan: Continue current meds Monitor BP
[2017-02-10] MEDS: Insulin Detemir 100 Units/ml Inj SC SCH (21:34)
[2017-02-11] MEDS: Levothyroxine 75 MCG TAB PO SCH (06:29)
[2017-02-11] MEDS: Insulin Regular 100 units/ml SC SCH ×4 (06:30→22:31)
[2017-02-11] MEDS ORDERED: Povidone Iodine Topical 10% Sol ONE (06:40)
--- NOTE | 2017-02-11 06:53 | CP.PCM.PN ---
Subjective - Date & Time of Evaluation Date of Evaluation: 02/11/17 Time of Evaluation: 06:53 - Subjective Subjective: 66 year old male with PMHx of A fib, DM II, HTN, Hypercholesterolemia, Hypothyroidism, Pneumonia, CKD was seen at bedside this morning, with attending Dr. Jewell, concerning necrotic wound to Right foot. Patient is resting comfortably in bed. Patient is in no acute distress, AAOx3. 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 (DOS 01/11/17) He denies of any pain to Right foot this morning. Patient denies any current n/f/v/c/d/sob/cp. Objective - Vital Signs/Intake and Output Vital Signs (last 24 hours): Temp Pulse Resp BP Pulse Ox 98.3 F 95 H 18 137/82 95 02/10/17 23:29 02/10/17 23:29 02/10/17 23:29 02/10/17 23:29 02/10/17 23:29 - Medications Medications: Current Medications Allopurinol (Zyloprim) 100 mg PO DAILY [facility] Last Admin: 02/10/17 09:03 Dose: 100 mg Aspirin (Ecotrin) 81 mg PO DAILY [facility] Last Admin: 02/07/17 16:34 Dose: Not Given Cholecalciferol (Vitamin D) 1,000 iu PO DAILY [facility] Last Admin: 02/10/17 09:03 Dose: 1,000 iu Dextrose (Glutose 15) 0 gm PO ONCE PRN; Protocol PRN Reason: Hypoglycemia Protocol Dextrose (Dextrose 50% Inj) 0 ml IV STAT PRN; Protocol PRN Reason: Hyglycemia Protocol Famotidine (Pepcid) 20 mg PO DAILY [facility] Last Admin: 02/10/17 13:58 Dose: 20 mg Furosemide (Lasix) 20 mg PO BID [facility] Last Admin: 02/10/17 17:20 Dose: 20 mg Glucagon (Glucagen Diagnostic Kit) 0 mg IM STAT PRN; Protocol PRN Reason: Hypoglycemia Protocol Home Med (Belatacept [Nulojix]) 1 dose IV Q30D [facility] Home Med (Mycophenolate Sodium [Myfortic]) 720 mg PO Q12 [facility] Last Admin: 02/10/17 20:27 Dose: 720 mg Hydralazine HCl (Apresoline) 25 mg PO TID [facility] Last Admin: 02/10/17 17:20 Dose: 25 mg Tigecycline 50 mg/ Sodium (Chloride) 100 mls @ 100 mls/hr IVPB Q12 [facility] Last Admin: 02/10/17 20:27 Dose: 100 mls/hr Insulin Detemir (Levemir) 25 units SC HS [facility] Last Admin: 02/10/17 21:34 Dose: 25 units Insulin Human Lispro (Humalog) 20 units SC TID [facility] Last Admin: 02/07/17 13:18 Dose: 20 units Insulin Human Regular (Humulin R) 0 units SC ACHS [facility] PRN Reason: Protocol Last Admin: 02/11/17 06:30 Dose: 1 units Lactobacillus Acidophilus (Bacid Acidophilus) 1 cap PO BID [facility] Last Admin: 02/10/17 17:20 Dose: 1 cap Levothyroxine Sodium (Synthroid) 75 mcg PO DAILY@0630 [facility] Last Admin: 02/11/17 06:29 Dose: 75 mcg Multivitamins/Minerals (Therapeutic-M Tab) 1 tab PO DAILY [facility] Last Admin: 02/10/17 09:03 Dose: 1 tab Prednisone (Prednisone Tab) 5 mg PO DAILY [facility] Last Admin: 02/10/17 09:03 Dose: 5 mg Rivaroxaban (Xarelto) 15 mg PO [facility] PRN Reason: Protocol Tamsulosin HCl (Flomax) 0.4 mg PO DAILY [facility] Last Admin: 02/10/17 09:02 Dose: 0.4 mg - Labs Labs: 02/09/17 05:30 02/09/17 05:30 - Constitutional Appears: Well, Non-toxic, No Acute Distress - Extremities Exam Additional comments: Right lower extremity focused exam: VASC: Palpable DP pulse at 2/4, nonpalpable PT pulse, CFT < 3 sec to all digits , TG wnl DERM: Open wound noted to the previous surgical site measuring approximate 4 cm x 1.5 cm x 0.3 cm with granular base. No purulent discharge noted. No probe to bone. Necrotic change with dark discoloration noted to skin around the wound dehiscence measuring approximately 6 cm x 4 cm extending from at the level of MTPJ to level of Hallux PIPJ. An area with necrotic change noted to lateral aspect of Right 5th metatarsal head measuring approximately 2.5cm x 1.5cm. No open wound noted from this area. No drainage, no probe to bone. Erythema is noted around the necrosis with 0.5 cm margins.Open ulceration (chronic) is noted to plantar aspect of right 1st metatarsal measuring approximately 1cm x 1cm x 0.3cm with granular base. Circumferential Hyperkeratic tissue noted around the ulcer with 0.4cm margin. No purulent drainage. No erythema around the ulcer. No Mal-odor noted. NEURO: Protective sensation grossly diminished ORTHO: No pain on palpation to right foot - Neurological Exam Neurological Exam: Alert, Awake, Oriented x3 - Psychiatric Exam Psychiatric exam: Normal Affect, Normal Mood Assessment and Plan - Assessment and Plan (Free Text) Assessment: 66 y/o male patient presents with necrotic change and wound dehiscence to Right foot Plan: Patient examined and evaluated with attending, Dr. Jewell Chart and vitals reviewed Xray reveals calcifications of vessels of right foot, no evidence of OM Wound cx; E. Coli Arterial Duplex: Moderate diffuse athrosclerotic disease associated with calcified plaques, 50% stenosis of left femoral artery Per Dr. Dumas- MRA of the LEs without IV contrast can be obtained while waiting for renal function to return to baseline Continue IV abx per ID Wet to dry dressing with DSD applied Podiatry will continue to monitor while patient remains in house
[2017-02-11] MEDS: Multivitamin With Minerals Tab PO SCH (08:51)
[2017-02-11] MEDS: Lactobacillus Acidophilus 500 MU Cap PO SCH ×2 (08:51→17:59)
[2017-02-11] MEDS: MYCOPHENOLATE SODIUM 180 MG PO SCH ×2 (08:54→21:40)
--- NOTE | 2017-02-11 11:25 | CP.PCM.CON ---
History of Present Illness - History of Present Illness History of Present Illness: Right foot pain and ulcers Review of Systems - Review of Systems All systems: reviewed and no additional remarkable complaints except (Right foot pain.) Past Patient History - Infectious Disease Hx of Infectious Diseases: None - Past Medical History & Family History Past Medical History?: Yes - Past Social History Smoking Status: Former Smoker - CARDIAC Hx Cardiac Disorders: Yes Hx Atrial Fibrillation: Yes Hx Congestive Heart Failure: Yes Hx Heart Attack: Yes Hx Hypercholesterolemia: Yes Hx Hypertension: Yes Hx Pacemaker: Yes - PULMONARY Hx Respiratory Disorders: Yes Hx Pneumonia: Yes Hx Sleep Apnea: Yes - NEUROLOGICAL Hx Neurological Disorder: Yes HX Cerebrovascular Accident: Yes (03/25/16) - HEENT Hx HEENT Problems: No Hx Cataracts: Yes - RENAL Hx Chronic Kidney Disease: Yes (s/p renal transplant) Hx Dialysis: Yes Type of Dialysis Access: left AV shunt Date of Last Dialysis Treatment: 02/08/14 Other/Comment: Right kidney transplant January 2014 - ENDOCRINE/METABOLIC Hx Endocrine Disorders: Yes Hx Diabetes Mellitus Type 2: Yes Hx Hypothyroidism: Yes - HEMATOLOGICAL/ONCOLOGICAL Hx Blood Disorders: No - INTEGUMENTARY Hx Dermatological Problems: No - MUSCULOSKELETAL/RHEUMATOLOGICAL Hx Arthritis: Yes Hx Falls: No Hx Fractures: Yes (left hand finger 60yrs ago) - GASTROINTESTINAL Hx Crohn's Disease: No Hx Diverticulitis: No Hx Gall Bladder Disease: No Hx Gastritis: No Hx Pancreatitis: No - GENITOURINARY/GYNECOLOGICAL Hx Genitourinary Disorders: No Hx Bladder Cancer: Yes Hx Hematuria: Yes - PSYCHIATRIC Hx Psychophysiologic Disorder: No Hx Substance Use: No - SURGICAL HISTORY Hx Appendectomy: No Hx Cataract Extraction: Yes Hx Kidney Transplant: Yes Other/Comment: 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 Right foot sx 01/11/17 - ANESTHESIA Hx Anesthesia: Yes Hx Anesthesia Reactions: No Hx Malignant Hyperthermia: No Meds Allergies/Adverse Reactions: Allergies Allergy/AdvReac Type Severity Reaction Status Date / Time Penicillins Allergy Intermediate RASH Verified 01/14/17 17:41 - Medications Medications: Current Medications Allopurinol (Zyloprim) 100 mg PO DAILY [facility] Last Admin: 02/11/17 08:52 Dose: 100 mg Aspirin (Ecotrin) 81 mg PO DAILY [facility] Last Admin: 02/07/17 16:34 Dose: Not Given Cholecalciferol (Vitamin D) 1,000 iu PO DAILY [facility] Last Admin: 02/11/17 08:52 Dose: 1,000 iu Collagenase (Santyl) 1 applic TOP DAILY [facility] Dextrose (Glutose 15) 0 gm PO ONCE PRN; Protocol PRN Reason: Hypoglycemia Protocol Dextrose (Dextrose 50% Inj) 0 ml IV STAT PRN; Protocol PRN Reason: Hyglycemia Protocol Famotidine (Pepcid) 20 mg PO DAILY [facility] Last Admin: 02/11/17 08:52 Dose: 20 mg Furosemide (Lasix) 20 mg PO BID [facility] Last Admin: 02/11/17 08:51 Dose: 20 mg Glucagon (Glucagen Diagnostic Kit) 0 mg IM STAT PRN; Protocol PRN Reason: Hypoglycemia Protocol Home Med (Belatacept [Nulojix]) 1 dose IV Q30D [facility] Home Med (Mycophenolate Sodium [Myfortic]) 720 mg PO Q12 [facility] Last Admin: 02/11/17 08:54 Dose: 720 mg Hydralazine HCl (Apresoline) 25 mg PO TID [facility] Last Admin: 02/11/17 08:52 Dose: 25 mg Tigecycline 50 mg/ Sodium (Chloride) 100 mls @ 100 mls/hr IVPB Q12 [facility] Last Admin: 02/11/17 10:17 Dose: 100 mls/hr Insulin Detemir (Levemir) 25 units SC HS [facility] Last Admin: 02/10/17 21:34 Dose: 25 units Insulin Human Lispro (Humalog) 20 units SC TID [facility] Last Admin: 02/07/17 13:18 Dose: 20 units Insulin Human Regular (Humulin R) 0 units SC ACHS [facility] PRN Reason: Protocol Last Admin: 02/11/17 06:30 Dose: 1 units Lactobacillus Acidophilus (Bacid Acidophilus) 1 cap PO BID [facility] Last Admin: 02/11/17 08:51 Dose: 1 cap Levothyroxine Sodium (Synthroid) 75 mcg PO DAILY@0630 [facility] Last Admin: 02/11/17 06:29 Dose: 75 mcg Multivitamins/Minerals (Therapeutic-M Tab) 1 tab PO DAILY [facility] Last Admin: 02/11/17 08:51 Dose: 1 tab Prednisone (Prednisone Tab) 5 mg PO DAILY [facility] Last Admin: 02/11/17 08:52 Dose: 5 mg Rivaroxaban (Xarelto) 15 mg PO HS [facility] PRN Reason: Protocol Tamsulosin HCl (Flomax) 0.4 mg PO DAILY [facility] Last Admin: 02/11/17 08:51 Dose: 0.4 mg Physical Exam - Extremities Exam Extremities exam: Positive for: calf tenderness (No pedal pulses. US guided pulses demonstrated in the mid calf b/l.) - Expanded Lower Extremities Exam Right Ankle exam: swelling, tenderness Foot/Toe exam: swelling, tenderness Gait: not tested/not observed Left Foot/Toe exam: swelling, tenderness (No ulcers seen. ) - Back Exam Additional comments: Right foot has pressure ulcers at the base of the foot and in the medial aspect of the forefoot. Ulcers also seen on the dorsal aspect of the first digit. Results - Vital Signs Recent Vital Signs: Last Vital Signs Temp 98.6 F 02/11/17 08:45 Pulse 80 02/11/17 08:52 Resp 18 02/11/17 08:45 BP 124/70 02/11/17 08:52 Pulse Ox 95 02/11/17 08:45 - Labs Result Diagrams: 02/09/17 05:30 02/09/17 05:30 Labs: Laboratory Results - last 24 hr 02/10/17 02/10/17 02/10/17 11:03 16:05 21:14 POC Glucose (mg/dL) 186 H 248 H 271 H 02/11/17 05:23 POC Glucose (mg/dL) 160 H Assessment & Plan - Assessment and Plan (Free Text) Assessment: 66 y/o male with complex PMHx of CAD and renal failure presents with non/ celayed healing ulcers of the right forefoot after surgical bone resection on 01/11/2017 secondary to OM by Dr. Jewell. IR team was consulted to evaluate LE vascular disease and potential intervention. I have reviewed the US of the lower extremities. The RLE arteries are patent with moderate diffuse multifocal plaque at least to the level of the mid calfs. The distal calf vessels are likely to be severely stenosed or occluded. To further evaluate the patient, additional cross-sectional imaging is required. however the patient renal function has deteriorated from his baseline. Since the patient is s/p renal transplant I have advised that the patient not get any IV contrast to preserve and potentially reverse the suppressed renal function. The team agrees. Once the renal function has returned to baseline then peripheral arterial evaluation can be pursued. An MRA of the LEs without IV contrast can be obtained in the interim. This has been communicated to the team. - Date & Time Date: 03/10/17 Time: 15:00
--- NOTE | 2017-02-11 15:35 | CP.PCM.CON ---
History of Present Illness - History of Present Illness History of Present Illness: psychiatry consult reason: "are medications necessary" ordered by dr. aguiar pt seen with alen evans, who provided lao interpretation cc: i am not depressed hpi: pt states he was not told he would see a psychiatrist. he does not know why they would ask for a consult. thru looking at the chart it appears that teams suspected the pt was sad. he states he felt worried when they told him he may need an amputation. he denies that he is depressed. denies change in sleep or appetite or concentration. states he feels his usual self. he states "i think who ever said i needed a psychiatrist is crazy" he denies need for meds/ therapy. past psych: denies social: from [facility], worked in a [employer] for 30 years. lives with trauma: denies substance use: stopped smoking 30 years ago. does not use illicit substances mse: alert, oriented x 3. mood is "good" affect bright. appropriate reactive smile. pt laughing appropriately and making jokes. denies si/hi. denies a/v hallucinations. fair i/j. assessment: r/o adjustment disorder recommendation: please inform pt's when obtaining psychiatry consult depression is a syndrome as well as a symptom (and normal human emotion.) if someone looks or feels "depressed" it does not necessarily mean they need to be seen by psychiatry or take medication. depression that needs to be treated is persistent over a period of time- i.e. weeks, and associated with other symptoms such as sleep disturbance, appetite loss, weight loss, impaired concentration, and anhedonia. if you feel a patient may be depressed you should ask about suicidal thoughts. this patient is not in need of any psychiatric care at this time. please call [phone] if any questions Past Patient History - Infectious Disease Hx of Infectious Diseases: None - Past Medical History & Family History Past Medical History?: Yes - Past Social History Smoking Status: Former Smoker - CARDIAC Hx Cardiac Disorders: Yes Hx Atrial Fibrillation: Yes Hx Congestive Heart Failure: Yes Hx Heart Attack: Yes Hx Hypercholesterolemia: Yes Hx Hypertension: Yes Hx Pacemaker: Yes - PULMONARY Hx Respiratory Disorders: Yes Hx Pneumonia: Yes Hx Sleep Apnea: Yes - NEUROLOGICAL Hx Neurological Disorder: Yes HX Cerebrovascular Accident: Yes (03/25/16) - HEENT Hx HEENT Problems: No Hx Cataracts: Yes - RENAL Hx Chronic Kidney Disease: Yes (s/p renal transplant) Hx Dialysis: Yes Type of Dialysis Access: left AV shunt Date of Last Dialysis Treatment: 02/08/14 Other/Comment: Right kidney transplant January 2014 - ENDOCRINE/METABOLIC Hx Endocrine Disorders: Yes Hx Diabetes Mellitus Type 2: Yes Hx Hypothyroidism: Yes - HEMATOLOGICAL/ONCOLOGICAL Hx Blood Disorders: No - INTEGUMENTARY Hx Dermatological Problems: No - MUSCULOSKELETAL/RHEUMATOLOGICAL Hx Arthritis: Yes Hx Falls: No Hx Fractures: Yes (left hand finger 60yrs ago) - GASTROINTESTINAL Hx Crohn's Disease: No Hx Diverticulitis: No Hx Gall Bladder Disease: No Hx Gastritis: No Hx Pancreatitis: No - GENITOURINARY/GYNECOLOGICAL Hx Genitourinary Disorders: No Hx Bladder Cancer: Yes Hx Hematuria: Yes - PSYCHIATRIC Hx Psychophysiologic Disorder: No Hx Substance Use: No - SURGICAL HISTORY Hx Appendectomy: No Hx Cataract Extraction: Yes Hx Kidney Transplant: Yes Other/Comment: 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 Right foot sx 01/11/17 - ANESTHESIA Hx Anesthesia: Yes Hx Anesthesia Reactions: No Hx Malignant Hyperthermia: No Meds Allergies/Adverse Reactions: Allergies Allergy/AdvReac Type Severity Reaction Status Date / Time Penicillins Allergy Intermediate RASH Verified 01/14/17 17:41 - Medications Medications: Current Medications Allopurinol (Zyloprim) 100 mg PO DAILY [facility] Last Admin: 02/11/17 08:52 Dose: 100 mg Aspirin (Ecotrin) 81 mg PO DAILY [facility] Last Admin: 02/07/17 16:34 Dose: Not Given Cholecalciferol (Vitamin D) 1,000 iu PO DAILY [facility] Last Admin: 02/11/17 08:52 Dose: 1,000 iu Collagenase (Santyl) 1 applic TOP DAILY [facility] Dextrose (Glutose 15) 0 gm PO ONCE PRN; Protocol PRN Reason: Hypoglycemia Protocol Dextrose (Dextrose 50% Inj) 0 ml IV STAT PRN; Protocol PRN Reason: Hyglycemia Protocol Famotidine (Pepcid) 20 mg PO DAILY [facility] Last Admin: 02/11/17 08:52 Dose: 20 mg Furosemide (Lasix) 20 mg PO BID [facility] Last Admin: 02/11/17 08:51 Dose: 20 mg Glucagon (Glucagen Diagnostic Kit) 0 mg IM STAT PRN; Protocol PRN Reason: Hypoglycemia Protocol Home Med (Belatacept [Nulojix]) 1 dose IV Q30D [facility] Home Med (Mycophenolate Sodium [Myfortic]) 720 mg PO Q12 [facility] Last Admin: 02/11/17 08:54 Dose: 720 mg Hydralazine HCl (Apresoline) 25 mg PO TID [facility] Last Admin: 02/11/17 12:15 Dose: 25 mg Tigecycline 50 mg/ Sodium (Chloride) 100 mls @ 100 mls/hr IVPB Q12 [facility] Last Admin: 02/11/17 10:17 Dose: 100 mls/hr Insulin Detemir (Levemir) 25 units SC [facility] Last Admin: 02/10/17 21:34 Dose: 25 units Insulin Human Lispro (Humalog) 20 units SC TID [facility] Last Admin: 02/07/17 13:18 Dose: 20 units Insulin Human Regular (Humulin R) 0 units SC ACHS [facility] PRN Reason: Protocol Last Admin: 02/11/17 06:30 Dose: 1 units Lactobacillus Acidophilus (Bacid Acidophilus) 1 cap PO BID [facility] Last Admin: 02/11/17 08:51 Dose: 1 cap Levothyroxine Sodium (Synthroid) 75 mcg PO DAILY@0630 [facility] Last Admin: 02/11/17 06:29 Dose: 75 mcg Multivitamins/Minerals (Therapeutic-M Tab) 1 tab PO DAILY [facility] Last Admin: 02/11/17 08:51 Dose: 1 tab Prednisone (Prednisone Tab) 5 mg PO DAILY [facility] Last Admin: 02/11/17 08:52 Dose: 5 mg Rivaroxaban (Xarelto) 15 mg PO [facility] PRN Reason: Protocol Tamsulosin HCl (Flomax) 0.4 mg PO DAILY [facility] Last Admin: 02/11/17 08:51 Dose: 0.4 mg Results - Vital Signs Recent Vital Signs: Last Vital Signs Temp 98.6 F 02/11/17 08:45 Pulse 82 02/11/17 12:15 Resp 18 02/11/17 08:45 BP 126/72 02/11/17 12:15 Pulse Ox 95 02/11/17 08:45 - Labs Result Diagrams: 02/09/17 05:30 02/09/17 05:30 Labs: Laboratory Results - last 24 hr 02/10/17 02/10/17 02/11/17 16:05 21:14 05:23 POC Glucose (mg/dL) 248 H 271 H 160 H 02/11/17 11:43 POC Glucose (mg/dL) 145 H
--- NOTE | 2017-02-11 17:13 | CP.PCM.PN ---
Subjective - Date & Time of Evaluation Date of Evaluation: 02/11/17 Time of Evaluation: 04:45 - Subjective Subjective: feels better Objective - Vital Signs/Intake and Output Vital Signs (last 24 hours): Temp Pulse Resp BP Pulse Ox 98.2 F 86 18 151/81 H 98 02/11/17 16:51 02/11/17 16:51 02/11/17 16:51 02/11/17 16:51 02/11/17 16:51 - Medications Medications: Current Medications Allopurinol (Zyloprim) 100 mg PO DAILY [facility] Last Admin: 02/11/17 08:52 Dose: 100 mg Aspirin (Ecotrin) 81 mg PO DAILY [facility] Last Admin: 02/07/17 16:34 Dose: Not Given Cholecalciferol (Vitamin D) 1,000 iu PO DAILY [facility] Last Admin: 02/11/17 08:52 Dose: 1,000 iu Collagenase (Santyl) 1 applic TOP DAILY [facility] Dextrose (Glutose 15) 0 gm PO ONCE PRN; Protocol PRN Reason: Hypoglycemia Protocol Dextrose (Dextrose 50% Inj) 0 ml IV STAT PRN; Protocol PRN Reason: Hyglycemia Protocol Famotidine (Pepcid) 20 mg PO DAILY [facility] Last Admin: 02/11/17 08:52 Dose: 20 mg Furosemide (Lasix) 20 mg PO BID [facility] Last Admin: 02/11/17 08:51 Dose: 20 mg Glucagon (Glucagen Diagnostic Kit) 0 mg IM STAT PRN; Protocol PRN Reason: Hypoglycemia Protocol Home Med (Belatacept [Nulojix]) 1 dose IV Q30D [facility] Home Med (Mycophenolate Sodium [Myfortic]) 720 mg PO Q12 [facility] Last Admin: 02/11/17 08:54 Dose: 720 mg Hydralazine HCl (Apresoline) 25 mg PO TID [facility] Last Admin: 02/11/17 12:15 Dose: 25 mg Tigecycline 50 mg/ Sodium (Chloride) 100 mls @ 100 mls/hr IVPB Q12 [facility] Last Admin: 02/11/17 10:17 Dose: 100 mls/hr Insulin Detemir (Levemir) 25 units SC HS [facility] Last Admin: 02/10/17 21:34 Dose: 25 units Insulin Human Lispro (Humalog) 20 units SC TID [facility] Last Admin: 02/07/17 13:18 Dose: 20 units Insulin Human Regular (Humulin R) 0 units SC ACHS [facility] PRN Reason: Protocol Last Admin: 02/11/17 06:30 Dose: 1 units Lactobacillus Acidophilus (Bacid Acidophilus) 1 cap PO BID [facility] Last Admin: 02/11/17 08:51 Dose: 1 cap Levothyroxine Sodium (Synthroid) 75 mcg PO DAILY@0630 [facility] Last Admin: 02/11/17 06:29 Dose: 75 mcg Multivitamins/Minerals (Therapeutic-M Tab) 1 tab PO DAILY [facility] Last Admin: 02/11/17 08:51 Dose: 1 tab Prednisone (Prednisone Tab) 5 mg PO DAILY [facility] Last Admin: 02/11/17 08:52 Dose: 5 mg Rivaroxaban (Xarelto) 15 mg PO HS [facility] PRN Reason: Protocol Tamsulosin HCl (Flomax) 0.4 mg PO DAILY [facility] Last Admin: 02/11/17 08:51 Dose: 0.4 mg - Labs Labs: 02/09/17 05:30 02/09/17 05:30 - Respiratory Exam Additional comments: Lungs clear - Cardiovascular Exam Cardiovascular Exam: Irregular Rhythm Additional comments: A.fib - Extremities Exam Additional comments: No edema. rt foot dressed Assessment and Plan - Assessment and Plan (Free Text) Assessment: ESRD, Kidney transplant CAD, A.fib, PPM Rt foot wound Plan: Renal function is stable Abx per ID
[2017-02-11] MEDS: Insulin Detemir 100 Units/ml Inj SC SCH (22:33)
[2017-02-12] MEDS: Levothyroxine 75 MCG TAB PO SCH (07:03)
[2017-02-12] MEDS: Insulin Regular 100 units/ml SC SCH ×4 (07:07→21:37)
--- NOTE | 2017-02-12 07:36 | CP.PCM.PN ---
Subjective - Date & Time of Evaluation Date of Evaluation: 02/12/17 Time of Evaluation: 07:35 - Subjective Subjective: 66 year old male with PMHx of A fib, DM II, HTN, Hypercholesterolemia, Hypothyroidism, Pneumonia, CKD was seen at bedside this morning, with attending Dr. Jewell, concerning necrotic wound to Right foot. Patient is resting comfortably in bed. Patient is in no acute distress, AAOx3. Patient is 4 weeks s/p Right foot resection of bone by Dr. Jewell secondary to osteomyelitis (DOS ). He denies of any pain to right foot this morning. He was unable to get the MRA yesterday due to pacemaker. Patient denies any current n/f/v/c/d/sob/cp. Objective - Vital Signs/Intake and Output Vital Signs (last 24 hours): Temp Pulse Resp BP Pulse Ox 98.3 F 61 18 135/73 97 02/11/17 20:32 02/11/17 20:32 02/11/17 20:32 02/11/17 20:32 02/11/17 20:32 - Medications Medications: Current Medications Allopurinol (Zyloprim) 100 mg PO DAILY [facility] Last Admin: 02/11/17 08:52 Dose: 100 mg Aspirin (Ecotrin) 81 mg PO DAILY [facility] Last Admin: 02/07/17 16:34 Dose: Not Given Cholecalciferol (Vitamin D) 1,000 iu PO DAILY [facility] Last Admin: 02/11/17 08:52 Dose: 1,000 iu Collagenase (Santyl) 1 applic TOP DAILY [facility] Dextrose (Glutose 15) 0 gm PO ONCE PRN; Protocol PRN Reason: Hypoglycemia Protocol Dextrose (Dextrose 50% Inj) 0 ml IV STAT PRN; Protocol PRN Reason: Hyglycemia Protocol Famotidine (Pepcid) 20 mg PO DAILY [facility] Last Admin: 02/11/17 08:52 Dose: 20 mg Furosemide (Lasix) 20 mg PO BID [facility] Last Admin: 02/11/17 18:01 Dose: 20 mg Glucagon (Glucagen Diagnostic Kit) 0 mg IM STAT PRN; Protocol PRN Reason: Hypoglycemia Protocol Home Med (Belatacept [Nulojix]) 1 dose IV Q30D [facility] Home Med (Mycophenolate Sodium [Myfortic]) 720 mg PO Q12 [facility] Last Admin: 02/11/17 21:40 Dose: 720 mg Hydralazine HCl (Apresoline) 25 mg PO TID [facility] Last Admin: 02/11/17 18:02 Dose: 25 mg Tigecycline 50 mg/ Sodium (Chloride) 100 mls @ 100 mls/hr IVPB Q12 [facility] Last Admin: 02/11/17 21:35 Dose: 100 mls/hr Insulin Detemir (Levemir) 25 units SC HS [facility] Last Admin: 02/11/17 22:33 Dose: 25 units Insulin Human Lispro (Humalog) 20 units SC TID [facility] Last Admin: 02/07/17 13:18 Dose: 20 units Insulin Human Regular (Humulin R) 0 units SC ACHS [facility] PRN Reason: Protocol Last Admin: 02/12/17 07:07 Dose: 1 units Lactobacillus Acidophilus (Bacid Acidophilus) 1 cap PO BID [facility] Last Admin: 02/11/17 17:59 Dose: 1 cap Levothyroxine Sodium (Synthroid) 75 mcg PO DAILY@0630 [facility] Last Admin: 02/12/17 07:03 Dose: 75 mcg Multivitamins/Minerals (Therapeutic-M Tab) 1 tab PO DAILY [facility] Last Admin: 02/11/17 08:51 Dose: 1 tab Prednisone (Prednisone Tab) 5 mg PO DAILY [facility] Last Admin: 02/11/17 08:52 Dose: 5 mg Rivaroxaban (Xarelto) 15 mg PO [facility] PRN Reason: Protocol Tamsulosin HCl (Flomax) 0.4 mg PO DAILY [facility] Last Admin: 02/11/17 08:51 Dose: 0.4 mg - Labs Labs: 02/09/17 05:30 02/09/17 05:30 - Constitutional Appears: Well, Non-toxic, No Acute Distress - Extremities Exam Additional comments: Right lower extremity focused exam: VASC: Palpable DP pulse at 2/4, nonpalpable PT pulse, CFT < 3 sec to all digits , TG wnl DERM: Open wound noted to the previous surgical site on the dorsum of the 1st metatarsal head measuring approximate 4 cm x 1.5 cm x 0.3 cm with fibro- granular base. No purulent discharge noted. No probe to bone. Necrotic change with dark discoloration noted to skin around the wound dehiscence measuring approximately 6 cm x 4 cm extending from at the level of MTPJ to level of Hallux PIPJ. An area with necrotic change noted to lateral aspect of Right 5th metatarsal head measuring approximately 2.5 cm x 1.5 cm. No open wound noted from this area. No drainage, no probe to bone. Erythema is noted around the necrosis with 0.5 cm margins. Open ulceration (chronic) is noted to plantar aspect of right 1st metatarsal measuring approximately 1cm x 1cm x 0.3cm with granular base. Circumferential Hyperkeratic tissue noted around the ulcer with 0.4cm margin. No purulent drainage. No erythema around the ulcer. No Mal-odor noted. NEURO: Protective sensation grossly diminished ORTHO: No pain on palpation to right foot - Neurological Exam Neurological Exam: Alert, Awake, Oriented x3 - Psychiatric Exam Psychiatric exam: Normal Affect, Normal Mood Assessment and Plan - Assessment and Plan (Free Text) Assessment: 66 y/o male patient presents with necrotic change and wound dehiscence to Right foot Plan: Patient examined and evaluated with attending, Dr. Jewell Chart and vitals reviewed Xray reveals calcifications of vessels of right foot, no evidence of OM Wound cx; E. Coli Arterial Duplex: Moderate diffuse athrosclerotic disease associated with calcified plaques, 50% stenosis of left femoral artery MRA could not be completed yesterday as patient has pacemaker Continue IV abx per ID Patient for PICC today Right wound dressed with santyl, TORO, continue wound care daily Patient to ambulate with surgical shoe, weight to heel, offload forefoot Bone scan pending Cardiology consulted Podiatry will continue to monitor while patient remains in house
[2017-02-12] MEDS: Lactobacillus Acidophilus 500 MU Cap PO SCH ×2 (09:18→17:01)
[2017-02-12] MEDS: MYCOPHENOLATE SODIUM 180 MG PO SCH ×2 (09:19→21:37)
[2017-02-12] MEDS: Multivitamin With Minerals Tab PO SCH (09:19)
--- NOTE | 2017-02-12 09:47 | PQF RENAL ---
This form is a permanent part of the medical record 02/12/17 Dr. Debora Avila, Documentation of a history of ESRD s/p kidney transplant. Bun currently running 29-30, creatinine 2.1-1.7, GFR 32-40. Would you please clarify the acuity/stage of the current CKD. Clarification of your documentation is requested to better reflect the severity of illness and intensity of treatment of your patient. PHYSICIAN'S RESPONSE Based on your medical judgment of the clinical indicators outlined above, are you treating this patient for a known or suspected: [] Acute Renal Failure [] Acute Kidney Injury [] Azotemia/prerenal azotemia [] Chronic kidney disease Stage I [] Stage II [] Stage III [] Stage IV [] Stage V [] [] Other condition/diagnosis:[] [] If Unable to Determine, please check the box, sign and date. Present On Admission (POA) Indicator: [] Present at the time of admission [] Not present at the time of admission [] Clinically Undetermined In responding to this query, please exercise your independent professional judgment. The fact that a question is asked does not imply that any particular answer is desired or expected. Thank you for your clarification on this documentation. If you have any questions please call:extension [phone] * Thank you, Yeimi Bihsop RN [facility]
--- NOTE | 2017-02-12 10:21 | CP.PCM.PN ---
Subjective - Date & Time of Evaluation Date of Evaluation: 02/12/17 Time of Evaluation: 07:00 - Subjective Subjective: MDRO from foot MRI on hold for bone scan Objective - Vital Signs/Intake and Output Vital Signs (last 24 hours): Temp Pulse Resp BP Pulse Ox 98.2 F 99 H 20 109/69 98 02/12/17 08:18 02/12/17 09:18 02/12/17 08:18 02/12/17 09:19 02/12/17 08:18 - Medications Medications: Current Medications Allopurinol (Zyloprim) 100 mg PO DAILY [facility] Last Admin: 02/12/17 09:19 Dose: 100 mg Aspirin (Ecotrin) 81 mg PO DAILY [facility] Last Admin: 02/07/17 16:34 Dose: Not Given Cholecalciferol (Vitamin D) 1,000 iu PO DAILY [facility] Last Admin: 02/12/17 09:19 Dose: 1,000 iu Collagenase (Santyl) 1 applic TOP DAILY [facility] Dextrose (Glutose 15) 0 gm PO ONCE PRN; Protocol PRN Reason: Hypoglycemia Protocol Dextrose (Dextrose 50% Inj) 0 ml IV STAT PRN; Protocol PRN Reason: Hyglycemia Protocol Famotidine (Pepcid) 20 mg PO DAILY [facility] Last Admin: 02/12/17 09:19 Dose: 20 mg Furosemide (Lasix) 20 mg PO BID [facility] Last Admin: 02/12/17 09:19 Dose: 20 mg Glucagon (Glucagen Diagnostic Kit) 0 mg IM STAT PRN; Protocol PRN Reason: Hypoglycemia Protocol Home Med (Belatacept [Nulojix]) 1 dose IV Q30D [facility] Home Med (Mycophenolate Sodium [Myfortic]) 720 mg PO Q12 [facility] Last Admin: 02/12/17 09:19 Dose: 720 mg Hydralazine HCl (Apresoline) 25 mg PO TID [facility] Last Admin: 02/12/17 09:18 Dose: 25 mg Tigecycline 50 mg/ Sodium (Chloride) 100 mls @ 100 mls/hr IVPB Q12 [facility] Last Admin: 02/11/17 21:35 Dose: 100 mls/hr Insulin Detemir (Levemir) 25 units SC HS [facility] Last Admin: 02/11/17 22:33 Dose: 25 units Insulin Human Lispro (Humalog) 20 units SC TID [facility] Last Admin: 02/07/17 13:18 Dose: 20 units Insulin Human Regular (Humulin R) 0 units SC ACHS [facility] PRN Reason: Protocol Last Admin: 02/12/17 07:07 Dose: 1 units Lactobacillus Acidophilus (Bacid Acidophilus) 1 cap PO BID [facility] Last Admin: 02/12/17 09:18 Dose: 1 cap Levothyroxine Sodium (Synthroid) 75 mcg PO DAILY@0630 [facility] Last Admin: 02/12/17 07:03 Dose: 75 mcg Multivitamins/Minerals (Therapeutic-M Tab) 1 tab PO DAILY [facility] Last Admin: 02/12/17 09:19 Dose: 1 tab Prednisone (Prednisone Tab) 5 mg PO DAILY [facility] Last Admin: 02/12/17 09:19 Dose: 5 mg Rivaroxaban (Xarelto) 15 mg PO HS [facility] PRN Reason: Protocol Tamsulosin HCl (Flomax) 0.4 mg PO DAILY [facility] Last Admin: 02/12/17 09:19 Dose: 0.4 mg - Labs Labs: 02/09/17 05:30 02/09/17 05:30 - Constitutional Appears: Non-toxic, Chronically Ill - Head Exam Head Exam: NORMOCEPHALIC - Eye Exam Eye Exam: absent: Scleral icterus - ENT Exam ENT Exam: Mucous Membranes Dry - Neck Exam Neck Exam: absent: Lymphadenopathy - Respiratory Exam Respiratory Exam: Decreased Breath Sounds, Clear to Ausculation Bilateral - Cardiovascular Exam Cardiovascular Exam: REGULAR RHYTHM, +S1, +S2 - GI/Abdominal Exam GI & Abdominal Exam: Distended, Soft. absent: Tenderness - Rectal Exam Rectal Exam: Deferred - Exam Exam: NORMAL INSPECTION Assessment and Plan (1) Diabetic foot ulcer Status: Acute (2) Atrial fibrillation Status: Acute (3) Bifascicular block Status: Acute (4) CKD (chronic kidney disease) stage 3, GFR 30-59 ml/min Status: Acute (5) Diabetes Status: Acute
[2017-02-12 10:58] LABS: HEMATOCRIT 38.8 % (35.0-51.0); MEAN CORPUSCULAR HEMOGLOBIN 26.3 pg (27.0-31.0); RED CELL DISTRIBUTION WIDTH 16.9 % (11.5-14.5); WHITE BLOOD COUNT 7.7 K/uL (4.8-10.8)
--- NOTE | 2017-02-12 11:03 | CP.PCM.PN ---
Subjective - Date & Time of Evaluation Date of Evaluation: 02/12/17 Time of Evaluation: 09:35 - Subjective Subjective: Feels better No CP,SOB Objective - Vital Signs/Intake and Output Vital Signs (last 24 hours): Temp Pulse Resp BP Pulse Ox 98.2 F 99 H 20 109/69 98 02/12/17 08:18 02/12/17 09:18 02/12/17 08:18 02/12/17 09:19 02/12/17 08:18 - Medications Medications: Current Medications Allopurinol (Zyloprim) 100 mg PO DAILY [facility] Last Admin: 02/12/17 09:19 Dose: 100 mg Aspirin (Ecotrin) 81 mg PO DAILY [facility] Last Admin: 02/07/17 16:34 Dose: Not Given Cholecalciferol (Vitamin D) 1,000 iu PO DAILY [facility] Last Admin: 02/12/17 09:19 Dose: 1,000 iu Collagenase (Santyl) 1 applic TOP DAILY [facility] Dextrose (Glutose 15) 0 gm PO ONCE PRN; Protocol PRN Reason: Hypoglycemia Protocol Dextrose (Dextrose 50% Inj) 0 ml IV STAT PRN; Protocol PRN Reason: Hyglycemia Protocol Famotidine (Pepcid) 20 mg PO DAILY [facility] Last Admin: 02/12/17 09:19 Dose: 20 mg Furosemide (Lasix) 20 mg PO BID [facility] Last Admin: 02/12/17 09:19 Dose: 20 mg Glucagon (Glucagen Diagnostic Kit) 0 mg IM STAT PRN; Protocol PRN Reason: Hypoglycemia Protocol Home Med (Belatacept [Nulojix]) 1 dose IV Q30D [facility] Home Med (Mycophenolate Sodium [Myfortic]) 720 mg PO Q12 [facility] Last Admin: 02/12/17 09:19 Dose: 720 mg Hydralazine HCl (Apresoline) 25 mg PO TID [facility] Last Admin: 02/12/17 09:18 Dose: 25 mg Tigecycline 50 mg/ Sodium (Chloride) 100 mls @ 100 mls/hr IVPB Q12 [facility] Last Admin: 02/12/17 10:30 Dose: 100 mls/hr Insulin Detemir (Levemir) 25 units SC HS [facility] Last Admin: 02/11/17 22:33 Dose: 25 units Insulin Human Lispro (Humalog) 20 units SC TID [facility] Last Admin: 02/07/17 13:18 Dose: 20 units Insulin Human Regular (Humulin R) 0 units SC ACHS [facility] PRN Reason: Protocol Last Admin: 02/12/17 07:07 Dose: 1 units Lactobacillus Acidophilus (Bacid Acidophilus) 1 cap PO BID [facility] Last Admin: 02/12/17 09:18 Dose: 1 cap Levothyroxine Sodium (Synthroid) 75 mcg PO DAILY@0630 [facility] Last Admin: 02/12/17 07:03 Dose: 75 mcg Multivitamins/Minerals (Therapeutic-M Tab) 1 tab PO DAILY [facility] Last Admin: 02/12/17 09:19 Dose: 1 tab Prednisone (Prednisone Tab) 5 mg PO DAILY [facility] Last Admin: 02/12/17 09:19 Dose: 5 mg Rivaroxaban (Xarelto) 15 mg PO HS [facility] PRN Reason: Protocol Tamsulosin HCl (Flomax) 0.4 mg PO DAILY [facility] Last Admin: 02/12/17 09:19 Dose: 0.4 mg - Labs Labs: 02/12/17 10:45 02/09/17 05:30 - Respiratory Exam Additional comments: Lungs clear - Cardiovascular Exam Cardiovascular Exam: Irregular Rhythm - Extremities Exam Additional comments: No edema. Rt foot dressed Assessment and Plan - Assessment and Plan (Free Text) Assessment: CRF, S/P kidney Tx Renal function is stable Rt foot wound Abx per ID Plan: Monitor renal function If angiogram is planned . Suggest IV hydration with 1/2 NS & mucomist .
[2017-02-12 11:09] LABS: BLOOD UREA NITROGEN 36 mg/dl (9-20); CALCIUM 9.1 mg/dL (8.4-10.2); CARBON DIOXIDE 25 mmol/L (22-30); CHLORIDE 100 mmol/L (98-107); GFR AFRICAN-AMERICAN > 60; GLUCOSE,RANDOM 213 mg/dL (75-110); SODIUM 141 mmol/l (132-148)
--- NOTE | 2017-02-12 11:59 | CP.PCM.PN ---
Subjective - Date & Time of Evaluation Date of Evaluation: 02/12/17 Time of Evaluation: 07:30 - Subjective Subjective: 66M seen and examined at bedside without acute complaints. Currently denies SOB , chest pain, palpitations, foot pain. Objective - Vital Signs/Intake and Output Vital Signs (last 24 hours): Temp Pulse Resp BP Pulse Ox 36.7 C 83 18 135/76 97 02/12/17 11:46 02/12/17 11:46 02/12/17 11:46 02/12/17 11:46 02/12/17 11:46 - Medications Medications: Current Medications Allopurinol (Zyloprim) 100 mg PO DAILY [facility] Last Admin: 02/12/17 09:19 Dose: 100 mg Aspirin (Ecotrin) 81 mg PO DAILY [facility] Last Admin: 02/07/17 16:34 Dose: Not Given Cholecalciferol (Vitamin D) 1,000 iu PO DAILY [facility] Last Admin: 02/12/17 09:19 Dose: 1,000 iu Collagenase (Santyl) 1 applic TOP DAILY [facility] Dextrose (Glutose 15) 0 gm PO ONCE PRN; Protocol PRN Reason: Hypoglycemia Protocol Dextrose (Dextrose 50% Inj) 0 ml IV STAT PRN; Protocol PRN Reason: Hyglycemia Protocol Famotidine (Pepcid) 20 mg PO DAILY [facility] Last Admin: 02/12/17 09:19 Dose: 20 mg Furosemide (Lasix) 20 mg PO BID [facility] Last Admin: 02/12/17 09:19 Dose: 20 mg Glucagon (Glucagen Diagnostic Kit) 0 mg IM STAT PRN; Protocol PRN Reason: Hypoglycemia Protocol Home Med (Belatacept [Nulojix]) 1 dose IV Q30D [facility] Home Med (Mycophenolate Sodium [Myfortic]) 720 mg PO Q12 [facility] Last Admin: 02/12/17 09:19 Dose: 720 mg Hydralazine HCl (Apresoline) 25 mg PO TID [facility] Last Admin: 02/12/17 09:18 Dose: 25 mg Tigecycline 50 mg/ Sodium (Chloride) 100 mls @ 100 mls/hr IVPB Q12 [facility] Last Admin: 02/12/17 10:30 Dose: 100 mls/hr Insulin Detemir (Levemir) 25 units SC HS [facility] Last Admin: 02/11/17 22:33 Dose: 25 units Insulin Human Lispro (Humalog) 20 units SC TID [facility] Last Admin: 02/07/17 13:18 Dose: 20 units Insulin Human Regular (Humulin R) 0 units SC ACHS [facility] PRN Reason: Protocol Last Admin: 02/12/17 07:07 Dose: 1 units Lactobacillus Acidophilus (Bacid Acidophilus) 1 cap PO BID [facility] Last Admin: 02/12/17 09:18 Dose: 1 cap Levothyroxine Sodium (Synthroid) 75 mcg PO DAILY@0630 [facility] Last Admin: 02/12/17 07:03 Dose: 75 mcg Multivitamins/Minerals (Therapeutic-M Tab) 1 tab PO DAILY [facility] Last Admin: 02/12/17 09:19 Dose: 1 tab Prednisone (Prednisone Tab) 5 mg PO DAILY [facility] Last Admin: 02/12/17 09:19 Dose: 5 mg Rivaroxaban (Xarelto) 15 mg PO HS [facility] PRN Reason: Protocol Tamsulosin HCl (Flomax) 0.4 mg PO DAILY [facility] Last Admin: 02/12/17 09:19 Dose: 0.4 mg - Labs Labs: 02/12/17 10:45 02/12/17 10:45 - Constitutional Appears: Well, Non-toxic, No Acute Distress - Head Exam Head Exam: ATRAUMATIC, NORMAL INSPECTION - Eye Exam Eye Exam: EOMI, Normal appearance - ENT Exam ENT Exam: Mucous Membranes Moist, Normal Exam - Neck Exam Neck Exam: Full ROM, Normal Inspection - Respiratory Exam Respiratory Exam: Clear to Ausculation Bilateral, NORMAL BREATHING PATTERN. absent: Rales, Wheezes - Cardiovascular Exam Cardiovascular Exam: REGULAR RHYTHM. absent: JVD - GI/Abdominal Exam GI & Abdominal Exam: Soft, Normal Bowel Sounds. absent: Tenderness - Extremities Exam Extremities Exam: Normal Capillary Refill. absent: Normal Inspection (RIGHT foot with wound infection MDRO as per ID), Pedal Edema Additional comments: LUE AV fistula with bruit/thrill intact and palpable distal radial pulse. - Neurological Exam Neurological Exam: Alert, Awake, Oriented x3 - Psychiatric Exam Psychiatric exam: Normal Affect, Normal Mood - Skin Skin Exam: Normal Color, Warm Assessment and Plan (1) Diabetic foot ulcer Assessment & Plan: 66M with poor RIGHT foot wound healing suspected 2/2 to poor inflow. Arterial duplex in RLE showing 50% [employer] stenosis and biphasic flow distal to popliteal. MRA not feasible due to pacemaker, and CTA not pursued because s/p renal transplant. Would prefer diagnostic/therapeutic approach to minimize contrast load to kidneys. - Podiatry Cx: Daily wound care - Nephrology Rec: IV 1/2NS and mucomyst if angio planned - ID recs: IV abx for MDRO, Bone Scan - Cardiology Cx (Dr Preston): PENDING - PICC placed Status: Acute (2) DVT prophylaxis Assessment & Plan: Xarelto HELD for possible procedure, so SCDs at this time. Status: Acute (3) Atrial fibrillation Assessment & Plan: Rate-controlled, stable, Xarelto being held at this time in preparation for possible vascular intervention. - c/w home medication - HOLD Xarelto Status: Chronic (4) Diabetes Assessment & Plan: Glucose not well-controlled. - Lispro 20U, SC, TID - Levemir 25U, SC, qHS - Hypoglycemia Bundle - Accu-check ACHS Status: Chronic (5) Renal transplant recipient Assessment & Plan: Currently stable - Nephrology Consult (Dr Rola Avila) appreciated - c/w Belatacept, monthly - c/w Mycophenolate, Q12H - Prednisone, PO - f/u any Nephrology recs Status: Chronic (6) Hypothyroid Assessment & Plan: Controlled c/w home medication. Status: Chronic (7) BPH (benign prostatic hypertrophy) Assessment & Plan: Controlled c/w home medication. Status: Chronic
--- NOTE | 2017-02-12 12:38 | PCM.SURG1 ---
Surgeon's Initial Post Op Note - Surgeon's Notes Surgeon: Alesia Car Porter: None Type of Anesthesia: Local Pre-Operative Diagnosis: Foot infection. Operative Findings: Patent right basilic vein. Post-Operative Diagnosis: Foot infection. Operation Performed: Right basilic vein 4F SL 33cm PICC placed. Specimen/Specimens Removed: None Estimated Blood Loss: EBL {In ML}: 1 Date of Surgery/Procedure: 02/12/17 Time of Surgery/Procedure: 10:30
--- NOTE | 2017-02-12 12:45 | VASCULAR ---
Procedure: Ultrasound and fluoroscopically placed Right upper extremity PICC. Clinical indication: Long-term IV antibiotics. Technique: The relative risks and indications of the procedure were explained to the patient and written informed consent obtained. The patient was placed supine on the angiographic table and the right arm prepped and draped in the usual sterile fashion. A tourniquet was applied to the right axilla. 1% lidocaine was used to anesthetize the skin and soft tissues at the puncture site above the elbow. The right basilic vein was punctured under direct ultrasound guidance with a micropuncture set. A permanent image was stored. A 0.018 guidewire was advanced centrally and used to measure the length to the SVC/RA junction. A 4 [place] single-lumen PICC, size 33 cm, was advanced to the SVC/RA junction under fluoroscopic guidance. The catheter was flushed and secured. The patient tolerated the procedure well. Postprocedure chest image was obtained to ensure location of the catheter tip at the SVC right atrial junction. Impression: Ultrasound and fluoroscopically placed right upper extremity PICC. A 4 [place]isian single-lumen PICC, size 33 cm was advanced to the SVC/RA junction. PICC ready for use.
--- NOTE | 2017-02-12 18:53 | CP.PCM.CON ---
History of Present Illness - History of Present Illness History of Present Illness: I was asked to see patient by Dr. Frey. Patient is a 66 year old male with PMH HTN, hypercholesterolemia, CAD, afib, PPM , s/p renal transplant who presents with non healing ulcer of the right foot. The patient has a longstanding history of DM, and initally noted ulceration of the plantar surface of the foot. His wound was slow to heal. The patient has noed progression and a second ulceration of the foot. Arterial duplex reveals moderate PAD. Review of Systems - Constitutional Constitutional: absent: As Per HPI, Anorexia, Chills, Daytime Sleepiness, Excessive Sweating, Fatigue, Fever, Frequent Falls, Headache, Increased Appetite , Lethargy, Malaise, Night Sweats, Snoring, Sleep Apnea, Weight Gain, Weight Loss, Weakness, Other - EENT Eyes: absent: As Per HPI, Blind Spots, Blurred Vision, Change in Vision, Decreased Night Vision, Diplopia, Discharge, Dry Eye, Exophthalmos, Floaters, Irritation, Itchy Eyes, Loss of Peripheral Vision, Pain, Photophobia, Requires Corrective Lenses, Sees Flashes, Spots in Vision, Tunnel Vision, Other Visual Disturbances, Loss of Vision, Other Ears: absent: As Per HPI, Decreased Hearing, Ear Discharge, Ear Pain, Tinnitus, Abnormal Hearing, Disequilibrium, Dizziness, Other Nose/Mouth/Throat: absent: As Per HPI, Epistaxis, Nasal Congestion, Nasal Discharge, Nasal Obstruction, Nasal Trauma, Nose Pain, Post Nasal Drip, Sinus Pain, Sinus Pressure, Bleeding Gums, Change in Voice, Dental Pain, Dry Mouth, Dysphagia, Halitosis, Hoarsness, Lip Swelling, Mouth Lesions, Mouth Pain, Odynophagia, Sore Throat, Throat Swelling, Tongue Swelling, Facial Pain, Neck Pain, Neck Mass, Other - Cardiovascular Cardiovascular: absent: As Per HPI, Acrocyanosis, Chest Pain, Chest Pain at Rest , Chest Pain with Activity, Claudication, Diaphoresis, Dyspnea, Dyspnea on Exertion, Edema, Irregular Heart Rhythm, Pain Radiating to Arm/Neck/Jaw, Leg Edema, Leg Ulcers, Lightheadedness, Orthopnea, Palpitations, Paroxysmal Nocturnal Dyspnea, Pedal Edema, Radiating Pain, Rapid Heart Rate, Slow Heart Rate, Syncope, Other - Respiratory Respiratory: absent: As Per HPI, Cough, Dyspnea, Hemoptysis, Dyspnea on Exertion , Wheezing, Snoring, Stridor, Pain on Inspiration, Chest Congestion, Excessive Mucous Production, Change in Mucous Color, Pain with Coughing, Other - Gastrointestinal Gastrointestinal: absent: As Per HPI, Abdominal Pain, Belching, Bloating, Change in Bowel Habits, Change in Stool Character, Coffee Ground Emesis, Constipation, Cramping, Diarrhea, Dyspepsia, Dysphagia, Early Satiety, Excessive Flatus, Fecal Incontinence, Heartburn, Hematemesis, Hematochezia, Loose Stools, Melena, Nausea, Odynophagia, Temesmus, Vomiting, Other - Genitourinary Genitourinary: absent: As Per HPI, Change in Urinary Stream, Difficulty Urinating, Dysuria, Flank Pain, Hematuria, Pyuria, Nocturia, Urinary Incontinence, Urinary Frequency, Urinary Hesitance, Urinary Urgency, Voiding Freq/Small Amts, Freq UTI, Hx Renal/Bladder Calculi, Hx /Renal Surgery, Bladder Distension, Other - Musculoskeletal Musculoskeletal: Radiating Pain into Limb - Integumentary Integumentary: absent: As Per HPI, Acne, Alopecia, Bleeding Lesions, Change in Hair, Change in Nails, Change in Pigmentation, Changing Lesions, Dry Skin, Erythema, Furuncle, Hirsutism, Lesions, New Lesions, Non-Healing Lesions, Photosensitivity, Pruritus, Rash, Skin Pain, Skin Ulcer, Sores, Striae, Swelling , Unusual Bruising, Wounds, Jaundice, Other - Neurological Neurological: absent: As Per HPI, Abnormal Gait, Abnormal Hearing, Abnormal Movements, Abnormal Speech, Behavioral Changes, Burning Sensations, Confusion, Convulsions, Disequilibrium, Dizziness, Numbness, Focal Weakness, Frequent Falls , Headaches, Lack of Coordination, Loss of Vision, Memory Loss, Paresthesias, Radicular Pain, Restless Legs, Sensory Deficit, Syncope, Tingling, Tremor, Vertigo, Weakness, Other Visual Disturbances, Other - Psychiatric Psychiatric: absent: As Per HPI, Abnormal Sleep Pattern, Anhedonia, Anxiety, Auditory Hallucinations, Behavioral Changes, Change in Appetite, Change in Libido, Confusion, Depression, Difficulty Concentrating, Hallucinations, Homicidal Ideation, Hopelessness, Irritability, Memory Loss, Mood Swings, Panic Attacks, Paranoia, Suicidal Ideation, Visual Hallucinations, Tactile Hallucinations, Other - Endocrine Endocrine: absent: As Per HPI, Change in Body Appearance, Change in Libido, Cold Intolorance, Deepening of Voice, Excessive Sweating, Fatigue, Flushing, Heat Intolorance, Increase in Ring/Shoe/Hat Size, Palpitations, Polydipsia, Polyphagia, Polyuria, Other - Hematologic/Lymphatic Hematologic: absent: As Per HPI, Easy Bleeding, Easy Bruising, Lymphadenopathy, Other Past Patient History - Infectious Disease Hx of Infectious Diseases: None - Past Medical History & Family History Past Medical History?: Yes - Past Social History Smoking Status: Former Smoker - CARDIAC Hx Cardiac Disorders: Yes Hx Atrial Fibrillation: Yes Hx Congestive Heart Failure: Yes Hx Heart Attack: Yes Hx Hypercholesterolemia: Yes Hx Hypertension: Yes Hx Pacemaker: Yes - PULMONARY Hx Respiratory Disorders: Yes Hx Pneumonia: Yes Hx Sleep Apnea: Yes - NEUROLOGICAL Hx Neurological Disorder: Yes HX Cerebrovascular Accident: Yes (03/25/16) - HEENT Hx HEENT Problems: No Hx Cataracts: Yes - RENAL Hx Chronic Kidney Disease: Yes (s/p renal transplant) Hx Dialysis: Yes Type of Dialysis Access: left AV shunt Date of Last Dialysis Treatment: 02/08/14 Other/Comment: Right kidney transplant January 2014 - ENDOCRINE/METABOLIC Hx Endocrine Disorders: Yes Hx Diabetes Mellitus Type 2: Yes Hx Hypothyroidism: Yes - HEMATOLOGICAL/ONCOLOGICAL Hx Blood Disorders: No - INTEGUMENTARY Hx Dermatological Problems: No - MUSCULOSKELETAL/RHEUMATOLOGICAL Hx Arthritis: Yes Hx Falls: No Hx Fractures: Yes (left hand finger 60yrs ago) - GASTROINTESTINAL Hx Crohn's Disease: No Hx Diverticulitis: No Hx Gall Bladder Disease: No Hx Gastritis: No Hx Pancreatitis: No - GENITOURINARY/GYNECOLOGICAL Hx Genitourinary Disorders: No Hx Bladder Cancer: Yes Hx Hematuria: Yes - PSYCHIATRIC Hx Psychophysiologic Disorder: No Hx Substance Use: No - SURGICAL HISTORY Hx Appendectomy: No Hx Cataract Extraction: Yes Hx Kidney Transplant: Yes Other/Comment: 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 Right foot sx 01/11/17 - ANESTHESIA Hx Anesthesia: Yes Hx Anesthesia Reactions: No Hx Malignant Hyperthermia: No Meds Allergies/Adverse Reactions: Allergies Allergy/AdvReac Type Severity Reaction Status Date / Time Penicillins Allergy Intermediate RASH Verified 01/14/17 17:41 - Medications Medications: Current Medications Allopurinol (Zyloprim) 100 mg PO DAILY [facility] Last Admin: 02/12/17 09:19 Dose: 100 mg Aspirin (Ecotrin) 81 mg PO DAILY [facility] Last Admin: 02/07/17 16:34 Dose: Not Given Cholecalciferol (Vitamin D) 1,000 iu PO DAILY [facility] Last Admin: 02/12/17 09:19 Dose: 1,000 iu Collagenase (Santyl) 1 applic TOP DAILY [facility] Dextrose (Glutose 15) 0 gm PO ONCE PRN; Protocol PRN Reason: Hypoglycemia Protocol Dextrose (Dextrose 50% Inj) 0 ml IV STAT PRN; Protocol PRN Reason: Hyglycemia Protocol Famotidine (Pepcid) 20 mg PO DAILY [facility] Last Admin: 02/12/17 09:19 Dose: 20 mg Furosemide (Lasix) 20 mg PO BID [facility] Last Admin: 02/12/17 16:58 Dose: 20 mg Glucagon (Glucagen Diagnostic Kit) 0 mg IM STAT PRN; Protocol PRN Reason: Hypoglycemia Protocol Home Med (Belatacept [Nulojix]) 1 dose IV Q30D [facility] Home Med (Mycophenolate Sodium [Myfortic]) 720 mg PO Q12 [facility] Last Admin: 02/12/17 09:19 Dose: 720 mg Hydralazine HCl (Apresoline) 25 mg PO TID [facility] Last Admin: 02/12/17 16:57 Dose: 25 mg Tigecycline 50 mg/ Sodium (Chloride) 100 mls @ 100 mls/hr IVPB Q12 [facility] Last Admin: 02/12/17 10:30 Dose: 100 mls/hr Insulin Detemir (Levemir) 25 units SC HS [facility] Last Admin: 02/11/17 22:33 Dose: 25 units Insulin Human Lispro (Humalog) 20 units SC TID [facility] Last Admin: 02/07/17 13:18 Dose: 20 units Insulin Human Regular (Humulin R) 0 units SC ACHS [facility] PRN Reason: Protocol Last Admin: 02/12/17 17:18 Dose: 4 units Lactobacillus Acidophilus (Bacid Acidophilus) 1 cap PO BID [facility] Last Admin: 02/12/17 17:01 Dose: 1 cap Levothyroxine Sodium (Synthroid) 75 mcg PO DAILY@0630 [facility] Last Admin: 02/12/17 07:03 Dose: 75 mcg Multivitamins/Minerals (Therapeutic-M Tab) 1 tab PO DAILY [facility] Last Admin: 02/12/17 09:19 Dose: 1 tab Prednisone (Prednisone Tab) 5 mg PO DAILY [facility] Last Admin: 02/12/17 09:19 Dose: 5 mg Rivaroxaban (Xarelto) 15 mg PO HS [facility] PRN Reason: Protocol Tamsulosin HCl (Flomax) 0.4 mg PO DAILY [facility] Last Admin: 02/12/17 09:19 Dose: 0.4 mg Physical Exam - Constitutional Appears: Non-toxic - Head Exam Head Exam: NORMAL INSPECTION - Eye Exam Eye Exam: Normal appearance - ENT Exam ENT Exam: Mucous Membranes Moist - Neck Exam Neck exam: Positive for: Full Rom - Respiratory Exam Respiratory Exam: NORMAL BREATHING PATTERN - Cardiovascular Exam Cardiovascular Exam: Irregular Rhythm - GI/Abdominal Exam GI & Abdominal Exam: Normal Bowel Sounds - Rectal Exam Rectal Exam: Deferred - Extremities Exam Extremities exam: Positive for: pedal edema Additional comments: warm - Back Exam Back exam: NORMAL INSPECTION - Neurological Exam Neurological exam: Alert, Oriented x3 - Psychiatric Exam Psychiatric exam: Normal Affect - Skin Skin Exam: Normal Color Results - Vital Signs Recent Vital Signs: Last Vital Signs Temp 97.9 F 02/12/17 17:00 Pulse 81 02/12/17 17:00 Resp 18 02/12/17 17:00 BP 169/71 H 02/12/17 17:00 Pulse Ox 97 02/12/17 17:00 - Labs Result Diagrams: 02/12/17 10:45 02/12/17 10:45 Labs: Laboratory Results - last 24 hr 02/11/17 02/12/17 02/12/17 22:28 07:05 10:45 WBC 7.7 RBC 4.73 Hgb 12.4 Hct 38.8 MCV 82.0 MCH 26.3 L MCHC 32.0 L RDW 16.9 H Plt Count 221 Sodium 141 Potassium 4.0 Chloride 100 Carbon Dioxide 25 Anion Gap 21 H BUN 36 H Creatinine 1.4 Est GFR ( Amer) > 60 Est GFR (Non-Af Amer) 50 POC Glucose (mg/dL) 229 H 181 H Random Glucose 213 H Calcium 9.1 02/12/17 02/12/17 12:19 17:07 WBC RBC Hgb Hct MCV MCH MCHC RDW Plt Count Sodium Potassium Chloride Carbon Dioxide Anion Gap BUN Creatinine Est GFR ( Amer) Est GFR (Non-Af Amer) POC Glucose (mg/dL) 231 H 328 H Random Glucose Calcium - EKG Data EKG Interpreted by: Myself Assessment & Plan (1) Diabetic foot ulcer Assessment and Plan: patient has longstanding diabetes and therefore is at risk for significant PAD. The duplex can underestimate the severity of PAD. ideally the patient would benefit rom peripheral angiogram, however there is increased risk of contrast induced nephropathy of the transplanted kidney. Will need recommendations from renal regarding risks associated with nephropathy to the transplanted kidney. Status: Acute (2) Hypertension Assessment and Plan: blood pressure control Status: Acute (3) Status post kidney transplant Assessment and Plan: renal recommendations regarding risk associated with contrast use. Status: Acute (4) Atrial fibrillation Assessment and Plan: holding anticoagulation in anticipation of procedure. Status: Chronic
[2017-02-12] MEDS: Insulin Detemir 100 Units/ml Inj SC SCH (21:36)
[2017-02-13] MEDS: Levothyroxine 75 MCG TAB PO SCH (06:33)
[2017-02-13] MEDS: Insulin Regular 100 units/ml SC SCH ×4 (06:39→21:52)
--- NOTE | 2017-02-13 07:19 | CP.PCM.PN ---
Subjective - Date & Time of Evaluation Date of Evaluation: 02/13/17 Time of Evaluation: 07:19 - Subjective Subjective: 66 year old male with PMHx of A fib, DM II, HTN, Hypercholesterolemia, Hypothyroidism, Pneumonia, CKD was seen at bedside this [facility] concerning necrotic wounds to Right foot. Patient is resting comfortably in bed. Patient is in no acute distress, AAOx3. Patient is 4 weeks s/p Right foot resection of bone by Dr. Jewell secondary to osteomyelitis (DOS 01/11/17). He denies of any pain to right foot this morning. Patient denies any current n/f/v/c/d/sob/cp. Objective - Vital Signs/Intake and Output Vital Signs (last 24 hours): Temp Pulse Resp BP Pulse Ox 98.3 F 83 18 110/60 96 02/12/17 23:22 02/12/17 23:22 02/12/17 23:22 02/13/17 00:20 02/12/17 23:22 - Medications Medications: Current Medications Allopurinol (Zyloprim) 100 mg PO DAILY [facility] Last Admin: 02/12/17 09:19 Dose: 100 mg Aspirin (Ecotrin) 81 mg PO DAILY [facility] Last Admin: 02/07/17 16:34 Dose: Not Given Cholecalciferol (Vitamin D) 1,000 iu PO DAILY [facility] Last Admin: 02/12/17 09:19 Dose: 1,000 iu Collagenase (Santyl) 1 applic TOP DAILY [facility] Dextrose (Glutose 15) 0 gm PO ONCE PRN; Protocol PRN Reason: Hypoglycemia Protocol Dextrose (Dextrose 50% Inj) 0 ml IV STAT PRN; Protocol PRN Reason: Hyglycemia Protocol Famotidine (Pepcid) 20 mg PO DAILY [facility] Last Admin: 02/12/17 09:19 Dose: 20 mg Furosemide (Lasix) 20 mg PO BID [facility] Last Admin: 02/12/17 16:58 Dose: 20 mg Glucagon (Glucagen Diagnostic Kit) 0 mg IM STAT PRN; Protocol PRN Reason: Hypoglycemia Protocol Home Med (Belatacept [Nulojix]) 1 dose IV Q30D [facility] Home Med (Mycophenolate Sodium [Myfortic]) 720 mg PO Q12 [facility] Last Admin: 02/12/17 21:37 Dose: 720 mg Hydralazine HCl (Apresoline) 25 mg PO TID [facility] Last Admin: 02/12/17 16:57 Dose: 25 mg Tigecycline 50 mg/ Sodium (Chloride) 100 mls @ 100 mls/hr IVPB Q12 [facility] Last Admin: 02/12/17 20:20 Dose: 100 mls/hr Insulin Detemir (Levemir) 25 units SC HS [facility] Last Admin: 02/12/17 21:36 Dose: 25 units Insulin Human Lispro (Humalog) 20 units SC TID [facility] Last Admin: 02/07/17 13:18 Dose: 20 units Insulin Human Regular (Humulin R) 0 units SC ACHS [facility] PRN Reason: Protocol Last Admin: 02/13/17 06:39 Dose: 3 units Lactobacillus Acidophilus (Bacid Acidophilus) 1 cap PO BID [facility] Last Admin: 02/12/17 17:01 Dose: 1 cap Levothyroxine Sodium (Synthroid) 75 mcg PO DAILY@0630 [facility] Last Admin: 02/13/17 06:33 Dose: 75 mcg Multivitamins/Minerals (Therapeutic-M Tab) 1 tab PO DAILY [facility] Last Admin: 02/12/17 09:19 Dose: 1 tab Prednisone (Prednisone Tab) 5 mg PO DAILY [facility] Last Admin: 02/12/17 09:19 Dose: 5 mg Rivaroxaban (Xarelto) 15 mg PO [facility] PRN Reason: Protocol Tamsulosin HCl (Flomax) 0.4 mg PO DAILY [facility] Last Admin: 02/12/17 09:19 Dose: 0.4 mg - Labs Labs: 02/12/17 10:45 02/12/17 10:45 - Constitutional Appears: Well, Non-toxic, No Acute Distress - Extremities Exam Additional comments: Right lower extremity focused exam: VASC: Palpable DP pulse at 2/4, non-palpable PT pulse, CFT < 3 sec to all digits , TG wnl DERM: Open wound noted to the previous surgical site on the dorsum of the 1st metatarsal head measuring approximate 4 cm x 1.5 cm x 0.3 cm with fibro- granular base. No purulent discharge noted. No probe to bone. Necrotic change with dark discoloration noted to skin around the wound dehiscence measuring approximately 6 cm x 4 cm extending from at the level of MTPJ to level of Hallux PIPJ, and continuing circumstantially around the plantar medial aspect of the hallux. Necrotic changes noted to lateral aspect of Right 5th metatarsal head measuring approximately 2.5 cm x 1.5 cm. No open wound noted from this area. No drainage, no probe to bone, periwound is hyperkeratotic. Open ulceration (chronic) is noted to plantar aspect of right 1st metatarsal measuring approximately 1cm x 1cm x 0.3cm with granular base. Circumferential Hyperkeratic tissue noted around the ulcer with 0.4cm margin. No purulent drainage. No erythema around the ulcer. No Mal-odor noted. NEURO: Protective sensation grossly diminished ORTHO: No pain on palpation to right foot - Neurological Exam Neurological Exam: Alert, Awake, Oriented x3 - Psychiatric Exam Psychiatric exam: Normal Affect, Normal Mood Assessment and Plan - Assessment and Plan (Free Text) Assessment: 66 y/o male patient presents with necrotic change and wound dehiscence to Right foot Plan: Patient examined and evaluated with attending, Dr. Jewell Chart and vitals reviewed Xray reveals calcifications of vessels of right foot, no evidence of OM Wound cx; E. Coli Arterial Duplex: Moderate diffuse athrosclerotic disease associated with calcified plaques, 50% stenosis of left femoral artery MRA could not be completed yesterday as patient has pacemaker Continue IV abx per ID Right wound dressed with santyl, DSD, continue wound care daily Patient to ambulate with surgical shoe, weight to heel, offload forefoot Bone scan pending Cardiology consulted- patient for CTA tomorrow Podiatry will continue to monitor while patient remains in house
--- NOTE | 2017-02-13 07:26 | CP.PCM.PN ---
Subjective - Date & Time of Evaluation Date of Evaluation: 02/13/17 Time of Evaluation: 07:20 - Subjective Subjective: 66M seen and examined at bedside with attending. Pt reports feeling well, denies SOB/chest pain/foot pain. Would like to go home for antibiotics treatment. Objective - Vital Signs/Intake and Output Vital Signs (last 24 hours): Temp Pulse Resp BP Pulse Ox 36.8 C 83 18 110/60 96 02/12/17 23:22 02/12/17 23:22 02/12/17 23:22 02/13/17 00:20 02/12/17 23:22 - Medications Medications: Current Medications Allopurinol (Zyloprim) 100 mg PO DAILY [facility] Last Admin: 02/12/17 09:19 Dose: 100 mg Aspirin (Ecotrin) 81 mg PO DAILY [facility] Last Admin: 02/07/17 16:34 Dose: Not Given Cholecalciferol (Vitamin D) 1,000 iu PO DAILY [facility] Last Admin: 02/12/17 09:19 Dose: 1,000 iu Collagenase (Santyl) 1 applic TOP DAILY [facility] Dextrose (Glutose 15) 0 gm PO ONCE PRN; Protocol PRN Reason: Hypoglycemia Protocol Dextrose (Dextrose 50% Inj) 0 ml IV STAT PRN; Protocol PRN Reason: Hyglycemia Protocol Famotidine (Pepcid) 20 mg PO DAILY [facility] Last Admin: 02/12/17 09:19 Dose: 20 mg Furosemide (Lasix) 20 mg PO BID [facility] Last Admin: 02/12/17 16:58 Dose: 20 mg Glucagon (Glucagen Diagnostic Kit) 0 mg IM STAT PRN; Protocol PRN Reason: Hypoglycemia Protocol Home Med (Belatacept [Nulojix]) 1 dose IV Q30D [facility] Home Med (Mycophenolate Sodium [Myfortic]) 720 mg PO Q12 [facility] Last Admin: 02/12/17 21:37 Dose: 720 mg Hydralazine HCl (Apresoline) 25 mg PO TID [facility] Last Admin: 02/12/17 16:57 Dose: 25 mg Tigecycline 50 mg/ Sodium (Chloride) 100 mls @ 100 mls/hr IVPB Q12 [facility] Last Admin: 02/12/17 20:20 Dose: 100 mls/hr Insulin Detemir (Levemir) 25 units SC [facility] Last Admin: 02/12/17 21:36 Dose: 25 units Insulin Human Lispro (Humalog) 20 units SC TID [facility] Last Admin: 02/07/17 13:18 Dose: 20 units Insulin Human Regular (Humulin R) 0 units SC ACHS [facility] PRN Reason: Protocol Last Admin: 02/13/17 06:39 Dose: 3 units Lactobacillus Acidophilus (Bacid Acidophilus) 1 cap PO BID [facility] Last Admin: 02/12/17 17:01 Dose: 1 cap Levothyroxine Sodium (Synthroid) 75 mcg PO DAILY@0630 [facility] Last Admin: 02/13/17 06:33 Dose: 75 mcg Multivitamins/Minerals (Therapeutic-M Tab) 1 tab PO DAILY [facility] Last Admin: 02/12/17 09:19 Dose: 1 tab Prednisone (Prednisone Tab) 5 mg PO DAILY [facility] Last Admin: 02/12/17 09:19 Dose: 5 mg Rivaroxaban (Xarelto) 15 mg PO HS [facility] PRN Reason: Protocol Tamsulosin HCl (Flomax) 0.4 mg PO DAILY [facility] Last Admin: 02/12/17 09:19 Dose: 0.4 mg - Labs Labs: 02/12/17 10:45 02/12/17 10:45 - Constitutional Appears: Well, Non-toxic, No Acute Distress - Head Exam Head Exam: ATRAUMATIC, NORMAL INSPECTION - Eye Exam Eye Exam: EOMI, Normal appearance - ENT Exam ENT Exam: Mucous Membranes Moist, Normal Exam - Neck Exam Neck Exam: Full ROM, Normal Inspection - Respiratory Exam Respiratory Exam: Clear to Ausculation Bilateral, NORMAL BREATHING PATTERN. absent: Rhonchi, Wheezes - Cardiovascular Exam Cardiovascular Exam: Irregular Rhythm. absent: JVD - GI/Abdominal Exam GI & Abdominal Exam: Soft, Normal Bowel Sounds. absent: Tenderness - Extremities Exam Extremities Exam: Normal Capillary Refill. absent: Normal Inspection (dressing to RIGHT foot, moving toes), Pedal Edema - Neurological Exam Neurological Exam: Alert, Awake, Oriented x3 - Psychiatric Exam Psychiatric exam: Normal Affect, Normal Mood - Skin Skin Exam: Normal Color, Warm Assessment and Plan (1) Diabetic foot ulcer Assessment & Plan: 66M with poor RIGHT foot wound healing likely multi-factorial to include suspected poor inflow. - Podiatry Cx: Daily wound care - Nephrology Rec: D5+Bicarb, Mucomyst, NPO after MD - ID recs: IV abx for MDRO, Bone Scan negative for acute osteomyelitis - Cardiology Cx (Dr Preston): HOLD Xarelto, CTA 02/14/2017 - PICC placed Status: Acute (2) DVT prophylaxis Assessment & Plan: Xarelto HELD for possible procedure, SCDs b/ at this time. Status: Acute (3) Atrial fibrillation Assessment & Plan: Rate-controlled, stable, Xarelto being held at this time in preparation for CTA +/- intra-vascular intervention. - c/w home medication - HOLD Xarelto Status: Chronic (4) Diabetes Assessment & Plan: Glucose not well-controlled. - Lispro 20U, SC, ACTID - Levemir 25U, SC, qHS will not decrease as patient is on D5 bicarb drip - Hypoglycemia Bundle - Accu-check ACHS Status: Chronic (5) Renal transplant recipient Assessment & Plan: Currently stable - Nephrology Consult (Dr Rola Avila) appreciated - c/w Belatacept, monthly - c/w Mycophenolate, Q12H - Prednisone, PO - D5+Bicarb, Mucomyst, NPO after MD for CTA Status: Chronic (6) Hypothyroid Assessment & Plan: Controlled c/w home medication. Status: Chronic (7) BPH (benign prostatic hypertrophy) Assessment & Plan: Controlled c/w home medication. Status: Chronic
[2017-02-13] MEDS: Lactobacillus Acidophilus 500 MU Cap PO SCH ×2 (09:00→16:54)
[2017-02-13] MEDS: Multivitamin With Minerals Tab PO SCH (09:01)
[2017-02-13] MEDS: MYCOPHENOLATE SODIUM 180 MG PO SCH ×2 (09:01→20:03)
[2017-02-13] MEDS: Santyl Collagenase OINTMENT TOP SCH (09:03)
[2017-02-13] MEDS ORDERED: Acetylcysteine 20% Inhal Soln (4ml) PO SCH (10:00)
--- NOTE | 2017-02-13 10:25 | CP.PCM.PN ---
Subjective - Date & Time of Evaluation Date of Evaluation: 02/13/17 Time of Evaluation: 10:20 - Subjective Subjective: seen and examined feels ok denies n/v Objective - Vital Signs/Intake and Output Vital Signs (last 24 hours): Temp Pulse Resp BP Pulse Ox 98.3 F 83 18 148/68 96 02/12/17 23:22 02/12/17 23:22 02/12/17 23:22 02/13/17 09:01 02/12/17 23:22 - Medications Medications: Current Medications Acetylcysteine (Acetylcysteine 20%) 6 ml PO Q12 [facility] Stop: 02/14/17 10:01 Allopurinol (Zyloprim) 100 mg PO DAILY [facility] Last Admin: 02/13/17 09:06 Dose: 100 mg Aspirin (Ecotrin) 81 mg PO DAILY [facility] Last Admin: 02/07/17 16:34 Dose: Not Given Cholecalciferol (Vitamin D) 1,000 iu PO DAILY [facility] Last Admin: 02/13/17 09:05 Dose: 1,000 iu Collagenase (Santyl) 1 applic TOP DAILY [facility] Last Admin: 02/13/17 09:03 Dose: 1 applic Dextrose (Glutose 15) 0 gm PO ONCE PRN; Protocol PRN Reason: Hypoglycemia Protocol Dextrose (Dextrose 50% Inj) 0 ml IV STAT PRN; Protocol PRN Reason: Hyglycemia Protocol Famotidine (Pepcid) 20 mg PO DAILY [facility] Last Admin: 02/13/17 09:03 Dose: 20 mg Furosemide (Lasix) 20 mg PO BID [facility] Last Admin: 02/13/17 09:01 Dose: 20 mg Glucagon (Glucagen Diagnostic Kit) 0 mg IM STAT PRN; Protocol PRN Reason: Hypoglycemia Protocol Home Med (Belatacept [Nulojix]) 1 dose IV Q30D [facility] Home Med (Mycophenolate Sodium [Myfortic]) 720 mg PO Q12 [facility] Last Admin: 02/13/17 09:01 Dose: 720 mg Hydralazine HCl (Apresoline) 25 mg PO TID [facility] Last Admin: 02/13/17 09:02 Dose: 25 mg Tigecycline 50 mg/ Sodium (Chloride) 100 mls @ 100 mls/hr IVPB Q12 [facility] Last Admin: 02/13/17 09:05 Dose: 100 mls/hr Sodium Bicarbonate 150 meq/ (Dextrose) 1,150 mls @ 75 mls/hr IV .[id number] [facility] Stop: 02/14/17 19:01 Insulin Detemir (Levemir) 25 units SC HS [facility] Last Admin: 02/12/17 21:36 Dose: 25 units Insulin Human Lispro (Humalog) 20 units SC TID [facility] Last Admin: 02/07/17 13:18 Dose: 20 units Insulin Human Regular (Humulin R) 0 units SC ACHS [facility] PRN Reason: Protocol Last Admin: 02/13/17 06:39 Dose: 3 units Lactobacillus Acidophilus (Bacid Acidophilus) 1 cap PO BID [facility] Last Admin: 02/13/17 09:00 Dose: 1 cap Levothyroxine Sodium (Synthroid) 75 mcg PO DAILY@0630 [facility] Last Admin: 02/13/17 06:33 Dose: 75 mcg Multivitamins/Minerals (Therapeutic-M Tab) 1 tab PO DAILY [facility] Last Admin: 02/13/17 09:01 Dose: 1 tab Prednisone (Prednisone Tab) 5 mg PO DAILY [facility] Last Admin: 02/13/17 09:03 Dose: 5 mg Rivaroxaban (Xarelto) 15 mg PO [facility] PRN Reason: Protocol Tamsulosin HCl (Flomax) 0.4 mg PO DAILY [facility] Last Admin: 02/13/17 09:02 Dose: 0.4 mg - Labs Labs: 02/12/17 10:45 02/12/17 10:45 - Constitutional Appears: Well - Head Exam Head Exam: ATRAUMATIC - Eye Exam Eye Exam: Normal appearance - ENT Exam ENT Exam: Normal Exam - Neck Exam Neck Exam: Normal Inspection - Respiratory Exam Respiratory Exam: NORMAL BREATHING PATTERN - Cardiovascular Exam Cardiovascular Exam: +S1, +S2 - GI/Abdominal Exam GI & Abdominal Exam: Normal Bowel Sounds - Extremities Exam Additional comments: trace edema RLE - Neurological Exam Neurological Exam: Alert, Oriented x3 - Psychiatric Exam Psychiatric exam: Normal Affect - Skin Skin Exam: Normal Color Assessment and Plan - Assessment and Plan (Free Text) Assessment: h/o kidney transplant / R diabetic foot ulcer / htn / dm / pad Plan: -renal - on myfortic, pred, and monthly belatacept (next infusion due 02/26) discussed care w/ dr. velazquez - given the poor healting and concern for arterial insufficiency (unable to mri due to pacemaker) he needs an angiogram to evaluate the circulation. Given his ckd/dm/kid txp he is at relatively high risk for XIN and understands the dye may cause christiano. I recommend hold lasix, start d5w w/3 amps of hco3 at 75 cc/hr starting 12 hours pre procedure and 1200 mg po mucmoust to help reduce risk. There is some questionable evidence that statins may reduce XIN as well and if there are no other contraindication to statin would consider starting. otherwise bp acceptable lytes stable
[2017-02-13] MEDS: Acetylcysteine 20% Inhal Soln (4ml) PO SCH ×2 (10:34→20:14)
--- NOTE | 2017-02-13 12:23 | NM ---
PROCEDURE: Three-phase bone scan HISTORY: Osteomyelitis suspected right lower extremity. Relevant surgical history: Resection 1st metatarsal following plain film radiographs 01/08/2017. COMPARISON: 01/28/2017. Right foot radiographs. 01/08/2017 right foot TECHNIQUE: Radionuclide dose: 26.8 Tc99m MDP Site of administration: Right hand Technique: Three-phase FINDINGS: Flow component: Increase flow to the right foot Blood pool component: Retention of radionuclide at the surgical site 1st digit. Delayed images at 3:00: Focal increased uptake remains at 03:00 1st metatarsal. IMPRESSION: Findings consistent with cellulitis/ postoperative change. No evidence of superimposed, acute osteomyelitis.
[2017-02-13] MEDS: Sodium Bicarbonate 8.4% 150 MEQ in Dextrose 5% In Water 1,000 ML IV SCH (18:25)
--- NOTE | 2017-02-13 19:03 | CP.PCM.PN ---
Subjective - Date & Time of Evaluation Date of Evaluation: 02/13/17 Time of Evaluation: 18:00 - Subjective Subjective: patient has less pain. family is at the bedside. Objective - Vital Signs/Intake and Output Vital Signs (last 24 hours): Temp Pulse Resp BP Pulse Ox 98.1 F 79 20 149/83 97 02/13/17 16:26 02/13/17 16:26 02/13/17 16:26 02/13/17 16:26 02/13/17 16:26 - Medications Medications: Current Medications Acetylcysteine (Acetylcysteine 20%) 6 ml PO Q12 [facility] Stop: 02/14/17 10:01 Last Admin: 02/13/17 10:34 Dose: 6 ml Allopurinol (Zyloprim) 100 mg PO DAILY [facility] Last Admin: 02/13/17 09:06 Dose: 100 mg Aspirin (Ecotrin) 81 mg PO DAILY [facility] Last Admin: 02/07/17 16:34 Dose: Not Given Cholecalciferol (Vitamin D) 1,000 iu PO DAILY [facility] Last Admin: 02/13/17 09:05 Dose: 1,000 iu Collagenase (Santyl) 1 applic TOP DAILY [facility] Last Admin: 02/13/17 09:03 Dose: 1 applic Dextrose (Glutose 15) 0 gm PO ONCE PRN; Protocol PRN Reason: Hypoglycemia Protocol Dextrose (Dextrose 50% Inj) 0 ml IV STAT PRN; Protocol PRN Reason: Hyglycemia Protocol Famotidine (Pepcid) 20 mg PO DAILY [facility] Last Admin: 02/13/17 09:03 Dose: 20 mg Furosemide (Lasix) 20 mg PO BID [facility] Last Admin: 02/13/17 09:01 Dose: 20 mg Glucagon (Glucagen Diagnostic Kit) 0 mg IM STAT PRN; Protocol PRN Reason: Hypoglycemia Protocol Home Med (Belatacept [Nulojix]) 1 dose IV Q30D [facility] Home Med (Mycophenolate Sodium [Myfortic]) 720 mg PO Q12 [facility] Last Admin: 02/13/17 09:01 Dose: 720 mg Hydralazine HCl (Apresoline) 25 mg PO TID [facility] Last Admin: 02/13/17 16:53 Dose: 25 mg Tigecycline 50 mg/ Sodium (Chloride) 100 mls @ 100 mls/hr IVPB Q12 [facility] Last Admin: 02/13/17 09:05 Dose: 100 mls/hr Sodium Bicarbonate 150 meq/ (Dextrose) 1,150 mls @ 75 mls/hr IV .[id number] [facility] Stop: 02/14/17 19:01 Last Admin: 02/13/17 18:25 Dose: 75 mls/hr Insulin Detemir (Levemir) 25 units SC HS [facility] Last Admin: 02/12/17 21:36 Dose: 25 units Insulin Human Lispro (Humalog) 20 units SC ACTID [facility] Insulin Human Regular (Humulin R) 0 units SC ACHS [facility] PRN Reason: Protocol Last Admin: 02/13/17 16:53 Dose: 3 units Lactobacillus Acidophilus (Bacid Acidophilus) 1 cap PO BID [facility] Last Admin: 02/13/17 16:54 Dose: 1 cap Levothyroxine Sodium (Synthroid) 75 mcg PO DAILY@0630 [facility] Last Admin: 02/13/17 06:33 Dose: 75 mcg Multivitamins/Minerals (Therapeutic-M Tab) 1 tab PO DAILY [facility] Last Admin: 02/13/17 09:01 Dose: 1 tab Prednisone (Prednisone Tab) 5 mg PO DAILY [facility] Last Admin: 02/13/17 09:03 Dose: 5 mg Rivaroxaban (Xarelto) 15 mg PO [facility] PRN Reason: Protocol Tamsulosin HCl (Flomax) 0.4 mg PO DAILY [facility] Last Admin: 02/13/17 09:02 Dose: 0.4 mg - Labs Labs: 02/12/17 10:45 02/12/17 10:45 - Constitutional Appears: Non-toxic - Head Exam Head Exam: NORMAL INSPECTION - Eye Exam Eye Exam: Normal appearance - ENT Exam ENT Exam: Mucous Membranes Moist - Neck Exam Neck Exam: Full ROM - Respiratory Exam Respiratory Exam: Decreased Breath Sounds - Cardiovascular Exam Cardiovascular Exam: REGULAR RHYTHM - GI/Abdominal Exam GI & Abdominal Exam: Normal Bowel Sounds - Rectal Exam Rectal Exam: Deferred - Extremities Exam Extremities Exam: absent: Pedal Edema - Back Exam Back Exam: NORMAL INSPECTION - Neurological Exam Neurological Exam: Alert - Psychiatric Exam Psychiatric exam: Normal Affect - Skin Skin Exam: Normal Color Assessment and Plan (1) Diabetic foot ulcer Assessment & Plan: will plan for peripheral angiogram tomorrow. full risks of contrast induced nephropathy again detailed with the patient. Discussed with Dr. Fuchs and appreciated. Status: Acute (2) Hypertension Status: Acute (3) Status post kidney transplant Status: Acute (4) Atrial fibrillation Status: Chronic
[2017-02-13] MEDS: Insulin Detemir 100 Units/ml Inj SC SCH (21:53)
--- NOTE | 2017-02-14 07:15 | CP.PCM.PN ---
Subjective - Date & Time of Evaluation Date of Evaluation: 02/14/17 Time of Evaluation: 07:15 - Subjective Subjective: 66M taken to [facility] for angiogram and not seen until post-procedure. Pt reports feeling well after procedure and is lying flat after LEFT groin access. He denies SOB, palpitations, chest pain. Objective - Vital Signs/Intake and Output Vital Signs (last 24 hours): Temp Pulse Resp BP Pulse Ox 36.9 C 52 L 20 154/72 H 98 02/13/17 20:34 02/13/17 20:34 02/13/17 20:34 02/13/17 20:34 02/13/17 20:34 - Medications Medications: Current Medications Acetylcysteine (Acetylcysteine 20%) 6 ml PO Q12 [facility] Stop: 02/14/17 10:01 Last Admin: 02/13/17 20:14 Dose: 6 ml Allopurinol (Zyloprim) 100 mg PO DAILY [facility] Last Admin: 02/13/17 09:06 Dose: 100 mg Aspirin (Ecotrin) 81 mg PO DAILY [facility] Last Admin: 02/07/17 16:34 Dose: Not Given Cholecalciferol (Vitamin D) 1,000 iu PO DAILY [facility] Last Admin: 02/13/17 09:05 Dose: 1,000 iu Collagenase (Santyl) 1 applic TOP DAILY [facility] Last Admin: 02/13/17 09:03 Dose: 1 applic Dextrose (Glutose 15) 0 gm PO ONCE PRN; Protocol PRN Reason: Hypoglycemia Protocol Dextrose (Dextrose 50% Inj) 0 ml IV STAT PRN; Protocol PRN Reason: Hyglycemia Protocol Famotidine (Pepcid) 20 mg PO DAILY [facility] Last Admin: 02/13/17 09:03 Dose: 20 mg Furosemide (Lasix) 20 mg PO BID [facility] Last Admin: 02/13/17 09:01 Dose: 20 mg Glucagon (Glucagen Diagnostic Kit) 0 mg IM STAT PRN; Protocol PRN Reason: Hypoglycemia Protocol Home Med (Belatacept [Nulojix]) 1 dose IV Q30D [facility] Home Med (Mycophenolate Sodium [Myfortic]) 720 mg PO Q12 [facility] Last Admin: 02/13/17 20:03 Dose: 720 mg Hydralazine HCl (Apresoline) 25 mg PO TID [facility] Last Admin: 02/13/17 16:53 Dose: 25 mg Tigecycline 50 mg/ Sodium (Chloride) 100 mls @ 100 mls/hr IVPB Q12 [facility] Last Admin: 02/13/17 20:02 Dose: 100 mls/hr Sodium Bicarbonate 150 meq/ (Dextrose) 1,150 mls @ 75 mls/hr IV .[id number] [facility] Stop: 02/14/17 19:01 Last Admin: 02/13/17 18:25 Dose: 75 mls/hr Insulin Detemir (Levemir) 25 units SC [facility] Last Admin: 02/13/17 21:53 Dose: 25 units Insulin Human Lispro (Humalog) 20 units SC ACTID [facility] Insulin Human Regular (Humulin R) 0 units SC ACHS [facility] PRN Reason: Protocol Last Admin: 02/13/17 21:52 Dose: Not Given Lactobacillus Acidophilus (Bacid Acidophilus) 1 cap PO BID [facility] Last Admin: 02/13/17 16:54 Dose: 1 cap Levothyroxine Sodium (Synthroid) 75 mcg PO DAILY@0630 [facility] Last Admin: 02/13/17 06:33 Dose: 75 mcg Multivitamins/Minerals (Therapeutic-M Tab) 1 tab PO DAILY [facility] Last Admin: 02/13/17 09:01 Dose: 1 tab Prednisone (Prednisone Tab) 5 mg PO DAILY [facility] Last Admin: 02/13/17 09:03 Dose: 5 mg Rivaroxaban (Xarelto) 15 mg PO [facility] PRN Reason: Protocol Tamsulosin HCl (Flomax) 0.4 mg PO DAILY [facility] Last Admin: 02/13/17 09:02 Dose: 0.4 mg - Labs Labs: 02/12/17 10:45 02/12/17 10:45 - Constitutional Appears: Well, No Acute Distress - Head Exam Head Exam: ATRAUMATIC, NORMAL INSPECTION - Eye Exam Eye Exam: EOMI, Normal appearance - ENT Exam ENT Exam: Mucous Membranes Moist, Normal Exam - Neck Exam Neck Exam: Full ROM, Normal Inspection - Respiratory Exam Respiratory Exam: Clear to Ausculation Bilateral, NORMAL BREATHING PATTERN. absent: Rales, Wheezes - Cardiovascular Exam Cardiovascular Exam: Irregular Rhythm. absent: JVD - GI/Abdominal Exam GI & Abdominal Exam: Soft (LEFT groin drsg intact, no swelling), Normal Bowel Sounds. absent: Tenderness - Extremities Exam Extremities Exam: absent: Calf Tenderness, Normal Inspection (RIGHT foot drsg in place, LUE A-V fistula bruit/thrill +) - Neurological Exam Neurological Exam: Alert, Awake, Oriented x3 - Psychiatric Exam Psychiatric exam: Normal Affect, Normal Mood - Skin Skin Exam: Normal Color Assessment and Plan (1) Diabetic foot ulcer Assessment & Plan: Delayed RIGHT foot wound healing likely multi-factorial, however angiography today shows good 2-vessel run-off. - Podiatry Cx: Daily wound care - Nephrology Rec: D5+Bicarb, Mucomyst, statin - ID recs: IV abx for MDRO, Bone Scan: neg, pt wishes to go home, but IV abx cost is an issue - Cardiology Cx (Dr Preston): will confirm re-start Xarelto 02/15 - PICC in place Status: Acute (2) DVT prophylaxis Assessment & Plan: Likely Xarelto to re-start 02/15, SCDs b/ at this time. Status: Acute (3) Atrial fibrillation Assessment & Plan: Rate-controlled, stable, likely re-start Xarelto 02/15 will confirm with cardiology. - c/w home medication - HOLD Xarelto Status: Chronic (4) Diabetes Assessment & Plan: Glucose not well-controlled, exacerbated by PO prednisone. May increase Levemir if glucose trend does not improve - Lispro 20U, SC, ACTID - Levemir 25U, SC, qHS - Hypoglycemia Bundle - Accu-check ACHS Status: Chronic (5) Renal transplant recipient Assessment & Plan: Currently stable - Nephrology Consult (Dr Rola Avila/Dr Fuchs) appreciated - c/w Belatacept, monthly - c/w Mycophenolate, Q12H - Prednisone, PO - D5+Bicarb, Mucomyst, statin Status: Chronic (6) Hypothyroid Assessment & Plan: Controlled c/w home medication. Status: Chronic (7) BPH (benign prostatic hypertrophy) Assessment & Plan: Controlled c/w home medication. Status: Chronic
[2017-02-14 07:34] LABS: HEMATOCRIT 41.2 % (35.0-51.0); MEAN CORPUSCULAR HGB CONC 31.3 g/dL (33.0-37.0); RED CELL DISTRIBUTION WIDTH 16.8 % (11.5-14.5); WHITE BLOOD COUNT 7.6 K/uL (4.8-10.8)
[2017-02-14 07:46] LABS: BLOOD UREA NITROGEN 32 mg/dl (9-20); CALCIUM 9.4 mg/dL (8.4-10.2); CARBON DIOXIDE 29 mmol/L (22-30); CHLORIDE 98 mmol/L (98-107); GFR AFRICAN-AMERICAN > 60; GLUCOSE,RANDOM 222 mg/dL (75-110); SODIUM 138 mmol/l (132-148)
[2017-02-14] MEDS: Lactobacillus Acidophilus 500 MU Cap PO SCH ×2 (09:43→16:56)
[2017-02-14] MEDS: MYCOPHENOLATE SODIUM 180 MG PO SCH ×3 (09:44→21:35)
[2017-02-14] MEDS: Insulin Regular 100 units/ml SC SCH ×4 (09:44→21:48)
[2017-02-14] MEDS: Sodium Bicarbonate 8.4% 150 MEQ in Dextrose 5% In Water 1,000 ML IV SCH ×2 (09:45→13:50)
[2017-02-14] MEDS: Multivitamin With Minerals Tab PO SCH ×2 (09:45→14:24)
[2017-02-14] MEDS: Santyl Collagenase OINTMENT TOP SCH (09:45)
[2017-02-14] MEDS: Acetylcysteine 20% Inhal Soln (4ml) PO SCH (09:47)
--- NOTE | 2017-02-14 10:53 | CP.PCM.PN ---
Subjective - Date & Time of Evaluation Date of Evaluation: 02/14/17 Time of Evaluation: 10:52 - Subjective Subjective: Patient left the hospital to [facility] for angiogram As noted in the plan Plan: -renal - on myfortic, pred, and monthly belatacept (next infusion due 02/26) discussed care w/ dr. velazquez - given the poor healting and concern for arterial insufficiency (unable to mri due to pacemaker) he needs an angiogram to evaluate the circulation. Given his ckd/dm/kid txp he is at relatively high risk for XIN and understands the dye may cause christiano. I recommend hold lasix, start d5w w/3 amps of hco3 at 75 cc/hr starting 12 hours pre procedure and 1200 mg po mucmoust to help reduce risk. There is some questionable evidence that statins may reduce XIN as well and if there are no other contraindication to statin would consider starting. otherwise bp acceptable lytes stable Objective - Vital Signs/Intake and Output Vital Signs (last 24 hours): Temp Pulse Resp BP Pulse Ox 98.4 F 52 L 20 154/72 H 98 02/13/17 20:34 02/13/17 20:34 02/13/17 20:34 02/13/17 20:34 02/13/17 20:34 - Medications Medications: Current Medications Allopurinol (Zyloprim) 100 mg PO DAILY [facility] Last Admin: 02/14/17 09:46 Dose: Not Given Aspirin (Ecotrin) 81 mg PO DAILY [facility] Last Admin: 02/07/17 16:34 Dose: Not Given Cholecalciferol (Vitamin D) 1,000 iu PO DAILY [facility] Last Admin: 02/14/17 09:46 Dose: Not Given Collagenase (Santyl) 1 applic TOP DAILY [facility] Last Admin: 02/14/17 09:45 Dose: Not Given Dextrose (Glutose 15) 0 gm PO ONCE PRN; Protocol PRN Reason: Hypoglycemia Protocol Dextrose (Dextrose 50% Inj) 0 ml IV STAT PRN; Protocol PRN Reason: Hyglycemia Protocol Famotidine (Pepcid) 20 mg PO DAILY [facility] Last Admin: 02/14/17 09:44 Dose: Not Given Furosemide (Lasix) 20 mg PO BID [facility] Last Admin: 02/13/17 09:01 Dose: 20 mg Glucagon (Glucagen Diagnostic Kit) 0 mg IM STAT PRN; Protocol PRN Reason: Hypoglycemia Protocol Home Med (Belatacept [Nulojix]) 1 dose IV Q30D [facility] Home Med (Mycophenolate Sodium [Myfortic]) 720 mg PO Q12 [facility] Last Admin: 02/14/17 09:44 Dose: Not Given Hydralazine HCl (Apresoline) 25 mg PO TID [facility] Last Admin: 02/14/17 09:43 Dose: Not Given Tigecycline 50 mg/ Sodium (Chloride) 100 mls @ 100 mls/hr IVPB Q12 [facility] Last Admin: 02/14/17 09:46 Dose: Not Given Sodium Bicarbonate 150 meq/ (Dextrose) 1,150 mls @ 75 mls/hr IV .[id number] [facility] Stop: 02/14/17 19:01 Last Admin: 02/14/17 09:45 Dose: Not Given Insulin Detemir (Levemir) 25 units SC [facility] Last Admin: 02/13/17 21:53 Dose: 25 units Insulin Human Lispro (Humalog) 20 units SC ACTID [facility] Insulin Human Regular (Humulin R) 0 units SC ACHS [facility] PRN Reason: Protocol Last Admin: 02/14/17 09:44 Dose: Not Given Lactobacillus Acidophilus (Bacid Acidophilus) 1 cap PO BID [facility] Last Admin: 02/14/17 09:43 Dose: Not Given Levothyroxine Sodium (Synthroid) 75 mcg PO DAILY@0630 [facility] Last Admin: 02/13/17 06:33 Dose: 75 mcg Multivitamins/Minerals (Therapeutic-M Tab) 1 tab PO DAILY [facility] Last Admin: 02/14/17 09:45 Dose: Not Given Prednisone (Prednisone Tab) 5 mg PO DAILY [facility] Last Admin: 02/14/17 09:45 Dose: Not Given Rivaroxaban (Xarelto) 15 mg PO [facility] PRN Reason: Protocol Tamsulosin HCl (Flomax) 0.4 mg PO DAILY [facility] Last Admin: 02/14/17 09:43 Dose: Not Given - Labs Labs: 02/14/17 07:14 02/14/17 07:14
[2017-02-14] MEDS: Levothyroxine 75 MCG TAB PO SCH (14:23)
--- NOTE | 2017-02-14 15:28 | CP.PCM.PN ---
Subjective - Date & Time of Evaluation Date of Evaluation: 02/14/17 Time of Evaluation: 15:28 - Subjective Subjective: 66 year old male PMHx of A fib, DM II, HTN, Hypercholesterolemia, Hypothyroidism , Pneumonia, CKD was seen at bedside this afternoon. He went for a CTA this morning. He said everything went well and he does not need a procedure. He denies any pain. He denies n/v/f/c/sob/cp. Objective - Vital Signs/Intake and Output Vital Signs (last 24 hours): Temp Pulse Resp BP Pulse Ox 98.4 F 52 L 20 154/72 H 98 02/13/17 20:34 02/13/17 20:34 02/13/17 20:34 02/13/17 20:34 02/13/17 20:34 - Medications Medications: Current Medications Acetylcysteine (Acetylcysteine 20%) 6 ml PO Q12 [facility] Stop: 02/16/17 09:01 Allopurinol (Zyloprim) 100 mg PO DAILY [facility] Last Admin: 02/14/17 14:24 Dose: 100 mg Aspirin (Ecotrin) 81 mg PO DAILY [facility] Last Admin: 02/07/17 16:34 Dose: Not Given Cholecalciferol (Vitamin D) 1,000 iu PO DAILY [facility] Last Admin: 02/14/17 14:24 Dose: 1,000 iu Collagenase (Santyl) 1 applic TOP DAILY [facility] Last Admin: 02/14/17 09:45 Dose: Not Given Dextrose (Glutose 15) 0 gm PO ONCE PRN; Protocol PRN Reason: Hypoglycemia Protocol Dextrose (Dextrose 50% Inj) 0 ml IV STAT PRN; Protocol PRN Reason: Hyglycemia Protocol Famotidine (Pepcid) 20 mg PO DAILY [facility] Last Admin: 02/14/17 14:23 Dose: 20 mg Furosemide (Lasix) 20 mg PO BID [facility] Last Admin: 02/13/17 09:01 Dose: 20 mg Glucagon (Glucagen Diagnostic Kit) 0 mg IM STAT PRN; Protocol PRN Reason: Hypoglycemia Protocol Home Med (Belatacept [Nulojix]) 1 dose IV Q30D [facility] Home Med (Mycophenolate Sodium [Myfortic]) 720 mg PO Q12 [facility] Last Admin: 02/14/17 14:22 Dose: 720 mg Hydralazine HCl (Apresoline) 25 mg PO TID [facility] Last Admin: 02/14/17 13:59 Dose: Not Given Tigecycline 50 mg/ Sodium (Chloride) 100 mls @ 100 mls/hr IVPB Q12 [facility] Last Admin: 02/14/17 14:20 Dose: 100 mls/hr Sodium Bicarbonate 150 meq/ (Dextrose) 1,150 mls @ 75 mls/hr IV .[id number] [facility] Stop: 02/14/17 19:01 Last Admin: 02/14/17 09:45 Dose: Not Given Sodium Bicarbonate 150 meq/ (Dextrose) 1,150 mls @ 75 mls/hr IV .[id number] [facility] Last Admin: 02/14/17 13:50 Dose: 75 mls/hr Insulin Detemir (Levemir) 25 units SC [facility] Last Admin: 02/13/17 21:53 Dose: 25 units Insulin Human Lispro (Humalog) 20 units SC ACTID [facility] Insulin Human Regular (Humulin R) 0 units SC ACHS [facility] PRN Reason: Protocol Last Admin: 02/14/17 11:30 Dose: Not Given Lactobacillus Acidophilus (Bacid Acidophilus) 1 cap PO BID [facility] Last Admin: 02/14/17 09:43 Dose: Not Given Levothyroxine Sodium (Synthroid) 75 mcg PO DAILY@0630 [facility] Last Admin: 02/14/17 14:23 Dose: 75 mcg Multivitamins/Minerals (Therapeutic-M Tab) 1 tab PO DAILY [facility] Last Admin: 02/14/17 14:24 Dose: 1 tab Prednisone (Prednisone Tab) 5 mg PO DAILY [facility] Last Admin: 02/14/17 14:23 Dose: 5 mg Rivaroxaban (Xarelto) 15 mg PO [facility] PRN Reason: Protocol Tamsulosin HCl (Flomax) 0.4 mg PO DAILY [facility] Last Admin: 02/14/17 14:22 Dose: 0.4 mg - Labs Labs: 02/14/17 07:14 02/14/17 07:14 - Constitutional Appears: Well, Non-toxic, No Acute Distress - Extremities Exam Additional comments: Right lower extremity focused exam: VASC: Palpable DP pulse at 2/4, non-palpable PT pulse, CFT < 3 sec to all digits. Skin temperature warm to warm from proximal to distal. DERM: Open wound noted to the previous surgical site on the dorsum of the 1st metatarsal head measuring approximate 4 cm x 1.5 cm x 0.3 cm with fibro- granular base. No purulent discharge noted. No probe to bone. Necrotic change with dark discoloration noted to skin around the wound dehiscence measuring approximately 6 cm x 4 cm extending from at the level of MTPJ to level of Hallux PIPJ, and continuing circumstantially around the plantar medial aspect of the hallux. Necrotic changes noted to lateral aspect of Right 5th metatarsal head measuring approximately 2.5 cm x 1.5 cm. No open wound noted from this area. No drainage, no probe to bone, periwound is hyperkeratotic. Open ulceration (chronic) is noted to plantar aspect of right 1st metatarsal measuring approximately 1cm x 1cm x 0.3cm with granular base. Circumferential Hyperkeratic tissue noted around the ulcer with 0.4cm margin. No purulent drainage. No erythema around the ulcer. No Mal-odor noted. NEURO: Protective sensation grossly diminished ORTHO: No pain on palpation to right foot - Neurological Exam Neurological Exam: Alert, Awake, Oriented x3 - Psychiatric Exam Psychiatric exam: Normal Affect, Normal Mood Assessment and Plan - Assessment and Plan (Free Text) Assessment: 66 y/o male patient presents with necrotic change and wound dehiscence to Right foot Plan: Patient examined and evaluated with attending, Dr. Jewell Chart and vitals reviewed Wound cx; E. Coli Continue IV abx per ID Right wound dressed with santyl, DSD, continue wound care daily Patient to ambulate with surgical shoe, weight to heel, offload forefoot Bone scan-no evidence of acute OM, findings consistent with cellulitis/post-op changes Patient had CTA today, no intervention needed Will discuss with case management home nursing for dressing changes Podiatry will continue to monitor while patient remains in house
[2017-02-14 19:57] VITALS: RESP 20
[2017-02-14] MEDS ORDERED: Acetylcysteine 20% Inhal Soln (4ml) PO SCH (21:00)
[2017-02-14] MEDS: Insulin Detemir 100 Units/ml Inj SC SCH (21:49)
[2017-02-15] MEDS: Sodium Bicarbonate 8.4% 150 MEQ in Dextrose 5% In Water 1,000 ML IV SCH (04:35)
--- NOTE | 2017-02-15 06:13 | CP.PCM.PN ---
Subjective - Date & Time of Evaluation Date of Evaluation: 02/15/17 Time of Evaluation: 06:11 - Subjective Subjective: 66 year old male PMHx of A fib, DM II, HTN, Hypercholesterolemia, Hypothyroidism , Pneumonia, CKD was seen resting comfortably at bedside this morning. He states that Dr. Jewell came to see him last night. He denies any acute events overnight. He denies any pain. He denies n/v/f/c/sob/cp. Objective - Vital Signs/Intake and Output Vital Signs (last 24 hours): Temp Pulse Resp BP Pulse Ox 98.3 F 57 L 20 169/69 H 99 02/14/17 19:57 02/14/17 19:57 02/14/17 19:57 02/14/17 19:57 02/14/17 19:57 - Medications Medications: Current Medications Acetylcysteine (Acetylcysteine 20%) 6 ml PO Q12 [facility] Stop: 02/16/17 09:01 Allopurinol (Zyloprim) 100 mg PO DAILY [facility] Last Admin: 02/14/17 14:24 Dose: 100 mg Aspirin (Ecotrin) 81 mg PO DAILY [facility] Last Admin: 02/07/17 16:34 Dose: Not Given Atorvastatin Calcium (Lipitor) 20 mg PO DAILY [facility] Cholecalciferol (Vitamin D) 1,000 iu PO DAILY [facility] Last Admin: 02/14/17 14:24 Dose: 1,000 iu Collagenase (Santyl) 1 applic TOP DAILY [facility] Last Admin: 02/14/17 09:45 Dose: Not Given Dextrose (Glutose 15) 0 gm PO ONCE PRN; Protocol PRN Reason: Hypoglycemia Protocol Dextrose (Dextrose 50% Inj) 0 ml IV STAT PRN; Protocol PRN Reason: Hyglycemia Protocol Famotidine (Pepcid) 20 mg PO DAILY [facility] Last Admin: 02/14/17 14:23 Dose: 20 mg Furosemide (Lasix) 20 mg PO BID [facility] Last Admin: 02/13/17 09:01 Dose: 20 mg Glucagon (Glucagen Diagnostic Kit) 0 mg IM STAT PRN; Protocol PRN Reason: Hypoglycemia Protocol Home Med (Belatacept [Nulojix]) 1 dose IV Q30D [facility] Home Med (Mycophenolate Sodium [Myfortic]) 720 mg PO Q12 [facility] Last Admin: 02/14/17 21:35 Dose: 720 mg Hydralazine HCl (Apresoline) 25 mg PO TID [facility] Last Admin: 02/14/17 16:57 Dose: 25 mg Tigecycline 50 mg/ Sodium (Chloride) 100 mls @ 100 mls/hr IVPB Q12 [facility] Last Admin: 02/14/17 21:34 Dose: 100 mls/hr Sodium Bicarbonate 150 meq/ (Dextrose) 1,150 mls @ 75 mls/hr IV .[id number] [facility] Last Admin: 02/14/17 13:50 Dose: 75 mls/hr Insulin Detemir (Levemir) 25 units SC HS [facility] Last Admin: 02/14/17 21:49 Dose: 25 units Insulin Human Lispro (Humalog) 20 units SC ACTID [facility] Insulin Human Regular (Humulin R) 0 units SC ACHS [facility] PRN Reason: Protocol Last Admin: 02/14/17 21:48 Dose: Not Given Lactobacillus Acidophilus (Bacid Acidophilus) 1 cap PO BID [facility] Last Admin: 02/14/17 16:56 Dose: 1 cap Levothyroxine Sodium (Synthroid) 75 mcg PO DAILY@0630 [facility] Last Admin: 02/14/17 14:23 Dose: 75 mcg Multivitamins/Minerals (Therapeutic-M Tab) 1 tab PO DAILY [facility] Last Admin: 02/14/17 14:24 Dose: 1 tab Prednisone (Prednisone Tab) 5 mg PO DAILY [facility] Last Admin: 02/14/17 14:23 Dose: 5 mg Rivaroxaban (Xarelto) 15 mg PO [facility] PRN Reason: Protocol Last Admin: 02/14/17 23:13 Dose: 15 mg Tamsulosin HCl (Flomax) 0.4 mg PO DAILY [facility] Last Admin: 02/14/17 14:22 Dose: 0.4 mg - Labs Labs: 02/14/17 07:14 02/14/17 07:14 - Constitutional Appears: Well, Non-toxic, No Acute Distress - Extremities Exam Additional comments: Right lower extremity focused exam: VASC: Palpable DP pulse at 2/4, non-palpable PT pulse, CFT < 3 sec to all digits. Skin temperature warm to warm from proximal to distal. DERM: Open wound noted to the previous surgical site on the dorsum of the 1st metatarsal head measuring approximate 4 cm x 1.5 cm x 0.3 cm with fibro- granular base. No purulent discharge noted. No probe to bone. Necrotic change with dark discoloration noted to skin around the wound dehiscence measuring approximately 6 cm x 4 cm extending from at the level of MTPJ to level of Hallux PIPJ, and continuing circumstantially around the plantar medial aspect of the hallux. Necrotic changes noted to lateral aspect of Right 5th metatarsal head measuring approximately 2.5 cm x 1.5 cm. No open wound noted from this area. No drainage, no probe to bone, periwound is hyperkeratotic. Open ulceration (chronic) is noted to plantar aspect of right 1st metatarsal measuring approximately 1cm x 1cm x 0.3cm with granular base. Circumferential Hyperkeratic tissue noted around the ulcer with 0.4cm margin. No purulent drainage. No erythema around the ulcer. No Mal-odor noted. NEURO: Protective sensation grossly diminished ORTHO: No pain on palpation to right foot - Neurological Exam Neurological Exam: Alert, Awake, Oriented x3 - Psychiatric Exam Psychiatric exam: Normal Affect, Normal Mood Assessment and Plan - Assessment and Plan (Free Text) Assessment: 66 year old male presents with necrotic change and wound dehiscence to right foot Plan: Patient examined and evaluated with attending, Dr. Jewell Chart and vitals reviewed Continue IV abx per ID-Tigecycline Right wound dressed with santyl, moist gauze,DSD, continue wound care daily Dressing changes daily Patient to ambulate with surgical shoe, weight to heel, offload forefoot Patient to follow up with Dr. Jewell in office
[2017-02-15] MEDS: Levothyroxine 75 MCG TAB PO SCH (06:44)
[2017-02-15 07:43] LABS: HEMATOCRIT 37.7 % (35.0-51.0); MEAN CORPUSCULAR HEMOGLOBIN 26.6 pg (27.0-31.0); MEAN CORPUSCULAR HGB CONC 32.4 g/dL (33.0-37.0); WHITE BLOOD COUNT 6.9 K/uL (4.8-10.8)
[2017-02-15 07:58] LABS: BLOOD UREA NITROGEN 29 mg/dl (9-20); CARBON DIOXIDE 29 mmol/L (22-30); CHLORIDE 97 mmol/L (98-107); GFR AFRICAN-AMERICAN > 60; GLUCOSE,RANDOM 313 mg/dL (75-110); POTASSIUM 4.3 MMOL/L (3.6-5.0); SODIUM 138 mmol/l (132-148)
[2017-02-15] MEDS: Santyl Collagenase OINTMENT TOP SCH ×2 (08:34→08:36)
[2017-02-15] MEDS: Multivitamin With Minerals Tab PO SCH (08:34)
[2017-02-15] MEDS: MYCOPHENOLATE SODIUM 180 MG PO SCH (08:34)
[2017-02-15] MEDS: Lactobacillus Acidophilus 500 MU Cap PO SCH ×2 (08:39→16:05)
[2017-02-15] MEDS: Insulin Regular 100 units/ml SC SCH ×2 (08:41→12:04)
[2017-02-15] MEDS: Insulin Lispro (humaLOG) 100 Units/ml Inj SC SCH ×4 (08:42→16:23)
--- NOTE | 2017-02-15 09:18 | CP.PCM.PN ---
Subjective - Date & Time of Evaluation Date of Evaluation: 02/15/17 Time of Evaluation: 07:15 - Subjective Subjective: 66M Objective - Vital Signs/Intake and Output Vital Signs (last 24 hours): Temp Pulse Resp BP Pulse Ox 36.6 C 81 20 140/83 93 L 02/15/17 07:33 02/15/17 07:33 02/15/17 07:33 02/15/17 07:33 02/15/17 07:33 - Medications Medications: Current Medications Acetylcysteine (Acetylcysteine 20%) 6 ml PO Q12 [facility] Stop: 02/16/17 09:01 Allopurinol (Zyloprim) 100 mg PO DAILY [facility] Last Admin: 02/15/17 08:34 Dose: 100 mg Aspirin (Ecotrin) 81 mg PO DAILY [facility] Last Admin: 02/15/17 08:38 Dose: 81 mg Atorvastatin Calcium (Lipitor) 20 mg PO DAILY [facility] Last Admin: 02/15/17 08:39 Dose: 20 mg Cholecalciferol (Vitamin D) 1,000 iu PO DAILY [facility] Last Admin: 02/15/17 08:35 Dose: 1,000 iu Collagenase (Santyl) 1 applic TOP DAILY [facility] Last Admin: 02/15/17 08:36 Dose: 1 applic Dextrose (Glutose 15) 0 gm PO ONCE PRN; Protocol PRN Reason: Hypoglycemia Protocol Dextrose (Dextrose 50% Inj) 0 ml IV STAT PRN; Protocol PRN Reason: Hyglycemia Protocol Famotidine (Pepcid) 20 mg PO DAILY [facility] Last Admin: 02/15/17 08:35 Dose: 20 mg Furosemide (Lasix) 20 mg PO BID [facility] Last Admin: 02/13/17 09:01 Dose: 20 mg Glucagon (Glucagen Diagnostic Kit) 0 mg IM STAT PRN; Protocol PRN Reason: Hypoglycemia Protocol Home Med (Belatacept [Nulojix]) 1 dose IV Q30D [facility] Home Med (Mycophenolate Sodium [Myfortic]) 720 mg PO Q12 [facility] Last Admin: 02/15/17 08:34 Dose: 720 mg Hydralazine HCl (Apresoline) 25 mg PO TID [facility] Last Admin: 02/15/17 08:34 Dose: 25 mg Tigecycline 50 mg/ Sodium (Chloride) 100 mls @ 100 mls/hr IVPB Q12 [facility] Last Admin: 02/14/17 21:34 Dose: 100 mls/hr Sodium Bicarbonate 150 meq/ (Dextrose) 1,150 mls @ 75 mls/hr IV .[id number] [facility] Last Admin: 02/15/17 04:35 Dose: 75 mls/hr Insulin Detemir (Levemir) 25 units SC HS [facility] Last Admin: 02/14/17 21:49 Dose: 25 units Insulin Human Lispro (Humalog) 20 units SC ACTID [facility] Last Admin: 02/15/17 08:42 Dose: 20 units Insulin Human Regular (Humulin R) 0 units SC ACHS [facility] PRN Reason: Protocol Last Admin: 02/15/17 08:41 Dose: Not Given Lactobacillus Acidophilus (Bacid Acidophilus) 1 cap PO BID [facility] Last Admin: 02/15/17 08:39 Dose: 1 cap Levothyroxine Sodium (Synthroid) 75 mcg PO DAILY@0630 [facility] Last Admin: 02/15/17 06:44 Dose: 75 mcg Multivitamins/Minerals (Therapeutic-M Tab) 1 tab PO DAILY [facility] Last Admin: 02/15/17 08:34 Dose: 1 tab Prednisone (Prednisone Tab) 5 mg PO DAILY [facility] Last Admin: 02/15/17 08:36 Dose: 5 mg Rivaroxaban (Xarelto) 15 mg PO [facility] PRN Reason: Protocol Last Admin: 02/14/17 23:13 Dose: 15 mg Tamsulosin HCl (Flomax) 0.4 mg PO DAILY [facility] Last Admin: 02/15/17 08:35 Dose: 0.4 mg - Labs Labs: 02/15/17 06:10 02/15/17 06:10 Assessment and Plan (1) Diabetic foot ulcer Status: Acute (2) DVT prophylaxis Status: Acute (3) Atrial fibrillation Status: Chronic (4) Diabetes Status: Chronic (5) Renal transplant recipient Status: Chronic (6) Hypothyroid Status: Chronic (7) BPH (benign prostatic hypertrophy) Status: Chronic
--- NOTE | 2017-02-15 09:43 | CP.PCM.PN ---
Subjective - Date & Time of Evaluation Date of Evaluation: 02/15/17 Time of Evaluation: 09:41 - Subjective Subjective: Patient is out of bed feels good Patient is having his breakfast no complaining Objective - Vital Signs/Intake and Output Vital Signs (last 24 hours): Temp Pulse Resp BP Pulse Ox 97.9 F 81 20 140/83 93 L 02/15/17 07:33 02/15/17 07:33 02/15/17 07:33 02/15/17 07:33 02/15/17 07:33 - Medications Medications: Current Medications Acetylcysteine (Acetylcysteine 20%) 6 ml PO Q12 [facility] Stop: 02/16/17 09:01 Allopurinol (Zyloprim) 100 mg PO DAILY [facility] Last Admin: 02/15/17 08:34 Dose: 100 mg Aspirin (Ecotrin) 81 mg PO DAILY [facility] Last Admin: 02/15/17 08:38 Dose: 81 mg Atorvastatin Calcium (Lipitor) 20 mg PO DAILY [facility] Last Admin: 02/15/17 08:39 Dose: 20 mg Cholecalciferol (Vitamin D) 1,000 iu PO DAILY [facility] Last Admin: 02/15/17 08:35 Dose: 1,000 iu Collagenase (Santyl) 1 applic TOP DAILY [facility] Last Admin: 02/15/17 08:36 Dose: 1 applic Dextrose (Glutose 15) 0 gm PO ONCE PRN; Protocol PRN Reason: Hypoglycemia Protocol Dextrose (Dextrose 50% Inj) 0 ml IV STAT PRN; Protocol PRN Reason: Hyglycemia Protocol Famotidine (Pepcid) 20 mg PO DAILY [facility] Last Admin: 02/15/17 08:35 Dose: 20 mg Furosemide (Lasix) 20 mg PO BID [facility] Last Admin: 02/13/17 09:01 Dose: 20 mg Glucagon (Glucagen Diagnostic Kit) 0 mg IM STAT PRN; Protocol PRN Reason: Hypoglycemia Protocol Home Med (Belatacept [Nulojix]) 1 dose IV Q30D [facility] Home Med (Mycophenolate Sodium [Myfortic]) 720 mg PO Q12 [facility] Last Admin: 02/15/17 08:34 Dose: 720 mg Hydralazine HCl (Apresoline) 25 mg PO TID [facility] Last Admin: 02/15/17 08:34 Dose: 25 mg Tigecycline 50 mg/ Sodium (Chloride) 100 mls @ 100 mls/hr IVPB Q12 [facility] Last Admin: 02/14/17 21:34 Dose: 100 mls/hr Sodium Bicarbonate 150 meq/ (Dextrose) 1,150 mls @ 75 mls/hr IV .[id number] [facility] Last Admin: 02/15/17 04:35 Dose: 75 mls/hr Insulin Detemir (Levemir) 25 units SC HS [facility] Last Admin: 02/14/17 21:49 Dose: 25 units Insulin Human Lispro (Humalog) 20 units SC ACTID [facility] Last Admin: 02/15/17 08:42 Dose: 20 units Insulin Human Regular (Humulin R) 0 units SC ACHS [facility] PRN Reason: Protocol Last Admin: 02/15/17 08:41 Dose: Not Given Lactobacillus Acidophilus (Bacid Acidophilus) 1 cap PO BID [facility] Last Admin: 02/15/17 08:39 Dose: 1 cap Levothyroxine Sodium (Synthroid) 75 mcg PO DAILY@0630 [facility] Last Admin: 02/15/17 06:44 Dose: 75 mcg Multivitamins/Minerals (Therapeutic-M Tab) 1 tab PO DAILY [facility] Last Admin: 02/15/17 08:34 Dose: 1 tab Prednisone (Prednisone Tab) 5 mg PO DAILY [facility] Last Admin: 02/15/17 08:36 Dose: 5 mg Rivaroxaban (Xarelto) 15 mg PO [facility] PRN Reason: Protocol Last Admin: 02/14/17 23:13 Dose: 15 mg Tamsulosin HCl (Flomax) 0.4 mg PO DAILY [facility] Last Admin: 02/15/17 08:35 Dose: 0.4 mg - Labs Labs: 02/15/17 06:10 02/15/17 06:10 - Constitutional Appears: No Acute Distress - ENT Exam ENT Exam: Mucous Membranes Moist - Respiratory Exam Respiratory Exam: NORMAL BREATHING PATTERN. absent: Chest Wall Tenderness - Cardiovascular Exam Cardiovascular Exam: absent: JVD, Rubs - GI/Abdominal Exam GI & Abdominal Exam: Normal Bowel Sounds - Extremities Exam Extremities Exam: absent: Calf Tenderness - Back Exam Back Exam: absent: CVA tenderness (L), CVA tenderness (R) - Neurological Exam Neurological Exam: Alert Assessment and Plan (1) Diabetic foot ulcer Status: Acute (2) CKD stage 2 due to type 2 diabetes mellitus Assessment & Plan: Status post arteriogram yesterday Kidney function stable Serum creatinine stable To discontinue IV fluid resume his medications Status: Acute
--- NOTE | 2017-02-15 13:09 | CP.PCM.DIS ---
Provider - Provider Date of Admission: 02/07/17 00:51 Attending physician: Osmel Frey MD Time Spent in preparation of Discharge (in minutes): 45 Diagnosis - Discharge Diagnosis (1) Diabetic foot ulcer Status: Acute (2) Atrial fibrillation Status: Chronic (3) Diabetes Status: Chronic (4) Renal transplant recipient Status: Chronic (5) Hypothyroid Status: Chronic (6) BPH (benign prostatic hypertrophy) Status: Chronic Hospital Course - Lab Results Lab Results: Most Recent Lab Values WBC 6.9 K/uL (4.8-10.8) 02/15/17 06:10 RBC 4.61 Mil/uL (4.40-5.90) 02/15/17 06:10 Hgb 12.2 g/dL (12.0-18.0) 02/15/17 06:10 Hct 37.7 % (35.0-51.0) 02/15/17 06:10 MCV 82.0 fl (80.0-94.0) 02/15/17 06:10 MCH 26.6 pg (27.0-31.0) L 02/15/17 06:10 MCHC 32.4 g/dL (33.0-37.0) L 02/15/17 06:10 RDW 17.0 % (11.5-14.5) H 02/15/17 06:10 Plt Count 185 K/uL (130-400) 02/15/17 06:10 MPV 8.8 fl (7.2-11.7) 02/06/17 23:49 Neut % (Auto) 76.2 % (50.0-75.0) H 02/06/17 23:49 Lymph % (Auto) 10.6 % (20.0-40.0) L 02/06/17 23:49 [place] % (Auto) 10.2 % (0.0-10.0) H 02/06/17 23:49 Eos % (Auto) 2.1 % (0.0-4.0) 02/06/17 23:49 Baso % (Auto) 0.9 % (0.0-2.0) 02/06/17 23:49 Neut # 7.3 K/uL (1.8-7.0) H 02/06/17 23:49 Lymph # 1.0 K/uL (1.0-4.3) 02/06/17 23:49 [place] # 1.0 K/uL (0.0-0.8) H 02/06/17 23:49 Eos # 0.2 K/uL (0.0-0.7) 02/06/17 23:49 Baso # 0.1 K/uL (0.0-0.2) 02/06/17 23:49 ESR 32 mm/hr (0-20) H 02/07/17 11:15 Sodium 138 mmol/l (132-148) 02/15/17 06:10 Potassium 4.3 MMOL/L (3.6-5.0) 02/15/17 06:10 Chloride 97 mmol/L (98-107) L 02/15/17 06:10 Carbon Dioxide 29 mmol/L (22-30) 02/15/17 06:10 Anion Gap 16 (10-20) 02/15/17 06:10 BUN 29 mg/dl (9-20) H 02/15/17 06:10 Creatinine 1.3 mg/dL (0.8-1.5) 02/15/17 06:10 Est GFR ( Amer) > 60 02/15/17 06:10 Est GFR (Non-Af Amer) 55 02/15/17 06:10 POC Glucose (mg/dL) 180 mg/dL (65-110) H 02/15/17 10:53 Random Glucose 313 mg/dL (75-110) H 02/15/17 06:10 Lactic Acid 1.1 MMOL/L (0.7-2.1) 02/06/17 23:49 Calcium 9.0 mg/dL (8.4-10.2) 02/15/17 06:10 Phosphorus 4.5 mg/dl (2.5-4.5) 02/07/17 19:00 Magnesium 2.2 MG/DL (1.6-2.3) 02/07/17 19:00 Total Bilirubin 0.9 mg/dl (0.2-1.3) 02/08/17 05:30 AST 29 U/L (17-59) 02/08/17 05:30 ALT 37 U/L (21-72) 02/08/17 05:30 Alkaline Phosphatase 107 U/L (38-126) 02/08/17 05:30 Total Protein 6.5 G/DL (6.3-8.2) 02/08/17 05:30 Albumin 3.8 g/dL (3.5-5.0) 02/08/17 05:30 Globulin 2.7 gm/dL (2.2-3.9) 02/08/17 05:30 Albumin/Globulin Ratio 1.4 (1.0-2.1) 02/08/17 05:30 Urine Color Yellow (YELLOW) 02/08/17 08:00 Urine Clarity Clear (Clear) 02/08/17 08:00 Urine pH 6.0 (5.0-8.0) 02/08/17 08:00 Ur Specific [place] 1.010 (1.003-1.030) 02/08/17 08:00 Urine Protein Negative mg/dL (NEGATIVE) 02/08/17 08:00 Urine Glucose (UA) 50 mg/dL (Normal) 02/08/17 08:00 Urine Ketones Negative mg/dL (NEGATIVE) 02/08/17 08:00 Urine Blood Negative (NEGATIVE) 02/08/17 08:00 Urine Nitrate Negative (NEGATIVE) 02/08/17 08:00 Urine Bilirubin Negative (NEGATIVE) 02/08/17 08:00 Urine Urobilinogen 0.2-1.0 mg/dL (0.2-1.0) 02/08/17 08:00 Ur Leukocyte Esterase Neg [place]/uL (Negative) 02/08/17 08:00 Urine RBC (Auto) 3 /hpf (0-3) 02/08/17 08:00 Urine Microscopic WBC 1 /hpf (0-5) 02/08/17 08:00 Ur Squamous Epith Cells < 1 /hpf (0-5) 02/08/17 08:00 - Hospital Course Hospital Course: 66M admitted for non-healing foot wound, found to be growing MDRO and started in Tigecycline. Concern for possible inflow cause of wound healing initially supported by arterial ultrasound prompted further investigation with angiogram that showed patent 2-vessel run-off and no indication for intervention. In addition bone scan was NOT c/w OM. Dr Fuchs (Nephrology) managed single transplant kidney that patient has, Dr Rocha (ID) foot wound, Dr Preston ( cardiology/endovascular) evaluated lower extremity as well as renal inflow. At this time patient is afebrile, and stable for d/c to LTAC to complete course of Tigecycline, and has been re-started on all home medications. Discharge Exam - Head Exam Head Exam: ATRAUMATIC, NORMAL INSPECTION - Eye Exam Eye Exam: EOMI, Normal appearance - Respiratory Exam Respiratory Exam: Clear to PA & Lateral, NORMAL BREATHING PATTERN. absent: Rales, Wheezes - Cardiovascular Exam Cardiovascular Exam: Irregular Rhythm. absent: JVD - GI/Abdominal Exam GI & Abdominal Exam: Normal Bowel Sounds - Extremities Exam Additional comments: absent: Calf Tenderness, Normal Inspection (RIGHT foot drsg in place, LUE A-V fistula bruit/thrill +) - Neurological Exam Neurological exam: Alert, Oriented x3 - Psychiatric Exam Psychiatric exam: Normal Affect, Normal Mood - Skin Skin Exam: Normal Color, Warm Discharge Plan - Discharge Medications Prescriptions: Tigecycline [Tygacil] 50 mg IV Q12 #70 vial - Follow Up Plan Condition: FAIR [facility] Instructions: Diabetic Foot Care (DC), Diabetic Foot Ulcers (DC) Additional Instructions: patient cleared for discharge to [facility] today by , , Podiatry pt. to continue Tygacil 50 ivpb q 12 for total of 5 more weeks (completed 1 week ) cont. to monitor labs, cbc, cmp, sed rate, crp cont. PT/OT Daily wound dressing changes with Santyl cont. to monitor BS/ accuchecks Referrals: Osmel Frey MD [Family Provider] - Orestes Rocha MD [Staff Provider] - Oj Fuchs MD [Staff Provider] -
--- NOTE | 2017-02-15 13:35 | CP.PCM.PN ---
Subjective - Date & Time of Evaluation Date of Evaluation: 02/15/17 Time of Evaluation: 09:00 - Subjective Subjective: refuses discharge Objective - Vital Signs/Intake and Output Vital Signs (last 24 hours): Temp Pulse Resp BP Pulse Ox 97.9 F 81 20 140/83 93 L 02/15/17 07:33 02/15/17 07:33 02/15/17 07:33 02/15/17 07:33 02/15/17 07:33 - Medications Medications: Current Medications Acetaminophen (Tylenol 325mg Tab) 650 mg PO Q4 PRN PRN Reason: Pain, Mild (1-3) Acetylcysteine (Acetylcysteine 20%) 6 ml PO Q12 [facility] Stop: 02/16/17 09:01 Allopurinol (Zyloprim) 100 mg PO DAILY [facility] Last Admin: 02/15/17 08:34 Dose: 100 mg Aspirin (Ecotrin) 81 mg PO DAILY [facility] Last Admin: 02/15/17 08:38 Dose: 81 mg Atorvastatin Calcium (Lipitor) 20 mg PO DAILY [facility] Last Admin: 02/15/17 08:39 Dose: 20 mg Cholecalciferol (Vitamin D) 1,000 iu PO DAILY [facility] Last Admin: 02/15/17 08:35 Dose: 1,000 iu Collagenase (Santyl) 1 applic TOP DAILY [facility] Last Admin: 02/15/17 08:36 Dose: 1 applic Dextrose (Glutose 15) 0 gm PO ONCE PRN; Protocol PRN Reason: Hypoglycemia Protocol Dextrose (Dextrose 50% Inj) 0 ml IV STAT PRN; Protocol PRN Reason: Hyglycemia Protocol Famotidine (Pepcid) 20 mg PO DAILY [facility] Last Admin: 02/15/17 08:35 Dose: 20 mg Furosemide (Lasix) 20 mg PO BID [facility] Last Admin: 02/13/17 09:01 Dose: 20 mg Glucagon (Glucagen Diagnostic Kit) 0 mg IM STAT PRN; Protocol PRN Reason: Hypoglycemia Protocol Home Med (Belatacept [Nulojix]) 1 dose IV Q30D [facility] Home Med (Mycophenolate Sodium [Myfortic]) 720 mg PO Q12 [facility] Last Admin: 02/15/17 08:34 Dose: 720 mg Hydralazine HCl (Apresoline) 25 mg PO TID [facility] Last Admin: 02/15/17 12:03 Dose: 25 mg Tigecycline 50 mg/ Sodium (Chloride) 100 mls @ 100 mls/hr IVPB Q12 [facility] Last Admin: 02/15/17 10:07 Dose: 100 mls/hr Insulin Detemir (Levemir) 25 units SC HS [facility] Last Admin: 02/14/17 21:49 Dose: 25 units Insulin Human Lispro (Humalog) 20 units SC ACTID [facility] Last Admin: 02/15/17 12:41 Dose: Not Given Lactobacillus Acidophilus (Bacid Acidophilus) 1 cap PO BID [facility] Last Admin: 02/15/17 08:39 Dose: 1 cap Levothyroxine Sodium (Synthroid) 75 mcg PO DAILY@0630 [facility] Last Admin: 02/15/17 06:44 Dose: 75 mcg Multivitamins/Minerals (Therapeutic-M Tab) 1 tab PO DAILY [facility] Last Admin: 02/15/17 08:34 Dose: 1 tab Prednisone (Prednisone Tab) 5 mg PO DAILY [facility] Last Admin: 02/15/17 08:36 Dose: 5 mg Rivaroxaban (Xarelto) 15 mg PO [facility] PRN Reason: Protocol Last Admin: 02/14/17 23:13 Dose: 15 mg Tamsulosin HCl (Flomax) 0.4 mg PO DAILY [facility] Last Admin: 02/15/17 08:35 Dose: 0.4 mg - Labs Labs: 02/15/17 06:10 02/15/17 06:10 - Constitutional Appears: Non-toxic, Chronically Ill - Head Exam Head Exam: NORMOCEPHALIC - Eye Exam Eye Exam: PERRL. absent: Scleral icterus - ENT Exam ENT Exam: Mucous Membranes Dry - Neck Exam Neck Exam: absent: Lymphadenopathy - Respiratory Exam Respiratory Exam: Decreased Breath Sounds, Clear to Ausculation Bilateral - Cardiovascular Exam Cardiovascular Exam: REGULAR RHYTHM, +S1, +S2 Assessment and Plan (1) Diabetic foot ulcer Status: Acute (2) Atrial fibrillation Status: Chronic (3) Bifascicular block Status: Acute (4) CKD (chronic kidney disease) stage 3, GFR 30-59 ml/min Status: Acute (5) Diabetes Status: Chronic
[2017-02-15 16:03] VITALS: O2SAT 95
[2017-02-15 20:07] VITALS: BP 159/89; PULSE 89; TEMP 98.7
[2017-02-26] MEDS ORDERED: BELATACEPT IV SCH (13:30)
== END 2017-02-15 21:15 | DRG 638 ==
LOC: H.ER 21:18 → H.ERHOLD 02-07 00:51 → H.MEDSURG1 02-07 06:25
PROVIDERS: ADMIT Family Medicine; ATTEND Family Medicine
PROC: 02HV33Z Insertion of Infusion Device into Superior Vena Cava, Percutaneous Approach (ICD-10-PCS; 2017-02-12)
PROC: B40DYZZ Plain Radiography of Aorta and Bilateral Lower Extremity Arteries using Other Contrast (ICD-10-PCS; principal; 2017-02-14)
DX: E11.621 Type 2 diabetes mellitus with foot ulcer (principal); I45.2 Bifascicular block; L97.519 Non-pressure chronic ulcer of other part of right foot with unspecified severity; N17.9 Acute kidney failure, unspecified; T81.31XA Disruption of external operation (surgical) wound, not elsewhere classified, initial encounter; E11.22 Type 2 diabetes mellitus with diabetic chronic kidney disease; Z94.0 Kidney transplant status; L03.115 Cellulitis of right lower limb; I48.2 Chronic atrial fibrillation; E03.9 Hypothyroidism, unspecified; Z79.4 Long term (current) use of insulin; E78.00 Pure hypercholesterolemia, unspecified; G47.33 Obstructive sleep apnea (adult) (pediatric); I25.10 Atherosclerotic heart disease of native coronary artery without angina pectoris; Z86.73 Personal history of transient ischemic attack (TIA), and cerebral infarction without residual deficits; Z87.891 Personal history of nicotine dependence; Z88.0 Allergy status to penicillin; Z95.0 Presence of cardiac pacemaker; M16.10 Unilateral primary osteoarthritis, unspecified hip; Y83.8 Other surgical procedures as the cause of abnormal reaction of the patient, or of later complication, without mention of misadventure at the time of the procedure; I70.201 Unspecified atherosclerosis of native arteries of extremities, right leg; S91.301A Unspecified open wound, right foot, initial encounter; X58.XXXA Exposure to other specified factors, initial encounter; B96.20 Unspecified Escherichia coli [E. coli] as the cause of diseases classified elsewhere; I12.9 Hypertensive chronic kidney disease with stage 1 through stage 4 chronic kidney disease, or unspecified chronic kidney disease; N18.2 Chronic kidney disease, stage 2 (mild); F32.9 Major depressive disorder, single episode, unspecified; D64.9 Anemia, unspecified; N40.0 Benign prostatic hyperplasia without lower urinary tract symptoms

== ENCOUNTER 2018-07-11 06:59 | Observation (INO) | payer MEDICARE, BC ==
[2018-07-11 07:00] VITALS: BMI 35.1
[2018-07-11] MEDS ORDERED: Sodium Chloride 0.9% 1,000 ML IV STA (07:34)
--- NOTE | 2018-07-11 07:49 | ED PDOC ---
HPI: Fever Time Seen by Provider: 07/11/18 07:29 Additional Comments: 68 years old male with history of diabetes, hypertension and renal disease presents to the ED complaining of right abdominal pain associated with nausea, vomiting, diarrhea and fever onset yesterday. PMD: Osmel Frey Past Medical History Reviewed: Historical Data, Nursing Documentation, Vital Signs Vital Signs: Last Vital Signs Temp 103.0 F H 07/11/18 07:16 Pulse 116 H 07/11/18 07:16 Resp 16 07/11/18 07:16 BP 135/69 07/11/18 07:16 Pulse Ox 96 07/11/18 07:51 - Medical History PMH: Arthritis, Atrial Fibrillation, Cardia Arrhythmia (ATRIAL FIB), CHF, Diabetes (insulin), Fractures (Left hand finger 60yrs ago), HTN, Hypercholesterolemia, Hypothyroidism, Pneumonia, Chronic Kidney Disease (S/P renal transplant), Sleep Apnea Denies: CAD - Surgical History Surgical History: Endoscopy, Pacemaker - Family History Family History: States: Unknown Family Hx - Immunization History Hx Tetanus Toxoid Vaccination: No Hx Influenza Vaccination: No Hx Pneumococcal Vaccination: No - Home Medications Home Medications: Ambulatory Orders Medication Instructions Recorded Furosemide [Lasix] 40 mg PO DAILY 03/25/16 Levothyroxine [Synthroid] 75 mcg PO DAILY 03/25/16 Mycophenolate Sodium [Myfortic] 180 mg PO Q12 03/25/16 Omeprazole [Prilosec] 20 mg PO DAILY 03/25/16 predniSONE [predniSONE Tab] 5 mg PO DAILY 03/25/16 Losartan [Cozaar] 25 mg PO DAILY 11/29/16 Rivaroxaban [Xarelto] 20 mg PO HS 11/29/16 Tamsulosin [Flomax] 0.4 mg PO DAILY 11/29/16 Ferrous Sulfate [Feosol] 325 mg PO DAILY 08/20/17 Insulin Glargine, Recombina 50 unit SC HS 08/20/17 [Lantus] Moore-3 Fatty Acids/Fish Oil [Fish 1,200 mg PO BID 08/20/17 Oil 1,000 mg Capsule] Pioglitazone HCl 15 mg PO DAILY 08/20/17 Rosuvastatin Calcium [Crestor] 40 mg PO DAILY 08/20/17 Sulfamethoxazole/Trimethoprim 1 tab PO MWF 08/20/17 [Bactrim 400-80 mg Tablet] Ergocalciferol (Vitamin D2) 50,000 unit PO QWK 01/08/18 [Vitamin D2] Glipizide [Glipizide ER] 2.5 mg PO DAILY 01/08/18 Linagliptin [Tradjenta] 5 mg PO DAILY 01/08/18 Vortioxetine Hydrobromide 10 mg PO DAILY 01/08/18 [Trintellix] Insulin Lispro [Humalog Kwikpen 20 units SQ TID 02/24/18 U-100] - Allergies Allergies/Adverse Reactions: Allergies Allergy/AdvReac Type Severity Reaction Status Date / Time Penicillins Allergy Intermediate RASH Verified 01/14/17 17:41 Review of Systems ROS Statement: Except As Marked, All Systems Reviewed And Found Negative Constitutional: Positive for: Fever Gastrointestinal: Positive for: Nausea, Vomiting, Abdominal Pain (Right sided), Diarrhea Physical Exam - Reviewed Nursing Documentation Reviewed: Yes Vital Signs Reviewed: Yes - Physical Exam Appears: Positive for: Non-toxic, No Acute Distress Head Exam: Positive for: ATRAUMATIC, NORMOCEPHALIC Cardiovascular/Chest: Positive for: Regular Rate, Rhythm. Negative for: Murmur Respiratory: Positive for: Normal Breath Sounds. Negative for: Wheezing, Respiratory Distress Gastrointestinal/Abdominal: Positive for: Soft, Tenderness (RUQ), Distended Back: Positive for: Other (Right flank tenderness) Extremity: Positive for: Normal ROM. Negative for: Tenderness, Swelling Neurologic/Psych: Positive for: Alert, Oriented (x3) - Laboratory Results Result Diagrams: 07/11/18 08:25 07/11/18 08:25 - ECG O2 Sat by Pulse Oximetry: 96 (RA) Pulse Ox Interpretation: Normal Medical Decision Making Medical Decision Making: Time: 733 Initial Plan: --CT Abd & Pelvis IV Contrast --urine dipstick --CMP --CBC --Morphine 2 mg IVP --NaCl 1,000 ml IV --Zofran 4 mg IVP --Blood culture Scribe Attestation: Documented by Griselda Cortes, acting as a scribe for David Kay MD. Provider Scribe Attestation: All medical record entries made by the Scribe were at my direction and personally dictated by me. I have reviewed the chart and agree that the record accurately reflects my personal performance of the history, physical exam, medical decision making, and the department course for this patient. I have also personally directed, reviewed, and agree with the discharge instructions and disposition. Disposition - Clinical Impression Clinical Impression: Gastroenteritis, Dehydration - Patient ED Disposition Is Patient to be Admitted: Yes - Disposition Disposition Time: 10:54 Condition: FAIR Forms: [email or web address] (German) - Pt Status Changed To: Hospital Disposition Of: Observation - POA Present On Arrival: None
[2018-07-11 08:57] LABS: BASO % 0.4 % (0.0-2.0); EOS # 0.1 K/uL (0.0-0.7); EOS % 1.2 % (0.0-4.0); HEMOGLOBIN 13.2 g/dL (12.0-18.0); LYMPH # 0.3 K/uL (1.0-4.3); LYMPH % 3.9 % (20.0-40.0); MEAN CELL VOLUME 80.8 fl (80.0-94.0); MEAN CORPUSCULAR HEMOGLOBIN 26.2 pg (27.0-31.0); MEAN CORPUSCULAR HGB CONC 32.5 g/dL (33.0-37.0); MEAN PLATELET VOLUME 8.9 fl (7.2-11.7); MONO # 0.4 K/uL (0.0-0.8); MONO % 5.5 % (0.0-10.0); NEUT # 6.4 K/uL (1.8-7.0); NRBC % 0.1 % (0.0-0.0); PLATELET COUNT 145 K/uL (130-400); RBC 5.04 Mil/uL (4.40-5.90); RED CELL DISTRIBUTION WIDTH 18.5 % (11.5-14.5); WHITE BLOOD COUNT 7.2 K/uL (4.8-10.8)
[2018-07-11 09:08] LABS: ALB/GLOB RATIO 1.7 (1.0-2.1); ALBUMIN 4.1 g/dL (3.5-5.0)
[2018-07-11 09:33] LABS: BANDS 7 % (0-2); LYMPHOCYTE 4 % (20-50); MONOCYTE 3 % (0-10); NEUTROPHIL 86 % (42-75); PLATELET ESTIMATE NORMAL (NORMAL); TOTAL CELLS COUNTED 100
--- NOTE | 2018-07-11 10:50 | CT ---
PROCEDURE: CT Abdomen and Pelvis without Oral or IV contrast. HISTORY: Abd pain COMPARISON: None available TECHNIQUE: Contiguous axial images of the abdomen and pelvis. No oral or IV contrast administered. Coronal and Sagittal reformats generated and reviewed. Radiation dose: Total exam DLP = 904.47 mGy-cm. This CT exam was performed using one or more of the following dose reduction techniques: Automated exposure control, adjustment of the mA and/or kV according to patient size, and/or use of iterative reconstruction technique. FINDINGS: There is limited evaluation of the solid organs without the administration of IV contrast. LOWER THORAX: Bibasilar atelectasis. No visible pleural effusion or pneumothorax. 7 mm calcified granuloma, left lung base. 5 mm calcified granuloma, right lower lobe. Partially imaged pacer wires. Small hiatal hernia/distal esophageal wall thickening. Gastroesophageal reflux. LIVER: Unremarkable unenhanced appearance. GALLBLADDER AND BILE DUCTS: Unremarkable unenhanced appearance. PANCREAS: Atrophy. SPLEEN: 11 mm probable splenule. Unremarkable unenhanced appearance. ADRENALS: Unremarkable unenhanced appearance. KIDNEYS AND URETERS: Atrophic bilateral crow kidneys. Right lower quadrant transplant kidney. BLADDER: Under distended urinary bladder appears mildly thick-walled. REPRODUCTIVE: Unremarkable. APPENDIX: The appendix appears within normal limits of caliber. No secondary signs of acute appendicitis. BOWEL: The stomach is nondistended. Lack of oral contrast limits evaluation for bowel pathology. The bowel loops appear within normal limits of caliber without evidence of intestinal obstruction. Fluid-filled bowel loops may be seen in the setting of diarrheal illness. PERITONEUM: No significant free fluid. No definite free air. LYMPH NODES: Sub cm retroperitoneal lymph nodes, nonspecific. VASCULATURE: No aortic aneurysm. BONES: Degenerative changes. OTHER FINDINGS: None. IMPRESSION: Fluid-filled loops of bowel suggest diarrheal illness. Mildly thick-walled urinary bladder may be exaggerated by under distension. Recommend correlation with urinalysis. Additional findings as above.
[2018-07-11] MEDS ORDERED: Dextrose 50% SYRINGE Inj (50 ml) IV PRN (14:14)
[2018-07-11] MEDS ORDERED: Glucagon Recombinant 1 mg Inj IM PRN (14:14)
--- NOTE | 2018-07-11 14:18 | CP.PCM.HP ---
History of Present Illness - History of Present Illness History of Present Illness: 68 y/o M presented to ED due to fever, right sided abdominal pain a/w nausea, various episodes of vomiting and diarrhea. Pt reports his symptoms began since last midnight. Pt still complains of abdominal pain and fatigue. Pt reports eating outdoors yesterday. No recent travel or ill contact. At ER, pt presented fever of [address] abdomen suggest diarrheal illness and mild thick-walled bladder. PMD: Dr Frey. PMHx: Arthritis, Atrial Fibrillation, CHF, IDDM, HTN, HLD, Hypothyroidism, Pneumonia, Chronic Kidney Disease, Sleep Apnea Present on Admission - Present on Admission Any Indicators Present on Admission: No Review of Systems - Constitutional Constitutional: absent: Chills, Fatigue, Fever - Cardiovascular Cardiovascular: absent: Chest Pain, Claudication - Respiratory Respiratory: absent: Cough, Dyspnea - Gastrointestinal Gastrointestinal: Abdominal Pain, Diarrhea, Nausea, Vomiting - Genitourinary Genitourinary: absent: Dysuria, Flank Pain, Hematuria Past Patient History - Infectious Disease Hx of Infectious Diseases: None - Past Medical History & Family History Past Medical History?: Yes - Past Social History Smoking Status: Former Smoker - CARDIAC Hx Atrial Fibrillation: Yes Hx Cardia Arrhythmia: Yes (ATRIAL FIB) Hx Congestive Heart Failure: Yes Hx Hypercholesterolemia: Yes Hx Hypertension: Yes Hx Pacemaker: Yes - PULMONARY Hx Pneumonia: Yes Hx Sleep Apnea: Yes - HEENT Hx HEENT Problems: Yes Hx Cataracts: Yes - RENAL Hx Chronic Kidney Disease: Yes (S/P renal transplant) - ENDOCRINE/METABOLIC Hx Hypothyroidism: Yes - INTEGUMENTARY Hx Dermatological Problems: No - MUSCULOSKELETAL/RHEUMATOLOGICAL Hx Arthritis: Yes Hx Fractures: Yes (Left hand finger 60yrs ago) - ANESTHESIA Hx Anesthesia: Yes Hx Anesthesia Reactions: No Hx Malignant Hyperthermia: No Meds Allergies/Adverse Reactions: Allergies Allergy/AdvReac Type Severity Reaction Status Date / Time Penicillins Allergy Intermediate RASH Verified 01/14/17 17:41 Physical Exam - Constitutional Appears: No Acute Distress - Head Exam Head Exam: NORMAL INSPECTION - Eye Exam Eye Exam: EOMI - ENT Exam ENT Exam: Mucous Membranes Dry - Neck Exam Neck exam: Positive for: Full Rom. Negative for: Meningismus, Tenderness - Respiratory Exam Respiratory Exam: Accessory Muscle Use, NORMAL BREATHING PATTERN - Cardiovascular Exam Cardiovascular Exam: +S1, +S2 - GI/Abdominal Exam GI & Abdominal Exam: Distended, Normal Bowel Sounds, Soft, Tenderness (on R side ). absent: Guarding - Neurological Exam Neurological exam: Alert, Oriented x3 Results - Vital Signs Recent Vital Signs: Last Vital Signs Temp 103.0 F H 07/11/18 07:16 Pulse 116 H 07/11/18 07:16 Resp 16 07/11/18 07:16 BP 135/69 07/11/18 07:16 Pulse Ox 96 07/11/18 10:55 - Labs Result Diagrams: 07/11/18 08:25 07/11/18 08:25 Labs: Laboratory Results - last 24 hr 07/11/18 07/11/18 08:25 08:25 WBC 7.2 RBC 5.04 Hgb 13.2 Hct 40.7 MCV 80.8 MCH 26.2 L MCHC 32.5 L RDW 18.5 H Plt Count 145 MPV 8.9 Neut % (Auto) 89.0 H Lymph % (Auto) 3.9 L [place] % (Auto) 5.5 Eos % (Auto) 1.2 Baso % (Auto) 0.4 Neut # (Auto) 6.4 Lymph # (Auto) 0.3 L [place] # (Auto) 0.4 Eos # (Auto) 0.1 Baso # (Auto) 0.0 Neutrophils % (Manual) 86 H Band Neutrophils % 7 H Lymphocytes % (Manual) 4 L Monocytes % (Manual) 3 Platelet Estimate Normal Sodium 141 Potassium 4.4 Chloride 105 Carbon Dioxide 25 Anion Gap 15 BUN 34 H Creatinine 2.1 H Est GFR ( Amer) 38 Est GFR (Non-Af Amer) 31 Random Glucose 149 H Calcium 9.0 Total Bilirubin 1.3 AST 27 ALT 35 Alkaline Phosphatase 119 Total Protein 6.5 Albumin 4.1 Globulin 2.4 Albumin/Globulin Ratio 1.7 Assessment & Plan (1) Dehydration Status: Acute (2) Gastroenteritis Status: Acute (3) Sepsis Status: Acute (4) CKD (chronic kidney disease) stage 3, GFR 30-59 ml/min Status: Chronic - Assessment and Plan (Free Text) Assessment: --NPO --IV D5LR at 140mL/hr. --Zofran PRN --Ciprofloxacin and Flagyl --Pt meets criteria for possible sepsis. (fever and tachycardia at presentation , gastrointestinal as possible source of infection.) --Hold Home meds --Insulin Lispro as per protocol, sliding scale. - Date & Time Date: 07/11/18 Time: 14:49
[2018-07-11] MEDS: Dextrose 5%/Lactated Ringer's 1,000 ML IV SCH ×2 (15:42→21:52)
[2018-07-11] MEDS ORDERED: metroNIDAZOLE 500mg/100ml NS 100 ML IVPB SCH (16:00)
[2018-07-11] MEDS: metroNIDAZOLE 500mg/100ml NS 100 ML IVPB SCH (17:21)
[2018-07-11] MEDS: Insulin Lispro (humaLOG) 100 Units/ml Inj SC SCH ×2 (17:24→21:46)
[2018-07-11] MEDS: Ciprofloxacin 200mg/100ml D5W 100 ML IVPB SCH (20:51)
[2018-07-12 00:25] LABS: SPERM URINE RARE /hpf; SQUAMOUS EPITHIAL < 1 /hpf (0-5); URINE BILIRUBIN NEGATIVE (NEGATIVE); URINE BLOOD SMALL (NEGATIVE); URINE CLARITY CLOUDY (Clear); URINE COLOR AMBER (YELLOW); URINE GLUCOSE (UA) NEG (Normal); URINE LEUKOCYTE ESTERASE LARGE Leu/uL (Negative); URINE PROTEIN 30 mg/dL (NEGATIVE); URINE UROBILINOGEN 0.2-1.0 mg/dL (0.2-1.0)
[2018-07-12] MEDS: metroNIDAZOLE 500mg/100ml NS 100 ML IVPB SCH ×3 (01:20→16:36)
[2018-07-12] MEDS: Dextrose 5%/Lactated Ringer's 1,000 ML IV SCH ×2 (03:35→12:18)
[2018-07-12 06:17] LABS: BASO % 0.6 % (0.0-2.0); EOS # 0.2 K/uL (0.0-0.7); EOS % 4.5 % (0.0-4.0); HEMOGLOBIN 11.1 g/dL (12.0-18.0); LYMPH # 0.5 K/uL (1.0-4.3); LYMPH % 10.2 % (20.0-40.0); MEAN CELL VOLUME 82.1 fl (80.0-94.0); MEAN CORPUSCULAR HEMOGLOBIN 25.8 pg (27.0-31.0); MEAN CORPUSCULAR HGB CONC 31.4 g/dL (33.0-37.0); MONO # 0.4 K/uL (0.0-0.8); MONO % 8.9 % (0.0-10.0); NEUT # 3.3 K/uL (1.8-7.0); NEUT % 75.8 % (50.0-75.0); NRBC % 0.1 % (0.0-0.0); RBC 4.32 Mil/uL (4.40-5.90); RED CELL DISTRIBUTION WIDTH 18.6 % (11.5-14.5); WHITE BLOOD COUNT 4.4 K/uL (4.8-10.8)
[2018-07-12 06:26] LABS: ALB/GLOB RATIO 1.4 (1.0-2.1); ALBUMIN 3.4 g/dL (3.5-5.0); CALCIUM 8.3 mg/dL (8.4-10.2)
[2018-07-12] MEDS: Insulin Lispro (humaLOG) 100 Units/ml Inj SC SCH ×4 (08:59→22:28)
[2018-07-12] MEDS: Ciprofloxacin 200mg/100ml D5W 100 ML IVPB SCH ×2 (08:59→20:17)
[2018-07-13] MEDS: metroNIDAZOLE 500mg/100ml NS 100 ML IVPB SCH ×2 (00:24→09:24)
[2018-07-13 07:41] LABS: HEMOGLOBIN 11.2 g/dL (12.0-18.0); MEAN CORPUSCULAR HEMOGLOBIN 25.9 pg (27.0-31.0); MEAN CORPUSCULAR HGB CONC 31.6 g/dL (33.0-37.0); RBC 4.32 Mil/uL (4.40-5.90); WHITE BLOOD COUNT 5.2 K/uL (4.8-10.8)
[2018-07-13 08:04] VITALS: BP 112/72; PULSE 81; RESP 20; TEMP 98; O2SAT 97
[2018-07-13] MEDS: Ciprofloxacin 200mg/100ml D5W 100 ML IVPB SCH (08:12)
[2018-07-13] MEDS: Insulin Lispro (humaLOG) 100 Units/ml Inj SC SCH ×2 (08:13→11:12)
== END 2018-07-13 13:20 | disposition home or self-care (01) ==
LOC: H.ER 06:59 → H.ERHOLD 10:53 → H.MEDSURG1 14:02
PROVIDERS: ADMIT Family Medicine; ATTEND Family Medicine
DX: K52.9 Noninfective gastroenteritis and colitis, unspecified (principal); N18.3 Chronic kidney disease, stage 3 (moderate); Z79.01 Long term (current) use of anticoagulants; Z79.4 Long term (current) use of insulin; Z87.01 Personal history of pneumonia (recurrent); Z87.891 Personal history of nicotine dependence; Z94.0 Kidney transplant status; Z95.0 Presence of cardiac pacemaker; M19.90 Unspecified osteoarthritis, unspecified site; Z79.84 Long term (current) use of oral hypoglycemic drugs; R00.0 Tachycardia, unspecified; E03.9 Hypothyroidism, unspecified; E11.22 Type 2 diabetes mellitus with diabetic chronic kidney disease; E78.00 Pure hypercholesterolemia, unspecified; E78.5 Hyperlipidemia, unspecified; E86.0 Dehydration; G47.30 Sleep apnea, unspecified; I13.0 Hypertensive heart and chronic kidney disease with heart failure and stage 1 through stage 4 chronic kidney disease, or unspecified chronic kidney disease; I48.91 Unspecified atrial fibrillation; I50.9 Heart failure, unspecified
CPT/HCPCS: 36415; 74176; 80053; 81003; 82948; 83735; 84100; 85025; 85027; 87040; 87045; 87177; 87209; 89055; 96360; 96374; 97161; 99281; G0378; G8978; G8979; J0744; J2270; J2405; J7030; J7120

== ENCOUNTER 2018-12-31 18:12 | Inpatient (IN) | payer MEDICARE, BC ==
[2018-12-31] MEDS ORDERED: Sodium Chloride 0.9% 1,000 ML IV STA ×3 (19:18→22:35)
[2018-12-31] MEDS ORDERED: levoFLOXacin 500 mg in D5W 500 MG/100 ML BAG IVPB STA (19:54)
[2018-12-31 19:56] LABS: BASO % 0.3 % (0.0-2.0); EOS % 0.1 % (0.0-4.0); HEMOGLOBIN 10.5 g/dL (12.0-18.0); LYMPH # 0.2 K/uL (1.0-4.3); LYMPH % 3.9 % (20.0-40.0); MEAN CELL VOLUME 85.2 fl (80.0-94.0); MEAN CORPUSCULAR HEMOGLOBIN 26.9 pg (27.0-31.0); MEAN CORPUSCULAR HGB CONC 31.5 g/dL (33.0-37.0); MEAN PLATELET VOLUME 9.6 fl (7.2-11.7); MONO # 0.5 K/uL (0.0-0.8); MONO % 8.5 % (0.0-10.0); NEUT # 5.3 K/uL (1.8-7.0); NEUT % 87.2 % (50.0-75.0); PLATELET COUNT 121 K/uL (130-400); RBC 3.92 Mil/uL (4.40-5.90); WHITE BLOOD COUNT 6.1 K/uL (4.8-10.8)
[2018-12-31] MEDS ORDERED: levoFLOXacin 500 mg in D5W 500 MG/100 ML BAG IVPB ONE (20:01)
[2018-12-31 20:06] LABS: ALB/GLOB RATIO 1.2 (1.0-2.1); ALBUMIN 3.8 g/dL (3.5-5.0); CALCIUM 8.8 mg/dL (8.4-10.2)
[2018-12-31 20:23] LABS: INR 2.4; PROTHROMBIN TIME 27.2 Seconds (9.8-13.1)
[2018-12-31 20:26] LABS: PARTIAL THROMBOPLASTIN TIME 39.2 Seconds (25.6-37.1)
--- NOTE | 2018-12-31 21:28 | ED PDOC ---
History of Present Illness History of Present Illness: 68 year old female with a history of bladder cancer, DM, HTN, artial fibrillation, right transmetarsal amputation, left AV fistula and right renal transplant presents to the ED via EMS for evaluation of fever, chills and dysuria for one day. Patient is a resident at [facility] and has an indwelling santiago catheter in place. He is also complaining of decreased urine output. However, on arrival to the ED, he had about 300 ccs in his santiago bag. There are also reports from EMS of purulent drainage in his santiago bag. Denies other complaints. PMD: Dr. Frey HPI: Influenza Time Seen by Provider: 12/31/18 19:15 Chief Complaint: Male Genitourinary Chief Complaint (Provider): Male Genitourinary History Per: Patient Exam Limitations: no limitations Onset/Duration Of Symptoms: Days Symptoms include: fever, other (chills) Risk factors for flu complications: Yes: adult > 65 years, skilled nursing resident Past Medical History Reviewed: Historical Data, Nursing Documentation, Vital Signs Vital Signs: Last Vital Signs Temp 102.8 F H 12/31/18 19:41 Pulse 105 H 12/31/18 18:16 Resp 20 12/31/18 18:16 BP 132/73 12/31/18 18:16 Pulse Ox 100 12/31/18 18:16 - Medical History PMH: Arthritis, Atrial Fibrillation, Cardia Arrhythmia (ATRIAL FIB), CHF, Diabetes (insulin), Fractures (Left hand finger 60yrs ago), HTN, Hypercholesterolemia, Hypothyroidism, Pneumonia, Chronic Kidney Disease (S/P renal transplant), Sleep Apnea Denies: CAD - Surgical History Surgical History: Endoscopy, Pacemaker - Family History Family History: States: Unknown Family Hx - Immunization History Hx Tetanus Toxoid Vaccination: No Hx Influenza Vaccination: No Hx Pneumococcal Vaccination: No - Home Medications Home Medications: Ambulatory Orders Medication Instructions Recorded RX: Furosemide [Lasix] 20 mg PO BID 03/25/16 RX: Levothyroxine [Synthroid] 75 mcg PO DAILY 03/25/16 RX: Mycophenolate Sodium [Myfortic] 4 tab PO Q12 03/25/16 RX: Omeprazole [Prilosec] 20 mg PO DAILY 03/25/16 RX: predniSONE [predniSONE Tab] 5 mg PO DAILY 03/25/16 RX: Rivaroxaban [Xarelto] 20 mg PO DAILY 11/29/16 RX: Tamsulosin [Flomax] 0.4 mg PO BID 11/29/16 RX: Ferrous Sulfate [Feosol] 325 mg PO DAILY 08/20/17 RX: Insulin Glargine, Recombina 50 unit SC HS 08/20/17 [Lantus] RX: Rosuvastatin Calcium [Crestor] 40 mg PO HS 08/20/17 RX: Glipizide [Glipizide ER] 2.5 mg PO DAILY 01/08/18 RX: Linagliptin [Tradjenta] 5 mg PO DAILY 01/08/18 RX: Insulin Lispro [Humalog 20 units SQ TID 02/24/18 Kwikpen U-100] RX: Aspirin [Ecotrin] 81 mg PO DAILY 07/11/18 RX: Cholecalciferol (Vitamin D3) 2,000 unit PO DAILY 07/11/18 [Vitamin D3] RX: [place]-3/Dha/Epa/Fish Oil [Fish 1 cap PO DAILY 07/11/18 Oil 1,400 mg Softgel] RX: Multivitamin [Multivitamins] 1 cap PO DAILY 08/06/18 Gabapentin [Neurontin] 100 mg PO DAILY 12/31/18 - Allergies Allergies/Adverse Reactions: Allergies Allergy/AdvReac Type Severity Reaction Status Date / Time Penicillins Allergy Intermediate RASH Verified 12/31/18 18:15 Review of Systems ROS Statement: Except As Marked, All Systems Reviewed And Found Negative Constitutional: Positive for: Fever, Chills Gastrointestinal: Negative for: Nausea, Vomiting Genitourinary Male: Positive for: Dysuria. Negative for: Frequency, Incontinence, Hematuria Physical Exam - Reviewed Nursing Documentation Reviewed: Yes Vital Signs Reviewed: Yes - Physical Exam Appears: Positive for: No Acute Distress (febrile), Uncomfortable Head Exam: Positive for: ATRAUMATIC, NORMAL INSPECTION, NORMOCEPHALIC Skin: Positive for: Normal Color, Warm, Dry Eye Exam: Positive for: EOMI, Normal appearance, PERRL Neck: Positive for: Normal, Painless ROM, Supple Cardiovascular/Chest: Positive for: Tachycardia (with regular rhythm) Respiratory: Positive for: Normal Breath Sounds. Negative for: Respiratory Distress Gastrointestinal/Abdominal: Positive for: Tenderness (suprapubic tenderness) Back: Positive for: L CVA Tenderness, R CVA Tenderness Extremity: Positive for: Normal ROM (x 4). Negative for: Deformity Neurologic/Psych: Positive for: Alert, Oriented (x 3). Negative for: Motor/Sensory Deficits Medical Decision Making Medical Decision Makin:17 Impression: 68 year old male with febrile illness in setting of dwelling [place] Initial Plan: --EKG --CMP --CBC --PTT --PT --lactic acid --CXR --Tylenol 975 mg PO --NS IV 1,000 mls --Blood cx --Urine cx --Influenza AB --UA 19:54 --Levaquin 500 mg in D5W --Morphine 2 mg IV --Pyridium 200 mg PO CXR shows NAD. 21:15 Labs significant for urien indicative of UTI and low sodium levels likely secondary to hyperglycemia. Negative for influenza. Patient will be admitted for pyleonephritis, dehydration and pseuohyponatremia. Scribe Attestation: Documented by Mary Mireles acting as a scribe for John Gallegos MD Provider Scribe Attestation: All medical record entries made by the Scribe were at my direction and personally dictated by me. I have reviewed the chart and agree that the record accurately reflects my personal performance of the history, physical exam, medical decision making, and the department course for this patient. I have also personally directed, reviewed, and agree with the discharge instructions and disposition. - Laboratory Results Result Diagrams: 01/01/19 04:35 01/01/19 04:35 Lab Results: PT 27.2 Seconds (9.8-13.1) H 12/31/18 19:37 INR 2.4 12/31/18 19:37 APTT 39.2 Seconds (25.6-37.1) H 12/31/18 19:37 Total Bilirubin 2.2 mg/dl (0.2-1.3) H 12/31/18 19:37 AST 37 U/L (17-59) 12/31/18 19:37 ALT 54 U/L (21-72) 12/31/18 19:37 Alkaline Phosphatase 140 U/L (38-126) H D 12/31/18 19:37 Total Protein 6.8 G/DL (6.3-8.2) 12/31/18 19:37 Albumin 3.8 g/dL (3.5-5.0) 12/31/18 19:37 Globulin 3.0 gm/dL (2.2-3.9) 12/31/18 19:37 Albumin/Globulin Ratio 1.2 (1.0-2.1) 12/31/18 19:37 - ECG O2 Sat by Pulse Oximetry: 100 (RA) Pulse Ox Interpretation: Normal Disposition - Clinical Impression Clinical Impression: Pyelonephritis - Patient ED Disposition Is Patient to be Admitted: Yes - Disposition Disposition Time: 21:15 Condition: FAIR - Pt Status Changed To: Hospital Disposition Of: Inpatient - Admit Certification Admit to Inpatient:: After my assessment, the patient will require hospitalization for at least two midnights. This is because of the severity of symptoms shown, intensity of services needed, and/or the medical risk in this patient being treated as an outpatient.
[2018-12-31 21:35] LABS: URINE AMORPHOUS SEDIMENT OCC /ul (<OCC); URINE BACTERIA FEW (<OCC); URINE BILIRUBIN NEGATIVE (NEGATIVE); URINE BLOOD LARGE (NEGATIVE); URINE CLARITY CLOUDY (Clear); URINE COLOR AMBER (YELLOW); URINE GLUCOSE (UA) 150 mg/dL (NEGATIVE); URINE LEUKOCYTE ESTERASE LARGE Leu/uL (Negative); URINE PROTEIN 100 mg/dL (NEGATIVE); URINE UROBILINOGEN 0.2-1.0 mg/dL (0.2-1.0); WBC CLUMPS FEW /hpf
[2018-12-31] MEDS ORDERED: Sodium Chloride 0.9% 500 ML IV STA (21:57)
[2018-12-31 22:13] LABS: ANISOCYTOSIS MODERATE; BANDS 6 % (0-2); LYMPHOCYTE 7 % (20-50); MONOCYTE 9 % (0-10); NEUTROPHIL 78 % (42-75); PLATELET ESTIMATE NORMAL (NORMAL); TOTAL CELLS COUNTED 100
[2018-12-31 22:14] LABS: HYPOCHROMIC SLIGHT; MICROCYTOSIS SLIGHT; POIKILOCYTOSIS SLIGHT
[2019-01-01] MEDS: Levothyroxine 75 MCG TAB PO SCH (05:31)
[2019-01-01 05:45] LABS: BASO % 0.5 % (0.0-2.0); EOS % 0.4 % (0.0-4.0); HEMOGLOBIN 9.5 g/dL (12.0-18.0); LYMPH # 0.2 K/uL (1.0-4.3); LYMPH % 4.9 % (20.0-40.0); MEAN CELL VOLUME 85.7 fl (80.0-94.0); MEAN CORPUSCULAR HEMOGLOBIN 27.2 pg (27.0-31.0); MEAN CORPUSCULAR HGB CONC 31.7 g/dL (33.0-37.0); MEAN PLATELET VOLUME 9.8 fl (7.2-11.7); MONO # 0.4 K/uL (0.0-0.8); MONO % 8.8 % (0.0-10.0); NEUT % 85.4 % (50.0-75.0); NRBC % 0.1 % (0.0-0.0); RBC 3.5 Mil/uL (4.40-5.90); RED CELL DISTRIBUTION WIDTH 17.8 % (11.5-14.5); WHITE BLOOD COUNT 4.6 K/uL (4.8-10.8)
[2019-01-01 05:58] LABS: ALB/GLOB RATIO 1.1 (1.0-2.1); ALBUMIN 3.2 g/dL (3.5-5.0); CALCIUM 7.8 mg/dL (8.4-10.2)
--- NOTE | 2019-01-01 08:13 | RAD ---
Date of service: 12/31/2018 HISTORY: fever COMPARISON: Frontal chest radiograph 02/07/2017. FINDINGS: LUNGS: Unipolar permanent cardiac pacemaker unchanged in appearance. Skin fold/overlap soft tissue seen at the inferior lung zones bilaterally. No interval airspace disease bilaterally. PLEURA: No significant pleural effusion identified, no pneumothorax apparent. CARDIOVASCULAR: No aortic atherosclerotic calcification present. Stable cardiac silhouette. No pulmonary vascular congestion. OSSEOUS STRUCTURES: No significant abnormalities. VISUALIZED UPPER ABDOMEN: Normal. OTHER FINDINGS: None. IMPRESSION: No interval acute cardiopulmonary disease appreciable. Pacemaker reiterated.
--- NOTE | 2019-01-01 08:53 | CARD ---
APPROVED REPORT Date of service: 12/31/2018 EKG Measurement Heart [id number] <Conclusion> Atrial fibrillation Left axis deviation Right bundle branch block Inferior infarct, age undetermined Abnormal ECG
[2019-01-01] MEDS ORDERED: MULTIVITAMIN PO SCH (09:00)
[2019-01-01] MEDS ORDERED: Patient's Own Med (Linagliptin [Tradjenta] 5 MG) PO SCH (09:00)
[2019-01-01] MEDS ORDERED: INSULIN LISPRO 20 UNIT SQ SCH (09:00)
[2019-01-01] MEDS ORDERED: levoFLOXacin 500 mg in D5W 500 MG/100 ML BAG IVPB SCH (09:00)
[2019-01-01] MEDS: Insulin Lispro (humaLOG) 100 Units/ml Inj SC SCH ×3 (09:15→17:13)
[2019-01-01] MEDS: Cholecalciferol 1,000 INTLU TAB PO SCH (09:17)
[2019-01-01] MEDS: Multivitamin With Minerals Tab PO SCH (09:18)
[2019-01-01] MEDS: Pantoprazole 40 mg EC Tab PO SCH (09:18)
--- NOTE | 2019-01-01 11:35 | CP.PCM.CON ---
History of Present Illness - History of Present Illness History of Present Illness: pt is seen and examined by me, full consult is dictated #[id number] 1. s/p kidney transplant 2. OSWALDO on ckd-3 3. Uro sepsis 4. htn 5. dm c/w iv abx, ID consult follow up blood c/s, urine c/s check urine lytes, osm, cr, u/s transplant kidney Past Patient History - Infectious Disease Hx of Infectious Diseases: None - Past Medical History & Family History Past Medical History?: Yes - Past Social History Smoking Status: Former Smoker - CARDIAC Hx Atrial Fibrillation: Yes Hx Cardia Arrhythmia: Yes (ATRIAL FIB) Hx Congestive Heart Failure: Yes Hx Hypercholesterolemia: Yes Hx Hypertension: Yes Hx Pacemaker: Yes - PULMONARY Hx Pneumonia: Yes Hx Sleep Apnea: Yes - HEENT Hx HEENT Problems: Yes Hx Cataracts: Yes - RENAL Hx Chronic Kidney Disease: Yes (S/P renal transplant) - ENDOCRINE/METABOLIC Hx Hypothyroidism: Yes - INTEGUMENTARY Hx Dermatological Problems: No - MUSCULOSKELETAL/RHEUMATOLOGICAL Hx Arthritis: Yes Hx Falls: Yes Hx Fractures: Yes (Left hand finger 60yrs ago) - PSYCHIATRIC Hx Substance Use: No - ANESTHESIA Hx Anesthesia: Yes Hx Anesthesia Reactions: No Hx Malignant Hyperthermia: No Meds Allergies/Adverse Reactions: Allergies Allergy/AdvReac Type Severity Reaction Status Date / Time Penicillins Allergy Intermediate RASH Verified 12/31/18 18:15 - Medications Medications: Current Medications Aspirin (Ecotrin) 81 mg PO DAILY [facility] Last Admin: 01/01/19 09:18 Dose: 81 mg Atorvastatin Calcium (Lipitor) 20 mg PO DAILY [facility] Last Admin: 01/01/19 09:18 Dose: 20 mg Cholecalciferol (Vitamin D) 2,000 intlu PO DAILY [facility] Last Admin: 01/01/19 09:17 Dose: 2,000 intlu Ferrous Sulfate (Feosol) 325 mg PO DAILY [facility] Last Admin: 01/01/19 09:18 Dose: 325 mg Gabapentin (Neurontin) 100 mg PO DAILY [facility] Last Admin: 01/01/19 09:17 Dose: 100 mg Levofloxacin/Dextrose (Levaquin 500mg) 500 mg in 100 mls @ 100 mls/hr IVPB DAILY [facility]; Protocol Last Admin: 01/01/19 09:15 Dose: 100 mls/hr Insulin Detemir (Levemir) 50 units SC [facility] Insulin Human Lispro (Humalog) 20 units SC TID [facility] Last Admin: 01/01/19 09:15 Dose: 20 unit Levothyroxine Sodium (Synthroid) 75 mcg PO DAILY@0630 [facility] Last Admin: 01/01/19 05:31 Dose: 75 mcg Multivitamins/Minerals (Therapeutic-M Tab) 1 tab PO DAILY [facility] Last Admin: 01/01/19 09:18 Dose: 1 tab Mycophenolate Mofetil (Cellcept Cap) 1,000 mg PO Q12 [facility] Last Admin: 01/01/19 11:06 Dose: 1,000 mg [id number] Ethyl Esters (Lovaza) 1 gm PO DAILY [facility] Pantoprazole Sodium (Protonix Ec Tab) 40 mg PO DAILY [facility] Last Admin: 01/01/19 09:18 Dose: 40 mg Prednisone (Prednisone Tab) 5 mg PO DAILY [facility] Last Admin: 01/01/19 09:18 Dose: 5 mg [facility]arox[facility] ([facility]) [facility] [place] Last Admin: 01/01/19 11:07 Dose: 15 mg Sitagliptin Phosphate (Januvia) 25 mg PO DAILY [facility] Last Admin: 01/01/19 09:18 Dose: 25 mg Tamsulosin HCl (Flomax) 0.4 mg PO BID [facility] Last Admin: 01/01/19 09:18 Dose: 0.4 mg Results - Vital Signs Recent Vital Signs: Last Vital Signs Temp 99.3 F 01/01/19 07:59 Pulse 100 H 01/01/19 07:59 Resp 18 01/01/19 07:59 BP 101/59 L 01/01/19 07:59 Pulse Ox 95 01/01/19 07:59 - Labs Result Diagrams: 01/01/19 04:35 01/01/19 04:35 Labs: Laboratory Results - last 24 hr 12/31/18 12/31/18 12/31/18 19:37 19:37 19:37 WBC 6.1 RBC 3.92 L Hgb 10.5 L Hct 33.4 L MCV 85.2 D MCH 26.9 L MCHC 31.5 L RDW 18.0 H Plt Count 121 L MPV 9.6 Neut % (Auto) 87.2 H Lymph % (Auto) 3.9 L [place] % (Auto) 8.5 Eos % (Auto) 0.1 Baso % (Auto) 0.3 Neut # (Auto) 5.3 Lymph # (Auto) 0.2 L [place] # (Auto) 0.5 Eos # (Auto) 0.0 Baso # (Auto) 0.0 Neutrophils % (Manual) 78 H Band Neutrophils % 6 H Lymphocytes % (Manual) 7 L Monocytes % (Manual) 9 Platelet Estimate Normal Hypochromasia (manual) Slight Poikilocytosis (manual Slight Anisocytosis (manual) Moderate Microcytosis (manual) Slight PT INR APTT Sodium 127 L Potassium 4.0 Chloride 91 L Carbon Dioxide 19 L Anion Gap 21 H BUN 37 H Creatinine 3.7 H Est GFR ( Amer) 20 Est GFR (Non-Af Amer) 16 POC Glucose (mg/dL) Random Glucose 236 H Lactic Acid 1.2 Calcium 8.8 Total Bilirubin 2.2 H AST 37 ALT 54 Alkaline Phosphatase 140 H D Total Protein 6.8 Albumin 3.8 Globulin 3.0 Albumin/Globulin Ratio 1.2 Urine Color Urine Clarity Urine pH Ur Specific [place] Urine Protein Urine Glucose (UA) Urine Ketones Urine Blood Urine Nitrate Urine Bilirubin Urine Urobilinogen Ur Leukocyte Esterase Urine RBC (Auto) Urine WBC Clumps (Auto) Urine Microscopic WBC Amorphous Sediment Urine Bacteria Influenza Typ A,B (EIA) 12/31/18 12/31/18 12/31/18 19:37 19:53 21:23 WBC RBC Hgb Hct MCV MCH MCHC RDW Plt Count MPV Neut % (Auto) Lymph % (Auto) [place] % (Auto) Eos % (Auto) Baso % (Auto) Neut # (Auto) Lymph # (Auto) [place] # (Auto) Eos # (Auto) Baso # (Auto) Neutrophils % (Manual) Band Neutrophils % Lymphocytes % (Manual) Monocytes % (Manual) Platelet Estimate Hypochromasia (manual) Poikilocytosis (manual Anisocytosis (manual) Microcytosis (manual) PT 27.2 H INR 2.4 APTT 39.2 H Sodium Potassium Chloride Carbon Dioxide Anion Gap BUN Creatinine Est GFR ( Amer) Est GFR (Non-Af Amer) POC Glucose (mg/dL) Random Glucose Lactic Acid Calcium Total Bilirubin AST ALT Alkaline Phosphatase Total Protein Albumin Globulin Albumin/Globulin Ratio Urine Color Addie Urine Clarity Cloudy Urine pH 6.0 Ur Specific [place] 1.012 Urine Protein 100 Urine Glucose (UA) 150 Urine Ketones Negative Urine Blood Large Urine Nitrate Negative Urine Bilirubin Negative Urine Urobilinogen 0.2-1.0 Ur Leukocyte Esterase Large Urine RBC (Auto) 558 H Urine WBC Clumps (Auto) Few H Urine Microscopic WBC 273 H Amorphous Sediment Occ H Urine Bacteria Few H Influenza Typ A,B (EIA) Negative for flu a/b 01/01/19 01/01/19 01/01/19 04:35 04:35 04:35 WBC 4.6 L RBC 3.50 L Hgb 9.5 L Hct 30.0 L MCV 85.7 MCH 27.2 MCHC 31.7 L RDW 17.8 H Plt Count 95 L D MPV 9.8 Neut % (Auto) 85.4 H Lymph % (Auto) 4.9 L [place] % (Auto) 8.8 Eos % (Auto) 0.4 Baso % (Auto) 0.5 Neut # (Auto) 4.0 Lymph # (Auto) 0.2 L [place] # (Auto) 0.4 Eos # (Auto) 0.0 Baso # (Auto) 0.0 Neutrophils % (Manual) Band Neutrophils % Lymphocytes % (Manual) Monocytes % (Manual) Platelet Estimate Hypochromasia (manual) Poikilocytosis (manual Anisocytosis (manual) Microcytosis (manual) PT INR APTT Sodium 131 L Potassium 4.5 Chloride 98 Carbon Dioxide 18 L Anion Gap 20 BUN 36 H Creatinine 3.6 H Est GFR ( Amer) 20 Est GFR (Non-Af Amer) 17 POC Glucose (mg/dL) Random Glucose 189 H Lactic Acid 1.2 Calcium 7.8 L Total Bilirubin 2.2 H AST 50 ALT 44 Alkaline Phosphatase 115 Total Protein 6.1 L Albumin 3.2 L Globulin 2.9 Albumin/Globulin Ratio 1.1 Urine Color Urine Clarity Urine pH Ur Specific [place] Urine Protein Urine Glucose (UA) Urine Ketones Urine Blood Urine Nitrate Urine Bilirubin Urine Urobilinogen Ur Leukocyte Esterase Urine RBC (Auto) Urine WBC Clumps (Auto) Urine Microscopic WBC Amorphous Sediment Urine Bacteria Influenza Typ A,B (EIA) 01/01/19 01/01/19 05:32 11:02 WBC RBC Hgb Hct MCV MCH MCHC RDW Plt Count MPV Neut % (Auto) Lymph % (Auto) [place] % (Auto) Eos % (Auto) Baso % (Auto) Neut # (Auto) Lymph # (Auto) [place] # (Auto) Eos # (Auto) Baso # (Auto) Neutrophils % (Manual) Band Neutrophils % Lymphocytes % (Manual) Monocytes % (Manual) Platelet Estimate Hypochromasia (manual) Poikilocytosis (manual Anisocytosis (manual) Microcytosis (manual) PT INR APTT Sodium Potassium Chloride Carbon Dioxide Anion Gap BUN Creatinine Est GFR ( Amer) Est GFR (Non-Af Amer) POC Glucose (mg/dL) 203 H 260 H Random Glucose Lactic Acid Calcium Total Bilirubin AST ALT Alkaline Phosphatase Total Protein Albumin Globulin Albumin/Globulin Ratio Urine Color Urine Clarity Urine pH Ur Specific [place] Urine Protein Urine Glucose (UA) Urine Ketones Urine Blood Urine Nitrate Urine Bilirubin Urine Urobilinogen Ur Leukocyte Esterase Urine RBC (Auto) Urine WBC Clumps (Auto) Urine Microscopic WBC Amorphous Sediment Urine Bacteria Influenza Typ A,B (EIA)
[2019-01-01 11:36] VITALS: BMI 33.3
[2019-01-01] MEDS: Omega-3-Acid Ethyl Esters 1 GM Cap PO SCH (14:20)
[2019-01-01] MEDS ORDERED: Aztreonam 1 GM in Sodium Chloride 0.9% 100 ML IVPB SCH (17:00)
[2019-01-01] MEDS ORDERED: Aztreonam 2 Gm Inj IVPB ONE (17:45)
--- NOTE | 2019-01-01 17:49 | CP.PCM.CON ---
History of Present Illness - History of Present Illness History of Present Illness: called for antibiotic reccomendations - 68 yo male with hx of renal transplant and gram neg sepsis with PCN allergy 68 year old female with a history of bladder cancer, DM, HTN, artial fibrillation, right transmetarsal amputation, left AV fistula and right renal transplant presents to the ED via EMS for evaluation of fever, chills and dysuria for one day. Patient is a resident at [facility] and has an indwelling santiago catheter in place. He is also complaining of decreased urine output. However, on arrival to the ED, he had about 300 ccs in his santiago bag. There are also reports from EMS of purulent drainage in his santiago bag. - Medical History PMH: Arthritis, Atrial Fibrillation, Cardia Arrhythmia (ATRIAL FIB), CHF, Diabetes (insulin), Fractures (Left hand finger 60yrs ago), HTN, Hypercholesterolemia, Hypothyroidism, Pneumonia, Chronic Kidney Disease (S/P renal transplant), Sleep Apnea Denies: CAD Review of Systems - Review of Systems All systems: reviewed and no additional remarkable complaints except - Constitutional Constitutional: Chills, Fever, Malaise - EENT Eyes: absent: As Per HPI, Blind Spots, Blurred Vision, Change in Vision, Decreased Night Vision, Diplopia, Discharge, Dry Eye, Exophthalmos, Floaters, Irritation, Itchy Eyes, Loss of Peripheral Vision, Pain, Photophobia, Requires Corrective Lenses, Sees Flashes, Spots in Vision, Tunnel Vision, Other Visual Disturbances, Loss of Vision, Other Ears: absent: As Per HPI, Decreased Hearing, Ear Discharge, Ear Pain, Tinnitus, Abnormal Hearing, Disequilibrium, Dizziness, Other Nose/Mouth/Throat: absent: As Per HPI, Epistaxis, Nasal Congestion, Nasal Discharge, Nasal Obstruction, Nasal Trauma, Nose Pain, Post Nasal Drip, Sinus Pain, Sinus Pressure, Bleeding Gums, Change in Voice, Dental Pain, Dry Mouth, Dysphagia, Halitosis, Hoarsness, Lip Swelling, Mouth Lesions, Mouth Pain, Odynophagia, Sore Throat, Throat Swelling, Tongue Swelling, Facial Pain, Neck Pain, Neck Mass, Other - Cardiovascular Cardiovascular: As Per HPI - Respiratory Respiratory: As Per HPI - Gastrointestinal Gastrointestinal: absent: As Per HPI, Abdominal Pain, Belching, Bloating, Change in Bowel Habits, Change in Stool Character, Coffee Ground Emesis, Constipation, Cramping, Diarrhea, Dyspepsia, Dysphagia, Early Satiety, Excessive Flatus, Fecal Incontinence, Heartburn, Hematemesis, Hematochezia, Loose Stools, Melena, Nausea, Odynophagia, Temesmus, Vomiting, Other - Genitourinary Genitourinary: absent: As Per HPI, Change in Urinary Stream, Difficulty U rinating, Dysuria, Flank Pain, Hematuria, Pyuria, Nocturia, Urinary Incontinence, Urinary Frequency, Urinary Hesitance, Urinary Urgency, Voiding Freq/Small Amts, Freq UTI, Hx Renal/Bladder Calculi, Hx /Renal Surgery, Bladder Distension, Other - Musculoskeletal Musculoskeletal: As Per HPI - Integumentary Integumentary: absent: As Per HPI, Acne, Alopecia, Bleeding Lesions, Change in Hair, Change in Nails, Change in Pigmentation, Changing Lesions, Dry Skin, Erythema, Furuncle, Hirsutism, Lesions, New Lesions, Non-Healing Lesions, Photosensitivity, Pruritus, Rash, Skin Pain, Skin Ulcer, Sores, Striae, Swelling, Unusual Bruising, Wounds, Jaundice, Other - Neurological Neurological: absent: As Per HPI, Abnormal Gait, Abnormal Hearing, Abnormal Movements, Abnormal Speech, Behavioral Changes, Burning Sensations, Confusion, Convulsions, Disequilibrium, Dizziness, Numbness, Focal Weakness, Frequent Falls, Headaches, Lack of Coordination, Loss of Vision, Memory Loss, Paresthesi as, Radicular Pain, Restless Legs, Sensory Deficit, Syncope, Tingling, Tremor, Vertigo, Weakness, Other Visual Disturbances, Other - Psychiatric Psychiatric: absent: As Per HPI, Abnormal Sleep Pattern, Anhedonia, Anxiety, Auditory Hallucinations, Behavioral Changes, Change in Appetite, Change in Libido, Confusion, Depression, Difficulty Concentrating, Hallucinations, Homicidal Ideation, Hopelessness, Irritability, Memory Loss, Mood Swings, Panic Attacks, Paranoia, Suicidal Ideation, Visual Hallucinations, Tactile Hallucinations, Other - Endocrine Endocrine: As Per HPI - Hematologic/Lymphatic Hematologic: absent: As Per HPI, Easy Bleeding, Easy Bruising, Lymphadenopathy, Other Past Patient History - Infectious Disease Hx of Infectious Diseases: None - Past Medical History & Family History Past Medical History?: Yes - Past Social History Smoking Status: Former Smoker - CARDIAC Hx Atrial Fibrillation: Yes Hx Cardia Arrhythmia: Yes (ATRIAL FIB) Hx Congestive Heart Failure: Yes Hx Hypercholesterolemia: Yes Hx Hypertension: Yes Hx Pacemaker: Yes - PULMONARY Hx Pneumonia: Yes Hx Sleep Apnea: Yes - HEENT Hx HEENT Problems: Yes Hx Cataracts: Yes - RENAL Hx Chronic Kidney Disease: Yes (S/P renal transplant) - ENDOCRINE/METABOLIC Hx Hypothyroidism: Yes - INTEGUMENTARY Hx Dermatological Problems: No - MUSCULOSKELETAL/RHEUMATOLOGICAL Hx Arthritis: Yes Hx Falls: Yes Hx Fractures: Yes (Left hand finger 60yrs ago) - PSYCHIATRIC Hx Substance Use: No - ANESTHESIA Hx Anesthesia: Yes Hx Anesthesia Reactions: No Hx Malignant Hyperthermia: No Meds Allergies/Adverse Reactions: Allergies Allergy/AdvReac Type Severity Reaction Status Date / Time Penicillins Allergy Intermediate RASH Verified 12/31/18 18:15 - Medications Medications: Current Medications Aspirin (Ecotrin) 81 mg PO DAILY [facility] Last Admin: 01/01/19 09:18 Dose: 81 mg Atorvastatin Calcium (Lipitor) 20 mg PO DAILY [facility] Last Admin: 01/01/19 09:18 Dose: 20 mg Aztreonam (Azactam) 1 gm IVPB STAT ONE; Protocol Stop: 01/01/19 17:46 Cholecalciferol (Vitamin D) 2,000 intlu PO DAILY [facility] Last Admin: 01/01/19 09:17 Dose: 2,000 intlu Ferrous Sulfate (Feosol) 325 mg PO DAILY [facility] Last Admin: 01/01/19 09:18 Dose: 325 mg Gabapentin (Neurontin) 100 mg PO DAILY [facility] Last Admin: 01/01/19 09:17 Dose: 100 mg Aztreonam 500 mg/ Sodium (Chloride) 50 mls @ 50 mls/hr IVPB Q8 [facility]; Protocol Last Admin: 01/01/19 17:12 Dose: 50 mls/hr Insulin Detemir (Levemir) 50 units SC HS [facility] Insulin Human Lispro (Humalog) 20 units SC TID [facility] Last Admin: 01/01/19 17:13 Dose: 20 unit Levothyroxine Sodium (Synthroid) 75 mcg PO DAILY@0630 [facility] Last Admin: 01/01/19 05:31 Dose: 75 mcg Multivitamins/Minerals (Therapeutic-M Tab) 1 tab PO DAILY [facility] Last Admin: 01/01/19 09:18 Dose: 1 tab Mycophenolate Mofetil (Cellcept Cap) 1,000 mg PO Q12 [facility] Last Admin: 01/01/19 11:06 Dose: 1,000 mg [id number] Ethyl Esters (Lovaza) 1 gm PO DAILY [facility] Last Admin: 01/01/19 14:20 Dose: 1 gm Pantoprazole Sodium (Protonix Ec Tab) 40 mg PO DAILY [facility] Last Admin: 01/01/19 09:18 Dose: 40 mg Prednisone (Prednisone Tab) 5 mg PO DAILY [facility] Last Admin: 01/01/19 09:18 Dose: 5 mg Rivaroxaban (Xarelto) 15 mg PO DAILYWM [facility]; Protocol Last Admin: 01/01/19 11:07 Dose: 15 mg Sitagliptin Phosphate (Januvia) 25 mg PO DAILY [facility] Last Admin: 01/01/19 09:18 Dose: 25 mg Tamsulosin HCl (Flomax) 0.4 mg PO BID [facility] Last Admin: 01/01/19 17:13 Dose: 0.4 mg Physical Exam - Constitutional Appears: Toxic, Chronically Ill - Head Exam Head Exam: NORMOCEPHALIC - Eye Exam Eye Exam: absent: Scleral icterus Pupil Exam: NORMAL ACCOMODATION - ENT Exam ENT Exam: Mucous Membranes Dry, Normal Oropharynx - Neck Exam Neck exam: Negative for: Lymphadenopathy, Thyromegaly - Respiratory Exam Respiratory Exam: Decreased Breath Sounds, Prolonged Expiratory Phase, Rhonchi - Cardiovascular Exam Cardiovascular Exam: Irregular Rhythm, +S1, +S2 - GI/Abdominal Exam GI & Abdominal Exam: Diminished Bowel Sounds, Distended, Soft. absent: Rebound, Rigid, Tenderness - Rectal Exam Rectal Exam: Deferred - Exam Exam: Bladder Distension. absent: Scrotal Swelling - Extremities Exam Extremities exam: Positive for: pedal edema. Negative for: calf tenderness, pedal pulses present Additional comments: TMA - Back Exam Back exam: absent: CVA tenderness (L), CVA tenderness (R) - Neurological Exam Neurological exam: Alert, CN II-XII Intact, Oriented x3, Reflexes Normal - Psychiatric Exam Psychiatric exam: Depressed - Skin Skin Exam: Dry Additional comments: wound right ankle stage II Results - Vital Signs Recent Vital Signs: Last Vital Signs Temp 98.2 F 01/01/19 16:22 Pulse 80 01/01/19 16:22 Resp 16 01/01/19 16:22 BP 115/72 01/01/19 16:22 Pulse Ox 97 02/21/19 16:22 - Labs Result Diagrams: 01/02/19 06:35 01/02/19 06:35 Labs: Laboratory Results - last 24 hr 12/31/18 12/31/18 12/31/18 19:37 19:37 19:37 WBC 6.1 RBC 3.92 L Hgb 10.5 L Hct 33.4 L MCV 85.2 D MCH 26.9 L MCHC 31.5 L RDW 18.0 H Plt Count 121 L MPV 9.6 Neut % (Auto) 87.2 H Lymph % (Auto) 3.9 L Stanton % (Auto) 8.5 Eos % (Auto) 0.1 Baso % (Auto) 0.3 Neut # (Auto) 5.3 Lymph # (Auto) 0.2 L Stanton # (Auto) 0.5 Eos # (Auto) 0.0 Baso # (Auto) 0.0 Neutrophils % (Manual) 78 H Band Neutrophils % 6 H Lymphocytes % (Manual) 7 L Monocytes % (Manual) 9 Platelet Estimate Normal Hypochromasia (manual) Slight Poikilocytosis (manual Slight Anisocytosis (manual) Moderate Microcytosis (manual) Slight PT INR APTT Sodium 127 L Potassium 4.0 Chloride 91 L Carbon Dioxide 19 L Anion Gap 21 H BUN 37 H Creatinine 3.7 H Est GFR ( Amer) 20 Est GFR (Non-Af Amer) 16 POC Glucose (mg/dL) Random Glucose 236 H Hemoglobin A1c Lactic Acid 1.2 Calcium 8.8 Total Bilirubin 2.2 H AST 37 ALT 54 Alkaline Phosphatase 140 H D Total Protein 6.8 Albumin 3.8 Globulin 3.0 Albumin/Globulin Ratio 1.2 Urine Color Urine Clarity Urine pH Ur Specific [place] Urine Protein Urine Glucose (UA) Urine Ketones Urine Blood Urine Nitrate Urine Bilirubin Urine Urobilinogen Ur Leukocyte Esterase Urine RBC (Auto) Urine WBC Clumps (Auto) Urine Microscopic WBC Amorphous Sediment Urine Bacteria Influenza Typ A,B (EIA) 12/31/18 12/31/18 12/31/18 19:37 19:53 21:23 WBC RBC Hgb Hct MCV MCH MCHC RDW Plt Count MPV Neut % (Auto) Lymph % (Auto) Stanton % (Auto) Eos % (Auto) Baso % (Auto) Neut # (Auto) Lymph # (Auto) Stanton # (Auto) Eos # (Auto) Baso # (Auto) Neutrophils % (Manual) Band Neutrophils % Lymphocytes % (Manual) Monocytes % (Manual) Platelet Estimate Hypochromasia (manual) Poikilocytosis (manual Anisocytosis (manual) Microcytosis (manual) PT 27.2 H INR 2.4 APTT 39.2 H Sodium Potassium Chloride Carbon Dioxide Anion Gap BUN Creatinine Est GFR ( Amer) Est GFR (Non-Af Amer) POC Glucose (mg/dL) Random Glucose Hemoglobin A1c Lactic Acid Calcium Total Bilirubin AST ALT Alkaline Phosphatase Total Protein Albumin Globulin Albumin/Globulin Ratio Urine Color Addie Urine Clarity Cloudy Urine pH 6.0 Ur Specific [place] 1.012 Urine Protein 100 Urine Glucose (UA) 150 Urine Ketones Negative Urine Blood Large Urine Nitrate Negative Urine Bilirubin Negative Urine Urobilinogen 0.2-1.0 Ur Leukocyte Esterase Large Urine RBC (Auto) 558 H Urine WBC Clumps (Auto) Few H Urine Microscopic WBC 273 H Amorphous Sediment Occ H Urine Bacteria Few H Influenza Typ A,B (EIA) Negative for flu a/b 01/01/19 01/01/19 01/01/19 04:35 04:35 04:35 WBC 4.6 L RBC 3.50 L Hgb 9.5 L Hct 30.0 L MCV 85.7 MCH 27.2 MCHC 31.7 L RDW 17.8 H Plt Count 95 L D MPV 9.8 Neut % (Auto) 85.4 H Lymph % (Auto) 4.9 L Stanton % (Auto) 8.8 Eos % (Auto) 0.4 Baso % (Auto) 0.5 Neut # (Auto) 4.0 Lymph # (Auto) 0.2 L Stanton # (Auto) 0.4 Eos # (Auto) 0.0 Baso # (Auto) 0.0 Neutrophils % (Manual) Band Neutrophils % Lymphocytes % (Manual) Monocytes % (Manual) Platelet Estimate Hypochromasia (manual) Poikilocytosis (manual Anisocytosis (manual) Microcytosis (manual) PT INR APTT Sodium 131 L Potassium 4.5 Chloride 98 Carbon Dioxide 18 L Anion Gap 20 BUN 36 H Creatinine 3.6 H Est GFR ( Amer) 20 Est GFR (Non-Af Amer) 17 POC Glucose (mg/dL) Random Glucose 189 H Hemoglobin A1c Lactic Acid 1.2 Calcium 7.8 L Total Bilirubin 2.2 H AST 50 ALT 44 Alkaline Phosphatase 115 Total Protein 6.1 L Albumin 3.2 L Globulin 2.9 Albumin/Globulin Ratio 1.1 Urine Color Urine Clarity Urine pH Ur Specific [place] Urine Protein Urine Glucose (UA) Urine Ketones Urine Blood Urine Nitrate Urine Bilirubin Urine Urobilinogen Ur Leukocyte Esterase Urine RBC (Auto) Urine WBC Clumps (Auto) Urine Microscopic WBC Amorphous Sediment Urine Bacteria Influenza Typ A,B (EIA) 01/01/19 01/01/19 01/01/19 04:35 05:32 11:02 WBC RBC Hgb Hct MCV MCH MCHC RDW Plt Count MPV Neut % (Auto) Lymph % (Auto) Stanton % (Auto) Eos % (Auto) Baso % (Auto) Neut # (Auto) Lymph # (Auto) Stanton # (Auto) Eos # (Auto) Baso # (Auto) Neutrophils % (Manual) Band Neutrophils % Lymphocytes % (Manual) Monocytes % (Manual) Platelet Estimate Hypochromasia (manual) Poikilocytosis (manual Anisocytosis (manual) Microcytosis (manual) PT INR APTT Sodium Potassium Chloride Carbon Dioxide Anion Gap BUN Creatinine Est GFR ( Amer) Est GFR (Non-Af Amer) POC Glucose (mg/dL) 203 H 260 H Random Glucose Hemoglobin A1c 8.9 H Lactic Acid Calcium Total Bilirubin AST ALT Alkaline Phosphatase Total Protein Albumin Globulin Albumin/Globulin Ratio Urine Color Urine Clarity Urine pH Ur Specific [place] Urine Protein Urine Glucose (UA) Urine Ketones Urine Blood Urine Nitrate Urine Bilirubin Urine Urobilinogen Ur Leukocyte Esterase Urine RBC (Auto) Urine WBC Clumps (Auto) Urine Microscopic WBC Amorphous Sediment Urine Bacteria Influenza Typ A,B (EIA) 01/01/19 16:08 WBC RBC Hgb Hct MCV MCH MCHC RDW Plt Count MPV Neut % (Auto) Lymph % (Auto) Stanton % (Auto) Eos % (Auto) Baso % (Auto) Neut # (Auto) Lymph # (Auto) Stanton # (Auto) Eos # (Auto) Baso # (Auto) Neutrophils % (Manual) Band Neutrophils % Lymphocytes % (Manual) Monocytes % (Manual) Platelet Estimate Hypochromasia (manual) Poikilocytosis (manual Anisocytosis (manual) Microcytosis (manual) PT INR APTT Sodium Potassium Chloride Carbon Dioxide Anion Gap BUN Creatinine Est GFR ( Amer) Est GFR (Non-Af Amer) POC Glucose (mg/dL) 263 H Random Glucose Hemoglobin A1c Lactic Acid Calcium Total Bilirubin AST ALT Alkaline Phosphatase Total Protein Albumin Globulin Albumin/Globulin Ratio Urine Color Urine Clarity Urine pH Ur Specific [place] Urine Protein Urine Glucose (UA) Urine Ketones Urine Blood Urine Nitrate Urine Bilirubin Urine Urobilinogen Ur Leukocyte Esterase Urine RBC (Auto) Urine WBC Clumps (Auto) Urine Microscopic WBC Amorphous Sediment Urine Bacteria Influenza Typ A,B (EIA) - Impressions Impression: 68 yo male with Hx orf renal transplant and indwelling santiago is admitted with gram neg sepsis likely pyelonephritis of tranplant kidney Old chart reveals ESBL in wound last year as well as 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
[2019-01-01] MEDS ORDERED: Aztreonam 1 GM in Sodium Chloride 0.9% 100 ML IVPB ONE (18:00)
[2019-01-01] MEDS ORDERED: Patient's Own Med (Rosuvastatin Calcium [Crestor] 40 MG) PO SCH (22:00)
[2019-01-01] MEDS ORDERED: Patient's Own Med (Insulin Glargine, Recombina [Lantus] 50 UNIT) SC SCH (22:00)
[2019-01-01] MEDS: Insulin Detemir 100 Units/ml Inj SC SCH (22:57)
--- NOTE | 2019-01-02 06:00 | CON ---
DATE: 01/01/2019 RENAL CONSULTATION LOCATION: The patient is located in room 412, bed 1. REQUESTED BY: Osmel Frey MD REASON FOR RENAL CONSULTATION: Acute renal failure, chronic kidney disease. HISTORY OF PRESENT ILLNESS: Mr. Simpson is a 68-year-old male with past medical history significant for bladder cancer, diabetes, hypertension, atrial fibrillation, right transmetatarsal amputation, left AV fistula and status post renal transplant about five years ago, living related kidney transplant from his daughter who was sent to the ED via EMS for evaluation of fever, chills, and dysuria for one day from the [facility]dc, [facility]. The patient has an indwelling Du catheter in place. The patient was also complaining of decreased urine output. The patient was found about 300 mL of urine in the Du bag and also history of purulent drainage in the Du bag. The patient denies any chest pain or palpitation. Denies any headache or dizziness. Denies any nausea, vomiting, or diarrhea. Denies any abdominal pain. Denies any bleeding per rectum. PAST MEDICAL HISTORY: Significant for longstanding hypertension, diabetes more than 30 to 35 years, atrial fibrillation, chronic kidney disease and baseline creatinine about 2.5 in the past and also history of bladder cancer. PAST SURGICAL HISTORY: Status post living related kidney transplant about five years ago and also left upper extremity AV fistula, status post transmetatarsal amputation of the right fourth toe. ALLERGIES: ALLERGY TO PENICILLIN. SOCIAL HISTORY: Denies any smoking, alcohol, or drugs. PERSONAL HISTORY: No smoking. No alcohol. No drug. FAMILY HISTORY: Not significant. He has a very supportive family. CURRENT MEDICATIONS: Include as follows from the fdc: Gabapentin, prednisone 5 mg p.o. b.i.d., Flomax 0.4 mg p.o. b.i.d., Crestor 40 mg at bedtime, Xarelto 20 mg p.o. daily, Prilosec 20 mg p.o. daily, [place]-3 fatty acid one capsule p.o. daily, CellCept 500 mg two tablets p.o. every 12 hours, multivitamins, Tradjenta 5 mg p.o. daily, Synthroid 75 mcg daily, Humalog 20 units subcu t.i.d., Lantus 50 units subcu at bedtime, glipizide 2.5 mg p.o. daily, Lasix 20 mg p.o. b.i.d., vitamin D3 2000 units p.o. daily, aspirin 81 mg daily. His current medications in the hospital include Azactam 500 mg every 8 hours, CellCept 500 mg two tablets p.o. every 12 hours, aspirin, Feosol, Flomax, Humalog, Januvia, Levemir, Lipitor, morphine 2 mg IV every 4 hours p.r.n., gabapentin 100 mg p.o. daily, prednisone 5 mg p.o. daily, Protonix 40 mg p.o. daily, Synthroid 75 mcg daily, multivitamin, Xarelto, and vitamin D. REVIEW OF SYSTEMS: Significant for fever, chills, dysuria, decreased urine output, and also pain in the right lower quadrant. All other review of systems are reviewed and are negative. PHYSICAL EXAMINATION: VITAL SIGNS: As follows: Blood pressure this morning 108/53, pulse 109, respiration 20, temperature 102.7, saturation 99%. Height 5 feet 5 inches. Weight is 200 pounds. GENERAL: Mr. Simpson is a 68-year-old elderly male, moderately built, moderately nourished, not in any distress. HEENT: Pupils are normal and reactive to light and accommodation. Conjunctivae are pink. Sclerae anicteric. Tongue is moist. Trachea is midline. LUNGS: Symmetric on both sides. Bilateral breath sounds present. Clear to auscultation. CARDIOVASCULAR SYSTEM: [place] at the fifth intercostal space, midclavicular line. S1 and S2 audible. No murmur or gallop. ABDOMEN: Slightly distended, soft, and moderate tenderness in the right lower quadrant with transplant kidney is located. No rigidity. Bowel sounds are present. No hepatosplenomegaly. No abdominal bruits. CENTRAL NERVOUS SYSTEM: The patient is alert, awake, and oriented x3. Nonfocal neuro examination. Cranial nerves II through XII are grossly intact. Sensory and motor system is within normal limits. EXTREMITIES: No cyanosis, no clubbing, no edema. LABORATORY DATA: Include as follows: As of 12/31/2018, WBC 6.1, hemoglobin 10.5, hematocrit is 33.4, platelets 121. Neutrophil 78, band 6, lymphs 7, monos 9. PT 27.2 and PTT 39.2. Sodium 127, potassium is 4, chloride 91, CO2 of 19, BUN 37, creatinine 3.7, glucose 236, lactic acid 1.2, calcium 8.8. Total bili 2.2, AST 37, ALT 54, alkaline phosphatase 140, total protein 6.8, and albumin is 3.8. Urinalysis: Addie, cloudy, pH of 6, specific gravity 1.012, protein 100, glucose 150, ketones negative, blood large, nitrites negative, bilirubin negative, urobilinogen 0.2 to 1, leukocyte esterase is large, rbc's 558, and wbc clumps few, wbc's 273, bacteria few. Influenza A and B antibody screening is negative. His other laboratory data as of 01/01/2019: WBC 4.6, hemoglobin 9.5, hematocrit is 30, and platelets 95. Sodium 131, potassium 4.5, chloride 98, CO2 of 18, BUN 36, creatinine 3.6, glucose 189, calcium is 7.8, hemoglobin A1c is 8.9, lactate acid 1.1. Total bili 2.2, AST 50, ALT 44, alkaline phosphatase is 150, total protein 6.1, and albumin is 3.2. Blood culture is positive for gram-negative rods, 2 out of 2 bottles as of 12/31/2018. Other reports: Ultrasound of kidney, transplant kidney is still pending. ASSESSMENT AND PLAN: In summary, Mr. Simpson is a 68-year-old elderly male with a history of hypertension, diabetes, bladder cancer, atrial fibrillation, status post right transmetatarsal amputation, left arteriovenous fistula, status post living related kidney transplant about five years ago from his daughter with a baseline creatinine above 2 who was admitted from the fdc with fever, chills, dysuria, decreased urine output, and right lower quadrant pain and tenderness, and now blood culture is positive for gram-negative rods and urine culture is pending still. 1. Acute renal failure on chronic kidney disease secondary to acute tubular necrosis. 2. Urosepsis secondary to gram-negative sepsis, most likely source is urine, but the urine culture is still pending. 3. Hypertension. 4. Diabetes. 5. Atrial fibrillation. We will check ultrasound of the transplanted kidney, and also we will request infectious disease consult for better coverage of antibiotics and Levaquin was discontinued and started on Azactam. Continue to monitor basic metabolic panel and followup ultrasound of the transplanted kidney and daily basic metabolic panel. Continue intravenous fluids. We will follow up with you. Thank you for allowing me to participate in your patient's care. If the patient's condition deteriorates, we will consult to transfer the patient to the transplant facility in [facility]. Case discussed with the nurse practitioner in rounds. De Vieira MD
[2019-01-02] MEDS: Levothyroxine 75 MCG TAB PO SCH (06:07)
[2019-01-02] MEDS ORDERED: Dextrose 50% SYRINGE Inj (50 ml) IVP STA (06:14)
--- NOTE | 2019-01-02 06:16 | CP.PCM.PCO ---
Physician Communication Note - Physician Communication Note Physician Communication Note: Pt hypoglycemic Accucheck 32 w/ mild confusion, D50% stat administered
[2019-01-02 07:09] LABS: HEMOGLOBIN 9.3 g/dL (12.0-18.0); MEAN CELL VOLUME 85.4 fl (80.0-94.0); MEAN CORPUSCULAR HEMOGLOBIN 26.6 pg (27.0-31.0); MEAN CORPUSCULAR HGB CONC 31.1 g/dL (33.0-37.0); RBC 3.5 Mil/uL (4.40-5.90); WHITE BLOOD COUNT 3.7 K/uL (4.8-10.8)
[2019-01-02 07:31] LABS: CALCIUM 8.6 mg/dL (8.4-10.2)
[2019-01-02] MEDS: Omega-3-Acid Ethyl Esters 1 GM Cap PO SCH (09:32)
[2019-01-02] MEDS: Pantoprazole 40 mg EC Tab PO SCH (09:33)
[2019-01-02] MEDS: Insulin Lispro (humaLOG) 100 Units/ml Inj SC SCH ×3 (09:34→17:10)
[2019-01-02] MEDS: Multivitamin With Minerals Tab PO SCH (09:35)
[2019-01-02] MEDS: Cholecalciferol 1,000 INTLU TAB PO SCH (09:35)
--- NOTE | 2019-01-02 12:52 | CP.PCM.CON ---
History of Present Illness - History of Present Illness History of Present Illness: Podiatry consult note for Dr. Mejia, 68 year old male patient with a history of bladder cancer, DM, HTN, artial fibrillation, right transmetarsal amputation, left AV fistula and right renal transplant was seen and evaluated at bedside for right leg ulceration. Patient complains of minimal pain to the site when touched. Patient denies any drainage. Patient does not recall how long he has had the wound present for. Patient denies any fever, nausea, vomiting at this time, but complaints of urinary symptoms PSHx: Endoscopy, Pacemaker, R TMA Medications: see med rec Allergies: Penicillin Review of Systems - Review of Systems All systems: reviewed and no additional remarkable complaints except Review of Systems: As per HPI Past Patient History - Infectious Disease Hx of Infectious Diseases: None - Past Medical History & Family History Past Medical History?: Yes - Past Social History Smoking Status: Former Smoker - CARDIAC Hx Atrial Fibrillation: Yes Hx Cardia Arrhythmia: Yes (ATRIAL FIB) Hx Congestive Heart Failure: Yes Hx Hypercholesterolemia: Yes Hx Hypertension: Yes Hx Pacemaker: Yes - PULMONARY Hx Pneumonia: Yes Hx Sleep Apnea: Yes - HEENT Hx HEENT Problems: Yes Hx Cataracts: Yes - RENAL Hx Chronic Kidney Disease: Yes (S/P renal transplant) - ENDOCRINE/METABOLIC Hx Hypothyroidism: Yes - INTEGUMENTARY Hx Dermatological Problems: No - MUSCULOSKELETAL/RHEUMATOLOGICAL Hx Arthritis: Yes Hx Fractures: Yes (Left hand finger 60yrs ago) - ANESTHESIA Hx Anesthesia: Yes Hx Anesthesia Reactions: No Hx Malignant Hyperthermia: No Meds Allergies/Adverse Reactions: Allergies Allergy/AdvReac Type Severity Reaction Status Date / Time Penicillins Allergy Intermediate RASH Verified 12/31/18 18:15 - Medications Medications: Current Medications Acetaminophen (Tylenol 325mg Tab) 650 mg PO Q6 PRN PRN Reason: Fever >100.4 F Last Admin: 01/02/19 12:12 Dose: 650 mg Aspirin (Ecotrin) 81 mg PO DAILY [facility] Last Admin: 01/02/19 09:33 Dose: 81 mg Atorvastatin Calcium (Lipitor) 20 mg PO DAILY [facility] Last Admin: 01/02/19 09:34 Dose: 20 mg Cholecalciferol (Vitamin D) 2,000 intlu PO DAILY [facility] Last Admin: 01/02/19 09:35 Dose: 2,000 intlu Ferrous Sulfate (Feosol) 325 mg PO DAILY [facility] Last Admin: 01/02/19 09:34 Dose: 325 mg Gabapentin (Neurontin) 100 mg PO DAILY [facility] Last Admin: 01/02/19 09:32 Dose: 100 mg Aztreonam 500 mg/ Sodium (Chloride) 50 mls @ 50 mls/hr IVPB Q8 [facility]; Protocol Last Admin: 01/02/19 10:11 Dose: 50 mls/hr Insulin Detemir (Levemir) 50 units SC HS [facility] Last Admin: 01/01/19 22:57 Dose: 50 u Insulin Human Lispro (Humalog) 20 units SC TID [facility] Last Admin: 01/02/19 12:13 Dose: 20 unit Levothyroxine Sodium (Synthroid) 75 mcg PO DAILY@0630 [facility] Last Admin: 01/02/19 06:07 Dose: 75 mcg Morphine Sulfate (Morphine) 2 mg IVP Q4 PRN PRN Reason: Pain, severe (8-10) Last Admin: 01/01/19 21:12 Dose: 2 mg Multivitamins/Minerals (Therapeutic-M Tab) 1 tab PO DAILY [facility] Last Admin: 01/02/19 09:35 Dose: 1 tab Mycophenolate Mofetil (Cellcept Cap) 1,000 mg PO Q12 [facility] Last Admin: 01/02/19 09:33 Dose: 1,000 mg [id number] Ethyl Esters (Lovaza) 1 gm PO DAILY [facility] Last Admin: 01/02/19 09:32 Dose: 1 gm Pantoprazole Sodium (Protonix Ec Tab) 40 mg PO DAILY [facility] Last Admin: 01/02/19 09:33 Dose: 40 mg Prednisone (Prednisone Tab) 5 mg PO DAILY [facility] Last Admin: 01/02/19 09:33 Dose: 5 mg Rivaroxaban (Xarelto) 15 mg PO DAILYWM [facility]; Protocol Last Admin: 01/02/19 09:32 Dose: 15 mg Sitagliptin Phosphate (Januvia) 25 mg PO DAILY [facility] Last Admin: 01/02/19 09:33 Dose: 25 mg Tamsulosin HCl (Flomax) 0.4 mg PO BID [facility] Last Admin: 01/02/19 09:32 Dose: 0.4 mg Physical Exam - Constitutional Appears: Well, Non-toxic, No Acute Distress - Head Exam Head Exam: ATRAUMATIC, NORMOCEPHALIC - Extremities Exam Additional comments: Bilateral Lower Extremity Exam VASC: DP and PT 2/4 bilaterally, CFT less than 3 seconds X 4, TG normal, no edema noted NEURO: diminished sensation DERM: 3 cm X 3 cm circular wound noted to the lateral aspect of the right leg, wound superficial with 50% fibrotic and 50% grnaular base, negative probe to bone, negative malodor, negative drainage, negative tunneling or tracking, wound likely due to pressure, no clinical signs of infection ORTHO: TMA noted to the right, healed, left 5th digit amputation noted, no other wounds, MSK 5/5 - Neurological Exam Neurological exam: Alert, Oriented x3 - Psychiatric Exam Psychiatric exam: Normal Affect, Normal Mood Results - Vital Signs Recent Vital Signs: Last Vital Signs Temp 101 F H 01/02/19 12:12 Pulse 98 H 01/02/19 12:01 Resp 20 01/02/19 12:01 BP 122/62 01/02/19 12:01 Pulse Ox 98 01/02/19 12:01 - Labs Result Diagrams: 01/02/19 06:35 01/02/19 06:35 Labs: Laboratory Results - last 24 hr 01/01/19 01/01/19 01/02/19 16:08 21:14 05:33 WBC RBC Hgb Hct MCV MCH MCHC RDW Plt Count Sodium Potassium Chloride Carbon Dioxide Anion Gap BUN Creatinine Est GFR ( Amer) Est GFR (Non-Af Amer) POC Glucose (mg/dL) 263 H 167 H 32 L* Random Glucose Calcium HIV 1&2 Antibody Screen 01/02/19 01/02/19 01/02/19 06:10 06:35 06:35 WBC 3.7 L RBC 3.50 L Hgb 9.3 L Hct 29.9 L MCV 85.4 MCH 26.6 L MCHC 31.1 L RDW 18.0 H Plt Count 121 L D Sodium 134 Potassium 3.5 L Chloride 98 Carbon Dioxide 20 L Anion Gap 20 BUN 33 H Creatinine 4.1 H Est GFR ( Amer) 18 Est GFR (Non-Af Amer) 14 POC Glucose (mg/dL) 59 L Random Glucose 183 H Calcium 8.6 HIV 1&2 Antibody Screen 01/02/19 01/02/19 01/02/19 06:35 06:57 11:01 WBC RBC Hgb Hct MCV MCH MCHC RDW Plt Count Sodium Potassium Chloride Carbon Dioxide Anion Gap BUN Creatinine Est GFR ( Amer) Est GFR (Non-Af Amer) POC Glucose (mg/dL) 176 H 158 H Random Glucose Calcium HIV 1&2 Antibody Screen Negative Assessment & Plan - Assessment and Plan (Free Text) Assessment: 68 y/o male patient seen and evaluated for right leg wound, superficial, non- infected Plan: Patient seen and evaluated Plan discussed with Dr. Mejia Chart, labs and vitals reviewed Ordered Bactroban for the wound Obtained Wound Culture Dressed with gauze and DSD, will change to bactroban and optifoam tomorrow Podiatry will follow patient while in house - Date & Time Date: 01/02/19 Time: 14:51
--- NOTE | 2019-01-02 14:16 | CP.PCM.PN ---
Subjective - Date & Time of Evaluation Date of Evaluation: 01/02/19 Time of Evaluation: 08:00 - Subjective Subjective: remains acutely ill and febrile Has Hx of ESBL infection in past will add Merrerm ( allergy to PCN was rash ) delayed type Objective - Vital Signs/Intake and Output Vital Signs (last 24 hours): Temp Pulse Resp BP Pulse Ox 101 F H 98 H 20 122/62 98 01/02/19 12:12 01/02/19 12:01 01/02/19 12:01 01/02/19 12:01 01/02/19 12:01 - Medications Medications: Current Medications Acetaminophen (Tylenol 325mg Tab) 650 mg PO Q6 PRN PRN Reason: Fever >100.4 F Last Admin: 01/02/19 12:12 Dose: 650 mg Aspirin (Ecotrin) 81 mg PO DAILY [facility] Last Admin: 01/02/19 09:33 Dose: 81 mg Atorvastatin Calcium (Lipitor) 20 mg PO DAILY [facility] Last Admin: 01/02/19 09:34 Dose: 20 mg Cholecalciferol (Vitamin D) 2,000 intlu PO DAILY [facility] Last Admin: 01/02/19 09:35 Dose: 2,000 intlu Ferrous Sulfate (Feosol) 325 mg PO DAILY [facility] Last Admin: 01/02/19 09:34 Dose: 325 mg Gabapentin (Neurontin) 100 mg PO DAILY [facility] Last Admin: 01/02/19 09:32 Dose: 100 mg Aztreonam 500 mg/ Sodium (Chloride) 50 mls @ 50 mls/hr IVPB Q8 [facility]; Protocol Last Admin: 01/02/19 10:11 Dose: 50 mls/hr Insulin Detemir (Levemir) 50 units SC HS [facility] Last Admin: 01/01/19 22:57 Dose: 50 u Insulin Human Lispro (Humalog) 20 units SC TID [facility] Last Admin: 01/02/19 12:13 Dose: 20 unit Levothyroxine Sodium (Synthroid) 75 mcg PO DAILY@0630 [facility] Last Admin: 01/02/19 06:07 Dose: 75 mcg Morphine Sulfate (Morphine) 2 mg IVP Q4 PRN PRN Reason: Pain, severe (8-10) Last Admin: 01/01/19 21:12 Dose: 2 mg Multivitamins/Minerals (Therapeutic-M Tab) 1 tab PO DAILY [facility] Last Admin: 01/02/19 09:35 Dose: 1 tab Mycophenolate Mofetil (Cellcept Cap) 1,000 mg PO Q12 [facility] Last Admin: 01/02/19 09:33 Dose: 1,000 mg [id number]-2-Ngfe Ethyl Esters (Lovaza) 1 gm PO DAILY [facility] Last Admin: 01/02/19 09:32 Dose: 1 gm Pantoprazole Sodium (Protonix Ec Tab) 40 mg PO DAILY [facility] Last Admin: 01/02/19 09:33 Dose: 40 mg Prednisone (Prednisone Tab) 5 mg PO DAILY [facility] Last Admin: 01/02/19 09:33 Dose: 5 mg Rivaroxaban (Xarelto) 15 mg PO DAILYWM [facility]; Protocol Last Admin: 01/02/19 09:32 Dose: 15 mg Sitagliptin Phosphate (Januvia) 25 mg PO DAILY [facility] Last Admin: 01/02/19 09:33 Dose: 25 mg Tamsulosin HCl (Flomax) 0.4 mg PO BID [facility] Last Admin: 01/02/19 09:32 Dose: 0.4 mg - Labs Labs: 01/02/19 06:35 01/02/19 06:35 PT 27.2 Seconds (9.8-13.1) H 12/31/18 19:37 INR 2.4 12/31/18 19:37 APTT 39.2 Seconds (25.6-37.1) H 12/31/18 19:37 - Constitutional Appears: Toxic - Head Exam Head Exam: ATRAUMATIC, NORMAL INSPECTION, NORMOCEPHALIC - Eye Exam Eye Exam: PERRL. absent: Nystagmus, Scleral icterus - ENT Exam ENT Exam: Mucous Membranes Dry - Neck Exam Neck Exam: absent: Lymphadenopathy - Respiratory Exam Respiratory Exam: Decreased Breath Sounds, Prolonged Expiratory Phase, Rhonchi - Cardiovascular Exam Cardiovascular Exam: REGULAR RHYTHM, +S1, +S2 - GI/Abdominal Exam GI & Abdominal Exam: Distended, Soft. absent: Tenderness - Rectal Exam Rectal Exam: Deferred - Exam Exam: NORMAL INSPECTION - Extremities Exam Extremities Exam: Pedal Edema - Back Exam Back Exam: absent: CVA tenderness (L), CVA tenderness (R) - Neurological Exam Neurological Exam: Alert, Awake, CN II-XII Intact, Oriented x3 Neuro motor strength exam: Left Upper Extremity: 3, Right Upper Extremity: 3, Left Lower Extremity: 3, Right Lower Extremity: 3 - Psychiatric Exam Psychiatric exam: Depressed - Skin Skin Exam: Dry Assessment and Plan (1) CKD (chronic kidney disease) Status: Acute (2) Pyelonephritis Status: Acute (3) Sepsis Status: Acute (4) Renal transplant recipient Status: Chronic - Assessment and Plan (Free Text) Assessment: will add merrem for possible ESBL gram neg rods in blood and urine ( pending ID of organism )
[2019-01-02 16:58] LABS: HEPATITIS B SURFACE AG Negative (NEGATIVE)
[2019-01-02 17:04] LABS: HEPATITIS A IGM NEGATIVE (NEGATIVE); HEPATITIS B CORE AB NEGATIVE (NEGATIVE)
[2019-01-02 17:15] LABS: HEPATITIS C ANTIBODY NEGATIVE (NEGATIVE)
--- NOTE | 2019-01-02 18:38 | US ---
Date of service: 01/02/2019 PROCEDURE: Renal ultrasound attention renal transplant. HISTORY: christiano , pyelonephritis, s/p kidney transplant 5 years ago by history. COMPARISON: None. TECHNIQUE: Standard protocol for this study/examination. FINDINGS: Transplanted kidney right lower quadrant 6.2 x 6.8 x 11.9 cm. Peak systolic velocity 72 centimeter/second. Resistive index 0.84. No evidence of hydronephrosis, mass lesion or other pathologic process. IMPRESSION: Unremarkable right renal transplant.
--- NOTE | 2019-01-02 19:17 | CP.PCM.PN ---
Subjective - Date & Time of Evaluation Date of Evaluation: 01/02/19 Time of Evaluation: 19:16 - Subjective Subjective: pt is seen and examined, follow up consult is dictated #[id number] Objective - Vital Signs/Intake and Output Vital Signs (last 24 hours): Temp Pulse Resp BP Pulse Ox 98.2 F 120 H 17 113/66 97 01/02/19 15:54 01/02/19 15:54 01/02/19 15:54 01/02/19 15:54 01/02/19 15:54 Intake and Output: 01/02/19 01/03/19 18:59 06:59 Intake Total 1400 Output Total 2000 Balance -600 - Medications Medications: Current Medications Acetaminophen (Tylenol 325mg Tab) 650 mg PO Q6 PRN PRN Reason: Fever >100.4 F Last Admin: 01/02/19 12:12 Dose: 650 mg Aspirin (Ecotrin) 81 mg PO DAILY [facility] Last Admin: 01/02/19 09:33 Dose: 81 mg Atorvastatin Calcium (Lipitor) 20 mg PO DAILY [facility] Last Admin: 01/02/19 09:34 Dose: 20 mg Cholecalciferol (Vitamin D) 2,000 intlu PO DAILY [facility] Last Admin: 01/02/19 09:35 Dose: 2,000 intlu Ferrous Sulfate (Feosol) 325 mg PO DAILY [facility] Last Admin: 01/02/19 09:34 Dose: 325 mg Gabapentin (Neurontin) 100 mg PO DAILY [facility] Last Admin: 01/02/19 09:32 Dose: 100 mg Aztreonam 500 mg/ Sodium (Chloride) 50 mls @ 50 mls/hr IVPB Q8 [facility]; Protocol Last Admin: 01/02/19 17:08 Dose: 50 mls/hr Meropenem 500 mg/ Sodium (Chloride) 100 mls @ 100 mls/hr IVPB Q8 [facility]; Protocol Insulin Detemir (Levemir) 50 units SC HS [facility] Last Admin: 01/01/19 22:57 Dose: 50 u Insulin Human Lispro (Humalog) 20 units SC TID [facility] Last Admin: 01/02/19 17:10 Dose: 20 unit Levothyroxine Sodium (Synthroid) 75 mcg PO DAILY@0630 [facility] Last Admin: 01/02/19 06:07 Dose: 75 mcg Morphine Sulfate (Morphine) 2 mg IVP Q4 PRN PRN Reason: Pain, severe (8-10) Last Admin: 01/01/19 21:12 Dose: 2 mg Multivitamins/Minerals (Therapeutic-M Tab) 1 tab PO DAILY [facility] Last Admin: 01/02/19 09:35 Dose: 1 tab Mupirocin (Bactroban Ointment) 1 applic TOP BID [facility] Last Admin: 01/02/19 17:09 Dose: 1 appl Mycophenolate Mofetil (Cellcept Cap) 1,000 mg PO Q12 [facility] Last Admin: 01/02/19 09:33 Dose: 1,000 mg Lbgok-4-Yrht Ethyl Esters (Lovaza) 1 gm PO DAILY [facility] Last Admin: 01/02/19 09:32 Dose: 1 gm Pantoprazole Sodium (Protonix Ec Tab) 40 mg PO DAILY [facility] Last Admin: 01/02/19 09:33 Dose: 40 mg Prednisone (Prednisone Tab) 5 mg PO DAILY [facility] Last Admin: 01/02/19 09:33 Dose: 5 mg Rivaroxaban (Xarelto) 15 mg PO DAILYWM [facility]; Protocol Last Admin: 01/02/19 09:32 Dose: 15 mg Sitagliptin Phosphate (Januvia) 25 mg PO DAILY [facility] Last Admin: 01/02/19 09:33 Dose: 25 mg Tamsulosin HCl (Flomax) 0.4 mg PO BID [facility] Last Admin: 01/02/19 17:09 Dose: 0.4 mg - Labs Labs: 01/02/19 06:35 01/02/19 06:35 PT 27.2 Seconds (9.8-13.1) H 12/31/18 19:37 INR 2.4 12/31/18 19:37 APTT 39.2 Seconds (25.6-37.1) H 12/31/18 19:37
[2019-01-02] MEDS: Sodium Chloride 0.45% 1,000 ML IV SCH (20:30)
[2019-01-02] MEDS: Meropenem 500 MG in Sodium Chloride 0.9% 100 ML IVPB SCH (22:00)
[2019-01-02] MEDS: Insulin Detemir 100 Units/ml Inj SC SCH (22:09)
[2019-01-03] MEDS: Meropenem 500 MG in Sodium Chloride 0.9% 100 ML IVPB SCH ×3 (04:38→17:56)
--- NOTE | 2019-01-03 04:52 | PN ---
DATE: 01/02/2019 FOLLOWUP RENAL CONSULTATION LOCATION: The patient is located in room 412, bed 1. REQUESTED BY: Osmel Frey MD REASON FOR RENAL CONSULTATION: Acute renal failure, chronic kidney disease, pyelonephritis. SUBJECTIVE: Mr. Simpson is a 68-year-old obese elderly male with history of longstanding hypertension, diabetes, end-stage renal disease, on hemodialysis, status post living-related kidney transplant about five years ago, bladder CA with baseline creatinine about 2, was [facility] with fever, chills, dysuria and found to have increased BUN and creatinine and also the blood culture, urine culture now for positive for gram-negative rods. The patient is feeling slightly better, not in acute distress. Denies any chest pain, palpitation. Denies any fever, cough. No abdominal pain. No nausea, vomiting or diarrhea. PHYSICAL EXAMINATION: VITAL SIGNS: As follows: Blood pressure 113/68, pulse 120, respirations 17, temperature 98.2, and his T-max is 101 this afternoon and also early this morning his temperature was 102.3. Height 5 feet 5 inches. Weight is 200 pounds. GENERAL: Mr. Simpson is a 68-year-old elderly male, moderately built, moderately nourished, not in acute distress. HEENT: Pupils are normal, reactive to light and accommodation. Conjunctivae pink. Sclerae are anicteric. Tongue is moist. Trachea is midline. LUNGS: Symmetric on both sides. Bilateral breath sounds present. Clear to auscultation. CARDIOVASCULAR SYSTEM: [place] at the fifth intercostal space, midclavicular line. S1 and S2 audible. No murmur or gallop. ABDOMEN: Normal in appearance, soft, tympanitic, mild right lower quadrant tenderness present. No guarding, no rigidity. No hepatosplenomegaly. No abdominal bruits. CENTRAL NERVOUS SYSTEM: The patient is alert, awake, oriented x3. Nonfocal neuro examination. Cranial nerves II through XII grossly intact. Sensory and motor system is within normal limits. EXTREMITIES: No cyanosis, no clubbing. The patient has 1+ edema in both lower extremities. CURRENT MEDICATIONS: Include as follows: Azactam 500 mg every 8 hours, Bactroban ointment topical, CellCept 1 g every 12 hours, aspirin 81 mg p.o. daily, Feosol 325 mg daily, Flomax 0.4 mg b.i.d, Januvia 25 mg daily, Levemir 50 units subcu at bedtime, Lipitor 20 mg daily, Lovaza 1 g daily, meropenem 500 mg every 8 hours, morphine 2 mg IV every 4 hours p.r.n., gabapentin 100 mg p.o. daily, Protonix 40 mg daily, prednisone 5 mg daily, IV fluids half-normal saline at 70 mL per hour, levothyroxine 75 mcg p.o. daily, multivitamins, vitamin D 2000 units daily and Xarelto 15 mg p.o. daily. LABORATORY DATA: Includes as follows: As of 01/02/2019, WBC 3.7, hemoglobin 9.3, hematocrit is 29.9, platelets 121. Sodium 134, potassium 3.4, chloride 98, CO2 of 20, BUN 33, creatinine 4.1, glucose 186, calcium 8.6, procalcitonin 8.87 and hepatitis C antibody, IgM is negative, B surface antigen is negative, core antibody IgM is negative. Hep C antibody is negative. HIV 1 and 2 antibody screening is negative. Blood cultures as of 01/02/2019, positive gram-negative rods and urine culture is positive for gram-negative rods, and repeat cultures from 01/01/2019 x1 negative. MRSA screening is negative and wound culture is pending from 01/02/2019. ASSESSMENT: In summary, Mr. Simpson is a 68-year-old elderly male with history of hypertension, diabetes, hyperlipidemia, chronic kidney disease, end-stage renal disease status post kidney transplant, living related about 5 years ago, bladder carcinoma with a Du catheter, with a baseline creatinine about 2.0, was admitted with fever, chills, dysuria and now found to have gram-negative rods in the blood and urine with increased blood urea nitrogen. Also ultrasound of transplant kidneys within normal limits, no hydronephrosis, no stones. 1. Gram-negative sepsis secondary to urosepsis. 2. Acute renal failure, on chronic kidney disease. 3. Hypertension. 4. Diabetes. 5. Anemia secondary to renal failure. PLAN: Continue IV fluids, antibiotics, Azactam and meropenem started this afternoon and continue IV fluids, half-normal saline 75 mL per hour. Continue to monitor BMP. Continue CellCept and prednisone for the kidney transplant. Thank you for allowing me to participate in your patient's care. De Vieira MD
[2019-01-03] MEDS: Levothyroxine 75 MCG TAB PO SCH (06:38)
[2019-01-03] MEDS: Cholecalciferol 1,000 INTLU TAB PO SCH (09:42)
[2019-01-03] MEDS: Multivitamin With Minerals Tab PO SCH (09:43)
[2019-01-03] MEDS: Omega-3-Acid Ethyl Esters 1 GM Cap PO SCH (09:44)
[2019-01-03] MEDS: Insulin Lispro (humaLOG) 100 Units/ml Inj SC SCH ×3 (09:45→17:07)
[2019-01-03] MEDS: Pantoprazole 40 mg EC Tab PO SCH (09:48)
[2019-01-03] MEDS: Sodium Chloride 0.45% 1,000 ML IV SCH (09:49)
--- NOTE | 2019-01-03 10:33 | CP.PCM.HP ---
History of Present Illness - History of Present Illness History of Present Illness: 68 year old male with a history of bladder cancer, DM, HTN, artial fibrillation, right transmetarsal amputation, left AV fistula and right renal transplant presented to the ED via EMS for evaluation of fever, chills and dysuria for one day from retirement. Patient admitted for suspected pyelonephritis patient seen and examined at bedside states improvement of symptoms since ED admission. no other complaints offered at this time denies chest pain, sob. Present on Admission - Present on Admission Any Indicators Present on Admission: Yes History of Uncontrolled Diabetes: Yes Review of Systems - Review of Systems All systems: reviewed and no additional remarkable complaints except (mentioned above) Past Patient History - Infectious Disease Hx of Infectious Diseases: None - Past Medical History & Family History Past Medical History?: Yes - Past Social History Smoking Status: Former Smoker - CARDIAC Hx Atrial Fibrillation: Yes Hx Cardia Arrhythmia: Yes (ATRIAL FIB) Hx Congestive Heart Failure: Yes Hx Hypercholesterolemia: Yes Hx Hypertension: Yes Hx Pacemaker: Yes - PULMONARY Hx Pneumonia: Yes Hx Sleep Apnea: Yes - HEENT Hx HEENT Problems: Yes Hx Cataracts: Yes - RENAL Hx Chronic Kidney Disease: Yes (S/P renal transplant) - ENDOCRINE/METABOLIC Hx Hypothyroidism: Yes - INTEGUMENTARY Hx Dermatological Problems: No - MUSCULOSKELETAL/RHEUMATOLOGICAL Hx Arthritis: Yes Hx Fractures: Yes (Left hand finger 60yrs ago) - ANESTHESIA Hx Anesthesia: Yes Hx Anesthesia Reactions: No Hx Malignant Hyperthermia: No Meds Allergies/Adverse Reactions: Allergies Allergy/AdvReac Type Severity Reaction Status Date / Time Penicillins Allergy Intermediate RASH Verified 12/31/18 18:15 Physical Exam - Constitutional Appears: Non-toxic, No Acute Distress - Head Exam Head Exam: NORMAL INSPECTION - Eye Exam Eye Exam: Normal appearance - Neck Exam Neck exam: Positive for: Normal Inspection - Respiratory Exam Respiratory Exam: NORMAL BREATHING PATTERN - Cardiovascular Exam Cardiovascular Exam: +S1, +S2 - GI/Abdominal Exam GI & Abdominal Exam: Soft - Neurological Exam Neurological exam: Alert, Oriented x3 - Psychiatric Exam Psychiatric exam: Normal Affect, Normal Mood - Skin Skin Exam: Normal Color, Warm Results - Vital Signs Recent Vital Signs: Last Vital Signs Temp 98.2 F 01/03/19 08:51 Pulse 98 H 01/03/19 08:51 Resp 20 01/03/19 08:51 BP 116/65 01/03/19 08:51 Pulse Ox 95 01/03/19 08:51 - Labs Result Diagrams: 01/02/19 06:35 01/03/19 16:31 Labs: Laboratory Results - last 24 hr 01/02/19 01/02/19 01/02/19 06:35 06:35 06:35 POC Glucose (mg/dL) Procalcitonin 8.87 H Hepatitis A IgM Ab Negative Hep Bs Antigen Negative Hep B Core IgM Ab Negative Hepatitis C Antibody Negative HIV 1&2 Antibody Screen Negative 01/02/19 01/02/19 01/02/19 11:01 16:53 21:01 POC Glucose (mg/dL) 158 H 179 H 145 H Procalcitonin Hepatitis A IgM Ab Hep Bs Antigen Hep B Core IgM Ab Hepatitis C Antibody HIV 1&2 Antibody Screen 01/03/19 05:55 POC Glucose (mg/dL) 130 H Procalcitonin Hepatitis A IgM Ab Hep Bs Antigen Hep B Core IgM Ab Hepatitis C Antibody HIV 1&2 Antibody Screen Assessment & Plan (1) Pyelonephritis Status: Acute (2) CKD (chronic kidney disease) Status: Acute - Assessment and Plan (Free Text) Plan: monitor vitals monitor labs IV abx nephro consult f/u cultures
--- NOTE | 2019-01-03 16:11 | CP.PCM.PN ---
Subjective - Date & Time of Evaluation Date of Evaluation: 01/03/19 Time of Evaluation: 16:10 - Subjective Subjective: pt is seen and examined, follow up consult is dictated #[id number] bmp in am, s.cr is improving, c/w iv abx Objective - Vital Signs/Intake and Output Vital Signs (last 24 hours): Temp Pulse Resp BP Pulse Ox 98.2 F 99 H 20 116/65 96 01/03/19 13:09 01/03/19 13:09 01/03/19 13:09 01/03/19 13:09 01/03/19 13:09 Intake and Output: 01/03/19 01/03/19 06:59 18:59 Intake Total 1620 Output Total 2100 Balance -480 - Medications Medications: Current Medications Acetaminophen (Tylenol 325mg Tab) 650 mg PO Q6 PRN PRN Reason: Fever >100.4 F Last Admin: 01/03/19 04:42 Dose: 650 mg Aspirin (Ecotrin) 81 mg PO DAILY [facility] Last Admin: 01/03/19 09:43 Dose: 81 mg Atorvastatin Calcium (Lipitor) 20 mg PO DAILY [facility] Last Admin: 01/03/19 09:43 Dose: 20 mg Cholecalciferol (Vitamin D) 2,000 intlu PO DAILY [facility] Last Admin: 01/03/19 09:42 Dose: 2,000 intlu Docusate Sodium (Colace) 100 mg PO BID [facility] Ferrous Sulfate (Feosol) 325 mg PO DAILY [facility] Last Admin: 01/03/19 09:44 Dose: 325 mg Gabapentin (Neurontin) 100 mg PO DAILY [facility] Last Admin: 01/03/19 09:44 Dose: 100 mg Aztreonam 500 mg/ Sodium (Chloride) 50 mls @ 50 mls/hr IVPB Q8 [facility]; Protocol Last Admin: 01/03/19 09:39 Dose: 50 mls/hr Meropenem 500 mg/ Sodium (Chloride) 100 mls @ 100 mls/hr IVPB Q8 [facility]; Protocol Last Admin: 01/03/19 09:40 Dose: 100 mls/hr Sodium Chloride (Sodium Chloride 0.45%) 1,000 mls @ 70 mls/hr IV .[id number] [facility] Stop: 01/03/19 19:16 Last Admin: 01/03/19 09:49 Dose: 70 mls/hr Insulin Detemir (Levemir) 50 units SC HS [facility] Last Admin: 01/02/19 22:09 Dose: 50 u Insulin Human Lispro (Humalog) 20 units SC TID [facility] Last Admin: 01/03/19 13:25 Dose: 20 unit Levothyroxine Sodium (Synthroid) 75 mcg PO DAILY@0630 [facility] Last Admin: 01/03/19 06:38 Dose: 75 mcg Morphine Sulfate (Morphine) 2 mg IVP Q4 PRN PRN Reason: Pain, severe (8-10) Last Admin: 01/01/19 21:12 Dose: 2 mg Multivitamins/Minerals (Therapeutic-M Tab) 1 tab PO DAILY [facility] Last Admin: 01/03/19 09:43 Dose: 1 tab Mupirocin (Bactroban Ointment) 1 applic TOP BID [facility] Last Admin: 01/03/19 09:42 Dose: 1 appl Mycophenolate Mofetil (Cellcept Cap) 1,000 mg PO Q12 [facility] Last Admin: 01/03/19 09:41 Dose: 1,000 mg Ntjwr-9-Nigl Ethyl Esters (Lovaza) 1 gm PO DAILY [facility] Last Admin: 01/03/19 09:44 Dose: 1 gm Pantoprazole Sodium (Protonix Ec Tab) 40 mg PO DAILY [facility] Last Admin: 01/03/19 09:48 Dose: 40 mg Phenazopyridine HCl (Pyridium) 200 mg PO TID [facility] Stop: 01/05/19 13:01 Last Admin: 01/03/19 12:25 Dose: 200 mg Prednisone (Prednisone Tab) 5 mg PO DAILY [facility] Last Admin: 01/03/19 09:45 Dose: 5 mg [facility] Last Admin: 01/03/19 09:44 Dose: 15 mg Sitagliptin Phosphate (Januvia) 25 mg PO DAILY [facility] Last Admin: 01/03/19 09:45 Dose: 25 mg Tamsulosin HCl (Flomax) 0.4 mg PO BID [facility] Last Admin: 01/03/19 09:45 Dose: 0.4 mg - Labs Labs: 01/02/19 06:35 01/02/19 06:35 PT 27.2 Seconds (9.8-13.1) H 12/31/18 19:37 INR 2.4 12/31/18 19:37 APTT 39.2 Seconds (25.6-37.1) H 12/31/18 19:37
--- NOTE | 2019-01-03 16:54 | US ---
Date of service: 01/03/2019 PROCEDURE: Ultrasound of the Bladder HISTORY: HEMATURIA COMPARISON: None available. TECHNIQUE: Sonographic evaluation of the bladder was performed. FINDINGS: Unremarkable without wall thickening or intraluminal debris. No calculus or gross mass lesion. No free fluid in pelvis. Prevoid Volume: 387.5 cc. Post void residual: 16.7 cc. Ureteral jets not visualized bilaterally. IMPRESSION: Normal capacitance bladder. Small postvoid residual. Nonvisualization of ureteral jets.
[2019-01-03 16:56] LABS: CALCIUM 8.8 mg/dL (8.4-10.2)
[2019-01-03 17:06] LABS: % CD4 (T HELPER CELL) 61 Percent (30-61); % CD8 (SUPPRESSOR T CELL) 21 Percent (12-42); ABSOLUTE CD4 CELLS 124 Cells/mcL (490-1740); ABSOLUTE CD8 CELLS 43 Cells/mcL (180-1170); ABSOLUTE LYMPHOCYTES 204 Cells/mcL (850-3900); HELPER/SUPPRESSOR RATIO 2.89 Ratio (0.86-5.00)
--- NOTE | 2019-01-03 17:37 | CP.PCM.PN ---
Subjective - Date & Time of Evaluation Date of Evaluation: 01/03/19 Time of Evaluation: 11:00 - Subjective Subjective: patient seen and examined at bedside. Interim events noted pain from urinary cath/penis, hematuria present denies cp/sob/fever/chills. available diagnostic data reviewed Review of Systems All systems: reviewed and no additional remarkable complaints except mentioned above Objective Vital Signs Stable - Constitutional Appears: Non-toxic, No Acute Distress Head Exam: NORMAL INSPECTION Eye Exam: Normal appearance Respiratory Exam: NORMAL BREATHING PATTERN Cardiovascular Exam: +S1, +S2 GI & Abdominal Exam: Soft Genitourinary: penis edema with gross hematuria present, summer sessions director RN present in room Neurological Exam: Alert, Awake Psychiatric exam: Normal Affect, Normal Mood Skin Exam: Normal Color, Warm Assessment and Plan monitor vitals monitor labs Cont meds Cont tx consultants appreciated input urology consult bladder u/s pyridium d/c catheter, monitor I&o rest of plan as ordered Assessment and Plan (1) Pyelonephritis Status: Acute (2) Bacteremia Status: Acute (3) CKD (chronic kidney disease) Status: Acute (4) Diabetes Status: Chronic
[2019-01-03] MEDS: Insulin Detemir 100 Units/ml Inj SC SCH (21:53)
[2019-01-04] MEDS: Meropenem 500 MG in Sodium Chloride 0.9% 100 ML IVPB SCH ×3 (00:21→17:00)
--- NOTE | 2019-01-04 03:32 | PN ---
DATE: 01/03/2019 FOLLOWUP RENAL CONSULTATION LOCATION: The patient is located in room 412, bed 1. REQUESTED BY: Osmel Frey MD REASON FOR FOLLOWUP: Acute renal failure, pyelonephritis, gram-negative sepsis, status post kidney transplant. SUBJECTIVE: Mr. Simpson is a 68-year-old obese, elderly male with a history of longstanding hypertension, diabetes, end-stage renal disease, status post living related kidney transplant about five years ago from his daughter, bladder CA, status post removal of the Du catheter yesterday. Complains of slight hematuria and able to void three to four times since morning. Denies any complaints. Denies any chest pain or palpitation. Denies any fever or cough. No abdominal pain. No nausea, vomiting, or diarrhea. Complains of swelling of the legs. PHYSICAL EXAMINATION: VITAL SIGNS: As follows: Blood pressure this afternoon 116/65, pulse 99, respiration 20, temperature 98.2, saturation 96%. Height 5 feet 5 inches. Weight is 200 pounds. GENERAL: Mr. Simpson is a 68-year-old elderly male, well built, well nourished not in distress. HEENT: Pupils normal and reactive to light and accommodation. Conjunctivae pink. Sclerae anicteric. Tongue is moist. Trachea is midline. LUNGS: Symmetric on both sides. Bilateral breath sounds present. Clear to auscultation. CARDIOVASCULAR SYSTEM: [place] at the fifth intercostal space, mid clavicular line. S1 and S2 audible. No murmur or gallop. ABDOMEN: Normal in appearance. Soft, tympanitic. No guarding. No rigidity. No hepatosplenomegaly. CENTRAL NERVOUS SYSTEM: The patient is alert, awake, oriented x3. Nonfocal neuro examination. Cranial nerves II through XII grossly intact. Sensory and motor system is within normal limits. EXTREMITIES: No cyanosis, no clubbing. The patient has a 1+ edema in both lower extremities, status post transmetatarsal amputation on the right lower extremity, status post removal of the Du catheter. CURRENT MEDICATIONS: Include as follows: Azactam 500 mg IV every 8 hours, Bactroban ointment topical, CellCept 1000 mg every 12 hours, Colace 100 mg p.o. b.i.d., aspirin 81 mg daily, ferrous sulfate 325 mg p.o. daily, Flomax 0.4 mg p.o. b.i.d., NovoLog 20 units subcu t.i.d., Januvia 25 mg p.o. daily, Levemir 50 units subcu at bedtime, Lipitor 20 mg p.o. daily, omega-3 fatty acid (Lovaza) 1 g p.o. daily, meropenem 500 mg IV every 8 hours, morphine sulfate 2 mg IV every 4 hours, gabapentin 200 mg p.o. daily, prednisone 5 mg p.o. daily, Protonix 40 mg p.o. daily, Pyridium 200 mg p.o. t.i.d., Synthroid 75 mcg daily, multivitamins one tablet daily, Tylenol, vitamin D 2000 units p.o. daily, and Xarelto 15 mg p.o. daily. LABORATORY DATA: Include as follows: Urine culture and blood culture from 12/31/2018 was identified as E. coli and repeat culture from 01/01/2019 has no growth after 48 hours. MRSA screening is negative. Wound cultures are pending. His laboratory data include as follows: As of 01/03/2019, sodium 135, potassium 3.5, chloride 101, CO2 of 21, BUN 32, creatinine 3.4, glucose is 58, and calcium is 8.8. His Accu-Checks, 130, 127 and 74. ASSESSMENT AND PLAN: In summary, Mr. Simpson is a 68-year-old elderly male with a history of hypertension, diabetes, end-stage renal disease, status post living related kidney transplant with a baseline creatinine about 2 who was admitted with fever, dysuria, frequency from the [facility] and worsening renal function, found to have gram-negative sepsis, urine and blood culture right now identified as Escherichia coli positive, on intravenous antibiotics. 1. Acute renal failure on chronic kidney disease secondary to most likely acute tubular necrosis and intravascular depletion. 2. Gram-negative sepsis secondary to Escherichia coli secondary to urosepsis. 3. Hypertension. 4. Diabetes. 5. Status post living related kidney transplant with a chronic kidney disease 3. Continue CellCept and prednisone. Continue intravenous antibiotics, Azactam and also Merrem as per Infectious Disease recommendation. Continue Xarelto. Continue Januvia, Humalog and Levemir. Repeat basic metabolic panel in the morning. Continue gentle intravenous hydration. We will follow with you. Thank you for allowing me to participate in your patient's care. De Vieira MD
[2019-01-04 06:11] LABS: HEMOGLOBIN 9.1 g/dL (12.0-18.0); MEAN CELL VOLUME 84.1 fl (80.0-94.0); MEAN CORPUSCULAR HEMOGLOBIN 26.9 pg (27.0-31.0); RBC 3.37 Mil/uL (4.40-5.90); RED CELL DISTRIBUTION WIDTH 17.9 % (11.5-14.5); WHITE BLOOD COUNT 2.6 K/uL (4.8-10.8)
[2019-01-04] MEDS: Levothyroxine 75 MCG TAB PO SCH (06:11)
[2019-01-04 06:31] LABS: ALB/GLOB RATIO 1.1 (1.0-2.1); ALBUMIN 3.2 g/dL (3.5-5.0); CALCIUM 9.1 mg/dL (8.4-10.2)
[2019-01-04] MEDS: Insulin Lispro (humaLOG) 100 Units/ml Inj SC SCH ×3 (08:35→17:02)
[2019-01-04] MEDS: Pantoprazole 40 mg EC Tab PO SCH (08:45)
[2019-01-04] MEDS: Omega-3-Acid Ethyl Esters 1 GM Cap PO SCH (08:45)
[2019-01-04] MEDS: Multivitamin With Minerals Tab PO SCH (08:46)
[2019-01-04] MEDS ORDERED: Potassium Chloride 20 mEq ER Tab PO ONE (11:52)
--- NOTE | 2019-01-04 13:09 | CP.PCM.PN ---
Subjective - Date & Time of Evaluation Date of Evaluation: 01/04/19 Time of Evaluation: 11:00 - Subjective Subjective: patient seen and examined at bedside. Interim events noted pain from urinary cath/penis, hematuria has improved significantly denies cp/sob/fever/chills. available diagnostic data reviewed Review of Systems All systems: reviewed and no additional remarkable complaints except mentioned above Objective Vital Signs Stable - Constitutional Appears: Non-toxic, No Acute Distress Head Exam: NORMAL INSPECTION Eye Exam: Normal appearance Respiratory Exam: NORMAL BREATHING PATTERN Cardiovascular Exam: +S1, +S2 GI & Abdominal Exam: Soft Neurological Exam: Alert, Awake Psychiatric exam: Normal Affect, Normal Mood Skin Exam: Normal Color, Warm Assessment and Plan monitor vitals monitor labs Cont meds Cont tx consultants appreciated input pending urology consult bladder u/s unremarkable voiding well pt eval rest of plan as ordered Assessment and Plan (1) Pyelonephritis Status: Acute (2) Bacteremia Status: Acute (3) CKD (chronic kidney disease) Status: Acute (4) Diabetes Status: Chronic
--- NOTE | 2019-01-04 13:27 | CP.PCM.PN ---
Subjective - Date & Time of Evaluation Date of Evaluation: 01/04/19 Time of Evaluation: 13:25 - Subjective Subjective: Podiatry progress note for Dr. Mejia, 68 year old male patient seen and evaluated at bedside for right leg ulceration. Patient complains of minimal pain to the site when touched. Patient denies any drainage. AAOx3. Patient denies any fever, nausea, vomiting at this time. Objective - Vital Signs/Intake and Output Vital Signs (last 24 hours): Temp Pulse Resp BP Pulse Ox 98 F 93 H 20 116/66 99 01/04/19 12:48 01/04/19 12:48 01/04/19 12:48 01/04/19 12:48 01/04/19 12:48 Intake and Output: 01/04/19 01/04/19 06:59 18:59 Intake Total 390 Output Total 1550 Balance -1160 - Medications Medications: Current Medications Acetaminophen (Tylenol 325mg Tab) 650 mg PO Q6 PRN PRN Reason: Fever >100.4 F Last Admin: 01/03/19 21:52 Dose: 650 mg Aspirin (Ecotrin) 81 mg PO DAILY [facility] Last Admin: 01/04/19 08:45 Dose: 81 mg Atorvastatin Calcium (Lipitor) 20 mg PO DAILY [facility] Last Admin: 01/04/19 08:44 Dose: 20 mg Cholecalciferol (Vitamin D) 2,000 intlu PO DAILY [facility] Last Admin: 01/03/19 09:42 Dose: 2,000 intlu Docusate Sodium (Colace) 100 mg PO BID [facility] Last Admin: 01/04/19 08:44 Dose: 100 mg Ferrous Sulfate (Feosol) 325 mg PO DAILY [facility] Last Admin: 01/04/19 08:43 Dose: 325 mg Gabapentin (Neurontin) 100 mg PO DAILY [facility] Last Admin: 01/04/19 08:45 Dose: 100 mg Aztreonam 500 mg/ Sodium (Chloride) 50 mls @ 50 mls/hr IVPB Q8 [facility]; Protocol Last Admin: 01/04/19 09:52 Dose: 50 mls/hr Meropenem 500 mg/ Sodium (Chloride) 100 mls @ 100 mls/hr IVPB Q8 [facility]; Protocol Last Admin: 01/04/19 08:44 Dose: 100 mls/hr Insulin Detemir (Levemir) 50 units SC [facility] Last Admin: 01/03/19 21:53 Dose: 50 u Insulin Human Lispro (Humalog) 20 units SC TID [facility] Last Admin: 01/03/19 17:07 Dose: Not Given Levothyroxine Sodium (Synthroid) 75 mcg PO DAILY@0630 [facility] Last Admin: 01/04/19 06:11 Dose: 75 mcg Morphine Sulfate (Morphine) 2 mg IVP Q4 PRN PRN Reason: Pain, severe (8-10) Last Admin: 01/01/19 21:12 Dose: 2 mg Multivitamins/Minerals (Therapeutic-M Tab) 1 tab PO DAILY [facility] Last Admin: 01/04/19 08:46 Dose: 1 tab Mupirocin (Bactroban Ointment) 1 applic TOP BID [facility] Last Admin: 01/04/19 08:43 Dose: 1 appl Mycophenolate Mofetil (Cellcept Cap) 1,000 mg PO Q12 [facility] Last Admin: 01/04/19 08:42 Dose: 1,000 mg Zlcqu-3-Zjue Ethyl Esters (Lovaza) 1 gm PO DAILY [facility] Last Admin: 01/04/19 08:45 Dose: 1 gm Pantoprazole Sodium (Protonix Ec Tab) 40 mg PO DAILY [facility] Last Admin: 01/04/19 08:45 Dose: 40 mg Phenazopyridine HCl (Pyridium) 200 mg PO TID [facility] Stop: 01/05/19 13:01 Last Admin: 01/04/19 08:46 Dose: 200 mg Prednisone (Prednisone Tab) 5 mg PO DAILY [facility] Last Admin: 01/04/19 08:43 Dose: 5 mg [facility]ar[facility] ([facility]) [facility] [place] Protocol Last Admin: 01/03/19 09:44 Dose: 15 mg Sitagliptin Phosphate (Januvia) 25 mg PO DAILY [facility] Last Admin: 01/04/19 08:46 Dose: 25 mg Tamsulosin HCl (Flomax) 0.4 mg PO BID [facility] Last Admin: 01/04/19 08:43 Dose: 0.4 mg - Labs Labs: 01/04/19 04:30 01/04/19 04:30 PT 27.2 Seconds (9.8-13.1) H 12/31/18 19:37 INR 2.4 12/31/18 19:37 APTT 39.2 Seconds (25.6-37.1) H 12/31/18 19:37 - Constitutional Appears: Well, Non-toxic, No Acute Distress - Head Exam Head Exam: ATRAUMATIC - Extremities Exam Additional comments: Bilateral Lower Extremity Exam VASC: DP and PT 2/4 bilaterally, CFT less than 3 seconds X 4, TG normal, no edema noted NEURO: diminished sensation DERM: 3 cm X 3 cm circular wound noted to the lateral aspect of the right leg, wound superficial with 50% fibrotic and 50% grnaular base, negative probe to bone, negative malodor, negative drainage, negative tunneling or tracking, wound likely due to pressure, no clinical signs of infection ORTHO: TMA noted to the right, healed, left 5th digit amputation noted, no other wounds, MSK 5/5 - Neurological Exam Neurological Exam: Alert, Awake Assessment and Plan - Assessment and Plan (Free Text) Assessment: 68 y/o male patient seen and evaluated for right leg wound, superficial, non- infected Plan: Patient seen and evaluated Plan discussed with Dr. Mejia Chart, labs and vitals reviewed Wound Culture; corynebacterium Dressed with bactroban and allevyn pad Podiatry will follow patient while in house
--- NOTE | 2019-01-04 15:23 | CP.PCM.PN ---
Subjective - Date & Time of Evaluation Date of Evaluation: 01/04/19 Time of Evaluation: 15:23 - Subjective Subjective: pt is seen and examined, follow up consult is dictated #[id number] check u/a in am cbc, cmp Objective - Vital Signs/Intake and Output Vital Signs (last 24 hours): Temp Pulse Resp BP Pulse Ox 98 F 93 H 20 116/66 99 01/04/19 12:48 01/04/19 12:48 01/04/19 12:48 01/04/19 12:48 01/04/19 12:48 Intake and Output: 01/04/19 01/04/19 06:59 18:59 Intake Total 390 Output Total 1550 Balance -1160 - Medications Medications: Current Medications Acetaminophen (Tylenol 325mg Tab) 650 mg PO Q6 PRN PRN Reason: Fever >100.4 F Last Admin: 01/03/19 21:52 Dose: 650 mg Aspirin (Ecotrin) 81 mg PO DAILY [facility] Last Admin: 01/04/19 08:45 Dose: 81 mg Atorvastatin Calcium (Lipitor) 20 mg PO DAILY [facility] Last Admin: 01/04/19 08:44 Dose: 20 mg Cholecalciferol (Vitamin D) 2,000 intlu PO DAILY [facility] Last Admin: 01/03/19 09:42 Dose: 2,000 intlu Docusate Sodium (Colace) 100 mg PO BID [facility] Last Admin: 01/04/19 08:44 Dose: 100 mg Ferrous Sulfate (Feosol) 325 mg PO DAILY [facility] Last Admin: 01/04/19 08:43 Dose: 325 mg Gabapentin (Neurontin) 100 mg PO DAILY [facility] Last Admin: 01/04/19 08:45 Dose: 100 mg Aztreonam 500 mg/ Sodium (Chloride) 50 mls @ 50 mls/hr IVPB Q8 [facility]; Protocol Last Admin: 01/04/19 09:52 Dose: 50 mls/hr Meropenem 500 mg/ Sodium (Chloride) 100 mls @ 100 mls/hr IVPB Q8 [facility]; Protocol Last Admin: 01/04/19 08:44 Dose: 100 mls/hr Insulin Detemir (Levemir) 50 units SC HS [facility] Last Admin: 01/03/19 21:53 Dose: 50 u Insulin Human Lispro (Humalog) 20 units SC TID [facility] Last Admin: 01/04/19 13:40 Dose: 20 unit Levothyroxine Sodium (Synthroid) 75 mcg PO DAILY@0630 [facility] Last Admin: 01/04/19 06:11 Dose: 75 mcg Morphine Sulfate (Morphine) 2 mg IVP Q4 PRN PRN Reason: Pain, severe (8-10) Last Admin: 01/01/19 21:12 Dose: 2 mg Multivitamins/Minerals (Therapeutic-M Tab) 1 tab PO DAILY [facility] Last Admin: 01/04/19 08:46 Dose: 1 tab Mupirocin (Bactroban Ointment) 1 applic TOP BID [facility] Last Admin: 01/04/19 08:43 Dose: 1 appl Mycophenolate Mofetil (Cellcept Cap) 1,000 mg PO Q12 [facility] Last Admin: 01/04/19 08:42 Dose: 1,000 mg Xukzx-9-Xnis Ethyl Esters (Lovaza) 1 gm PO DAILY [facility] Last Admin: 01/04/19 08:45 Dose: 1 gm Pantoprazole Sodium (Protonix Ec Tab) 40 mg PO DAILY [facility] Last Admin: 01/04/19 08:45 Dose: 40 mg Phenazopyridine HCl (Pyridium) 200 mg PO TID [facility] Stop: 01/05/19 13:01 Last Admin: 01/04/19 14:00 Dose: 200 mg Prednisone (Prednisone Tab) 5 mg PO DAILY [facility] Last Admin: 01/04/19 08:43 Dose: 5 mg Rivaroxaban (Xarelto) [facility]ILY[facility]; Protocol Last Admin: 01/03/19 09:44 Dose: 15 mg Sitagliptin Phosphate (Januvia) 25 mg PO DAILY [facility] Last Admin: 01/04/19 08:46 Dose: 25 mg Tamsulosin HCl (Flomax) 0.4 mg PO BID [facility] Last Admin: 01/04/19 08:43 Dose: 0.4 mg - Labs Labs: 01/04/19 04:30 01/04/19 04:30 PT 27.2 Seconds (9.8-13.1) H 12/31/18 19:37 INR 2.4 12/31/18 19:37 APTT 39.2 Seconds (25.6-37.1) H 12/31/18 19:37
--- NOTE | 2019-01-04 15:38 | CP.PCM.PN ---
Subjective - Date & Time of Evaluation Date of Evaluation: 01/04/19 Time of Evaluation: 09:00 - Subjective Subjective: improving on IV RX has pyelo / sepsis from infected transplant will need long course of rx for this await stool studies- still not sent as ordered- had strongyloides on prev admisssion Objective - Vital Signs/Intake and Output Vital Signs (last 24 hours): Temp Pulse Resp BP Pulse Ox 98 F 93 H 20 116/66 99 01/04/19 12:48 01/04/19 12:48 01/04/19 12:48 01/04/19 12:48 01/04/19 12:48 Intake and Output: 01/04/19 01/04/19 06:59 18:59 Intake Total 390 Output Total 1550 Balance -1160 - Medications Medications: Current Medications Acetaminophen (Tylenol 325mg Tab) 650 mg PO Q6 PRN PRN Reason: Fever >100.4 F Last Admin: 01/03/19 21:52 Dose: 650 mg Aspirin (Ecotrin) 81 mg PO DAILY [facility] Last Admin: 01/04/19 08:45 Dose: 81 mg Atorvastatin Calcium (Lipitor) 20 mg PO DAILY [facility] Last Admin: 01/04/19 08:44 Dose: 20 mg Cholecalciferol (Vitamin D) 2,000 intlu PO DAILY [facility] Last Admin: 01/03/19 09:42 Dose: 2,000 intlu Docusate Sodium (Colace) 100 mg PO BID [facility] Last Admin: 01/04/19 08:44 Dose: 100 mg Ferrous Sulfate (Feosol) 325 mg PO DAILY [facility] Last Admin: 01/04/19 08:43 Dose: 325 mg Gabapentin (Neurontin) 100 mg PO DAILY [facility] Last Admin: 01/04/19 08:45 Dose: 100 mg Aztreonam 500 mg/ Sodium (Chloride) 50 mls @ 50 mls/hr IVPB Q8 [facility]; Protocol Last Admin: 01/04/19 09:52 Dose: 50 mls/hr Meropenem 500 mg/ Sodium (Chloride) 100 mls @ 100 mls/hr IVPB Q8 [facility]; Protocol Last Admin: 01/04/19 08:44 Dose: 100 mls/hr Insulin Detemir (Levemir) 50 units SC HS [facility] Last Admin: 01/03/19 21:53 Dose: 50 u Insulin Human Lispro (Humalog) 20 units SC TID [facility] Last Admin: 01/04/19 13:40 Dose: 20 unit Levothyroxine Sodium (Synthroid) 75 mcg PO DAILY@0630 [facility] Last Admin: 01/04/19 06:11 Dose: 75 mcg Morphine Sulfate (Morphine) 2 mg IVP Q4 PRN PRN Reason: Pain, severe (8-10) Last Admin: 01/01/19 21:12 Dose: 2 mg Multivitamins/Minerals (Therapeutic-M Tab) 1 tab PO DAILY [facility] Last Admin: 01/04/19 08:46 Dose: 1 tab Mupirocin (Bactroban Ointment) 1 applic TOP BID [facility] Last Admin: 01/04/19 08:43 Dose: 1 appl Mycophenolate Mofetil (Cellcept Cap) 1,000 mg PO Q12 [facility] Last Admin: 01/04/19 08:42 Dose: 1,000 mg Zymtg-8-Tysb Ethyl Esters (Lovaza) 1 gm PO DAILY [facility] Last Admin: 01/04/19 08:45 Dose: 1 gm Pantoprazole Sodium (Protonix Ec Tab) 40 mg PO DAILY [facility] Last Admin: 01/04/19 08:45 Dose: 40 mg Prednisone (Prednisone Tab) 5 mg PO DAILY [facility] Last Admin: 01/04/19 08:43 Dose: 5 mg [facility]aroxaban (Xarelto) [facility] [place] [facility] [place] Last Admin: 01/03/19 09:44 Dose: 15 mg Sitagliptin Phosphate (Januvia) 25 mg PO DAILY [facility] Last Admin: 01/04/19 08:46 Dose: 25 mg Tamsulosin HCl (Flomax) 0.4 mg PO BID [facility] Last Admin: 01/04/19 08:43 Dose: 0.4 mg - Labs Labs: 01/04/19 04:30 01/04/19 04:30 PT 27.2 Seconds (9.8-13.1) H 12/31/18 19:37 INR 2.4 12/31/18 19:37 APTT 39.2 Seconds (25.6-37.1) H 12/31/18 19:37 - Constitutional Appears: Well - Head Exam Head Exam: ATRAUMATIC, NORMAL INSPECTION, NORMOCEPHALIC - Eye Exam Eye Exam: EOMI, Normal appearance, PERRL Pupil Exam: NORMAL ACCOMODATION, PERRL - ENT Exam ENT Exam: Mucous Membranes Moist, Normal Exam - Neck Exam Neck Exam: Full ROM, Normal Inspection. absent: Lymphadenopathy - Respiratory Exam Respiratory Exam: Clear to Ausculation Bilateral, NORMAL BREATHING PATTERN - Cardiovascular Exam Cardiovascular Exam: REGULAR RHYTHM, +S1, +S2. absent: Murmur - GI/Abdominal Exam GI & Abdominal Exam: Soft, Normal Bowel Sounds. absent: Tenderness - Rectal Exam Rectal Exam: Deferred - Exam Exam: NORMAL INSPECTION - Extremities Exam Extremities Exam: Full ROM, Normal Capillary Refill, Normal Inspection. absent: Joint Swelling, Pedal Edema - Back Exam Back Exam: NORMAL INSPECTION - Neurological Exam Neurological Exam: Alert, Awake, CN II-XII Intact, Normal Gait, Oriented x3 - Psychiatric Exam Psychiatric exam: Normal Affect, Normal Mood - Skin Skin Exam: Dry, Intact, Normal Color, Warm Assessment and Plan (1) CKD (chronic kidney disease) Status: Acute (2) Pyelonephritis Status: Acute (3) Sepsis Status: Acute (4) Renal transplant recipient Status: Chronic - Assessment and Plan (Free Text) Assessment: has pyelo / sepsis from infected transplant will need long course of rx for this await stool studies- still not sent as ordered- had strongyloides on prev admisssion
[2019-01-04] MEDS: Cholecalciferol 1,000 INTLU TAB PO SCH (17:02)
[2019-01-04] MEDS: Insulin Detemir 100 Units/ml Inj SC SCH (21:18)
[2019-01-05] MEDS: Meropenem 500 MG in Sodium Chloride 0.9% 100 ML IVPB SCH ×3 (00:10→18:25)
[2019-01-05] MEDS ORDERED: Glucagon Recombinant 1 mg Inj IM PRN (05:44)
[2019-01-05] MEDS ORDERED: Dextrose 50% SYRINGE Inj (50 ml) IV PRN (05:44)
[2019-01-05] MEDS ORDERED: Dextrose 50% SYRINGE Inj (50 ml) IVP STA (05:44)
--- NOTE | 2019-01-05 05:44 | CP.PCM.PCO ---
Assessment and Plan - Assessment and Plan (Free Text) Assessment: Called by RN at 0536 stating blood sugar was in 40's. Dextrose 50% IVP ordered and Insulin TID dosing held for now. Further management as per primary team.
[2019-01-05] MEDS: Levothyroxine 75 MCG TAB PO SCH (05:50)
[2019-01-05 06:03] LABS: HEMOGLOBIN 9.2 g/dL (12.0-18.0); MEAN CELL VOLUME 83.2 fl (80.0-94.0); MEAN CORPUSCULAR HGB CONC 32.4 g/dL (33.0-37.0); RBC 3.42 Mil/uL (4.40-5.90); RED CELL DISTRIBUTION WIDTH 17.7 % (11.5-14.5); WHITE BLOOD COUNT 3.4 K/uL (4.8-10.8)
[2019-01-05 06:15] LABS: ALB/GLOB RATIO 1.1 (1.0-2.1); ALBUMIN 3.2 g/dL (3.5-5.0); CALCIUM 8.9 mg/dL (8.4-10.2)
--- NOTE | 2019-01-05 06:32 | CON ---
DATE: 01/04/2019 FOLLOWUP RENAL CONSULTATION LOCATION: The patient is located in room 412, bed 1. REQUESTED BY: Osmel Frey MD REASON FOR FOLLOWUP: Acute renal failure, chronic kidney disease, and kidney transplant. HISTORY OF PRESENT ILLNESS: Mr. Simpson is a 68-year-old elderly obese male with a history of longstanding hypertension, diabetes, end-stage renal disease, status post kidney transplant, living related from the patient's daughter about 5 years ago, resident of snf who was admitted with fever, chills, and dysuria and cloudy urine, found to have E. Coli sepsis and also urine culture and blood culture are positive for same organism. The patient was initially started on Cipro, and subsequently, changed to Azactam and meropenem. The patient is feeling better. No abdominal pain. No nausea, vomiting, or diarrhea. No fever, no cough, no abdominal pain. PHYSICAL EXAMINATION: As follows: VITAL SIGNS: This afternoon, blood pressure is 116/66, pulse 93, respirations 20, temperature 98, saturation 99%. Height 5 feet 5 inches. Weight is 200 pounds. GENERAL: Mr. Simpson is a 68-year-old elderly male, moderately built, moderately nourished, not in distress. HEENT: Pupils are normal and reactive to light and accommodation. Conjunctivae pink. Sclerae anicteric. Tongue is moist. Trachea is midline. LUNGS: Symmetric on both sides. Bilateral breath sounds present. Clear to auscultation. CARDIOVASCULAR SYSTEM: [place]ton at the fifth intercostal space, midclavicular line. S1 and S2 audible. No murmur or gallop. ABDOMEN: Normal in appearance, soft, tympanitic. No guarding. No rigidity. No hepatosplenomegaly. CENTRAL NERVOUS SYSTEM: The patient is alert, awake, oriented x3. Nonfocal neuro examination. Cranial nerves II through XII grossly intact. Sensory and motor system is within normal limits. EXTREMITIES: No cyanosis, no clubbing, no edema. The patient has transmetatarsal amputation of the right foot. MEDICATIONS: His current medications include as follows: Azactam 500 mg IV every 8 hours, Bactrim 1 tablet 3 times a week, Bactroban ointment, also CellCept 1000 mg p.o. every 12 hours, Colace 100 mg p.o. b.i.d., aspirin 81 mg p.o. daily, Feosol 325 mg p.o. daily, Flomax 0.4 mg b.i.d., Humalog 20 units subcutaneously t.i.d., Januvia 25 mg p.o. daily, Levemir 50 units subcutaneously at bedtime, Lipitor 20 mg daily, Lovaza 1 g p.o. daily, meropenem 500 mg every 8 hours, Neurontin 100 mg p.o. daily, prednisone 5 mg daily, Protonix 40 mg p.o. daily, Synthroid 75 mcg daily, multivitamins, Tylenol, vitamin D 2000 units p.o. daily, Xarelto on hold 15 mg p.o. daily. LABORATORY DATA: His laboratory data include are as follows: As of 01/04/2019, WBC 2.6, hemoglobin 9.1, hematocrit is 28.3, and platelets 146. Sodium 138, potassium 3.3, chloride 101, CO2 of 21, BUN 33, creatinine 3.3, glucose 83, calcium 9.1, total bilirubin 1.3, AST 85, ALT 76, alkaline phosphatase 232, total protein 6, albumin is 3.2. Accu-Cheks 87, 182, and 315. His other laboratory data as of 08/05/2018, his serum creatinine was 1.9. As of 07/12/2018, his creatinine was 2.3. As of 03/25/2016, his creatinine was 1.9. ASSESSMENT AND PLAN: In summary, Mr. Simpson is a 68-year-old elderly male with a history of longstanding hypertension, diabetes, hyperlipidemia, end-stage renal disease, status post living related kidney transplant with a baseline creatinine about 1.8 to 2 who was admitted from the sn[facility] with fever, dysuria, frequency, and the patient was found to have a gram-negative sepsis, Escherichia coli in the blood and urine; on Azactam, meropenem, and Pyridium. 1. Acute renal failure, on chronic kidney disease stage III, most likely secondary to acute tubular necrosis, secondary to gram-negative sepsis. 2. Gram-negative sepsis secondary to Escherichia coli, secondary to urosepsis. 3. Hypertension. 4. Diabetes. 5. Anemia. 6. Hypokalemia. Agree with the potassium supplement. 7. Abnormal liver function tests, most likely secondary to sepsis. We will discontinue Pyridium, and continue to monitor urine output, and also we will repeat CBC, CMP, and urinalysis in a.m. PLAN: Continue IV antibiotics. As per ID recommendations, Azactam and meropenem. Continue with Levemir and NovoLog and Januvia. Continue his other current medications. We will follow with you. Thank you for allowing me to participate in your patient's care. De Vieira MD
--- NOTE | 2019-01-05 07:12 | CP.PCM.PN ---
Subjective - Date & Time of Evaluation Date of Evaluation: 01/02/19 Time of Evaluation: 11:15 - Subjective Subjective: Patient remains stable Still with some discomfort on the penile area Not on santiago at home Has some urinary retention Has no fever. Objective - Vital Signs/Intake and Output Vital Signs (last 24 hours): Temp Pulse Resp BP Pulse Ox 98.6 F 102 H 18 115/72 92 L 01/05/19 05:00 01/05/19 05:00 01/05/19 05:00 01/05/19 01:09 01/05/19 05:00 Intake and Output: 01/05/19 01/05/19 06:59 18:59 Intake Total 1500 Output Total 1400 Balance 100 - Medications Medications: Current Medications Acetaminophen (Tylenol 325mg Tab) 650 mg PO Q6 PRN PRN Reason: Fever >100.4 F Last Admin: 01/03/19 21:52 Dose: 650 mg Aspirin (Ecotrin) 81 mg PO DAILY [facility] Last Admin: 01/04/19 08:45 Dose: 81 mg Atorvastatin Calcium (Lipitor) 20 mg PO DAILY [facility] Last Admin: 01/04/19 08:44 Dose: 20 mg Cholecalciferol (Vitamin D) 2,000 intlu PO DAILY [facility] Last Admin: 01/04/19 17:02 Dose: 2,000 intlu Dextrose (Dextrose 50% Inj) 0 ml IV STAT PRN; Protocol PRN Reason: Hypoglycemia Protocol Dextrose (Glutose 15) 0 gm PO ONCE PRN; Protocol PRN Reason: Hypoglycemia Protocol Docusate Sodium (Colace) 100 mg PO BID [facility] Last Admin: 01/04/19 17:01 Dose: 100 mg Ferrous Sulfate (Feosol) 325 mg PO DAILY [facility] Last Admin: 01/04/19 08:43 Dose: 325 mg Gabapentin (Neurontin) 100 mg PO DAILY [facility] Last Admin: 01/04/19 08:45 Dose: 100 mg Glucagon (Glucagen Diagnostic Kit) 0 mg IM STAT PRN; Protocol PRN Reason: Hypoglycemia Protocol Aztreonam 500 mg/ Sodium (Chloride) 50 mls @ 50 mls/hr IVPB Q8 [facility]; Protocol Last Admin: 01/05/19 00:10 Dose: 50 mls/hr Meropenem 500 mg/ Sodium (Chloride) 100 mls @ 100 mls/hr IVPB Q8 [facility]; Protocol Last Admin: 01/05/19 00:10 Dose: 100 mls/hr Insulin Detemir (Levemir) 50 units SC HS [facility] Last Admin: 01/04/19 21:18 Dose: 50 u Insulin Human Lispro (Humalog) 20 units SC TID [facility] Last Admin: 01/04/19 17:02 Dose: 20 unit Levothyroxine Sodium (Synthroid) 75 mcg PO DAILY@0630 [facility] Last Admin: 01/05/19 05:50 Dose: 75 mcg Multivitamins/Minerals (Therapeutic-M Tab) 1 tab PO DAILY [facility] Last Admin: 01/04/19 08:46 Dose: 1 tab Mupirocin (Bactroban Ointment) 1 applic TOP BID [facility] Last Admin: 01/04/19 17:01 Dose: 1 appl Mycophenolate Mofetil (Cellcept Cap) 1,000 mg PO Q12 [facility] Last Admin: 01/04/19 21:17 Dose: 1,000 mg [id number] Ethyl Esters (Lovaza) 1 gm PO DAILY [facility] Last Admin: 01/04/19 08:45 Dose: 1 gm Pantoprazole Sodium (Protonix Ec Tab) 40 mg PO DAILY [facility] Last Admin: 01/04/19 08:45 Dose: 40 mg Prednisone (Prednisone Tab) 5 mg PO DAILY [facility] Last Admin: 01/04/19 08:43 Dose: 5 mg Rivaroxaban ([facility]arelto) [facility] [place] Protocol Last Admin: 01/03/19 09:44 Dose: 15 mg Sitagliptin Phosphate (Januvia) 25 mg PO DAILY [facility] Last Admin: 01/04/19 08:46 Dose: 25 mg Tamsulosin HCl (Flomax) 0.4 mg PO BID [facility] Last Admin: 01/04/19 17:01 Dose: 0.4 mg Trimethoprim/Sulfamethoxazole (Bactrim Ds Tab) 1 tab PO MWF [facility]; Protocol - Labs Labs: 01/05/19 05:45 01/05/19 05:45 PT 27.2 Seconds (9.8-13.1) H 12/31/18 19:37 INR 2.4 12/31/18 19:37 APTT 39.2 Seconds (25.6-37.1) H 12/31/18 19:37 - Head Exam Head Exam: NORMAL INSPECTION - Eye Exam Eye Exam: Normal appearance - ENT Exam ENT Exam: Mucous Membranes Moist - Respiratory Exam Respiratory Exam: Clear to Ausculation Bilateral - Cardiovascular Exam Cardiovascular Exam: REGULAR RHYTHM - GI/Abdominal Exam GI & Abdominal Exam: Normal Bowel Sounds Assessment and Plan (1) Pyelonephritis Status: Acute (2) CKD stage 2 due to type 2 diabetes mellitus Status: Acute (3) Hypertension Status: Acute - Assessment and Plan (Free Text) Plan: Cont meds Cont t ContIV antibiotics regular floor. DC santiago
[2019-01-05] MEDS: Multivitamin With Minerals Tab PO SCH (08:48)
[2019-01-05] MEDS: Omega-3-Acid Ethyl Esters 1 GM Cap PO SCH (08:49)
[2019-01-05] MEDS: Cholecalciferol 1,000 INTLU TAB PO SCH (08:51)
[2019-01-05] MEDS: Pantoprazole 40 mg EC Tab PO SCH (08:52)
[2019-01-05] MEDS ORDERED: Tmp-Smz 800 mg-160 mg DS Tab PO SCH (09:00)
[2019-01-05] MEDS ORDERED: Potassium Chloride 20 mEq ER Tab PO ONE (09:26)
--- NOTE | 2019-01-05 11:30 | CP.PCM.PN ---
Subjective - Date & Time of Evaluation Date of Evaluation: 01/05/19 Time of Evaluation: 09:00 - Subjective Subjective: improving on IV RX has pyelo / sepsis from infected transplant will need long course of rx for this await stool studies- still not sent as ordered- had strongyloides on prev admission Bactreim added for low CD4 Objective - Vital Signs/Intake and Output Vital Signs (last 24 hours): Temp Pulse Resp BP Pulse Ox 98.7 F 94 H 20 121/65 93 L 01/05/19 08:00 01/05/19 08:00 01/05/19 08:00 01/05/19 08:00 01/05/19 08:00 Intake and Output: 01/05/19 01/05/19 06:59 18:59 Intake Total 1500 Output Total 1400 Balance 100 - Medications Medications: Current Medications Acetaminophen (Tylenol 325mg Tab) 650 mg PO Q6 PRN PRN Reason: Fever >100.4 F Last Admin: 01/03/19 21:52 Dose: 650 mg Aspirin (Ecotrin) 81 mg PO DAILY [facility] Last Admin: 01/05/19 08:48 Dose: 81 mg Atorvastatin Calcium (Lipitor) 20 mg PO DAILY [facility] Last Admin: 01/05/19 08:49 Dose: 20 mg Cholecalciferol (Vitamin D) 2,000 intlu PO DAILY [facility] Last Admin: 01/05/19 08:51 Dose: 2,000 intlu Dextrose (Dextrose 50% Inj) 0 ml IV STAT PRN; Protocol PRN Reason: Hypoglycemia Protocol Dextrose (Glutose 15) 0 gm PO ONCE PRN; Protocol PRN Reason: Hypoglycemia Protocol Docusate Sodium (Colace) 100 mg PO BID [facility] Last Admin: 01/05/19 08:49 Dose: 100 mg Ferrous Sulfate (Feosol) 325 mg PO DAILY [facility] Last Admin: 01/05/19 08:48 Dose: 325 mg Gabapentin (Neurontin) 100 mg PO DAILY [facility] Last Admin: 01/05/19 08:51 Dose: 100 mg Glucagon (Glucagen Diagnostic Kit) 0 mg IM STAT PRN; Protocol PRN Reason: Hypoglycemia Protocol Aztreonam 500 mg/ Sodium (Chloride) 50 mls @ 50 mls/hr IVPB Q8 [facility]; Protocol Last Admin: 01/05/19 08:47 Dose: 50 mls/hr Meropenem 500 mg/ Sodium (Chloride) 100 mls @ 100 mls/hr IVPB Q8 [facility]; Protocol Last Admin: 01/05/19 08:47 Dose: 100 mls/hr Insulin Detemir (Levemir) 45 units SC HS [facility] Insulin Human Lispro (Humalog) 10 units SC TID [facility] Levothyroxine Sodium (Synthroid) 75 mcg PO DAILY@0630 [facility] Last Admin: 01/05/19 05:50 Dose: 75 mcg Multivitamins/Minerals (Therapeutic-M Tab) 1 tab PO DAILY [facility] Last Admin: 01/05/19 08:48 Dose: 1 tab Mupirocin (Bactroban Ointment) 1 applic TOP BID [facility] Last Admin: 01/05/19 08:50 Dose: 1 appl Mycophenolate Mofetil (Cellcept Cap) 1,000 mg PO Q12 [facility] Last Admin: 01/05/19 08:48 Dose: 1,000 mg [id number] Ethyl Esters (Lovaza) 1 gm PO DAILY [facility] Last Admin: 01/05/19 08:49 Dose: 1 gm Pantoprazole Sodium (Protonix Ec Tab) 40 mg PO DAILY [facility] Last Admin: 01/05/19 08:52 Dose: 40 mg Prednisone (Prednisone Tab) 5 mg PO DAILY [facility] Last Admin: 01/05/19 08:54 Dose: 5 mg Rivaroxaban (Xarelto) 15 mg PO DAILYWM [facility]; Protocol Last Admin: 01/05/19 08:50 Dose: 15 mg Sitagliptin Phosphate (Januvia) 25 mg PO DAILY [facility] Last Admin: 01/05/19 08:51 Dose: 25 mg Tamsulosin HCl (Flomax) 0.4 mg PO BID [facility] Last Admin: 01/05/19 08:51 Dose: 0.4 mg Trimethoprim/Sulfamethoxazole (Bactrim Ds Tab) 1 tab PO MWF [facility]; Protocol Last Admin: 01/05/19 08:48 Dose: 1 tab - Labs Labs: 01/05/19 05:45 01/05/19 05:45 PT 27.2 Seconds (9.8-13.1) H 12/31/18 19:37 INR 2.4 12/31/18 19:37 APTT 39.2 Seconds (25.6-37.1) H 12/31/18 19:37 - Constitutional Appears: Well - Head Exam Head Exam: ATRAUMATIC, NORMAL INSPECTION, NORMOCEPHALIC - Eye Exam Eye Exam: EOMI, Normal appearance, PERRL Pupil Exam: NORMAL ACCOMODATION, PERRL - ENT Exam ENT Exam: Mucous Membranes Moist, Normal Exam - Neck Exam Neck Exam: Full ROM, Normal Inspection. absent: Lymphadenopathy - Respiratory Exam Respiratory Exam: Clear to Ausculation Bilateral, NORMAL BREATHING PATTERN - Cardiovascular Exam Cardiovascular Exam: REGULAR RHYTHM, +S1, +S2. absent: Murmur - GI/Abdominal Exam GI & Abdominal Exam: Soft, Normal Bowel Sounds. absent: Tenderness - Rectal Exam Rectal Exam: NORMAL INSPECTION - Exam Exam: NORMAL INSPECTION - Extremities Exam Extremities Exam: Full ROM, Normal Capillary Refill, Normal Inspection. absent: Joint Swelling, Pedal Edema - Back Exam Back Exam: NORMAL INSPECTION - Neurological Exam Neurological Exam: Alert, Awake, CN II-XII Intact, Normal Gait, Oriented x3 - Psychiatric Exam Psychiatric exam: Normal Affect, Normal Mood - Skin Skin Exam: Dry, Intact, Normal Color, Warm Assessment and Plan (1) CKD (chronic kidney disease) Status: Acute (2) Pyelonephritis Status: Acute (3) Sepsis Status: Acute (4) Renal transplant recipient Status: Chronic - Assessment and Plan (Free Text) Assessment: improving on IV RX has pyelo / sepsis from infected transplant will need long course of rx for this await stool studies- still not sent as ordered- had strongyloides on prev admission Bactrim added for low CD4
[2019-01-05] MEDS ORDERED: Insulin Lispro (humaLOG) 100 Units/ml Inj SC SCH (13:00)
--- NOTE | 2019-01-05 13:20 | CP.PCM.PN ---
Subjective - Date & Time of Evaluation Date of Evaluation: 01/05/19 Time of Evaluation: 13:20 - Subjective Subjective: pt is seen and examined, follow up consult is dictated #[id number] check labs in am Objective - Vital Signs/Intake and Output Vital Signs (last 24 hours): Temp Pulse Resp BP Pulse Ox 98.7 F 94 H 20 121/65 93 L 01/05/19 08:00 01/05/19 08:00 01/05/19 08:00 01/05/19 08:00 01/05/19 08:00 Intake and Output: 01/05/19 01/05/19 06:59 18:59 Intake Total 1500 Output Total 1400 Balance 100 - Medications Medications: Current Medications Acetaminophen (Tylenol 325mg Tab) 650 mg PO Q6 PRN PRN Reason: Fever >100.4 F Last Admin: 01/03/19 21:52 Dose: 650 mg Aspirin (Ecotrin) 81 mg PO DAILY [facility] Last Admin: 01/05/19 08:48 Dose: 81 mg Atorvastatin Calcium (Lipitor) 20 mg PO DAILY [facility] Last Admin: 01/05/19 08:49 Dose: 20 mg Cholecalciferol (Vitamin D) 2,000 intlu PO DAILY [facility] Last Admin: 01/05/19 08:51 Dose: 2,000 intlu Dextrose (Dextrose 50% Inj) 0 ml IV STAT PRN; Protocol PRN Reason: Hypoglycemia Protocol Dextrose (Glutose 15) 0 gm PO ONCE PRN; Protocol PRN Reason: Hypoglycemia Protocol Docusate Sodium (Colace) 100 mg PO BID [facility] Last Admin: 01/05/19 08:49 Dose: 100 mg Ferrous Sulfate (Feosol) 325 mg PO DAILY [facility] Last Admin: 01/05/19 08:48 Dose: 325 mg Gabapentin (Neurontin) 100 mg PO DAILY [facility] Last Admin: 01/05/19 08:51 Dose: 100 mg Glucagon (Glucagen Diagnostic Kit) 0 mg IM STAT PRN; Protocol PRN Reason: Hypoglycemia Protocol Aztreonam 500 mg/ Sodium (Chloride) 50 mls @ 50 mls/hr IVPB Q8 [facility]; Protocol Last Admin: 01/05/19 08:47 Dose: 50 mls/hr Meropenem 500 mg/ Sodium (Chloride) 100 mls @ 100 mls/hr IVPB Q8 [facility]; Protocol Last Admin: 01/05/19 08:47 Dose: 100 mls/hr Insulin Detemir (Levemir) 45 units SC HS [facility] Insulin Human Lispro (Humalog) 10 units SC TID [facility] Levothyroxine Sodium (Synthroid) 75 mcg PO DAILY@0630 [facility] Last Admin: 01/05/19 05:50 Dose: 75 mcg Multivitamins/Minerals (Therapeutic-M Tab) 1 tab PO DAILY [facility] Last Admin: 01/05/19 08:48 Dose: 1 tab Mupirocin (Bactroban Ointment) 1 applic TOP BID [facility] Last Admin: 01/05/19 08:50 Dose: 1 appl Mycophenolate Mofetil (Cellcept Cap) 1,000 mg PO Q12 [facility] Last Admin: 01/05/19 08:48 Dose: 1,000 mg [id number]-2-[id number] Ethyl Esters (Lovaza) 1 gm PO DAILY [facility] Last Admin: 01/05/19 08:49 Dose: 1 gm Pantoprazole Sodium (Protonix Ec Tab) 40 mg PO DAILY [facility] Last Admin: 01/05/19 08:52 Dose: 40 mg Prednisone (Prednisone Tab) 5 mg PO DAILY [facility] Last Admin: 01/05/19 08:54 Dose: 5 mg Rivaroxaban ([facility]arelto) [facility] [place] Protocol Last Admin: 01/05/19 08:50 Dose: 15 mg Sitagliptin Phosphate (Januvia) 25 mg PO DAILY [facility] Last Admin: 01/05/19 08:51 Dose: 25 mg Tamsulosin HCl (Flomax) 0.4 mg PO BID [facility] Last Admin: 01/05/19 08:51 Dose: 0.4 mg Trimethoprim/Sulfamethoxazole (Bactrim Ds Tab) 1 tab PO MWF [facility]; Protocol Last Admin: 01/05/19 08:48 Dose: 1 tab - Labs Labs: 01/05/19 05:45 01/05/19 05:45 PT 27.2 Seconds (9.8-13.1) H 12/31/18 19:37 INR 2.4 12/31/18 19:37 APTT 39.2 Seconds (25.6-37.1) H 12/31/18 19:37
--- NOTE | 2019-01-05 14:15 | PQF ---
PROVIDER RESPONSE TEXT: It is an ulceration REVIEWER QUERY TEXT: Pressure Ulcer Type Wound right leg likely due to pressure superficial documented in the progress notes. Please clarify i f this is a wound versus an ulcer and document the stage if it is a pressure ulcer. Pressure ulcer is documented in the Medical Record. Please specify the location, present on admission status and/or stage: Location and laterality of pressure ulcer(s): POA status of each pressure ulcer: -- Not present on admission -- Present on admission -- Other -- Clinically unable to determine -- Unknown Stage of each pressure ulcer (National Pressure Ulcer Advisory Panel definitions): -- Stage I: Intact skin with non-blanchable redness of a localized area -- Stage II: Partial thickness skin loss involving dermis with a shallow open ulcer or an open serum -filled blister -- Stage III: Full thickness skin loss involving damage or necrosis of subcutaneous tissue -- Stage IV: Full thickness skin loss with exposed bone, tendon or muscle -- Unstageable: Full thickness tissue loss in which the base of the ulcer is covered by slough and/o r eschar in the wound bed The patient's Clinical Indicators include: Podiatry: 3 cm X 3 cm circular wound noted to the lateral aspect of the right leg, wound superficial with 50% fibrotic and 50% granular base, negative probe to bone, negative malodor, negative drainage, negative tunneling or tracking, wound likely due to pressure, no clinical signs of infection ID: Wound right ankle stage II Wound RN: There is small, square wound on the lateral right ankle. Query created by: Yeimi Bishop on 01/05/2019 1:24 PM Electronically signed by: Deondre George 01/05/2019 2:11 PM
--- NOTE | 2019-01-05 15:34 | CP.PCM.PN ---
Subjective - Date & Time of Evaluation Date of Evaluation: 01/05/19 Time of Evaluation: 10:00 - Subjective Subjective: patient seen and examined at bedside. Interim events noted no complaints offered at this time denies cp/sob/fever/chills. available diagnostic data reviewed Review of Systems All systems: reviewed and no additional remarkable complaints except mentioned above Objective Vital Signs Stable - Constitutional Appears: Non-toxic, No Acute Distress Head Exam: NORMAL INSPECTION Eye Exam: Normal appearance Respiratory Exam: NORMAL BREATHING PATTERN Cardiovascular Exam: +S1, +S2 GI & Abdominal Exam: Soft Neurological Exam: Alert, Awake Psychiatric exam: Normal Affect, Normal Mood Skin Exam: Normal Color, Warm Assessment and Plan monitor vitals monitor labs Cont meds Cont tx consultants appreciated input pt eval stool studies pending cont IV abx adjust insulin rest of plan as ordered Assessment and Plan (1) Pyelonephritis Status: Acute (2) Bacteremia Status: Acute (3) CKD (chronic kidney disease) Status: Acute (4) Diabetes Status: Chronic
[2019-01-05] MEDS ORDERED: Insulin Detemir 100 Units/ml Inj SC SCH (22:00)
[2019-01-06] MEDS: Meropenem 500 MG in Sodium Chloride 0.9% 100 ML IVPB SCH ×3 (00:45→16:05)
--- NOTE | 2019-01-06 04:51 | CON ---
DATE: 01/05/2019 FOLLOWUP RENAL CONSULTATION LOCATION: The patient is located in room 412, bed 1. REQUESTED BY: Osmel Frey MD REASON FOR FOLLOWUP: Acute renal failure, chronic kidney disease, gram-negative sepsis, and kidney transplant status post. HISTORY OF PRESENT ILLNESS: Mr. Simpson is a 68-year-old obese, elderly male with a history of longstanding hypertension, diabetes, end-stage renal disease, status post living-related kidney transplant from the patient's daughter and also bladder CA, chronic kidney disease with a baseline creatinine of about 1.82 for the last 4 years, was admitted from the [facility] with fever, dysuria, frequency and urine was cloudy and subsequently, the patient was found to have gram-negative sepsis in the blood and urine identified as E. coli. The patient denies any abdominal pain. Denies any nausea, vomiting, diarrhea. Denies any chest pain, palpitation. The patient claims he is voiding well. PHYSICAL EXAMINATION: VITAL SIGNS: As follows: Blood pressure this afternoon 111/67, pulse 94, respirations 20, temperature 98.7, saturation 93%. Height 5 feet, 5 inches, weight is 200 pounds. GENERAL: Mr. Simpson is a 68-year-old elderly, obese male with a history of longstanding hypertension, diabetes, end-stage renal disease, status post renal transplant, well-built, well-nourished, not in acute distress. HEENT: Pupils are normal and reactive to light and accommodation. Conjunctivae pink. Sclerae anicteric. Tongue is moist. Trachea is midline. LUNGS: Symmetric on both sides. Bilateral breath sounds present. Clear to auscultation. CARDIOVASCULAR SYSTEM: [place] at the fifth intercostal space, midclavicular line. S1 and S2 audible. No murmur or gallop. ABDOMEN: Normal in appearance, slightly distended, soft, tympanitic. No guarding. No rigidity. No hepatosplenomegaly. CENTRAL NERVOUS SYSTEM: The patient is alert, awake, oriented x3. Nonfocal neuro examination. Cranial nerves II-XII grossly intact. Sensory and motor system is within normal limits. EXTREMITIES: No cyanosis, no clubbing, no edema. Status post right transmetatarsal amputation. CURRENT MEDICATIONS: As follows: Azactam 500 mg IV every 8 hours, Bactrim 1 tablet 3 times a week, Saturday, Saturday, Saturday. Bactroban ointment, CellCept 1000 mg p.o. every 12 hours, Colace 100 mg p.o. b.i.d., aspirin 81 mg daily, ferrous sulfate 325 mg p.o. daily, Flomax 0.4 mg at bedtime, Humalog on hold, Januvia 25 mg p.o. daily, Levemir 45 units subcutaneously at bedtime, Lipitor 20 mg p.o. daily, omega-3 fatty acids 1 g p.o. daily, meropenem 500 mg IV every 8 hours, gabapentin 100 mg p.o. daily, prednisone 5 mg daily, Protonix, levothyroxine, multivitamins, Tylenol, cholecalciferol, vitamin D 2000 units p.o. daily, and Xarelto 15 mg p.o. daily. LABORATORY DATA: Includes as follows: As of 01/04/2019, WBC 3.4, hemoglobin 9.2, hematocrit is 28.4, platelets 168. Sodium 138, potassium 3.4, chloride 102, CO2 of 22, BUN 34, creatinine 3.0, glucose 42, and Accu-Cheks are 45, 161, and 297, 310. Calcium 8.9. Total bili 1.2, AST 69, ALT is 67, alkaline phosphatase 233. Total protein 6.1, albumin is 3.2. Wound culture is identified as Corynebacterium species. ASSESSMENT AND PLAN: In summary, Mr. Simpson is a 68-year-old elderly, obese male with a history of longstanding hypertension, diabetes, end-stage renal disease, status post living-related kidney transplant, chronic kidney disease with baseline creatinine of about 1.82, was admitted with fever, dysuria, frequency, and increased blood urea and nitrogen and creatinine and found to have a gram-negative marcelino and identified as Escherichia coli in both blood and urine, on Azactam and meropenem. 1. Acute renal failure on chronic kidney disease. 2. Dehydration. 3. Rule out acute tubular necrosis, secondary to gram-negative sepsis. 4. Escherichia coli sepsis, most likely source is urine. 5. Hypertension. 6. Diabetes. Continue use of current medications and continue to monitor basic metabolic profile and follow up potassium and magnesium level in the morning. We will follow up with you. Thank you for allowing me to participate in your patient's care. Continue intravenous fluids. De Vieira MD
[2019-01-06] MEDS: Levothyroxine 75 MCG TAB PO SCH (06:12)
[2019-01-06 08:02] VITALS: RESP 18
--- NOTE | 2019-01-06 08:42 | CON ---
DATE: 01/04/2019 HISTORY OF PRESENT ILLNESS: The patient had Du inserted, subsequently with swelling of the penis and some hematuria. The Du was removed, the patient was unable to urinate and empty the bladder properly but no residual on bladder scan. There was no evidence of bacteremia at that point. The patient again had difficultly inserting a Du, the bladder scan has showed that there was only 100 mL residual at the time of second attempt to insert the Du. Brady Mcnally MD
[2019-01-06] MEDS: Omega-3-Acid Ethyl Esters 1 GM Cap PO SCH (09:26)
[2019-01-06] MEDS: Pantoprazole 40 mg EC Tab PO SCH (09:28)
[2019-01-06] MEDS: Multivitamin With Minerals Tab PO SCH (09:28)
[2019-01-06] MEDS: Cholecalciferol 1,000 INTLU TAB PO SCH (09:29)
--- NOTE | 2019-01-06 09:44 | CP.PCM.PN ---
Subjective - Date & Time of Evaluation Date of Evaluation: 01/06/19 Time of Evaluation: 09:28 - Subjective Subjective: Podiatry progress note for Dr. Mejia, 68 year old male patient seen and evaluated at bedside for right leg ulceration, significantly improving. Patient states the pain has decreased to the site when touched. Patient denies any drainage. AAOx3. Patient denies any fever, nausea, vomiting at this time. Objective - Vital Signs/Intake and Output Vital Signs (last 24 hours): Temp Pulse Resp BP Pulse Ox 98 F 98 H 18 117/71 96 01/06/19 08:02 01/06/19 08:02 01/06/19 08:02 01/06/19 08:02 01/06/19 08:02 - Medications Medications: Current Medications Acetaminophen (Tylenol 325mg Tab) 650 mg PO Q6 PRN PRN Reason: Fever >100.4 F Last Admin: 01/03/19 21:52 Dose: 650 mg Aspirin (Ecotrin) 81 mg PO DAILY [facility] Last Admin: 01/05/19 08:48 Dose: 81 mg Atorvastatin Calcium (Lipitor) 20 mg PO DAILY [facility] Last Admin: 01/05/19 08:49 Dose: 20 mg Cholecalciferol (Vitamin D) 2,000 intlu PO DAILY [facility] Last Admin: 01/05/19 08:51 Dose: 2,000 intlu Dextrose (Dextrose 50% Inj) 0 ml IV STAT PRN; Protocol PRN Reason: Hypoglycemia Protocol Dextrose (Glutose 15) 0 gm PO ONCE PRN; Protocol PRN Reason: Hypoglycemia Protocol Docusate Sodium (Colace) 100 mg PO BID [facility] Last Admin: 01/05/19 18:26 Dose: 100 mg Ferrous Sulfate (Feosol) 325 mg PO DAILY [facility] Last Admin: 01/05/19 08:48 Dose: 325 mg Gabapentin (Neurontin) 100 mg PO DAILY [facility] Last Admin: 01/05/19 08:51 Dose: 100 mg Glucagon (Glucagen Diagnostic Kit) 0 mg IM STAT PRN; Protocol PRN Reason: Hypoglycemia Protocol Aztreonam 500 mg/ Sodium (Chloride) 50 mls @ 50 mls/hr IVPB Q8 [facility]; Protocol Last Admin: 01/06/19 01:10 Dose: 50 mls/hr Meropenem 500 mg/ Sodium (Chloride) 100 mls @ 100 mls/hr IVPB Q8 [facility]; Protocol Last Admin: 01/06/19 00:45 Dose: 100 mls/hr Insulin Detemir (Levemir) 45 units SC HS [facility] Last Admin: 01/05/19 21:40 Dose: 45 u Insulin Human Lispro (Humalog) 10 units SC TID [facility] Levothyroxine Sodium (Synthroid) 75 mcg PO DAILY@0630 [facility] Last Admin: 01/06/19 06:12 Dose: 75 mcg Multivitamins/Minerals (Therapeutic-M Tab) 1 tab PO DAILY [facility] Last Admin: 01/05/19 08:48 Dose: 1 tab Mupirocin (Bactroban Ointment) 1 applic TOP BID [facility] Last Admin: 01/05/19 18:26 Dose: 1 appl Mycophenolate Mofetil (Cellcept Cap) 1,000 mg PO Q12 [facility] Last Admin: 01/05/19 21:22 Dose: 1,000 mg [id number]-[id number] Ethyl Esters (Lovaza) 1 gm PO DAILY [facility] Last Admin: 01/05/19 08:49 Dose: 1 gm Pantoprazole Sodium (Protonix Ec Tab) 40 mg PO DAILY [facility] Last Admin: 01/05/19 08:52 Dose: 40 mg Prednisone (Prednisone Tab) 5 mg PO DAILY [facility] Last Admin: 01/05/19 08:54 Dose: 5 mg Rivaroxaban (Xarelto) 15 mg PO DAILYWM [facility]; Protocol Last Admin: 01/05/19 08:50 Dose: 15 mg Sitagliptin Phosphate (Januvia) 25 mg PO DAILY [facility] Last Admin: 01/05/19 08:51 Dose: 25 mg Tamsulosin HCl (Flomax) 0.4 mg PO BID [facility] Last Admin: 01/05/19 18:25 Dose: 0.4 mg - Labs Labs: 01/05/19 05:45 01/05/19 05:45 PT 27.2 Seconds (9.8-13.1) H 12/31/18 19:37 INR 2.4 12/31/18 19:37 APTT 39.2 Seconds (25.6-37.1) H 12/31/18 19:37 - Constitutional Appears: Well, Non-toxic, No Acute Distress - Head Exam Head Exam: ATRAUMATIC, NORMOCEPHALIC - Extremities Exam Additional comments: Bilateral Lower Extremity Exam VASC: DP and PT 2/4 bilaterally, CFT less than 3 seconds X 4, TG normal, no edema noted NEURO: diminished sensation DERM: 3 cm X 3 cm circular wound noted to the lateral aspect of the right leg, wound superficial with 50% fibrotic and 50% granular base, negative probe to bone, negative malodor, negative drainage, negative tunneling or tracking, wound likely due to pressure, no clinical signs of infection ORTHO: TMA noted to the right, healed, left 5th digit amputation noted, no other wounds, MSK 5/5 - Neurological Exam Neurological Exam: Alert, Awake, Oriented x3 - Psychiatric Exam Psychiatric exam: Normal Affect, Normal Mood Assessment and Plan - Assessment and Plan (Free Text) Assessment: 68 y/o male patient seen and evaluated for right leg wound, superficial, non- infected Plan: Patient seen and evaluated Plan discussed with Dr. Mejia Chart, labs and vitals reviewed Wound Culture: corynebacterium Dressed with bactroban and Mepilex Podiatry will follow patient while in house
[2019-01-06 10:45] LABS: CALCIUM 8.8 mg/dL (8.4-10.2)
--- NOTE | 2019-01-06 11:47 | CP.PCM.PN ---
Subjective - Date & Time of Evaluation Date of Evaluation: 01/06/19 Time of Evaluation: 11:47 - Subjective Subjective: pt is seen and examined, follow up consult is dictated #[id number] s.cr is improving 2.3 today c/w iv abx as per id, Objective - Vital Signs/Intake and Output Vital Signs (last 24 hours): Temp Pulse Resp BP Pulse Ox 98 F 98 H 18 117/71 96 01/06/19 08:02 01/06/19 08:02 01/06/19 08:02 01/06/19 08:02 01/06/19 08:02 - Medications Medications: Current Medications Acetaminophen (Tylenol 325mg Tab) 650 mg PO Q6 PRN PRN Reason: Fever >100.4 F Last Admin: 01/03/19 21:52 Dose: 650 mg Aspirin (Ecotrin) 81 mg PO DAILY [facility] Last Admin: 01/06/19 09:25 Dose: 81 mg Atorvastatin Calcium (Lipitor) 20 mg PO DAILY [facility] Last Admin: 01/06/19 09:26 Dose: 20 mg Cholecalciferol (Vitamin D) 2,000 intlu PO DAILY [facility] Last Admin: 01/06/19 09:29 Dose: 2,000 intlu Dextrose (Dextrose 50% Inj) 0 ml IV STAT PRN; Protocol PRN Reason: Hypoglycemia Protocol Dextrose (Glutose 15) 0 gm PO ONCE PRN; Protocol PRN Reason: Hypoglycemia Protocol Docusate Sodium (Colace) 100 mg PO BID [facility] Last Admin: 01/06/19 09:24 Dose: 100 mg Ferrous Sulfate (Feosol) 325 mg PO DAILY [facility] Last Admin: 01/06/19 09:25 Dose: 325 mg Gabapentin (Neurontin) 100 mg PO DAILY [facility] Last Admin: 01/06/19 09:28 Dose: 100 mg Glucagon (Glucagen Diagnostic Kit) 0 mg IM STAT PRN; Protocol PRN Reason: Hypoglycemia Protocol Aztreonam 500 mg/ Sodium (Chloride) 50 mls @ 50 mls/hr IVPB Q8 [facility]; Protocol Last Admin: 01/06/19 09:22 Dose: 50 mls/hr Meropenem 500 mg/ Sodium (Chloride) 100 mls @ 100 mls/hr IVPB Q8 [facility]; Protocol Last Admin: 01/06/19 09:27 Dose: 100 mls/hr Insulin Detemir (Levemir) 45 units SC [facility] Last Admin: 01/05/19 21:40 Dose: 45 u Insulin Human Lispro (Humalog) 10 units SC TID [facility] Levothyroxine Sodium (Synthroid) 75 mcg PO DAILY@0630 [facility] Last Admin: 01/06/19 06:12 Dose: 75 mcg Multivitamins/Minerals (Therapeutic-M Tab) 1 tab PO DAILY [facility] Last Admin: 01/06/19 09:28 Dose: 1 tab Mupirocin (Bactroban Ointment) 1 applic TOP BID [facility] Last Admin: 01/06/19 09:22 Dose: 1 appl Mycophenolate Mofetil (Cellcept Cap) 1,000 mg PO Q12 [facility] Last Admin: 01/06/19 09:23 Dose: 1,000 mg Phjjw-5-Xahc Ethyl Esters (Lovaza) 1 gm PO DAILY [facility] Last Admin: 01/06/19 09:26 Dose: 1 gm Pantoprazole Sodium (Protonix Ec Tab) 40 mg PO DAILY [facility] Last Admin: 01/06/19 09:28 Dose: 40 mg Prednisone (Prednisone Tab) 5 mg PO DAILY [facility] Last Admin: 01/06/19 09:28 Dose: 5 mg Rivaroxaban (Xarelto) 15 mg PO DAILYWM [facility]; Protocol Last Admin: 01/06/19 09:29 Dose: 15 mg Sitagliptin Phosphate (Januvia) 25 mg PO DAILY [facility] Last Admin: 01/06/19 09:26 Dose: 25 mg Tamsulosin HCl (Flomax) 0.4 mg PO BID [facility] Last Admin: 01/06/19 09:25 Dose: 0.4 mg - Labs Labs: 01/05/19 05:45 01/06/19 10:18 PT 27.2 Seconds (9.8-13.1) H 12/31/18 19:37 INR 2.4 12/31/18 19:37 APTT 39.2 Seconds (25.6-37.1) H 12/31/18 19:37
--- NOTE | 2019-01-06 12:00 | CP.PCM.PN ---
Subjective - Date & Time of Evaluation Date of Evaluation: 01/06/19 Time of Evaluation: 09:00 - Subjective Subjective: improving on IV rx for pyelo/sepsis Objective - Vital Signs/Intake and Output Vital Signs (last 24 hours): Temp Pulse Resp BP Pulse Ox 98 F 98 H 18 117/71 96 01/06/19 08:02 01/06/19 08:02 01/06/19 08:02 01/06/19 08:02 01/06/19 08:02 - Medications Medications: Current Medications Acetaminophen (Tylenol 325mg Tab) 650 mg PO Q6 PRN PRN Reason: Fever >100.4 F Last Admin: 01/03/19 21:52 Dose: 650 mg Aspirin (Ecotrin) 81 mg PO DAILY [facility] Last Admin: 01/06/19 09:25 Dose: 81 mg Atorvastatin Calcium (Lipitor) 20 mg PO DAILY [facility] Last Admin: 01/06/19 09:26 Dose: 20 mg Cholecalciferol (Vitamin D) 2,000 intlu PO DAILY [facility] Last Admin: 01/06/19 09:29 Dose: 2,000 intlu Dextrose (Dextrose 50% Inj) 0 ml IV STAT PRN; Protocol PRN Reason: Hypoglycemia Protocol Dextrose (Glutose 15) 0 gm PO ONCE PRN; Protocol PRN Reason: Hypoglycemia Protocol Docusate Sodium (Colace) 100 mg PO BID [facility] Last Admin: 01/06/19 09:24 Dose: 100 mg Ferrous Sulfate (Feosol) 325 mg PO DAILY [facility] Last Admin: 01/06/19 09:25 Dose: 325 mg Gabapentin (Neurontin) 100 mg PO DAILY [facility] Last Admin: 01/06/19 09:28 Dose: 100 mg Glucagon (Glucagen Diagnostic Kit) 0 mg IM STAT PRN; Protocol PRN Reason: Hypoglycemia Protocol Aztreonam 500 mg/ Sodium (Chloride) 50 mls @ 50 mls/hr IVPB Q8 [facility]; Protocol Last Admin: 01/06/19 09:22 Dose: 50 mls/hr Meropenem 500 mg/ Sodium (Chloride) 100 mls @ 100 mls/hr IVPB Q8 [facility]; Protocol Last Admin: 01/06/19 09:27 Dose: 100 mls/hr Insulin Detemir (Levemir) 45 units SC HS [facility] Last Admin: 01/05/19 21:40 Dose: 45 u Insulin Human Lispro (Humalog) 10 units SC TID [facility] Levothyroxine Sodium (Synthroid) 75 mcg PO DAILY@0630 [facility] Last Admin: 01/06/19 06:12 Dose: 75 mcg Multivitamins/Minerals (Therapeutic-M Tab) 1 tab PO DAILY [facility] Last Admin: 01/06/19 09:28 Dose: 1 tab Mupirocin (Bactroban Ointment) 1 applic TOP BID [facility] Last Admin: 01/06/19 09:22 Dose: 1 appl Mycophenolate Mofetil (Cellcept Cap) 1,000 mg PO Q12 [facility] Last Admin: 01/06/19 09:23 Dose: 1,000 mg Wuldw-9-Wizz Ethyl Esters (Lovaza) 1 gm PO DAILY [facility] Last Admin: 01/06/19 09:26 Dose: 1 gm Pantoprazole Sodium (Protonix Ec Tab) 40 mg PO DAILY [facility] Last Admin: 01/06/19 09:28 Dose: 40 mg Prednisone (Prednisone Tab) 5 mg PO DAILY [facility] Last Admin: 01/06/19 09:28 Dose: 5 mg [facility] Protocol Last Admin: 01/06/19 09:29 Dose: 15 mg Sitagliptin Phosphate (Januvia) 25 mg PO DAILY [facility] Last Admin: 01/06/19 09:26 Dose: 25 mg Tamsulosin HCl (Flomax) 0.4 mg PO BID [facility] Last Admin: 01/06/19 09:25 Dose: 0.4 mg - Labs Labs: 01/05/19 05:45 01/06/19 10:18 PT 27.2 Seconds (9.8-13.1) H 12/31/18 19:37 INR 2.4 12/31/18 19:37 APTT 39.2 Seconds (25.6-37.1) H 12/31/18 19:37 - Constitutional Appears: Well - Head Exam Head Exam: ATRAUMATIC, NORMAL INSPECTION, NORMOCEPHALIC - Eye Exam Eye Exam: EOMI, Normal appearance, PERRL Pupil Exam: NORMAL ACCOMODATION, PERRL - ENT Exam ENT Exam: Mucous Membranes Moist, Normal Exam - Neck Exam Neck Exam: Full ROM, Normal Inspection. absent: Lymphadenopathy - Respiratory Exam Respiratory Exam: Clear to Ausculation Bilateral, NORMAL BREATHING PATTERN - Cardiovascular Exam Cardiovascular Exam: REGULAR RHYTHM, +S1, +S2. absent: Murmur - GI/Abdominal Exam GI & Abdominal Exam: Soft, Normal Bowel Sounds. absent: Tenderness - Rectal Exam Rectal Exam: Deferred - Extremities Exam Extremities Exam: Full ROM, Normal Capillary Refill, Normal Inspection. absent: Joint Swelling, Pedal Edema - Back Exam Back Exam: NORMAL INSPECTION - Neurological Exam Neurological Exam: Alert, Awake, CN II-XII Intact, Normal Gait, Oriented x3 - Psychiatric Exam Psychiatric exam: Normal Affect, Normal Mood - Skin Skin Exam: Dry, Intact, Normal Color, Warm Assessment and Plan (1) CKD (chronic kidney disease) Status: Acute (2) Pyelonephritis Status: Acute (3) Sepsis Status: Acute (4) Renal transplant recipient Status: Chronic - Assessment and Plan (Free Text) Assessment: cont iv rx for min 10 more days
[2019-01-06 12:20] VITALS: O2SAT 98
[2019-01-06] MEDS ORDERED: Lidocaine Hydrochloride 5 ML INJ ONE (14:53)
--- NOTE | 2019-01-06 15:13 | PCM.SURG1 ---
Surgeon's Initial Post Op Note - Surgeon's Notes Surgeon: Alesia Director Trade: None Type of Anesthesia: Local Pre-Operative Diagnosis: IV access Operative Findings: Patent right basilic vein Post-Operative Diagnosis: IV access Operation Performed: Right basilic vein 4F SL 35cm PICC placed. Specimen/Specimens Removed: None Estimated Blood Loss: EBL {In ML}: 1 Date of Surgery/Procedure: 01/06/19 Time of Surgery/Procedure: 15:00
[2019-01-06 15:38] VITALS: BP 128/57; PULSE 93; TEMP 97.9
--- NOTE | 2019-01-06 18:05 | CP.PCM.PN ---
Subjective - Date & Time of Evaluation Date of Evaluation: 01/06/19 Time of Evaluation: 11:30 - Subjective Subjective: Patient is fairly stable ID suggested having an IV antibiotics for at least 10 days more. Has no fever Has no chest pain or SOB. Objective - Vital Signs/Intake and Output Vital Signs (last 24 hours): Temp Pulse Resp BP Pulse Ox 97.9 F 93 H 18 128/57 L 98 01/06/19 15:37 01/06/19 15:37 01/06/19 15:37 01/06/19 15:37 01/06/19 15:37 - Medications Medications: Current Medications Acetaminophen (Tylenol 325mg Tab) 650 mg PO Q6 PRN PRN Reason: Fever >100.4 F Last Admin: 01/03/19 21:52 Dose: 650 mg Aspirin (Ecotrin) 81 mg PO DAILY [facility] Last Admin: 01/06/19 09:25 Dose: 81 mg Atorvastatin Calcium (Lipitor) 20 mg PO DAILY [facility] Last Admin: 01/06/19 09:26 Dose: 20 mg Cholecalciferol (Vitamin D) 2,000 intlu PO DAILY [facility] Last Admin: 01/06/19 09:29 Dose: 2,000 intlu Dextrose (Dextrose 50% Inj) 0 ml IV STAT PRN; Protocol PRN Reason: Hypoglycemia Protocol Dextrose (Glutose 15) 0 gm PO ONCE PRN; Protocol PRN Reason: Hypoglycemia Protocol Docusate Sodium (Colace) 100 mg PO BID [facility] Last Admin: 01/06/19 16:06 Dose: 100 mg Ferrous Sulfate (Feosol) 325 mg PO DAILY [facility] Last Admin: 01/06/19 09:25 Dose: 325 mg Gabapentin (Neurontin) 100 mg PO DAILY [facility] Last Admin: 01/06/19 09:28 Dose: 100 mg Glucagon (Glucagen Diagnostic Kit) 0 mg IM STAT PRN; Protocol PRN Reason: Hypoglycemia Protocol Aztreonam 500 mg/ Sodium (Chloride) 50 mls @ 50 mls/hr IVPB Q8 [facility]; Protocol Last Admin: 01/06/19 16:04 Dose: 50 mls/hr Meropenem 500 mg/ Sodium (Chloride) 100 mls @ 100 mls/hr IVPB Q8 [facility]; Protocol Last Admin: 01/06/19 16:05 Dose: 100 mls/hr Insulin Detemir (Levemir) 45 units SC HS [facility] Last Admin: 01/05/19 21:40 Dose: 45 u Insulin Human Lispro (Humalog) 10 units SC TID [facility] Levothyroxine Sodium (Synthroid) 75 mcg PO DAILY@0630 [facility] Last Admin: 01/06/19 06:12 Dose: 75 mcg Multivitamins/Minerals (Therapeutic-M Tab) 1 tab PO DAILY [facility] Last Admin: 01/06/19 09:28 Dose: 1 tab Mupirocin (Bactroban Ointment) 1 applic TOP BID [facility] Last Admin: 01/06/19 17:36 Dose: 1 appl Mycophenolate Mofetil (Cellcept Cap) 1,000 mg PO Q12 [facility] Last Admin: 01/06/19 09:23 Dose: 1,000 mg Rahpt-6-Usts Ethyl Esters (Lovaza) 1 gm PO DAILY [facility] Last Admin: 01/06/19 09:26 Dose: 1 gm Pantoprazole Sodium (Protonix Ec Tab) 40 mg PO DAILY [facility] Last Admin: 01/06/19 09:28 Dose: 40 mg Prednisone (Prednisone Tab) 5 mg PO DAILY [facility] Last Admin: 01/06/19 09:28 Dose: 5 mg Rivaroxaban (Xarelto) 15 mg PO DAILYWM [facility]; Protocol Last Admin: 01/06/19 09:29 Dose: 15 mg Sitagliptin Phosphate (Januvia) 25 mg PO DAILY [facility] Last Admin: 01/06/19 09:26 Dose: 25 mg Tamsulosin HCl (Flomax) 0.4 mg PO BID [facility] Last Admin: 01/06/19 16:06 Dose: 0.4 mg - Labs Labs: 01/05/19 05:45 01/06/19 10:18 PT 27.2 Seconds (9.8-13.1) H 12/31/18 19:37 INR 2.4 12/31/18 19:37 APTT 39.2 Seconds (25.6-37.1) H 12/31/18 19:37 - Head Exam Head Exam: NORMAL INSPECTION - Eye Exam Eye Exam: Normal appearance - ENT Exam ENT Exam: Mucous Membranes Moist - Respiratory Exam Respiratory Exam: Clear to Ausculation Bilateral - Cardiovascular Exam Cardiovascular Exam: REGULAR RHYTHM - GI/Abdominal Exam GI & Abdominal Exam: Normal Bowel Sounds - Neurological Exam Neurological Exam: Awake, Oriented x3 Assessment and Plan (1) Pyelonephritis Status: Acute (2) CKD stage 2 due to type 2 diabetes mellitus Status: Acute (3) Hypertension Status: Acute - Assessment and Plan (Free Text) Plan: Cont meds Cont Iv antibiotics For PICC line today. medically stable for discharge to Subacute rehab [facility].
--- NOTE | 2019-01-07 03:22 | PN ---
DATE: 01/06/2019 FOLLOWUP RENAL CONSULTATION LOCATION: The patient is located in room 412, bed 1. REQUESTED BY: Osmel Frey MD REASON FOR FOLLOWUP: Acute renal failure, chronic kidney disease, gram-negative sepsis, pyelonephritis. HISTORY OF PRESENT ILLNESS: Mr. Simpson is 68-year-old elderly male with a history of longstanding hypertension, diabetes, atrial fibrillation, status post transmetatarsal amputation of the right foot, left AV fistula, end-stage renal disease, status post living-related kidney transplant about 5 years ago with a baseline creatinine of about 1.8 to 2, was [facility] with fever, chills, dysuria, frequency and cloudy urine and found to have elevated BUN and creatinine. The patient was found to have urosepsis and later blood culture was positive for E. coli. Initially, the patient was on Levaquin, subsequently changed to Azactam and meropenem as per ID. The patient is feeling much better. No hematuria. The patient is voiding well without difficulty. No abdominal pain. No nausea, vomiting, diarrhea. No dysuria or frequency. PHYSICAL EXAMINATION: VITAL SIGNS: As follows, blood pressure 118/75, pulse 92, respirations 18, temperature 97.3, saturation 98%, height 5 feet 5 inches, weight is 200 pounds. GENERAL: Mr. Simpson is a 68-year-old elderly male, moderately built, moderately nourished, not in acute distress. HEENT: Pupils normal and reactive to light and accommodation. Conjunctivae pink. Sclerae anicteric. Tongue is moist. Trachea is midline. LUNGS: Symmetric on both sides. Bilateral breath sounds present. Clear to auscultation. CARDIOVASCULAR: Clyo at the fifth intercostal space and midclavicular line. S1 and S2 audible. No murmur or gallop. ABDOMEN: Normal in appearance, soft, tympanitic. No guarding, no rigidity. No hepatosplenomegaly. CENTRAL NERVOUS SYSTEM: The patient is alert, awake, oriented x3. Nonfocal neuro examination. Cranial nerves II through XII grossly intact. Sensory and motor system is within normal limits. EXTREMITIES: No cyanosis, no clubbing, and no edema. Status post transmetatarsal amputation of the right foot. CURRENT MEDICATIONS: Include as follows: Neurontin 100 mg p.o. daily, prednisone 5 mg p.o. daily, Flomax 0.4 mg p.o. b.i.d., Crestor 40 mg p.o. at bedtime, Xarelto 20 mg p.o. daily, Prilosec 20 mg p.o. daily, omega-3 fatty acid 1400 mg p.o. daily, CellCept 500 mg 2 tablets p.o. every 12 hours, multivitamin 1 tablet daily, Tradjenta 5 mg p.o. daily, Synthroid 75 mcg daily, Humalog 20 units subcutaneous t.i.d., Lantus 50 units subcutaneous at bedtime, glipizide 2.5 mg p.o. daily, Lasix 20 mg p.o. b.i.d., ferrous sulfate 325 mg daily, vitamin D3 2000 units p.o. daily, Ecotrin 81 mg daily, Bactrim 1 tablet 3 times a week, meropenem 500 mg IV every 8 hours and Azactam 500 mg IV every 8 hours. LABORATORY DATA: Include as follows: As of 01/06/2019, sodium 135, potassium 3.7, chloride 99, CO2 of 21, BUN 31, creatinine 2.3, glucose 161, calcium 8.8. Repeat blood culture from 01/01/2019 is negative day #5 and MRSA screening was negative. Stool ova parasite is negative. ASSESSMENT: In summary, Mr. Simpson is a 68-year-old elderly male with a history of hypertension, diabetes, atrial fibrillation, end-stage renal disease, status post living-related kidney transplant about 5 years ago with chronic kidney disease, creatinine of 1.8 to 2, who was admitted with fever, chills, dysuria, frequency, increased brain natriuretic peptide and creatinine. 1. Acute renal failure, on chronic kidney disease. 2. Pyelonephritis. 3. Escherichia coli sepsis. 4. Status post living-related kidney transplant. PLAN: Continue his current medications, Azactam and meropenem as per ID recommendation, continue CellCept and prednisone. Renal function is improving. Increase p.o. fluids. Continue his Humalog, Lantus, and also glipizide. Repeat BMP in the a.m. The patient can be discharged from the renal standpoint once cleared by ID and continue antibiotics as per ID recommendations. Thank you for allowing me to participate in your patient's care. De Vieira MD
--- NOTE | 2019-01-08 14:01 | VASCULAR ---
Procedure: Ultrasound and fluoroscopically placed Right upper extremity PICC. Clinical indication: Long-term IV antibiotics. Technique: The relative risks and indications of the procedure were explained to the patient and written informed consent obtained. The patient was placed supine on the angiographic table and the right arm prepped and draped in the usual sterile fashion. A tourniquet was applied to the right axilla. 1% lidocaine was used to anesthetize the skin and soft tissues at the puncture site above the elbow. The right basilic vein was punctured under direct ultrasound guidance with a micropuncture set. A permanent image was stored. A 0.018 guidewire was advanced centrally and used to measure the length to the SVC/RA junction. A 4 Norwegian single-lumen PICC, size 35 cm, was advanced to the SVC/RA junction under fluoroscopic guidance. The catheter was flushed and secured. The patient tolerated the procedure well. Postprocedure chest image was obtained to ensure location of the catheter tip at the SVC right atrial junction. Impression: Ultrasound and fluoroscopically placed right upper extremity PICC. A 4 Norwegian single-lumen PICC, size 35 cm was advanced to the SVC/RA junction. PICC ready for use.
--- NOTE | 2019-01-12 11:02 | CP.PCM.DIS ---
Provider - Provider Date of Admission: 12/31/18 21:05 Attending physician: Osmel Frey MD Consults: 01/01/19 00:15 Nephrology Consult Routine Comment: Consulting Provider: De Vieira Consulting Physician: De Vieira Reason for Consult: kidney disease (S/P transplant), pyelonephritis, elevated creatinine 01/01/19 01:14 Case Management Referral Routine Comment: Physician Instructions: Reason For Exam: per protocol Reason for Referral: Discharge Planning Nursing Referral for Wound Care Routine Comment: Physician Instructions: Reason For Exam: low karri scale 01/02/19 12:12 Podiatry Consult Routine Comment: Consulting Provider: Aye Mejia Consulting Physician: Aye Mejia Reason for Consult: right ankle ulceration 01/03/19 11:03 Urology Consult Routine Comment: Consulting Provider: Brady Mcnally Consulting Physician: Brady Mcnally Reason for Consult: HEMATURIA, PENIS EDEMA 01/03/19 17:33 Infectious Disease Consult Routine Comment: Consulting Provider: Orestes Rocha Consulting Physician: Orestes Rocha Reason for Consult: bacteremia Time Spent in preparation of Discharge (in minutes): 30 Diagnosis - Discharge Diagnosis (1) Pyelonephritis Status: Acute (2) CKD stage 2 due to type 2 diabetes mellitus Status: Acute (3) Hypertension Status: Acute Hospital Course - Lab Results Lab Results: Micro Results 01/01/19 15:41 Blood Blood Culture - Final NO GROWTH AFTER 5 DAYS 01/01/19 15:41 Blood Gram Stain - Final TEST NOT PERFORMED 01/05/19 14:10 Stool Ova and Parasite Concentrate Exam - Final 01/02/19 15:00 Leg - Right Gram Stain - Final 01/02/19 15:00 Leg - Right Wound Culture - Final Corynebacterium Species 12/31/18 19:37 Blood-Venous Blood Culture - Final Escherichia Coli 12/31/18 19:37 Blood-Venous Gram Stain - Final 12/31/18 19:31 Blood-Venous Blood Culture - Final Escherichia Coli 12/31/18 19:31 Blood-Venous Gram Stain - Final 12/31/18 21:31 Urine Random Urine Culture - Final Escherichia Coli 01/01/19 16:28 Naris MRSA Culture (Admit) - Final MRSA NOT DETECTED Most Recent Lab Values WBC 3.4 K/uL (4.8-10.8) L 01/05/19 05:45 RBC 3.42 Mil/uL (4.40-5.90) L 01/05/19 05:45 Hgb 9.2 g/dL (12.0-18.0) L 01/05/19 05:45 Hct 28.4 % (35.0-51.0) L 01/05/19 05:45 MCV 83.2 fl (80.0-94.0) 01/05/19 05:45 MCH 27.0 pg (27.0-31.0) 01/05/19 05:45 MCHC 32.4 g/dL (33.0-37.0) L 01/05/19 05:45 RDW 17.7 % (11.5-14.5) H 01/05/19 05:45 Plt Count 168 K/uL (130-400) 01/05/19 05:45 MPV 9.8 fl (7.2-11.7) 01/01/19 04:35 Neut % (Auto) 85.4 % (50.0-75.0) H 01/01/19 04:35 Lymph % (Auto) 4.9 % (20.0-40.0) L 01/01/19 04:35 Maries % (Auto) 8.8 % (0.0-10.0) 01/01/19 04:35 Eos % (Auto) 0.4 % (0.0-4.0) 01/01/19 04:35 Baso % (Auto) 0.5 % (0.0-2.0) 01/01/19 04:35 Neut # (Auto) 4.0 K/uL (1.8-7.0) 01/01/19 04:35 Lymph # (Auto) 0.2 K/uL (1.0-4.3) L 01/01/19 04:35 Maries # (Auto) 0.4 K/uL (0.0-0.8) 01/01/19 04:35 Eos # (Auto) 0.0 K/uL (0.0-0.7) 01/01/19 04:35 Baso # (Auto) 0.0 K/uL (0.0-0.2) 01/01/19 04:35 Neutrophils % (Manual) 78 % (42-75) H 12/31/18 19:37 Band Neutrophils % 6 % (0-2) H 12/31/18 19:37 Lymphocytes % (Manual) 7 % (20-50) L 12/31/18 19:37 Monocytes % (Manual) 9 % (0-10) 12/31/18 19:37 Platelet Estimate Normal (NORMAL) 12/31/18 19:37 Hypochromasia (manual) Slight 12/31/18 19:37 Poikilocytosis (manual Slight 12/31/18 19:37 Anisocytosis (manual) Moderate 12/31/18 19:37 Microcytosis (manual) Slight 12/31/18 19:37 PT 27.2 Seconds (9.8-13.1) H 12/31/18 19:37 INR 2.4 12/31/18 19:37 APTT 39.2 Seconds (25.6-37.1) H 12/31/18 19:37 Sodium 135 mmol/l (132-148) 01/06/19 10:18 Potassium 3.7 MMOL/L (3.6-5.0) 01/06/19 10:18 Chloride 99 mmol/L (98-107) 01/06/19 10:18 Carbon Dioxide 21 mmol/L (22-30) L 01/06/19 10:18 Anion Gap 19 (10-20) 01/06/19 10:18 BUN 31 mg/dl (9-20) H 01/06/19 10:18 Creatinine 2.3 mg/dl (0.8-1.5) H 01/06/19 10:18 Est GFR ( Amer) 34 01/06/19 10:18 Est GFR (Non-Af Amer) 28 01/06/19 10:18 POC Glucose (mg/dL) 277 mg/dL (65-110) H 01/06/19 15:56 Random Glucose 161 mg/dL (75-110) H 01/06/19 10:18 Hemoglobin A1c 8.9 % (4.2-6.5) H 01/01/19 04:35 Lactic Acid 1.2 mmol/L (0.7-2.1) 01/01/19 04:35 Calcium 8.8 mg/dL (8.4-10.2) 01/06/19 10:18 Total Bilirubin 1.2 mg/dl (0.2-1.3) 01/05/19 05:45 AST 69 U/L (17-59) H 01/05/19 05:45 ALT 67 U/L (21-72) 01/05/19 05:45 Alkaline Phosphatase 233 U/L (38-126) H 01/05/19 05:45 Total Protein 6.1 G/DL (6.3-8.2) L 01/05/19 05:45 Albumin 3.2 g/dL (3.5-5.0) L 01/05/19 05:45 Globulin 2.9 gm/dL (2.2-3.9) 01/05/19 05:45 Albumin/Globulin Ratio 1.1 (1.0-2.1) 01/05/19 05:45 Procalcitonin 1.33 NG/ML (0.19-0.49) H 01/05/19 05:45 Urine Color Addie (YELLOW) 12/31/18 21: Urine Clarity Cloudy (Clear) 12/31/18 21: Urine pH 6.0 (5.0-8.0) 12/31/18 21: Ur Specific Ventura 1.012 (1.003-1.030) 12/31/18 21: Urine Protein 100 mg/dL (NEGATIVE) 12/31/18 21: Urine Glucose (UA) 150 mg/dL (NEGATIVE) 12/31/18 21:23 Urine Ketones Negative mg/dL (NEGATIVE) 12/31/18 21: Urine Blood Large (NEGATIVE) 12/31/18 21: Urine Nitrate Negative (NEGATIVE) 12/31/18 21: Urine Bilirubin Negative (NEGATIVE) 12/31/18 21: Urine Urobilinogen 0.2-1.0 mg/dL (0.2-1.0) 12/31/18 21: Ur Leukocyte Esterase Large Benji/uL (Negative) 12/31/18 21:23 Urine RBC (Auto) 558 /hpf (0-3) H 12/31/18 21:23 Urine WBC Clumps (Auto) Few /hpf (NONE) H 12/31/18 21:23 Urine Microscopic WBC 273 /hpf (0-5) H 12/31/18 21:23 Amorphous Sediment Occ /ul (<OCC) H 12/31/18 21:23 Urine Bacteria Few (<OCC) H 12/31/18 21:23 Mycophenolic Acid 1.5 mcg/mL (1.0-3.5) 01/02/19 06:35 MPA Glucuronide 220.0 mcg/mL (35.0-100.0) H 01/02/19 06:35 Absolute Lymphs (Flow) 204 Cells/mcL (850-3900) L 01/02/19 06:35 % CD4 Cells 61 Percent (30-61) 01/02/19 06:35 Absolute CD4 Count 124 Cells/mcL (490-1740) L 01/02/19 06:35 T-Help/Suppress Ratio 2.89 Ratio (0.86-5.00) 01/02/19 06:35 % CD8 Cells 21 Percent (12-42) 01/02/19 06:35 Absolute CD8 Count 43 Cells/mcL (180-1170) L 01/02/19 06:35 T-Lymph Analys Comment See note 01/02/19 06:35 Hepatitis A IgM Ab Negative (NEGATIVE) 01/02/19 06:35 Hep Bs Antigen Negative (NEGATIVE) 01/02/19 06:35 Hep B Core IgM Ab Negative (NEGATIVE) 01/02/19 06:35 Hepatitis C Antibody Negative (NEGATIVE) 01/02/19 06:35 HIV 1&2 Antibody Screen Negative (NEGATIVE) 01/02/19 06:35 Influenza Typ A,B (EIA) Negative for flu a/b (NEGATIVE) 12/31/18 19:53 - Hospital Course Hospital Course: This is a 68 y/o male admitted for dysuria , fever and chills and leg edema. Noted to have UTI and was started on IV antibiotics. He was seen by Inf disease consult and was started on Azactam, Urine Culture was positive for E Coli. He was maintained on iv antibiotics and suggested going to subacute rehab for continuation of iv antibiotics. He was discharged to [facility] in stable condition. Discharge Exam - Head Exam Head Exam: NORMAL INSPECTION - Eye Exam Eye Exam: Normal appearance - Respiratory Exam Respiratory Exam: NORMAL BREATHING PATTERN - Cardiovascular Exam Cardiovascular Exam: REGULAR RHYTHM - GI/Abdominal Exam GI & Abdominal Exam: Normal Bowel Sounds - Neurological Exam Neurological exam: CN II-XII Intact - Psychiatric Exam Psychiatric exam: Normal Mood Discharge Plan - Discharge Medications Prescriptions: Aztreonam [Azactam] 500 mg IV Q8 #30 vial Sulfamethoxazole/Trimethoprim [Bactrim DS 800 mg-160 mg] 1 tab PO MWF #30 tab MEROPENEM 500 MG in NS [Merrem IV 500 MG/NS 50 ML] 500 mg IV Q8 #30 bag - Follow Up Plan Condition: FAIR Disposition: TRANSF TO SNF Instructions: Urinary Tract Infection, Adult (DC), Chronic Kidney Disease (DC) Referrals: Osmel Frey MD [Staff Provider] -
--- NOTE | 2019-01-12 14:05 | PQF ---
PROVIDER RESPONSE TEXT: Chronic atrial fibrilation REVIEWER QUERY TEXT: Atrial Fibrillation Type Atrial fibrillation is documented in the Medical Record. Please specify the type Such as: -- Chronic -- Paroxysmal -- Permanent -- Persistent -- Other, please specify The patient's Clinical Indicators include: PMH: Atrial fibrillation EKG: Atrial Fibrillation Medication: Xarelto Query created by: Yeimi Bishop on 01/05/2019 1:01 PM Electronically signed by: Osmel Frey MD 01/12/2019 2:02 PM
--- NOTE | 2019-01-12 14:05 | PQF ---
PROVIDER RESPONSE TEXT: Santiago catheter related UTI REVIEWER QUERY TEXT: Documentation Clarification Your help is requested in clarifying the following clinical documentation, if you can please further specify in the medical record and discharge summary. ER: Patient presents from [facility] and has an indwelling santiago catheter in place. DX: Pyelone phritis ID: Resident of [facility] and has an indwelling santiago catheter. Dx: Gram Negative Sepsis likely alejandro loneophritis of transplanted kidney. Pyelo/Sepsis from infected transplant.. Attending: Not on santiago at home. Pyelonephritis Please clarify the etiology of the Gram negative Sepsis: Pyelonephritis of transplanted kidney/infect ion, santiago catheter related uti or other explanation. The patient's Clinical Indicators include: Presents with fever, chills and dysuria. Has a santiago catheter and kidney transplant recipient. TEMP 102.9, 102.8, 99.1, 99, 99, 97.8, 102.7, 102.7 HR 105, 97, 85, 89, 89, 92, 109 BP 132/73, 82/48, 89/49, 91/52, 91/52, 100/60, 108/53 R 20, 18, 18, 18, 16, 20 WBC 6.1 L shift 6% BANDS, PLT 121, Procalcitonin 8.87 BLOOD and URINE CS : E Coli, Right Leg Ulcer: Corynebacterium Species Rx: Azactam and Merrem Query created by: Yeimi Bishop on 01/05/2019 12:59 PM Electronically signed by: Osmel Frey MD 01/12/2019 2:02 PM
--- NOTE | 2019-01-12 14:05 | PQF ---
PROVIDER RESPONSE TEXT: Chronic diastolic chf REVIEWER QUERY TEXT: CHF Acuity and Type Documentation of a history of CHF. On Lasix at home only. ECHO from 2015 :EF normal, Transmitral Doppler flow pattern is Grade I abnormal relaxation pattern, LVH, No regional wall motion abnormality noted, LA mildly dilated, mild TR Congestive Heart Failure is documented in the Medical Record. Please document the type and acuity (in cludes probable or suspected) Such as: Type: -- Systolic -- Diastolic -- Combined -- Other, please specify Acuity: -- Acute -- Chronic -- Acute on chronic -- Other, please specify Also please document the underlying cause of the CHF (includes probable or suspected) The patient's Clinical Indicators include: Documentation of a history of CHF. On Lasix at home only. ECHO from 2015 :EF normal, Transmitral Doppler flow pattern is Grade I abnormal relaxation pattern, LVH, No regional wall motion abnormality noted, LA mildly dilated, mild TR Query created by: Yeimi Bishop on 01/05/2019 1:09 PM Electronically signed by: Osmel Frey MD 01/12/2019 2:02 PM
== END 2019-01-06 20:50 | DRG 698 ==
LOC: H.ER 18:12 → H.ERHOLD 21:05 → H.TEL 23:50
PROVIDERS: ADMIT Family Medicine; ATTEND Family Medicine
PROC: 02HV33Z Insertion of Infusion Device into Superior Vena Cava, Percutaneous Approach (ICD-10-PCS; principal; 2019-01-06)
PROC: B518ZZA Fluoroscopy of Superior Vena Cava, Guidance (ICD-10-PCS; 2019-01-06)
PROC: B548ZZA Ultrasonography of Superior Vena Cava, Guidance (ICD-10-PCS; 2019-01-06)
DX: T83.511A Infection and inflammatory reaction due to indwelling urethral catheter, initial encounter (principal); A41.51 Sepsis due to Escherichia coli [E. coli]; R65.20 Severe sepsis without septic shock; N17.0 Acute kidney failure with tubular necrosis; N12 Tubulo-interstitial nephritis, not specified as acute or chronic; E87.1 Hypo-osmolality and hyponatremia; I13.0 Hypertensive heart and chronic kidney disease with heart failure and stage 1 through stage 4 chronic kidney disease, or unspecified chronic kidney disease; T86.13 Kidney transplant infection; L97.919 Non-pressure chronic ulcer of unspecified part of right lower leg with unspecified severity; I50.32 Chronic diastolic (congestive) heart failure; Z94.0 Kidney transplant status; E86.0 Dehydration; E11.65 Type 2 diabetes mellitus with hyperglycemia; N18.3 Chronic kidney disease, stage 3 (moderate); L89.512 Pressure ulcer of right ankle, stage 2; D63.1 Anemia in chronic kidney disease; E03.9 Hypothyroidism, unspecified; E11.22 Type 2 diabetes mellitus with diabetic chronic kidney disease; N39.0 Urinary tract infection, site not specified; I48.2 Chronic atrial fibrillation; E66.9 Obesity, unspecified; Z68.33 Body mass index [BMI] 33.0-33.9, adult; E78.00 Pure hypercholesterolemia, unspecified; E78.5 Hyperlipidemia, unspecified; E87.6 Hypokalemia; G47.30 Sleep apnea, unspecified; R31.9 Hematuria, unspecified; N48.89 Other specified disorders of penis; Z79.01 Long term (current) use of anticoagulants; Z85.51 Personal history of malignant neoplasm of bladder; Z86.19 Personal history of other infectious and parasitic diseases; Z87.01 Personal history of pneumonia (recurrent); Z87.891 Personal history of nicotine dependence; Z88.0 Allergy status to penicillin; Z89.431 Acquired absence of right foot; Z95.0 Presence of cardiac pacemaker; H26.9 Unspecified cataract; M19.90 Unspecified osteoarthritis, unspecified site; R33.9 Retention of urine, unspecified; R94.5 Abnormal results of liver function studies; Y84.6 Urinary catheterization as the cause of abnormal reaction of the patient, or of later complication, without mention of misadventure at the time of the procedure